=== PATIENT | male | born 1960 | race Caucasian/White ===

== ENCOUNTER → 2017-10-31 15:57 | Outpatient (CLI) | payer OTHER, SELFPAY ==
[2017-10-31 17:29] LABS: Absolute Lymphocyte Count 1.94 X10^3/ul (0.83-4.51); Absolute Neutrophil Count 5.7 X10^3/uL (2.0-7.7); Basophil# 0.02 X10^3/uL; Basophil% 0.2 % (0-1); Eosinophil# 0.18 X10^3/uL; Eosinophils% 2.1 % (0-5); Hematocrit 43.4 % (40-54); Lymphocyte # 1.94 X10^3/ul (4.0); Lymphocyte % 22.3 % (19-41); Mean Corp Hgb Conc 34.6 g/gl (32-36); Mean Corpuscular Hgb 29.5 pg (27.0-32.0); Mean Corpuscular Volume 85.4 fL (80-94); Mean Platelet Vol. 9.2 fl (6.2-12.0); Monocyte# 0.81 X10^3/uL; Monocyte% 9.3 % (0-10); Neutrophil # 5.73 X10^3/uL (2.7-7.7); Platelet Count 253 K/mm3 (150-450); RBC Distribution Width CV 13.7 % (11.6-14.6); RBC Distribution Width SD 42.1 fl (35.1-43.9); Red Blood Count 5.08 M/mm3 (4.6-6.2); White Blood Count 8.7 K/mm3 (4.4-11.0)
[2017-10-31 17:30] LABS: POSITIVE COUNT NO; POSITIVE DIFFERENTIAL NO; POSITIVE MORPHOLOGY NO
[2017-10-31 17:44] LABS: ALB/GLOB Ratio 1.1 RATIO (0.9-2.4); AST(SGOT) 29 U/L (15-37); Alanine Aminotransfer ALT/SGPT 43 U/L (16-61); Albumin, Serum 4.2 g/dL (3.2-5.0); Alkaline Phosphatase 67 U/L (45-117); Anion Gap 9 (5-15); BUN 16 mg/dL (7-18); BUN/Creat Ratio 13.3 RATIO (10-20); Calcium,Total 9.2 mg/dL (8.5-10.1); Chloride 103 mmol/L (98-107); EST Glomerular Filtration Rate 66 mL/min (>60); Est Glom Filt Rate - Afr Amer 80 mL/min (>60); Globulin 3.7 g/dL (2.2-4.2); Glucose 106 mg/dL (74-106); PSA,Total - Annual Screen 1.25 ng/mL (0.00-4.00); Protein, Total 7.9 g/dL (6.4-8.2); Sodium Level 141 mmol/L (136-145); Thyroid Stim Hormone (TSH) 2.33 uIU/mL (0.358-3.74)
[2017-11-04 12:25] LABS: Hep C Antibodies <0.1 s/co ratio (0.0-0.9)
== END ==
PROVIDERS: Family Provider Family Medicine Geriatric Medicine; PCP Family Medicine Geriatric Medicine; Visit Provider Family Medicine Geriatric Medicine
DX: F52.8 Other sexual dysfunction not due to a substance or known physiological condition (principal); I10 Essential (primary) hypertension; Z12.5 Encounter for screening for malignant neoplasm of prostate; Z13.89 Encounter for screening for other disorder
CPT/HCPCS: 80053; 84153; 84403; 84443; 85025; 86803; G0103

== ENCOUNTER → 2017-12-19 08:32 | Outpatient (CLI) | payer OTHER, SELFPAY | PROVIDERS: Family Provider Family Medicine Geriatric Medicine; PCP Family Medicine Geriatric Medicine; Visit Provider Family Medicine Geriatric Medicine | DX: R22.1 Localized swelling, mass and lump, neck (principal) | CPT/HCPCS: 76536 ==

== ENCOUNTER → 2017-12-27 14:49 | Outpatient (CLI) | payer SELFPAY, OTHER ==
--- NOTE | 2017-12-27 14:53 | CT_ITS ---
STUDY: CT SOFT TISSUE NECK WITH CONTRAST REASON FOR EXAM: Male, 57 years old. Neck mass RADIATION DOSAGE (If Supplied By Facility): CTDIvol = ( 24.30 ) mGy, DLP = ( 655.28 ) mGycm TECHNIQUE: The patient was scanned in a multi-detector CT scanner. High resolution transaxial imaging was performed following intravenous administration of 100 ml of Isovue 370 contrast material. Sagittal and coronal images were reconstructed. Individualized dose optimization techniques were used for this CT. COMPARISON: Ultrasound soft tissues of the neck 12/19/2017. FINDINGS: A BB marker has been placed left anterior submandibular neck soft tissues at the area of palpable lump. There is no visible lipoma. There is no other visible mass. Normal submandibular glands. Normal parotid glands. A few small submandibular lymph nodes are present, none pathologically enlarged. A few borderline enlarged lymph nodes are present bilateral jugulodigastric chains, symmetric in chronic appearance. Neck muscular soft tissues appear normal. Pharyngeal soft tissues appear normal. There are small mucous retention cysts of the maxillary sinuses, mild mucoperiosteal thickening of the ethmoid sinuses, clear mastoid sinuses and middle ear cavities. Craniofacial osseous structures unremarkable. No acute intracranial process is evident of the skull base. Cervical vasculature normal. Apical lungs clear. No supraclavicular lymphadenopathy. Normal thyroid. There is moderate to moderately severe disc narrowing of the cervical spine at all levels between C4 and T1, with uncovertebral joint hypertrophy contributing to mild multilevel foraminal narrowing. CT/Soft Tissue Neck WITH Contrast IMPRESSION: There is no evidence of left-sided neck mass. There is no lymphadenopathy. Electronically Signed: Luis Eckert, at 16:09 EDT Tel , Service support ,
== END ==
PROVIDERS: Family Provider Family Medicine Geriatric Medicine; PCP Family Medicine Geriatric Medicine; Visit Provider Family Medicine Geriatric Medicine
DX: R22.1 Localized swelling, mass and lump, neck (principal)
CPT/HCPCS: 70491; Q9967

== ENCOUNTER → 2018-04-14 11:23 | Outpatient (CLI) | payer OTHER, SELFPAY ==
[2018-04-14 11:43] LABS: Absolute Lymphocyte Count 1.81 X10^3/ul (0.83-4.51); Absolute Neutrophil Count 3.9 X10^3/uL (2.0-7.7); Basophil# 0.04 X10^3/uL; Basophil% 0.6 % (0-1); Eosinophils% 4.5 % (0-5); Hematocrit 43.3 % (40-54); Hemoglobin 14.7 g/dl (13.0-16.5); Lymphocyte # 1.81 X10^3/ul (4.0); Lymphocyte % 26.9 % (19-41); Mean Corp Hgb Conc 33.9 g/gl (32-36); Mean Corpuscular Hgb 28.9 pg (27.0-32.0); Mean Corpuscular Volume 85.2 fL (80-94); Mean Platelet Vol. 8.8 fl (6.2-12.0); Monocyte# 0.66 X10^3/uL; Monocyte% 9.8 % (0-10); Neutrophil % 57.9 % (47-70); Platelet Count 224 K/mm3 (150-450); RBC Distribution Width CV 14.1 % (11.6-14.6); RBC Distribution Width SD 43.3 fl (35.1-43.9); Red Blood Count 5.08 M/mm3 (4.6-6.2); White Blood Count 6.7 K/mm3 (4.4-11.0)
[2018-04-14 11:49] LABS: POSITIVE COUNT NO; POSITIVE DIFFERENTIAL NO; POSITIVE MORPHOLOGY NO
[2018-04-14 12:19] LABS: AST(SGOT) 22 U/L (15-37); Alanine Aminotransfer ALT/SGPT 33 U/L (16-61); Albumin, Serum 3.9 g/dL (3.2-5.0); Alkaline Phosphatase 62 U/L (45-117); Anion Gap 10 (5-15); BUN 11 mg/dL (7-18); BUN/Creat Ratio 11.9 RATIO (10-20); Calcium,Total 8.9 mg/dL (8.5-10.1); Chloride 102 mmol/L (98-107); Creatinine, Serum 0.92 mg/dL (0.70-1.30); EST Glomerular Filtration Rate 89 mL/min (>60); Est Glom Filt Rate - Afr Amer 108 mL/min (>60); Globulin 3.8 g/dL (2.2-4.2); Glucose 104 mg/dL (74-106); Potassium 4.2 mmol/L (3.5-5.1); Protein, Total 7.7 g/dL (6.4-8.2); Sodium Level 140 mmol/L (136-145)
== END ==
PROVIDERS: Family Provider Family Medicine Geriatric Medicine; PCP Family Medicine Geriatric Medicine; Referring Provider Family Medicine Geriatric Medicine; Visit Provider Family Medicine Geriatric Medicine
DX: R53.83 Other fatigue (principal); F52.8 Other sexual dysfunction not due to a substance or known physiological condition
CPT/HCPCS: 36415; 80053; 84403; 84443; 85025

== ENCOUNTER 2020-04-20 19:21 | Inpatient (IN) | payer OTHER, SELFPAY ==
[2020-04-20] VITALS (10 sets, daily range): BP systolic 109–119; BP diastolic 33–83; PULSE 69–178; RESP 16–18; TEMP 36.1–36.8; O2SAT 95–100; BMI 45.3; BMI 45.4
--- NOTE | 2020-04-20 19:55 | EKG12_ITS ---
Test Reason : DYSRHYTHMIA Blood Pressure : / mmHG Vent. Rate : 088 BPM Atrial Rate : 088 BPM P-R Int : 216 ms QRS Dur : 170 ms QT Int : 404 ms P-R-T Axes : 066 015 160 degrees QTc Int : 488 ms Sinus rhythm with 1st degree A-V block Left bundle branch block Abnormal ECG Confirmed by JUDITH STEWART, KEVEN ([id number]), soldering machine tender BRANDY MAGUIRE ([id number]) on 04/22/2020 8:26:07 AM Referred By: JOSELITO Confirmed By:KEVEN WONG MD
--- NOTE | 2020-04-20 19:56 | ED.VIS.CHEST ---
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 Negative for: Diaphoresis, Cough Narrative: 59-year-old male had acute onset of racing heartbeat shortness of breath and pressure in his lower chest upper abdomen. He felt a little lightheaded but did not become syncopal. This lasted 10 or 20 minutes, and then he felt better but the chest pressure lasted for about an hour before it resolved. During feeling poorly, he went inside and used a home blood pressure cuff to check his vital signs, his pressure was low and his heart rate was calculated as 180. He states now all of the symptoms are resolved. He states at the time he was working in a garage that was closed with a car running, but he was only in there for 5 minutes or less. He did smell fumes, and shortly thereafter left that room and turned the car off. He states he was working in his garage. 5 years ago he had an indeterminate stress test at [facility] in [place], this resulted in a heart cath that he was told was normal. He used to have hypertension and hyperlipidemia, but in changing his diet and losing some weight, he is now off of medications for both of those. He states he started a diet several days ago, where he is just drinking Slim fast shakes for meal replacement and that is it, and drinking fluids. This is not an Atkins/ketogenic shake. He denies any recent illness. Patient presents during the national coronavirus emergency declaration/pandemic. Denies any known contact with anyone infected with COVID-19, and denies having had the illness that he knows of this past year or so. Denies traveling out of the immediate area recently. Prior Similar Symptoms: No Recent Illness/Hospitalization: No Past Medical History - Allergies and Home Meds Allergies/Adverse Reactions: Allergies No Known Allergies Allergy (Verified 04/20/20 19:24) Primary Care Physician: Jasen Bhardwaj Chi, MD [Primary Care Provider] - Past Medical History: None - Except hypertension and hyperlipidemia that are resolved. See HPI. Lives: With Family Smoking Status: Never smoker Review of Systems General: Denies: Chills, Fever, Sweats Eyes: Denies: Visual changes - bilaterally, Diplopia ENT: Denies: Bilateral ear pain, Rhinorrhea, Sore throat Cardiovascular: Reports: Chest pain, Palpitations, Heart racing Respiratory: Reports: Dyspnea. Denies: Cough, Dyspnea on exertion Gastrointestinal: Reports: Nausea. Denies: Abdominal pain, Vomiting, Diarrhea, Melena, Hematochezia Genitourinary: Denies: Dysuria, Hematuria, Frequency Musculoskeletal: Denies: Back pain, Extremity Pain Skin: Denies: Rash, Wounds Neurological: Denies: Headache, Weakness, Numbness Psych: Denies: Depression, Suicidal thoughts Physical Exam Vital Signs/Narrative: Vital Signs Temp Pulse Resp BP Pulse Ox 04/20/20 19:38 88 04/20/20 19:22 96.9 F L 178 H 18 113/33 L 96 Inital Vital Signs reviewed: Yes General: Well nourished, Well developed, Obese, No Acute Distress Head: Normocephalic, Atraumatic Eyes: Perrl, EOMI ENT: Moist mucous membranes, No rhinorrhea Neck: Supple, Nontender, No lymphadenopathy, No JVD Cardiovascular: Regular rate, Regular rhythm, No murmurs, Normal S1, Normal S2. Negative for: Tachycardia Respiratory: No distress, CTA bilaterally, Chest nontender Abdomen: Soft, Nontender, Nondistended, Normal bowel sounds Back: Nontender, Normal Inspection Extremities: Nontender, No edema. Negative for: Calf Tenderness Skin: Normal color, No rash, No Trauma Neurological: Alert, Oriented x3, Cranial nerves II-XII grossly intact, Normal Strength, Normal Sensation Psychological: Normal affect, Normal Mood Diagnostic/Tx/Re-eval Impressions Chest X-Ray 04/20/20 20:15 IMPRESSION: No acute cardiopulmonary pathology Electronically Signed: Michael Blandon MD at 21:00 EST , Service support , 04/20/20 20:15 Chest 1 View (Portable) [RAD] Stat Laboratory Results 04/20/20 04/20/20 04/20/20 19:34 19:34 19:34 WBC 9.4 RBC 5.32 Hgb 15.2 Hct 45.1 MCV 84.8 MCH 28.6 MCHC 33.7 RDW Std Deviation 40.5 RDW Coeff of Perla 13.1 Plt Count 258 MPV 9.0 Immature Gran % (Auto) 0.300 Neut % (Auto) 63.7 Lymph % (Auto) 24.7 Coffey % (Auto) 8.8 Eos % (Auto) 2.1 Baso % (Auto) 0.4 Absolute Neuts (auto) 6.0 Absolute Lymphs (auto) 2.32 Nucleated RBC % 0 APTT 28.2 VBG Carboxyhemoglobin Sodium 136 Potassium 4.2 Chloride 102 Carbon Dioxide 29.0 Anion Gap 5 BUN 20 H Creatinine 1.14 Estim Creat Clear Calc 73.39 Est GFR (MDRD) Af Amer 84 Est GFR (MDRD) Non-Af 70 BUN/Creatinine Ratio 17.5 Glucose 117 H Calcium 9.4 Troponin I 0.051 H 04/20/20 20:05 WBC RBC Hgb Hct MCV MCH MCHC RDW Std Deviation RDW Coeff of Perla Plt Count MPV Immature Gran % (Auto) Neut % (Auto) Lymph % (Auto) Coffey % (Auto) Eos % (Auto) Baso % (Auto) Absolute Neuts (auto) Absolute Lymphs (auto) Nucleated RBC % APTT VBG Carboxyhemoglobin 5.0 H Sodium Potassium Chloride Carbon Dioxide Anion Gap BUN Creatinine Estim Creat Clear Calc Est GFR (MDRD) Af Amer Est GFR (MDRD) Non-Af BUN/Creatinine Ratio Glucose Calcium Troponin I - Rhythm Strip Rhythm Strip: Sinus Rhythm Rate: 92 Ectopy: None - EKG Initial EKG Interpretation: Sinus Rhythm, No Acute Injury Pattern, LBBB Prior: No Prior Treatment: Aspirin Repeat Eval: Pain Free YAZMIN Risk: Elevated Enzymes Score: 1 - Medical Decision Making Initially, the patient's monitor was alarming about tachycardia in the 170s. However at looking at his waveform, he has a left bundle branch block, wide complex QRS, with a pulse of around 90. I changed the lead that the monitor was showing, and his heart rate suddenly changed to 92, the tachycardia here in the ER was false due to the machine reading the QRS complex as well as the tall T waves and doubling his pulse. However since he measured his vital signs with a blood pressure cuff, he probably was that tachycardic at home. All of his symptoms are resolved on exam. However this is all very concerning for dysrhythmia such as ventricular tachycardia. Along with the chest pressure he was having, and his relative risk factors and age, with the concerning symptoms, as well as a nonspecifically slightly elevated troponin, admission for inpatient observation I believe is warranted and recommended. The patient is amenable to that. He had no recurrent symptoms or telemetry events while monitored in the emergency department. ED Disposition - Plan for ED Patient: Disposition: Acute Care Hospital [facility] Diagnosis: Chest pain, unspecified, Palpitations, Elevated troponin, Near syncope Referrals: Jasen Bhardwaj Chi, MD [Primary Care Provider] -
[2020-04-20 20:10] LABS: Absolute Lymphocyte Count 2.32 X10^3/uL (0.83-4.51); Basophil# 0.04 X10^3/uL; Basophil% 0.4 % (0-1); Eosinophils% 2.1 % (0-5); Hematocrit 45.1 % (40-54); Hemoglobin 15.2 g/dL (13.0-16.5); Lymphocyte # 2.32 X10^3/ul (4.0); Lymphocyte % 24.7 % (19-41); Mean Corp Hgb Conc 33.7 g/dL (32-36); Mean Corpuscular Hgb 28.6 pg (27.0-32.0); Mean Corpuscular Volume 84.8 fL (80-94); Monocyte# 0.83 X10^3/uL; Monocyte% 8.8 % (0-10); NRBC Flagged by Analyzer 0 % (0-5); Neutrophil # 5.98 X10^3/uL (2.7-7.7); Neutrophil % 63.7 % (47-70); Platelet Count 258 K/mm3 (150-450); RBC Distribution Width CV 13.1 % (11.6-14.6); RBC Distribution Width SD 40.5 fl (35.1-43.9); Red Blood Count 5.32 M/mm3 (4.6-6.2); White Blood Count 9.4 K/mm3 (4.4-11.0)
[2020-04-20] MEDS: Aspirin 81 MG TAB.CHEW 324 MG PO (20:10)
[2020-04-20] MEDS: 0.9% Normal Saline 1,000 ML 150 ML IV (20:10)
[2020-04-20 20:15] LABS: Partial Thromboplast Time 28.2 Seconds (24.1-36.2)
--- NOTE | 2020-04-20 20:15 | RAD_ITS ---
STUDY: X-RAY CHEST REASON FOR EXAM: Male, 59 years old. STARTED SLIM FAST DIET AND TODAY UPPER ABDOMINAL PAIN,LOW BP,HIGH HR TECHNIQUE: AP portable COMPARISON: None. FINDINGS: The lungs are clear and expanded. There is no demonstrated pleural abnormality. Normal size heart. Normal mediastinum and travis. Normal visualized pulmonary arteries. Normal visualized aortic arch and descending thoracic aorta. Dorsal spine demonstrates degenerative change. Normal visualized ribs, clavicles, and shoulders. There is no demonstrated abnormality of the visualized soft tissue structures of the upper abdomen. RAD/Chest 1 View (Portable) IMPRESSION: No acute cardiopulmonary pathology Electronically Signed: Michael Blandon MD at 21:00 EST , Service support ,
[2020-04-20 20:24] LABS: Anion Gap 5 (5-15); BUN 20 mg/dL (7-18); BUN/Creat Ratio 17.5 RATIO (10-20); Calcium,Total 9.4 mg/dL (8.5-10.1); Chloride 102 mmol/L (98-107); Creatinine, Serum 1.14 mg/dL (0.70-1.30); EST Glomerular Filtration Rate 70 mL/min (>60); Est Glom Filt Rate - Afr Amer 84 mL/min (>60); Estimated Creatinine Clearance 73.39 ml/min; Glucose 117 mg/dL (74-106); Potassium 4.2 mmol/L (3.5-5.1); Sodium Level 136 mmol/L (136-145)
--- NOTE | 2020-04-20 21:22 | PCM.HP.STD ---
Problem List (1) NSTEMI (non-ST elevated myocardial infarction) Status: Acute (2) Chest pain, unspecified Status: Acute Qualifiers: Chest pain type: unspecified Qualified Code(s): R07.9 - Chest pain, unspecified (3) Palpitations Status: Acute (4) Near syncope Status: Acute (5) Morbid obesity Status: Chronic History of Present Illness Date of Admission: 04/20/20 Chief Complaint: Chest pressure - 1 day. Palpitations The patient is a 59 year old M with no significant past medical history who comes in with complaints of shortness of breath and palpitations as well as chest pressure that started around 5:30 PM the day of admission. This happened when he was in his driveway. Patient felt very short of breath going from his car to his house. He checked his blood pressure on his machine and his blood pressure was low, heart rate was elevated at 185. He had associated dizziness but no diaphoresis. He denied any syncopal episode. He read up on the elevated heart rate on the Internet and was told to go to the hospital. When he got to the hospital, his heart rate and blood pressure improved soon after he got here. He denied having a previous episode like that. He has had previous cardiac work-up 5 years ago in [facility] by Dr. Newby in which his stress test was indeterminate and he subsequently had a cardiac cath that was unremarkable. His initial vitals in the ED showed temperature of 96.9F, heart rate 178, blood pressure 113/33, RR 18, Spo2 96%, on room air. Admitting labs showed unremarkable CBCD, APTT 28.2, VBG carboxyhemoglobin 5.0. Chest x-ray shows no acute cardiopulmonary abnormality. Past Medical History Past Medical History (Chronic Problems): Chronic Problems Morbid obesity (Chronic) Allergies No Known Allergies Allergy (Verified 04/20/20 19:24) Home Medications: Ambulatory Orders Medication Instructions Recorded Ergocalciferol [Vitamin D] 04/20/20 Zinc 50 mg PO DAILY 04/20/20 Surgical History: appendectomy, - - status post cardiac catheter 5 years ago, left surgery Lives: With Family Smoking Status: Never smoker Tobacco Use: Non-smoker Alcohol: None Drugs: None - *Family History Maternal History Items: Cancer Paternal History Items: Unknown Review of Systems Constitutional: Denies: Anorexia, Chills, Fever, Malaise, Weakness, Weight Change, Fatigue Eyes: Denies: Blurred vision, Cataracts, Conjunctivae Inflammation, Pain, Redness, Vision Change HEENT: Denies: Difficulty Hearing, Difficulty Swallowing, Head Aches, Hearing Changes, Sinus Congestion, Sinus Drainage Cardiovascular: Reports: Chest Pressure, Chest Tightness. Denies: Chest Pain, Claudication, Orthopnea, Palpitations, Paroxysmal Noc. Dyspnea Respiratory: Reports: Shortness of Breath, Shortness of breath at rest. Denies: Cough, Hemoptysis, Shortness of breath upon exertion, Sputum production Gastrointestinal: Denies: Abdominal Pain, Constipation, Hematochezia, Nausea, Vomiting Genitourinary: Denies: Dysuria Musculoskeletal: Denies: Joint Pain, Joint Tenderness Skin: Denies: Pruritis, Rash, Wounds Neurological: Denies: Difficulty swallowing, Focal weakness, Numbness, Tingling Psychiatric: Denies: Anxiety, Depression, Homicidal Ideations, Suicidal Ideations Hematologic/ Lymphatic: Denies: Easy Bruising, Easy Bleeding VTE Information - Inpt Only VTE Present on Admission: No VTE Pharm Prophylaxis ordered?: Yes Patient Problems: Active and Suspected Problems Chest pain, unspecified (Acute) Palpitations (Acute) Elevated troponin (Acute) Near syncope (Acute) NSTEMI (non-ST elevated myocardial infarction) (Acute) - Physical Exam Vitals/I&O's: Vital Signs Temp Pulse Resp BP Pulse Ox 96.9 F L 88 18 118/71 96 04/20/20 19:22 04/20/20 20:26 04/20/20 20:26 04/20/20 20:26 04/20/20 20:26 Oxygen Delivery Method Room Air Weight: 147.418 kg Body Mass Index (BMI) 45.3 General: Alert, Oriented x3, Cooperative, No apparent distress, - - morbidly obese HEENT: Atraumatic, PERRLA, EOMI, Normocephalic Oral: Moist Mucosa Neck: Supple Lungs: Clear to auscultation, Normal air movement Cardiovascular: Regular rate, Regular Rhythm, Normal S1, Normal S2, No murmurs Abdomen: Bowel Sounds Present, Soft, Non Tender, Non-Distended, No Hepato-splenomegaly Extremities: Edema - trace bilateral, in compression stocking Skin: No rashes, No breakdown Musculoskeletal: No Tenderness to Palpation of Joints or Extremities Lymphatic: No Cervical, Supraclavicular, or Inguinal Adenopathy Neurological: Cranial nerves II-XII grossly intact, Neuro grossly intact Psych/Mental Status: Normal Affect, Appropriate Laboratory Results 04/20/20 19:34: WBC 9.4, RBC 5.32, Hgb 15.2, Hct 45.1, MCV 84.8, MCH 28.6, MCHC 33.7, RDW Std Deviation 40.5, RDW Coeff of Perla 13.1, Plt Count 258, MPV 9.0, Immature Gran % (Auto) 0.300, Neut % (Auto) 63.7, Lymph % (Auto) 24.7, Centre % (Auto) 8.8, Eos % (Auto) 2.1, Baso % (Auto) 0.4, Absolute Neuts (auto) 6.0, Absolute Lymphs (auto) 2.32, Nucleated RBC % 0 04/20/20 19:34: APTT 28.2 04/20/20 19:34: Sodium 136, Potassium 4.2, Chloride 102, Carbon Dioxide 29.0, Anion Gap 5, BUN 20 H, Creatinine 1.14, Estim Creat Clear Calc 73.39, Est GFR (MDRD) Af Amer 84, Est GFR (MDRD) Non-Af 70, BUN/Creatinine Ratio 17.5, Glucose 117 H, Calcium 9.4, Troponin I 0.051 H 04/20/20 20:05: VBG Carboxyhemoglobin 5.0 H Current Medications Sodium Chloride () 1,000 mls @ 150 mls/hr IV .[id number] [facility] Last Admin: 04/20/20 20:10 Dose: 150 mls/hr Documented by: Assessment/Plan All Active Problems Chest pain, unspecified (Acute) Palpitations (Acute) Elevated troponin (Acute) Near syncope (Acute) NSTEMI (non-ST elevated myocardial infarction) (Acute) 1. Arrhythmia-suspected SVT, lasted for a while, not caught on EKG, resolved for now No history of arrhythmia, will continue to monitor 2. Acute NSTEMI with an episode of chest discomfort, EKG shows left bundle branch block, unclear if this is new No previous EKGs to compare Patient denies any chest pain at time of being admitted We will consult cardiology, Lovenox, hold off on beta-mouna for now on account of low blood pressure with controlled heart rate 2D echo, trend troponins, lipid profile, HbA1c 3. Morbid obesity, BMI 45.4, lifestyle modification recommended 4. DVT prophylaxis?on therapeutic Lovenox Inpatient E&M: [id number] Init Hosp L3
--- NOTE | 2020-04-20 22:10 | EKG12_ITS ---
Test Reason : ADMIT Blood Pressure : / mmHG Vent. Rate : 068 BPM Atrial Rate : 068 BPM P-R Int : 216 ms QRS Dur : 170 ms QT Int : 474 ms P-R-T Axes : 030 008 108 degrees QTc Int : 504 ms Sinus rhythm with 1st degree A-V block Left bundle branch block Abnormal ECG Confirmed by JUDITH STEWART, KEVEN ([id number]), associate entertainment editor BRANDY MAGUIRE ([id number]) on 04/25/2020 10:03:37 AM Referred By: MAGGIE Confirmed By:KEVEN WONG MD
--- NOTE | 2020-04-20 22:29 | ECHOCS_ITS ---
Version 2 Reason For Study: ARRHYTHMIA Procedure This was a 2D Doppler, Color Flow transthoracic echocardiogram. The study was technically difficult. Due to body habitus. Contrast injection was performed. Left Ventricle Moderately dilated left ventricle. Moderate concentric left ventricular hypertrophy. The estimated ejection fraction is 37 %. Stage 1 diastolic dysfunction. Septal motion consistent with IVCD. There is moderate global hypokinesis of the left ventricle. Right Ventricle Normal RV size. Normal systolic function. Atria Normal left atrium. Normal right atrium. Tricuspid Valve Normal tricuspid valve. Unable to estimate RV systolic pressure due to insufficient tricuspid regurgitant envelope. Aortic Valve The aortic valve is not well visualized. Pulmonic Valve The pulmonic valve is not well visualized. Great Vessels Mildly dilated aortic root. The pulmonary artery is normal size. Normal inferior vena cava. Pericardium/Pleural No pericardial effusion. Medication Diluted definity 3.0ml given slow IV push to enhance endocardial definition. MMode/2D Measurements & Calculations LVIDd: 6.9 cm IVSd: 1.4 cm Ao root diam: 3.9 cm LVIDs: 5.7 cm LVPWd: 1.5 cm RVDd: 3.6 cm FS: 17.8 % LAV(MOD-bp): 77.2 ml LA A4 area: 21.7 cm2 LA dimension(2D): 4.8 cm LAV(MOD-bp) Indexed: 29.8 ml/m2 LAV(MOD-sp2): 77.0 ml LAV(MOD-sp4): 68.9 ml RA A4 area: 21.5 cm2 Time Measurements MV dec time: 0.26 sec Doppler Measurements & Calculations MV E max jay: 60.0 cm/sec Lat Peak E' Jay: 10.7 cm/sec Med Peak E' Jay: 4.8 cm/sec MV A max jay: 65.8 cm/sec E/E' lat: 5.6 E/E' med: 12.4 MV E/A: 0.91 Ao V2 max: 163.7 cm/sec LV V1 max: 96.0 cm/sec PA V2 max: 120.6 cm/sec Ao max P.7 mmHg LV V1 max P.7 mmHg Interpretation Summary Moderately dilated left ventricle. Moderate concentric left ventricular hypertrophy. The estimated ejection fraction is 37 %. There is moderate global hypokinesis of the left ventricle. Stage 1 diastolic dysfunction. Septal motion consistent with IVCD. Contrast injection was performed. Ordering Physician: Megan West Referring Physician: Jasen Bhardwaj Chi Performed By: Ilda Oneal, CINDY, RVT
[2020-04-20] MEDS: Enoxaparin 150 MG/ML Syringe SC (23:25)
[2020-04-20] MEDS: 0.9% Normal Saline 1,000 ML 75 ML IV (23:25)
[2020-04-20 23:46] LABS: Hemoglobin A1c 5.8 % (3.8-5.6)
[2020-04-21] VITALS (16 sets, daily range): BP systolic 98–130; BP diastolic 54–70; PULSE 54–70; RESP 16–18; TEMP 36.1–36.8; O2SAT 92–99
[2020-04-21] LABS: Magnesium 2.4 mg/dL (1.6-2.6)
[2020-04-21 01:38] LABS: Absolute Lymphocyte Count 2.59 X10^3/uL (0.83-4.51); Absolute Neutrophil Count 4.5 X10^3/uL (2.0-7.7); Basophil# 0.04 X10^3/uL; Basophil% 0.5 % (0-1); Eosinophil# 0.25 X10^3/uL; Eosinophils% 3.1 % (0-5); Hematocrit 42.7 % (40-54); Hemoglobin 14.3 g/dL (13.0-16.5); Lymphocyte # 2.59 X10^3/ul (4.0); Lymphocyte % 31.6 % (19-41); Mean Corp Hgb Conc 33.5 g/dL (32-36); Mean Corpuscular Hgb 28.4 pg (27.0-32.0); Mean Corpuscular Volume 84.7 fL (80-94); Mean Platelet Vol. 8.4 fl (6.2-12.0); Monocyte% 9.8 % (0-10); NRBC Flagged by Analyzer 0 % (0-5); Neutrophil # 4.48 X10^3/uL (2.7-7.7); Neutrophil % 54.6 % (47-70); Platelet Count 222 K/mm3 (150-450); RBC Distribution Width CV 13.2 % (11.6-14.6); RBC Distribution Width SD 40.9 fl (35.1-43.9); Red Blood Count 5.04 M/mm3 (4.6-6.2); White Blood Count 8.2 K/mm3 (4.4-11.0)
[2020-04-21 01:57] LABS: AST(SGOT) 24 U/L (15-37); Alanine Aminotransfer ALT/SGPT 25 U/L (16-61); Albumin, Serum 3.6 g/dL (3.2-5.0); Alkaline Phosphatase 57 U/L (45-117); Bilirubin, Direct 0.11 mg/dL (0.00-0.30); Globulin 3.3 g/dL (2.2-4.2); Protein, Total 6.9 g/dL (6.4-8.2)
[2020-04-21 02:01] LABS: ALB/GLOB Ratio 1.1 RATIO (0.9-2.4); AST(SGOT) 23 U/L (15-37); Alanine Aminotransfer ALT/SGPT 26 U/L (16-61); Albumin, Serum 3.6 g/dL (3.2-5.0); Alkaline Phosphatase 55 U/L (45-117); Anion Gap 6 (5-15); BUN 18 mg/dL (7-18); BUN/Creat Ratio 19.2 RATIO (10-20); Calcium,Total 8.7 mg/dL (8.5-10.1); Chloride 106 mmol/L (98-107); Cholesterol 221 mg/dL (200); Creatinine, Serum 0.94 mg/dL (0.70-1.30); EST Glomerular Filtration Rate 87 mL/min (>60); Est Glom Filt Rate - Afr Amer 105 mL/min (>60); Estimated Creatinine Clearance 89.01 ml/min; Globulin 3.3 g/dL (2.2-4.2); Glucose 97 mg/dL (74-106); High Density Lipoprotein 43 mg/dL; Potassium 3.8 mmol/L (3.5-5.1); Protein, Total 6.9 g/dL (6.4-8.2); Sodium Level 139 mmol/L (136-145); Triglycerides 108 mg/dL; Very Low Density Lipoprotein 22 mg/dL (5-40)
[2020-04-21 02:26] LABS: BNP,B-Type NATRIURETIC PEPTIDE 101.2 pg/mL (0-100)
--- NOTE | 2020-04-21 06:51 | CON.PCM_ITS ---
Reason for Consult Date of Consultation: 04/21/20 Reason for Consultation: Palpitations and chest discomfort History of Present Illness: The patient is a 59 year old M with no significant past medical history who presented with shortness of breath and palpitations. He also described chest discomfort which started approximately 5:30 PM. He felt his heart rate going fast and he had a watch which took his heart rate at approximately 185 bpm. He had mild associated dizziness but no diaphoresis he denied any syncope. He presented to the emergency room but unfortunately his heart rate had returned to normal by the time he was seen in the ER. His vitals were noted to be fairly n ormal. He was admitted to the telemetry unit. An EKG done demonstrated a left bundle branch block abnormality. Cardiac troponins were subsequently obtained and were noted to be abnormal. She had had a previous cardiac work-up 5 years ago with a cardiac catheterization which demonstrated no obstructive coronary disease. He is currently pain-free. [] Past Medical History Allergies/Adverse Reactions: Allergies No Known Allergies Allergy (Verified 04/20/20 19:24) Home Medications: Ambulatory Orders Medication Instructions Recorded Ergocalciferol [Vitamin D] 04/20/20 Zinc 50 mg PO DAILY 04/20/20 Past Medical History (Chronic Problems): Chronic Problems Morbid obesity (Chronic) Surgical History: appendectomy, - - status post cardiac catheter 5 years ago, left surgery - *Family History Maternal History Items: Cancer Paternal History Items: Unknown Lives: With Family Smoking Status: Never smoker Tobacco Use: Non-smoker Alcohol: None Drugs: None Review of Systems - Review of Systems General: Denies: Fever, Night Sweats, Fatigue HEENT: Denies: Vision Change Cardiovascular: Denies: Chest Discomfort, Shortness of Breath, Orthopnea, PND, Peripheral Edema, Palpitations, Lightheadedness, Dizziness, Near Syncope, Syncope Respiratory: Denies: Cough, Sputum Production, Hemoptysis Gastrointestinal: Denies: Hematemesis, Hematochezia, Melena Genitourinary: Denies: Dysuria, Hematuria Muscoloskeletal: Denies: Myalgias Skin: Denies: Rash Neurological: Denies: Dizziness Psychiatric: Denies: Anxiety Subjectve: Patient seen and evaluated. Objective: Vital Signs Temp Pulse Resp BP Pulse Ox 97.0 F L 60 18 98/60 97 04/21/20 04:40 04/21/20 04:40 04/21/20 04:40 04/21/20 04:40 04/21/20 04:40 Oxygen Delivery Method Room Air Weight: 325 lb 2.909 oz Body Mass Index (BMI) 45.3 Intake and Output for Last 24 Hours 04/19/20 04/20/20 04/21/20 23:59 23:59 23:59 Intake Total 432.5 / 432.5 450 / 450 Balance 432.5 / 432.5 450 / 450 General: Awake, Alert, Oriented x 3 HEENT: PERRL, EOMI, Sclera Non Icteric Neck: Supple, Good ROM, No Lymph Node Enlargement Lungs: Clear to auscultation Cardiovascular: Regular Rhythm, Normal S1, Normal S2, No Murmurs, No Rubs, No Gallops 04/20/20 19:34: WBC 9.4, RBC 5.32, Hgb 15.2, Hct 45.1, MCV 84.8, MCH 28.6, MCHC 33.7, Plt Count 258, MPV 9.0, Immature Gran % (Auto) 0.300, Neut % (Auto) 63.7, Lymph % (Auto) 24.7, [place] % (Auto) 8.8, Eos % (Auto) 2.1, Baso % (Auto) 0.4, Absolute Neuts (auto) 6.0, Nucleated RBC % 0 04/20/20 19:34: APTT 28.2 04/20/20 19:34: Sodium 136, Potassium 4.2, Chloride 102, Carbon Dioxide 29.0, Anion Gap 5, BUN 20 H, Creatinine 1.14, Est GFR (MDRD) Af Amer 84, Est GFR (MDRD) Non-Af 70, BUN/Creatinine Ratio 17.5, Glucose 117 H, Calcium 9.4, Troponin I 0.051 H 04/20/20 19:34: Hemoglobin A1c 5.8 H 04/20/20 22:48: Troponin I 1.230 H* 04/20/20 22:48: Magnesium 2.4 04/21/20 01:30: WBC 8.2, RBC 5.04, Hgb 14.3, Hct 42.7, MCV 84.7, MCH 28.4, MCHC 33.5, Plt Count 222, MPV 8.4, Immature Gran % (Auto) 0.400, Neut % (Auto) 54.6, Lymph % (Auto) 31.6, [place] % (Auto) 9.8, Eos % (Auto) 3.1, Baso % (Auto) 0.5, Absolute Neuts (auto) 4.5, Nucleated RBC % 0 04/21/20 01:30: Sodium 139, Potassium 3.8, Chloride 106, Carbon Dioxide 27.0, Anion Gap 6, BUN 18, Creatinine 0.94, Est GFR (MDRD) Af Amer 105, Est GFR (MDRD) Non-Af 87, BUN/Creatinine Ratio 19.2, Glucose 97, Calcium 8.7, Total Bilirubin 0 .40, Triglycerides 108, Cholesterol 221 H, LDL Cholesterol 156 H, VLDL Cholesterol 22, HDL Cholesterol 43 04/21/20 01:30: Troponin I 3.010 H* 04/21/20 01:30: Total Bilirubin 0.40, Direct Bilirubin 0.11 04/21/20 01:30: B-Natriuretic Peptide 101.2 H Rhythm: EKG: Normal sinus rhythm with a left bundle branch block pattern ECHO: Stress Test: Cardiac Cath: PCI: CT Surgery: Holter monitor: EPS: PPM: CXR: Chest CT Scan: Assessment/Plan 1. Non-ST elevation myocardial infarction * Patient presents with a non-ST elevation myocardial infarction as well as a left bundle branch block pattern. She did present with chest discomfort. Based on the above angiographic findings I would recommend that the patient undergo a cardiac catheterization. The risk benefits alternatives of been explained to the patient he understands and agrees to proceed. Depending on the findings further recommendations will be made. * 2. Left bundle branch block * Patient noted to have a left bundle branch block. An echocardiogram should be performed to assess his ventricular function and exclude a cardiomyopathy. * Depending on those findings further recommendations will be made. * With regard to the tachycardia the etiology is not entirely clear at this time. After the cardiac catheterization and the echo further recommendations will be made but may include a Holter monitor or an event monitor. Thus far no rhythm abnormalities have been noted while on telemetry. * * Addendum: Cardiac catheterization performed demonstrated the following: Tortuous coronary arteries. Left main with no significant stenosis. Left anterior descending artery with no high-grade stenosis. Left anterior descending artery with no high-grade stenosis. Left circumflex artery with no high-grade stenosis. Right coronary artery dominant large with no high-grade stenosis. Reduced left ventricular systolic function. Estimated EF 35%. Based on the above angiographic findings I would recommend the patient be started on a beta-mouna with carvedilol 3.125 mg twice a day and titrated upwards. An echocardiogram should be repeated in 3 months and if the patient still has an EF less than or equal to 35% should be considered a candidate for an implantable defibrillator. An NICOLE inhibitor may also be added as an outpatient. * I would recommend when patient is ready for discharge later today for an event monitor to be placed to see whether they cardiac arrhythmia can be discerned. * Thank you for allowing me to participate in the care of your patient. Please don't hesitate to call if any issues arise.
[2020-04-21] MEDS: Aspirin 81 MG TAB.CHEW PO (06:58)
[2020-04-21] MEDS: 0.9% Normal Saline 1,000 ML 15 ML IV (07:47)
--- NOTE | 2020-04-21 07:51 | NURSING ---
Report called to oven laborerlalita Wei RN.
--- NOTE | 2020-04-21 08:05 | CASEMGMT ---
According to the [facility] website, the following are in-network tertiary facilities: [facility] and [facility]. Preston TIJERINA CM
--- NOTE | 2020-04-21 09:16 | CL.D_ITS ---
Patient Name: SHELLEY PAUL Study Date: 04/21/2020 Performing: Gerry Orosco MD Ht: 71 inches 180 cm : 1960 Wt: 326.7 lbs 148 kg Age: 59 Gender: male BSA: 2.59 PROCEDURE(S) PERFORMED LD02-ADX/COR/LV CLINICAL PROFILE AND INDICATIONS Indications: Suspected CAD Heart Failure: None Stress/Imaging Stress/Image Study Performed: No CONCLUSIONS Non obstructive coronary arteries Cardiomyopathy: Dilated RECOMMENDATIONS Medical therapy DESCRIPTION OF PROCEDURE The patient arrived to the procedure lab. The risks and benefits of the procedure as well as a full d escription of our services here and current unavailability of surgical backup were fully explained to the patient and/or their significant other prior to the catheterization. The Timeout was completed, verifying the correct patient and procedure. The patient's procedural site was prepped and draped in the usual fashion. Local anesthetic was given subcutaneously to right radial region with Lidocaine 2% . Using a modified Seldinger technique, arterial access was obtained via the right radial artery, a 6 Fr sheath was inserted. Right Coronary Artery selective angiography was then performed in multiple v iews using a 5 Fr. 4.0 Grafton catheter. Left Coronary Artery selective angiography was performed in mu ltiple views using a 5 Fr. 4.0 Grafton catheter. Left Ventriculography was performed in CORONEL projection using a 5 Fr. Pigtail catheter. LV to AO pullback pressures were then recorded.The arterial sheath was pulled and a TR Band was applied for hemostasis, with 14cc of air in the band. CORONARY ANGIOGRAPHY DOMINANCE: Right Dominant LEFT HEART ASSESSMENT Left Ventricular Ejection Fraction: by LV Gram 35 % Global Hypokinesis - Moderate Depressed Left Ventricular systolic function LEFT MAIN: Angiographically normal LEFT ANTERIOR DESCENDING ARTERY: No significant disease noted CIRCUMFLEX ARTERY: Mild luminal irregularities RIGHT CORONARY ARTERY: Mild luminal irregularities COMPLICATIONS No Complications PROCEDURE MEDICATIONS Versed 1 mg IV Fentanyl 50 mcg IV Versed 1 mg IV Oxygen: 2 L/min via nasal cannula SUMMARY OF HEMODYNAMIC DATA Time AIR REST ECG 08:10:10 AO 96/61 (75) SA 08:39:35 LV 99/0, 2 08:48:00 LV 106/2, 5 08:48:06 LV 102/2, 6 08:50:07 LVp 104/2, 8 08:50:13 [facility] 96/62 (77) 08:50:18 Signed By Gerry Orosco MD On 04/21/2020 09:15:11 Gerry Orosco MD
--- NOTE | 2020-04-21 10:48 | CASEMGMT ---
BREEZY CARROLL assessment: Face to Face with patient for initial transition planning/care coordination assessment. BREEZY CARROLL introduced self and role at [facility], pt voices understanding and consents to assessment at this time. Pt is sitting up in bed in no distress at this time. Pt is A/Ox4 at this time and answers all questions appropriately at this time. Pt's at bedside during assessment. Care providers, pharmacy, and demographics verified at this time. Presentation: started slim fast diet, then started with upper abd pain, low bp, high HR Admitting dx: Chest pain PCP: [place] Specialists: yg Kaur Preferred Pharmacy: [facility] Insurance: [employer] Prescription Benefit: [employer], [employer] Living Will/HPOA: Pt states does not have LW/HPOA and is interested in AD info at this time. Pt/ aware that SW is available to complete at this time, but pt just requests info at this time. LNOK: Mary Paige, Living Arrangements: Pt states lives with in 2 story home and states no concerns at home at this time. Pt states is independent with ADL's. Transportation: Pt states drives self and states no transportation concerns at this time. DME/HHC: Pt states has a cpap but is not sure which DME company he got it through originally. Pt states he just orders own supplies online. Pt states no need for any further DME at this time. Pt states no hx of HHC or SNF in the past. Pt states no concerns with going home at time of discharge. 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 Pt states does not smoke cigarettes or drink ETOH. Pt voices no further concerns/needs at this time. CM to follow for any further discharge planning/needs. Advised pt to ask for CM if any further questions/concerns/needs arise, voices understanding. Pt Goal: Home Plan: Home [place] BREEZY CARROLL
[2020-04-21] MEDS: Carvedilol 3.125 MG TABLET PO ×2 (10:53→21:49)
--- NOTE | 2020-04-21 12:55 | PN_ITS ---
Patient Problems: Active and Suspected Problems (Last Updated 04/21/20 @ 12:48 by Willow Fraire) Chest pain, unspecified (Acute) Palpitations (Acute) NSTEMI (non-ST elevated myocardial infarction) (Acute 04/20/20) Near syncope (Acute 04/20/20) Subjective: Patient seen and examined. He was admitted with a complaint of chest pain and palpitations of 1 day. He also had tachycardia at home and states his heart rate was elevated at around 185. He has not had such tachycardia before. He had a cardiac cath about 5 years ago after he had a 97 8 stress test and states it was negative. Initial troponin was 0.051 and trended up to 1.23 and then to 3.010. He was therefore managed for non-STEMI. He had cardiac cath today. Patient seen after cardiac cath. was by his bedside. He had no complaints and felt well. Chest pain had not recurred. He was about to have a 2D echo. Review of systems otherwise negative. He has remained hemodynamically stable. Vitals/I&O's: Vital Signs Temp Pulse Resp BP Pulse Ox 97.7 F L 70 18 104/58 L 95 04/21/20 12:00 04/21/20 12:00 04/21/20 12:00 04/21/20 12:00 04/21/20 12:00 Oxygen Delivery Method Room Air Weight: 325 lb 2.909 oz Body Mass Index (BMI) 45.3 Intake and Output for Last 24 Hours 04/19/20 04/20/20 04/21/20 23:59 23:59 23:59 Intake Total 432.5 / 432.5 1466.75 / 1466.75 Balance 432.5 / 432.5 1466.75 / 1466.75 General: Alert, Oriented x3, Cooperative, No apparent distress, - - obese HEENT: Atraumatic, PERRLA, EOMI, Normocephalic Oral: Dry Mucosa Neck: Supple, No JVD, Negative Carotid Bruits Lungs: Clear to auscultation, Normal air movement, No rhonchi, No wheeze, No rales Cardiovascular: Regular rate, Regular Rhythm, Normal S1, Normal S2, No murmurs Abdomen: Bowel Sounds Present, Soft, Non Tender, Non-Distended, No Hepato- splenomegaly Extremities: No clubbing, No cyanosis, No edema, Capillary Refill Less than 3 Seconds Skin: No rashes, No breakdown Musculoskeletal: No Tenderness to Palpation of Joints or Extremities Lymphatic: No Cervical, Supraclavicular, or Inguinal Adenopathy Neurological: Cranial nerves II-XII grossly intact, Neuro grossly intact, Motor Exam 5/5 strength throughout Psych/Mental Status: Normal Affect, Appropriate, Alert and oriented to time, place, person, mood and affect Laboratory Results 04/20/20 19:34: WBC 9.4, RBC 5.32, Hgb 15.2, Hct 45.1, MCV 84.8, MCH 28.6, MCHC 33.7, RDW Std Deviation 40.5, RDW Coeff of Perla 13.1, Plt Count 258, MPV 9.0, Immature Gran % (Auto) 0.300, Neut % (Auto) 63.7, Lymph % (Auto) 24.7, [place] % (Auto) 8.8, Eos % (Auto) 2.1, Baso % (Auto) 0.4, Absolute Neuts (auto) 6.0, Absolute Lymphs (auto) 2.32, Nucleated RBC % 0 04/20/20 19:34: APTT 28.2 04/20/20 19:34: Sodium 136, Potassium 4.2, Chloride 102, Carbon Dioxide 29.0, Anion Gap 5, BUN 20 H, Creatinine 1.14, Estim Creat Clear Calc 73.39, Est GFR (MDRD) Af Amer 84, Est GFR (MDRD) Non-Af 70, BUN/Creatinine Ratio 17.5, Glucose 117 H, Calcium 9.4, Troponin I 0.051 H 04/20/20 19:34: Hemoglobin A1c 5.8 H 04/20/20 20:05: VBG Carboxyhemoglobin 5.0 H 04/20/20 22:48: Troponin I 1.230 H* 04/20/20 22:48: Magnesium 2.4 04/21/20 01:30: WBC 8.2, RBC 5.04, Hgb 14.3, Hct 42.7, MCV 84.7, MCH 28.4, MCHC 33.5, RDW Std Deviation 40.9, RDW Coeff of Perla 13.2, Plt Count 222, MPV 8.4, Immature Gran % (Auto) 0.400, Neut % (Auto) 54.6, Lymph % (Auto) 31.6, [place] % (Auto) 9.8, Eos % (Auto) 3.1, Baso % (Auto) 0.5, Absolute Neuts (auto) 4.5, Absolute Lymphs (auto) 2.59, Nucleated RBC % 0 04/21/20 01:30: Sodium 139, Potassium 3.8, Chloride 106, Carbon Dioxide 27.0, Anion Gap 6, BUN 18, Creatinine 0.94, Estim Creat Clear Calc 89.01, Est GFR (MDRD) Af Amer 105, Est GFR (MDRD) Non-Af 87, BUN/Creatinine Ratio 19.2, Glucose 97, Calcium 8.7, Total Bilirubin 0.40, AST 23, ALT 26, Alkaline Phosphatase 55, Total Protein 6.9, Albumin 3.6, Globulin 3.3, Albumin/Globulin Ratio 1.1, Triglycerides 108, Cholesterol 221 H, LDL Cholesterol 156 H, VLDL Cholesterol 22, HDL Cholesterol 43 04/21/20 01:30: Troponin I 3.010 H* 04/21/20 01:30: Total Bilirubin 0.40, Direct Bilirubin 0.11, AST 24, ALT 25, Alkaline Phosphatase 57, Total Protein 6.9, Albumin 3.6, Globulin 3.3 04/21/20 01:30: B-Natriuretic Peptide 101.2 H Diagnostic Data Chest X-Ray 04/20/20 20:15 IMPRESSION: No acute cardiopulmonary pathology Electronically Signed: Michael Blandon MD at 21:00 EST , Service support , Current Medications Acetaminophen (Acetaminophen 325 Mg Tablet) 650 mg PO Q6H PRN PRN PRN Reason: Pain Score 1-10/Temp > 100.7 F Al Hydroxide/Mg Hydroxide (Mag Hydrox/Al Hydrox/Simeth 30 Ml Udc) 30 ml PO Q6H PRN PRN PRN Reason: Gastric Burning Atorvastatin Calcium (Atorvastatin Calcium 20 Mg Tablet) 20 mg PO QHS CHAD Carvedilol (Carvedilol 3.125 Mg Tablet) 3.125 mg PO BID CHAD Last Admin: 04/21/20 10:53 Dose: 3.125 mg Documented by: Sodium Chloride () 1,000 mls @ 75 mls/hr IV .[id number] [facility] Last Infusion: 04/21/20 09:30 Dose: 75 mls/hr Documented by: Sodium Chloride () 1,000 mls @ 0 mls/hr IV .Q0M [facility] Last Infusion: 04/21/20 09:44 Dose: Infused Documented by: Magnesium Hydroxide (Magnesium Hydroxide 30 Ml Udc) 30 ml PO DAILY PRN PRN PRN Reason: Constipation Nitroglycerin (Nitroglycerin (Inpatient Use) 0.4 Mg Tab.Subl) 0.4 mg SUBLINGUAL Q5M PRN PRN Reason: CARDIAC/CHEST PAIN Ondansetron HCl (Ondansetron 4 Mg/2 Ml Vial) 4 mg IV Q8H PRN PRN PRN Reason: NAUSEA/VOMITING Sodium Chloride (0.9% Saline Lock 10 Ml Syringe) 10 - 40 ml IV UD PRN PRN Reason: SALINE FLUSH STROKE Vital Signs/Narrative: Vital Signs Temp Pulse Resp BP Pulse Ox 04/21/20 12:00 97.7 F L 70 18 104/58 L 95 04/21/20 11:02 57 L 16 115/66 94 04/21/20 10:45 63 16 116/64 95 04/21/20 10:30 97.5 F L 56 L 16 111/61 94 04/21/20 10:29 56 L 16 111/61 94 04/21/20 10:05 54 L 16 102/56 L 96 04/21/20 09:50 57 L 16 106/54 L 92 04/21/20 09:35 59 L 16 121/61 H 93 04/21/20 09:20 98.2 F 54 L 16 110/63 93 Medical Necessity - Tobacco Use Smoking Status: Never smoker Tobacco Use: Non-smoker Assessment/Plan All Active Problems (Last Updated 04/21/20 @ 12:48 by Willow Fraire) Chest pain, unspecified (Acute) Palpitations (Acute) NSTEMI (non-ST elevated myocardial infarction) (Acute 04/20/20) Non-ischemic cardiomyopathy (Acute) Left bundle branch block (LBBB) (Acute) Near syncope (Acute 04/20/20) #nonstemi * Cardiac cath showed EF of 35% with moderate global hypokinesis and depressed left ventricular systolic function with no significant disease noted in the vasculature. * He was diagnosed with dilated cardiomyopathy per cardiac cath. He has been started on beta-mouna. * Cardiology on board. * Lipid panel showed elevated cholesterol with LDL of 156. Put on high intensity statin. # Tachycardia * States his heart rate was up at 185 prior to admission. Heart rate has been normal sinus rhythm since he has been here. * Cardiac cath findings as above. 2D echo pending. * Hyperlipidemia: Start statins. #Impaired glucose tolerance: A1c is 5.8. He does not meet the criteria for diagnosis of diabetes. Counseled on DASH diet and lifestyle changes. #Super morbid obesity: BMI is 45.4. Complicates acute care, prognosis and expected recovery. Prophylaxis: Lovenox Inpatient E&M: 63733 Subs Hosp L2
[2020-04-21] MEDS: 0.9% Normal Saline 1,000 ML 75 ML IV (14:11)
[2020-04-22 03:00] VITALS: PULSE 58
[2020-04-22 03:45] VITALS: BP 115/59; PULSE 55; RESP 16; TEMP 36.6; O2SAT 98
[2020-04-22 07:00] VITALS: PULSE 61
--- NOTE | 2020-04-22 07:39 | PN.CARD_ITS ---
Subjectve: Patient seen and evaluated. Appears to be doing well. Had uneventful night. Had short runs of nonsustained wide-complex tach. Objective: Vital Signs Temp Pulse Resp BP Pulse Ox 97.9 F 61 16 115/59 L 98 04/22/20 03:45 04/22/20 07:00 04/22/20 03:45 04/22/20 03:45 04/22/20 03:45 Oxygen Delivery Method CPAP Weight: 325 lb 6.436 oz Body Mass Index (BMI) 45.3 Intake and Output for Last 24 Hours 04/20/20 04/21/20 04/22/20 23:59 23:59 23:59 Intake Total 432.5 / 432.5 2714.25 / 2714.25 125 / 125 Balance 432.5 / 432.5 2714.25 / 2714.25 125 / 125 General: Awake, Alert, Oriented x 3 HEENT: PERRL, EOMI, Sclera Non Icteric Neck: Supple, Good ROM, No Lymph Node Enlargement Lungs: Clear to auscultation Cardiovascular: Regular Rhythm, Normal S1, Normal S2, No Murmurs, No Rubs, No Gallops Rhythm: EKG: ECHO: Stress Test: Cardiac Cath: PCI: CT Surgery: Holter monitor: EPS: PPM: CXR: Chest CT Scan: Medical Necessity - Tobacco Use Smoking Status: Never smoker Tobacco Use: Non-smoker Assessment/Plan 1. Non-ST elevation myocardial infarction * Patient presents with a non-ST elevation myocardial infarction as well as a left bundle branch block pattern. * 2. Left bundle branch block * Patient noted to have a left bundle branch block. An echocardiogram should be performed to assess his ventricular function and exclude a cardiomyopathy. * Depending on those findings further recommendations will be made. * With regard to the tachycardia the etiology is not entirely clear at this time. I suspect that the above is due to nonsustained ventricular tachycardia. * Addendum: Cardiac catheterization performed demonstrated the following: Tortuous coronary arteries. Left main with no significant stenosis. Left anterior descending artery with no high-grade stenosis. Left anterior descending artery with no high-grade stenosis. Left circumflex artery with no high-grade stenosis. Right coronary artery dominant large with no high-grade stenosis. Reduced left ventricular systolic function. Estimated EF 35%. Based on the above angiographic findings I would recommend the patient be started on a beta-mouna with carvedilol 3.125 mg twice a day and titrated upwards. He will also need to be on a statin. An echocardiogram should be repeated in 3 months and if the patient still has an EF less than or equal to 35% should be considered a candidate for an implantable defibrillator. An NICOLE inhibitor may also be added as an outpatient. * I would recommend when patient is ready for discharge later today. * Would recommend a 48-hour Holter monitor. * Thank you for allowing me to participate in the care of your patient. Please don't hesitate to call if any issues arise.
[2020-04-22 08:56] VITALS: BP 117/71; PULSE 55; RESP 18; TEMP 36.4; O2SAT 95
[2020-04-22] MEDS: Carvedilol 3.125 MG TABLET PO (08:58)
[2020-04-22] MEDS: Aspirin 81 MG TAB.CHEW PO (09:00)
--- NOTE | 2020-04-22 10:07 | NURSING ---
RN called to room. PT co being light headed. TRINIDAD marrufo MD notified. No orders at this time.
--- NOTE | 2020-04-22 11:57 | DCINST_ITS ---
- Discharge Diagnoses Current Active Problems: Current Active and Chronic Problems (Last Updated 04/21/20 @ 12:48 by Willow Fraire) Chest pain, unspecified (Acute) Palpitations (Acute) NSTEMI (non-ST elevated myocardial infarction) (Acute 04/20/20) Near syncope (Acute 04/20/20) Morbid obesity (Chronic) You will use the following diet at home:: Cardiac Your food should be the consistency of: Regular Your liquids should be the consistency of: Regular/Thin Discharge Activity: Return to Normal Activity Weight Bearing Status: Weight bearing as tolerated Call your doctor if you observe: Fever of 101 or Higher, Shortness of breath, Fainting spells, Swelling in the ankles, Chest pain, Increased palpitations (irregular heartbeat) Instructions: ED Pain, Acute, Uncertain Cause, ED Heart Disease Risk Factors Allergies/Adverse Reactions: Allergies No Known Allergies Allergy (Verified 04/20/20 19:24) Medications to take at Discharge Ergocalciferol [Vitamin D] 04/20/20 Zinc 50 mg PO DAILY 04/20/20 Aspirin [Aspirin, Baby] 81 mg PO DAILY@0800 #30 tab.chew 04/22/20 Atorvastatin Calcium [Lipitor] 20 mg PO QHS #30 tab 04/22/20 Carvedilol [Coreg (Beta Johny)] 3.125 mg PO BID #60 tab 04/22/20 The following prescriptions were given: Aspirin [Aspirin, Baby] 81 mg PO DAILY@0800 #30 tab.chew Transmission Status: Pending to [facility]/pharmacy #[id number] Carvedilol [Coreg (Beta Johny)] 3.125 mg PO BID #60 tab Transmission Status: Pending to [facility]/pharmacy #[id number] Atorvastatin Calcium [Lipitor] 20 mg PO QHS #30 tab Transmission Status: Pending to [facility]/pharmacy #[id number] Primary Care Physician: Jasen Bhardwaj Chi, MD [Primary Care Provider] - Please follow up with your Primary Care Physician in: 1-2 weeks Test Results: Test results from this visit will be discussed in further detail at your follow- up appointment, if applicable. Please Follow Up With: Gerry Orosco MD When: 2-4 weeks Proposed Discharge Date: 04/22/20
[2020-04-22 11:59] VITALS: BP 134/74; PULSE 54; RESP 18; TEMP 37.1; O2SAT 97
--- NOTE | 2020-04-22 14:27 | NURSING ---
Pt discharged home into the care of family. ROLANDON at this time. IV dc and pressure held. tele monitor dc as well. Pt verbalized understanding of dc instructions and all questions answered. Patient taken off unit in a wheelchair.
--- NOTE | 2020-04-22 15:00 | PCM.DC.SUM ---
Discharge Date and Diagnosis - Problem List Patient Problems: Active and Suspected Problems (Last Updated 04/21/20 @ 12:48 by Willow Fraire) Chest pain, unspecified (Acute) Palpitations (Acute) NSTEMI (non-ST elevated myocardial infarction) (Acute 04/20/20) Near syncope (Acute 04/20/20) Date of Admission: 04/20/20 Date of Discharge: 04/22/20 - Primary Discharge Diagnosis Acute Problems: Active Problems (Last Updated 04/21/20 @ 12:48 by Willow Fraire) Chest pain, unspecified (Acute) Palpitations (Acute) NSTEMI (non-ST elevated myocardial infarction) (Acute 04/20/20) Near syncope (Acute 04/20/20) Dilated cardiomyopathy - Secondary Discharge Diagnosis Chronic Problems: Chronic Problems (Last Updated 04/21/20 @ 12:48 by Willow Fraire) Morbid obesity (Chronic) Hospital Course and Treatment Imaging Results: Diagnostic Data Chest X-Ray 04/20/20 20:15 IMPRESSION: No acute cardiopulmonary pathology Electronically Signed: Michael Blandon MD at 21:00 EST , Service support , cardiology- Dr Orosco Operations: None Procedures: 2-D Echocardiogram, Cardiac catheterization Summary of Care Provided: Patient is a 59-year-old male with a past medical history as outlined was admitted through the ED on 04/20/2020 with a complaint of shortness of breath, palpitations and chest pressure was started around 5:30 PM the day of admission. Started while he was in his driveway he said he felt very short of breath going from his car to his house. He checked his blood pressure on his machine at home and his blood pressure was low but heart rate was elevated at 185. He went up on elevated heart rate on the Internet and decided to go to the hospital. Heart rate and blood pressure had improved by the time he goes to the hospital. He said he had had an indeterminate stress test 5 years ago and had a cardiac cath which was unremarkable. Troponin was initially 0.051 but trended up to a peak of 3. EKG showed no acute ST changes. He was admitted and managed for non-STEMI. He was started on heparin drip and cardiology was consulted. He had cardiac cath on 04/21/2019 which showed nonobstructive coronary arteries and dilated cardiomyopathy with a EF of 5%. 2D echocardiogram showed moderately dilated left ventricle with moderate concentric left ventricular hypertrophy and EF of 37% with stage I diastolic dysfunction and septal motion consistent with IVCD and moderate global hypokinesis of the left ventricle. Lipid panel showed LDL of 156. He was started on carvedilol 3.125 mg twice daily and high intensity statin. Patient remained stable and was discharged home on 04/22/2020. He was counseled that he will need a follow-up 2D echo in a few months time to assess his EF to determine if he needed an ICD or otherwise. Patient was also discharged with a 48-hour Holter monitor results of which are to be sent to his warehouse selector Dr. Orosco. Patient seen and examined prior to discharge. He complained of some mild dizziness which had resolved. Review of symptoms otherwise negative. Labs and vitals reviewed. Medication reviewed and reconciled. O/E: Vital Signs Temp Pulse Resp BP Pulse Ox 98.7 F 54 L 18 134/74 H 97 04/22/20 11:59 04/22/20 11:59 04/22/20 11:59 04/22/20 11:59 04/22/20 11:59 General: Alert, Oriented x3, Cooperative, No apparent distress, - - obese HEENT: Atraumatic, PERRLA, EOMI, Normocephalic Oral: Dry Mucosa Neck: Supple, No JVD, Negative Carotid Bruits Lungs: Clear to auscultation, Normal air movement, No rhonchi, No wheeze, No rales Cardiovascular: Regular rate, Regular Rhythm, Normal S1, Normal S2, No murmurs Abdomen: Bowel Sounds Present, Soft, Non Tender, Non-Distended, No Hepato-splenomegaly Extremities: No clubbing, No cyanosis, No edema, Capillary Refill Less than 3 Seconds Skin: No rashes, No breakdown Musculoskeletal: No Tenderness to Palpation of Joints or Extremities Lymphatic: No Cervical, Supraclavicular, or Inguinal Adenopathy Neurological: Cranial nerves II-XII grossly intact, Neuro grossly intact, Motor Exam 5/5 strength throughout Psych/Mental Status: Normal Affect, Appropriate, Alert and oriented to time, place, person, mood and affect Plan is for discharge home today. Patient Problems: Active and Suspected Problems (Last Updated 04/21/20 @ 12:48 by Willow Fraire) Chest pain, unspecified (Acute) Palpitations (Acute) NSTEMI (non-ST elevated myocardial infarction) (Acute 04/20/20) Near syncope (Acute 04/20/20) - Physical Exam Vitals/I&O's: Vital Signs Temp Pulse Resp BP Pulse Ox 98.7 F 54 L 18 134/74 H 97 04/22/20 11:59 04/22/20 11:59 04/22/20 11:59 04/22/20 11:59 04/22/20 11:59 Oxygen Delivery Method Room Air Weight: 325 lb 6.436 oz Body Mass Index (BMI) 45.3 Intake and Output for Last 24 Hours 04/20/20 04/21/20 04/22/20 23:59 23:59 23:59 Intake Total 432.5 / 432.5 2714.25 / 2714.25 250 / 250 Balance 432.5 / 432.5 2714.25 / 2714.25 250 / 250 Discharge Diet: Low fat/ Low Cholesterol Discharge Activity: Return to Normal Activity Weight Bearing Status: Weight bearing as tolerated Call your doctor if you observe: Fever of 101 or Higher, Shortness of breath, Fainting spells, Swelling in the ankles, Chest pain, Increased palpitations (irregular heartbeat) Home Medications: Medications to take at Discharge Ergocalciferol [Vitamin D] 04/20/20 Zinc 50 mg PO DAILY 04/20/20 Aspirin [Aspirin, Baby] 81 mg PO DAILY@0800 #30 tab.chew 04/22/20 Atorvastatin Calcium [Lipitor] 20 mg PO QHS #30 tab 04/22/20 Carvedilol [Coreg (Beta Johny)] 3.125 mg PO BID #60 tab 04/22/20 Following Prescriptions Were Given to Patient: Aspirin [Aspirin, Baby] 81 mg PO DAILY@0800 #30 tab.chew Transmission Status: Received by [facility][id number] Carvedilol [Coreg (Beta Johny)] 3.125 mg PO BID #60 tab Transmission Status: Received by [facility][id number] Atorvastatin Calcium [Lipitor] 20 mg PO QHS #30 tab Transmission Status: Received by [facility][id number] Primary Care Physician: Jasen Bhardwaj Chi, MD [Primary Care Provider] - Please follow up with your Primary Care Physician in: 1-2 weeks Please Follow Up With: Gerry Orosco MD When: 2-4 weeks Patient Instructions: ED Heart Disease Risk Factors, ED Pain, Acute, Uncertain Cause Disposition: Home Minutes spent on discharge:: 45 Patient Condition:: Stable Medical Necessity - Tobacco Use Smoking Status: Never smoker Tobacco Use: Non-smoker Meaningful Use Info Meaningful Use Diagnoses (Choose all that apply): None applicable Inpatient E&M: [id number] [facility]
== END 2020-04-22 14:33 | disposition home or self-care (01) | DRG 281 ==
LOC: ED 20:01 → PCU 21:32
PROVIDERS: Admitting Provider Internal Medicine; Emergency Provider Emergency Medicine; PCP Family Medicine Geriatric Medicine; Visit Provider Student in an Organized Health Care Education/Training Program
DX: I21.4 Non-ST elevation (NSTEMI) myocardial infarction (principal); I42.0 Dilated cardiomyopathy; Z68.42 Body mass index [BMI] 45.0-49.9, adult; I47.2 Ventricular tachycardia; E66.01 Morbid (severe) obesity due to excess calories; R73.02 Impaired glucose tolerance (oral); I44.7 Left bundle-branch block, unspecified; E78.5 Hyperlipidemia, unspecified; Z79.899 Other long term (current) drug therapy
CPT/HCPCS: 36415; 71045; 80048; 80053; 80061; 80076; 82375; 83036; 83735; 83880; 84484; 85025; 85730; 93005; 93306; 93458; 97802; 99152; 99153; 99284; J7030; Q9957; Q9967; A4216; C1769; C1894; C8929

== ENCOUNTER → 2020-05-02 11:59 | Outpatient (CLI) | payer OTHER, SELFPAY ==
[2020-04-20 22:35] VITALS: BMI 45.3
== END ==
PROVIDERS: PCP Family Medicine Geriatric Medicine; Referring Provider Internal Medicine Cardiovascular Disease; Visit Provider Internal Medicine Cardiovascular Disease
DX: I42.8 Other cardiomyopathies (principal); E66.01 Morbid (severe) obesity due to excess calories; I21.4 Non-ST elevation (NSTEMI) myocardial infarction; I44.7 Left bundle-branch block, unspecified; I47.2 Ventricular tachycardia; R00.2 Palpitations; R55 Syncope and collapse
CPT/HCPCS: 93225; 93226

== ENCOUNTER → 2020-08-09 12:42 | Outpatient (CLI) | payer OTHER, SELFPAY ==
[2020-05-13 10:19] VITALS: BMI 47.2
== END ==
PROVIDERS: PCP Family Medicine Geriatric Medicine; Referring Provider Internal Medicine Cardiovascular Disease; Visit Provider Internal Medicine Cardiovascular Disease
DX: R06.02 Shortness of breath (principal); R06.00 Dyspnea, unspecified
CPT/HCPCS: 93308; Q9957; A4216; C8924

== ENCOUNTER → 2020-11-17 09:22 | Outpatient (CLI) | payer OTHER, SELFPAY ==
[2020-08-26 13:40] VITALS: BMI 49.6
--- NOTE | 2020-11-17 10:45 | RAD_ITS ---
STUDY: X-RAY - RIGHT SHOULDER REASON FOR EXAM: Male, 60 years old. Shoulder pain. TECHNIQUE: 4 view(s) of the shoulder. COMPARISON: None. FINDINGS: Osteopenia. Moderate arthrosis of the glenohumeral joint with osteophyte formation. Mild arthrosis of the acromioclavicular joint. Normal acromion. Sclerosis and cystic change of the humeral head. The soft tissue structures are unremarkable. Normal visualized pulmonary apex. RAD/Shoulder min 2 Views IMPRESSION: Osteopenia with sclerosis and cystic change of the humeral head. Moderate arthrosis of the glenohumeral joint. Mild arthrosis of the AC joint. No acute abnormality, erosive changes or periostitis. Electronically Signed: Marino Bowie MD at 13:36 EDT , Service support ,
[2020-11-17 12:36] LABS: Absolute Lymphocyte Count 1.28 X10^3/uL (0.83-4.51); Absolute Neutrophil Count 2.9 X10^3/uL (2.0-7.7); Basophil# 0.05 X10^3/uL; Eosinophil# 0.24 X10^3/uL; Eosinophils% 4.8 % (0-5); Hematocrit 43.7 % (40-54); Hemoglobin 14.6 g/dL (13.0-16.5); Lymphocyte # 1.28 X10^3/ul (0.83-4.51); Lymphocyte % 25.5 % (19-41); Mean Corp Hgb Conc 33.4 g/dL (32-36); Mean Corpuscular Hgb 28.9 pg (27.0-32.0); Mean Corpuscular Volume 86.4 fL (80-94); Monocyte# 0.54 X10^3/uL; Monocyte% 10.8 % (0-10); NRBC Flagged by Analyzer 0 % (0-5); Neutrophil # 2.89 X10^3/uL (2.7-7.7); Neutrophil % 57.5 % (47-70); Platelet Count 222 K/mm3 (150-450); RBC Distribution Width CV 13.6 % (11.6-14.6); RBC Distribution Width SD 42.5 fl (35.1-43.9); Red Blood Count 5.06 M/mm3 (4.6-6.2)
[2020-11-17 13:01] LABS: ALB/GLOB Ratio 1.1 RATIO (0.9-2.4); AST(SGOT) 21 U/L (15-37); Alanine Aminotransfer ALT/SGPT 36 U/L (16-61); Albumin, Serum 3.8 g/dL (3.2-5.0); Alkaline Phosphatase 57 U/L (45-117); Anion Gap 8 (5-15); BUN 13 mg/dL (7-18); BUN/Creat Ratio 15.8 RATIO (10-20); Calcium,Total 8.9 mg/dL (8.5-10.1); Chloride 103 mmol/L (98-107); Creatinine, Serum 0.82 mg/dL (0.70-1.30); EST Glomerular Filtration Rate 101 mL/min (>60); Est Glom Filt Rate - Afr Amer 122 mL/min (>60); Globulin 3.6 g/dL (2.2-4.2); Glucose 107 mg/dL (74-106); PSA,Total - Annual Screen 1.07 ng/mL (0.00-4.00); Potassium 4.4 mmol/L (3.5-5.1); Protein, Total 7.4 g/dL (6.4-8.2); Sodium Level 137 mmol/L (136-145)
== END ==
PROVIDERS: PCP Family Medicine Geriatric Medicine; Visit Provider Family Medicine Geriatric Medicine
DX: M25.511 Pain in right shoulder (principal); F52.8 Other sexual dysfunction not due to a substance or known physiological condition; Z12.5 Encounter for screening for malignant neoplasm of prostate; R53.83 Other fatigue
CPT/HCPCS: 36415; 73030; 80053; 84153; 84403; 84443; 85025; G0103

== ENCOUNTER → 2020-12-23 08:08 | Outpatient (CLI) | payer OTHER, SELFPAY ==
--- NOTE | 2020-12-23 08:12 | RAD_ITS ---
STUDY: X-RAY - ESOPHAGUS (BARIUM SWALLOW) WITH FLUOROSCOPY REASON FOR EXAM: Male, 60 years old. DYSPHAGIA TECHNIQUE: 18 view(s) of the esophagus were obtained following swallowing of barium. FLUOROSCOPY TIME (if supplied): (38 seconds) minutes/seconds COMPARISON: None. FINDINGS: There is no demonstrated esophageal foreign body. There is no demonstrated stricture or mucosal abnormality. Normal gastroesophageal junction, without a demonstrated hiatal hernia. The patient ingested a 12 mm tablet of barium without any difficulty. There is atherosclerotic tortuosity of the aortic arch and descending thoracic aorta. Normal visualized pulmonary parenchyma. There are diffuse degenerative changes of the visualized thoracic spine. RAD/Esophagus Dual Contrast IMPRESSION: Normal plain film x-ray examination (barium swallow) of the esophagus. Electronically Signed: Jim Skinner MD at 10:28 EDT , Service support ,
== END ==
PROVIDERS: PCP Family Medicine Geriatric Medicine; Referring Provider Family Medicine Geriatric Medicine; Visit Provider Family Medicine Geriatric Medicine
DX: R13.10 Dysphagia, unspecified (principal)
CPT/HCPCS: 74221

== ENCOUNTER → 2021-02-02 13:25 | Outpatient (CLI) | payer OTHER, SELFPAY ==
--- NOTE | 2021-02-02 13:30 | SP.MBSS_ITS ---
Modified Barium Swallow - Patient Information Study Date: 02/02/21 Study Time: 13:30 Direct Billable Minutes: 120 Total Minutes procedure & reportin Diagnosis: dysphagia Referring Physician: Jasen Bhardwaj Chi Reason for Referral: Patient reports difficulty swallowing characterized by food getting stuck and won't go down, pointing to jugular notch to indicate location of bolus retention. Indicates more difficulty w/ clearance of bread and meat. This has been ongoing for the past 3-4 months. Able to clear retained bolus w/ liquid wash, although reports odynophagia w/ use of liquid wash. This can happen with every meal if he eats at his natural somewhat fast rate of intake. Symptoms are ameliorated when taking small bites, chewing thoroughly, and eating slowly w/ increased fluid intake. Medical History: HLD, dyspnea on exertion, non-ischemic cardiomyopathy, hx of NSTEMI (04/2020), non-sustained ventricular tachycardia, left bundle branch block, ADRIAN Dentition: Natural Teeth Mental Status: WNL Respiratory Status: Oxygenating on Room Air - Penetration-Aspiration Scale Penetration-Aspiration Scale: OBJECTIVE ASSESSMENT OF SWALLOW FUNCTION (QUANTITATIVE ? PER TRIAL): PENETRATION / ASPIRATION SCALE (CASANOVA): 1 = does not enter airway 2 = enters airway/above vocal folds/ejected 3 = enters airway/above vocal folds/not ejected 4 = enters airway/contacts vocal folds/ejected 5 = enters airway/contacts vocal folds/not ejected 6 = enters airway/below vocal folds/ejected 7 = enters airway/below vocal folds/not ejected despite effort 8 = enters airway/below vocal folds/no effort VIDEOFLOROSCOPIC SCALE SCORE (CASANOVA): Grade I = aspiration of material that has penetrated into the laryngeal vestibule, intact cough reflex Grade II = aspiration < 10 % of the bolus, intact cough reflex Grade III = aspiration of < 10 % of the bolus, reduced cough reflex or aspiration of > 10 % of the bolus, intact cough reflex Grade IV = aspiration of > 10 % of the bolus, reduced cough reflex - Penetration-Aspiration Scale Score Thin Liquid via teaspoon Result: 1= does not enter airway Thin Liquid via teaspoon Trial 2 Result: 2= enter airway/above vocal folds/ejected Thin Liquid via small single sip from cup Result: 1= does not enter airway Thin Liquid via sequential sips from cup Result: 2= enter airway/above vocal folds/ejected Thin Liquid via single sip from straw Result: 2= enter airway/above vocal folds/ejected Pudding Result: 1= does not enter airway 1/2 Erin Doone Shortbread Cookie Result: 1= does not enter airway 1 whole Erin Doone Shortbread Cookie Result: 1= does not enter airway Thin Liquid via small single sip from cup Trial 2 Result: 2= enter airway/above vocal folds/ejected - Oral Phase Labial Seal: No Labial Escape Tongue Control During Bolus Hold: Cohesive bolus between tongue to palatal seal Bolus Preparation/Mastication: Timely and efficient chewing and mashing Bolus Transport/Lingual Motion: Brisk tongue motion Oral Residue: Trace residue lining oral structures - Pharyngeal Phase Soft Palate Elevation: No bolus between soft palate and pharyngeal wall Laryngeal Elevation: Partial superior movement thyroid cart/partial apprx aryt- epig petiole Anterior Hyoid Excursion: Partial anterior movement Epiglottic Movement: Complete inversion Laryngeal Vestibule Closure at Height of Swallow: Complete; no air/contrast in laryngeal vestibule Pharyngeal Stripping Wave: Present - complete Pharyngoesophageal Segment Opening: Complete distension and complete duration; no obstruction of flow Tongue Base Retraction: Trace column of contrast between tongue base & post. pharyngeal wall Pharyngeal Residue: Complete pharyngeal clearance - Diagnosis/Impression Diagnosis: Oropharyngeal Swallow Function GROSSLY WNL Impression: Swallow function is characterized by: * trace-mild residue coating the posterior oral tongue/pharyngeal tongue base * reduced anterior hyoid excursion w/ incomplete laryngeal vestibule closure during deglutition resulting in prandial laryngeal vestibule penetration of thin liquids * intermittent suboptimal bolus location upon swallow onset and delayed/incomplete laryngeal vestibule closure resulted in contrast reaching the pyriforms w/ contrast from the pyriforms posteriorly penetrating into the laryngeal vestibule * all penetration was transient w/ complete ejection from the laryngeal vestibule w/ swallow completion * no post-prandial pharyngeal residue retention across all trials, complete clearance * complete PES distention/duration w/ complete clearance into the esophagus * no retrograde bolus flow from esophagus into pyriform sinuses evident * unable to screen for esophageal clearance d/t patient's body habitus and fluoroscopy suite limitations which obstructed view of the esophagus This patient demonstrates mastication and deglutition abilities grossly within n ormal limits. Suspect findings of penetration/reduced anterior hyoid excursion to be incidental and not related to current complaints or to be impacting swallow function Diet Recommended: * Regular Texture (IDDSI: 7) * Thin Liquid (IDDSI: 0) Compensatory Strategies Recommended: * Small bites * Chew thoroughly * Alternate bites/solids w/ sips/liquids * Slow rate of intake * Avoid large volume/sequential swallows * Sit upright at 90 degrees during PO intake Additional Speech Therapy Services Recommended: No * Patient able to comprehend and express understanding of recommended intake precautions detailed above with sufficient detail to suggest high likelihood of compliance. No further skilled speech-language services warranted at this time targeting dysphagia. Referrals Recommended: Yes * If concerns persist, consider additional assessment of the patients esophageal structure and function w/ further workup via gastroenterology, as the barium esophagram completed 12/23/20 indicated Normal plain film x-ray examination (barium swallow) of the esophagus. Education Provided: Yes * Images were reviewed w/ the patient following MBS conclusion. * Extended time spent providing education re: anatomy/physiology of swallow function and findings. * Results and recommendations were discussed. * Patient verbalized understanding and agreement with all recommendations provided. - Status Active ST Patient: Active - Contact Information [facility] Speech Therapy:: Lisa Salinas M.A., CCC-AGILE PROJECT MANAGER [address] [place] [address] [phone] [email or web address] 02/02/21 15:23
== END ==
PROVIDERS: PCP Family Medicine Geriatric Medicine; Referring Provider Family Medicine Geriatric Medicine; Visit Provider Family Medicine Geriatric Medicine
DX: R13.10 Dysphagia, unspecified (principal)
CPT/HCPCS: 74230; 92611

== ENCOUNTER → 2021-03-14 | Outpatient (CLI) | payer OTHER, SELFPAY ==
--- NOTE | 2021-03-14 | LIP_PTH ---
PATIENT: SHELLEY PAUL LOC: [facility] U#:[id number] AGE/SX: 60/M ROOM: RE03/14/[address]: Dr. Abdulkadir Mathew MD : 1960 BED: DIS: 03/14/2021 SPEC #: [id number] RECD: 03/14/21 12:35 STATUS: GREG MARIO #: [id number] APRIL: 03/14/21 00:[address]: Abdulkadir Mathew DEPT: SURGICAL PATHOLOGY RECD BY: Brian Key ENTERED: 03/14/21 12:35 SP TYPE: LIPOMA OTHR DR: Jasen Bhardwaj MD Tissues: Soft tissues, NOS Procedures: Surgery Specimen Level III HEADER OPERATION: Excision lipoma of neck PRE-OP DIAGNOSIS: Lipoma neck TISSUE SUBMITTED: Lipoma left neck MICROSCOPIC DIAGNOSIS Lipoma left neck, excision: Mature adipose tissue, consistent with lipoma. SJ:fanny 03/15/2021 MICROSCOPIC DESCRIPTION Slides are reviewed. GROSS DESCRIPTION Received in fixative is one container labeled with the patient's name and designated left neck lipoma. The specimen consists of a partly disrupted piece of adipose tissue measuring 3 x 1.5 x 1.5 cm. Sections reveal yellow adipose cut surface without area of hemorrhage necrosis or cystic degeneration. Wheel Installer sections are submitted in one cassette. / SJ:rg 03/14/2021 TC:1 CPT: 18285
== END | disposition home or self-care (01) ==
LOC: LABSPEC 10:15
PROVIDERS: PCP Family Medicine Geriatric Medicine; Visit Provider Otolaryngology
DX: D17.0 Benign lipomatous neoplasm of skin and subcutaneous tissue of head, face and neck (principal)
CPT/HCPCS: 88304

== ENCOUNTER 2021-04-11 05:24 | Day surgery (SDC) | payer OTHER, SELFPAY ==
[2021-04-11 05:56] VITALS: BP 125/81; PULSE 63; RESP 16; TEMP 36.5; O2SAT 95; BMI 48.2
[2021-04-11] MEDS: Lactated Ringers 1,000 ML 15 ML IV (05:58)
--- NOTE | 2021-04-11 06:26 | HP.PCM_ITS ---
History and Physical Date of Admission: 04/11/21 OFFICE VISITDate of Service: 04/04/21 MR#:[id number]: SHELLEY PAULRep #:[id number] Provider:Marlo Kline/Sex: 60/M [facility] Int[facility] Vital Signs 04/04/21 08:34 Height 5 ft 11 in Weight: 355 lb 8 oz BMI 49.6 BP 152/81 H Blood Pressure Location Rt brachial Position Sitting Respiration 17 Pulse 83 Pulse Source Monitor Temp 97.3 F L Temp Source Temporal Pulse Oximetry (%) 97 Oxygen Delivery Method room air Intake Visit Reasons: UPPER RIGHT QUAD PAIN/NO GB TESTING Chief Complaint: upper right quad pain/no gb testing Unit Technician Required: No Is patient in pain?: No Allergies No Known Allergies Allergy (Verified 04/04/21 08:35) Medications ergocalciferol (vitamin D2) 04/20/20 [History Confirmed 04/04/21] zinc 50 mg PO DAILY 04/20/20 [History Confirmed 04/04/21] ascorbate calcium (vitamin C) 500 mg tablet 500 mg PO DAILY 05/13/20 [History Confirmed 04/04/21] aspirin 81 mg chewable tablet 81 mg PO DAILY@0800 #30 tab 05/20/20 [Rx Confirmed 04/04/21] carvedilol 12.5 mg tablet 12.5 mg PO BID #180 tab 03/22/21 [Rx Confirmed 04/04/21] omeprazole 40 mg capsule,delayed release 40 mg PO DAILY 04/04/21 [History Confirmed 04/04/21] [facility] Medical History Left bundle branch block (LBBB) Morbid obesity Near syncope (04/20/20) Non-ischemic cardiomyopathy Non-sustained ventricular tachycardia NSTEMI (non-ST elevated myocardial infarction) (04/20/20) Obstructive sleep apnea Palpitations Surgical History History of appendectomy History of left heart catheterization (04/21/20) Family History (Updated 04/04/21 @ 08:34 by Iwona Saturday) Mother Colon cancer Breast cancer Hypertension CVA (cerebral vascular accident) High cholesterol Social History (Updated 04/04/21 @ 08:34 by Iwona Saturday) Smoking Status: Former smoker alcohol intake: former substance use type: does not use HPI HPI HPI: SHELLEY PAUL, is a 60 M who presents to the office today for complaints of dysphagia for the last 6 months and some recent right upper quadrant pain. They are referred for surgical consultation from Dr. Mathew. Mr. Paul states that his difficulty swallowing has progressed to some pain with swa llowing. This swallowing difficulty seems isolated to food?only. He states that he is now drinking up to 64 ounces of water with each meal simply to get food to move through his esophagus. He states that he underwent radiographic imaging of his swallow and was told this was normal. Unfortunately, he finds when he drinks too much liquid he will vomit the water that he takes down. He states he was started on a trial of omeprazole therapy approximately a month ago and is currently starting into his second 30?day prescription. Mr. Paul specifically denies any experience of heartburn. He denies any nighttime awakenings gasping for air (but he does have a history of sleep apnea and consistently wears a CPAP mask). However, he does note some recent nighttime awakenings for right upper quadrant pain. He states this is occurred approximately 3-4 times in the last couple weeks following initiation of omeprazole. He finds that burping and sitting up will cause resolution of this pain. This pain is not associated with nausea. Mr. Paul has not been able to link any particular foods to his symptoms. He specifically denies any increase of symptoms following fatty or greasy meals. Therefore, he has also not made any dietary changes. He states that his weight has been stable through this experience. Today he weighs 355 pounds by our scale, and states that he began this year at 360 pounds. He does state that his appetite is somewhat decreased and occasionally he is fearful to eat given his discomfort swallowing. He states that his mother had difficulties with reflux, but is unaware of any other family GI diagnoses. Personally, his surgical history he has had only an appendectomy (performed in 1977 for an open incision). Mr. Paul has never had an upper endoscopy. He states he did have a colonoscopy remotely in [place]. He estimates this was approximately 9 years ago. He states that the results of the scope were normal and was given 10-year follow-up. Previous work-up for the patient's presenting concern has included a modified barium swallow and a esophagram. The swallow study did not identify any alarming aspiration events in the esophagram did not show any hold-up of the contrast. ROS General General: No weight change, appetite, fatigue, colon cancer, breast cancer or weakness HEENT HEENT: Yes difficulty swallowing; No eye injury, eye surgery, swollen glands or hoarseness Endo Endocrine: No thyroid disease, diabetes mellitus, thyroid cancer, Hair loss, heat intolerance or cold intolerance Skin Skin: No rash or changing moles Musc Musculoskeletal: Yes arthritis; No back problems, rheumatoid arthritis, gout or joint pain Cardio Cardiovascular: Yes heart attack; No murmur, pacemaker, heart disease, atrial fibrillation, high blood pressure, heart stent, palpitations, shortness of breat with exertion or chest pain Psych Psychiatric: No depression, anxiety or hearing voices Resp Respiratory: Yes shortness of breath, Yes sleep apnea, No cough, No COPD, No asthma, No emphysema and No wheezing Gastro Gastrointestinal: Yes abdominal pain, No nausea or vomiting, No diarrhea, No constipation, No blood in stool, No acid reflux, No hemorrhoids, No ulcers, No gallbladder problem and No black,tarry stools [place] Hematologic: No blood thinners, No blood disorders, No bleeding, No anemia and No blood clots Neuro Neurologic: No system reviewed and no additional complaints, except as documented, No as per HPI, No abnormal gait, No abnormal hearing, No abnormal movements, No abnormal speech, No behavioral changes, No burning sensations, No confusion, No convulsions, No disequilibrium, No dizziness, No localized weakness, No frequent falls, No headache(s), No lack of coordination, No loss of vision, No memory loss, No numbness, No other visual disturbances, No radicular pain, No restless legs, No sensory deficit, No syncope, No tingling, No tremor(s), No weakness and No other Exam Const General: cooperative, comfortable and no acute distress Nutritional Appearance: obese Orientation: alert, awake and oriented x3 Resp Auscultation: clear to auscultation bilaterally, no rales, no rhonchi and no wheezes Cardio Rate: regular rate Rhythm: regular rhythm Heart Sounds: S1 normal and S2 normal GI Inspection: obesity and scar (Far right lower quadrant now well-healed) Palpation: soft, no hernias, no masses, no splenomegaly and tender in the RUQ (Mild with deep palpation); Santos's sign negative Assessment and Plan Assessment and Plan (1) Dysphagia: Status: Acute Comment: This is a 60-year-old male with a 6-month history of dysphagia that has become somewhat progressive in its course. He now experiences occasional dyne aphasia. He is requiring increasing amounts of liquids to ingest his food. He denies any symptoms of reflux. Prior swallow and esophagram studies were largely normal. Patient has not undergone EGD previously. Plan - Dr. Melo Singh MD: I recommend we proceed for EGD with random biopsies for H. pylori and as indicated. Patient wishes for this exam to be completed prior to the new year. (2) Right upper quadrant pain: Status: Acute Comment: Patient with recent?onset right upper quadrant pain. This seems to have a nocturnal presentation. While it is localized to the right upper quadrant, patient describes remission of pain after burping or sitting upright. This is suggestive more of atypical reflux than gallbladder etiology. Furthermore, patient's right upper quadrant abdominal exam is rather benign. Still, is reasonable to assess the gallbladder for any evidence of inflammation or gallstones while work-up is underway for his dysphagia. Therefore will order right upper quadrant ultrasound. Plan - Dr. Melo Singh MD: ?EGD under local MAC ?Right upper quadrant ultrasound (3) Screening for colon cancer: Status: Acute Comment: Patient is due for screening colonoscopy. This can be readily accomplished at the same anesthetic as will be used for his EGD. Patient provided bowel prep instructions. Informed that he will require a refrigerated company driver the day of the procedure given this anesthetic. Plan - Dr. Melo Singh MD: Colonoscopy along with EGD under local MAC. Bowel prep instructions provided. Again, patient looking to have these procedures complete before the new year. I have re-examined the patient. There are no clinical changes since date of exam. Patient states that his swallowing difficulties have persisted but not progressed. He confirms that he completed his prep for his colonoscopy. He states that it was uncomfortable but he is now passing clear yellow liquid without any solids. Plan to proceed for EGD and colonoscopy under local MAC as described above.
--- NOTE | 2021-04-11 06:30 | COLBX_PTH ---
PATIENT: SHELLEY PAUL LOC: EN U#:[id number] AGE/SX: 60/M ROOM: RE04/11/[address]: Dr. Melo Singh MD : 1960 BED: DIS: 04/11/2021 SPEC #: [id number] RECD: 04/11/21 10:34 STATUS: GREG MARIO #: [id number] APRIL: 04/11/21 06:[address]: Melo Singh DEPT: SURGICAL PATHOLOGY RECD BY: Lisa Mcdaniels ENTERED: 04/11/21 11:11 SP TYPE: COLON BX OTHR DR: Jasen Bhardwaj MD Tissues: A - Gastric mucous membrane B - Esophagus, NOS C - Rectum, NOS Procedures: Special Stain Group II Surgery Specimen Level III Surgery Specimen Level IV Alcian Blue/PAS (control) HEADER OPERATION: [place] [place] DIAGNOSIS: Dysphagia, right upper quadrant pain, screening for colon cancer TISSUE SUBMITTED: A ? Antrum biopsy for histo and H. pylori, B ? Distal esophagus biopsy, C ? Rectal polyp MICROSCOPIC DIAGNOSIS A. Antrum, biopsy: Mild gastritis. See microscopic description and comment. B. Distal esophagus, biopsy: Moderately differentiated adenocarcinoma. See comment. C. Rectal polyp, biopsy: Consistent with fibroepithelial polyp (skin tag) with hyperkeratosis and reactive changes. SJ:rg 04/12/2021 COMMENT A. The results of immunohistochemistry for Helicobacter pylori will be reported separately ([id number]). B. Alcian blue/PAS stain with matched control is used in the evaluation of the specimen. 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 Immunohistochemistry ([id number]) for microsatellite instability (mismatch repair of protein) will be performed and the results will be reported separately. MICROSCOPIC DESCRIPTION Slides are reviewed. A. The specimen shows fragments of gastric mucosa with chronic inflammatory cell infiltrates in the lamina propria consisting of lymphocytes and plasma cells, consistent with mild chronic gastritis. GROSS DESCRIPTION A - Received in fixative is one container labeled with the patient's name and designated antrum biopsy. The specimen consists of multiple irregular fragments of light moura soft tissue that in aggregate measure 0.5 x 0.5 x 0.1 cm. The specimen is totally submitted in one cassette. B - Received in fixative is one container labeled with the patient's name and designated distal esophagus biopsy. The specimen consists of multiple irregular fragments of light moura soft tissue that in aggregate measure 1.5 x 0.4 x 0.1 cm. The specimen is totally submitted in one cassette. C - Received in fixative is one container labeled with the patient's name and designated rectal polyp. The specimen consists of a moura-pink polyp measuring 0.8 x 0.6 x 0.5 cm. The specimen is bisected and submitted entirely in one cassette. / SJ:rg 04/11/21 TC:0 CPT: 92067 x2, 38348, 30074 ADDENDUM ADDENDUM ADDENDUM ADDENDUM ADDENDUM ADDENDUM ADDENDUM ADDENDUM ADDENDUM ADDENDUM ADDENDUM ADDENDUM ADDENDUM ADDENDUM ADDENDUM ADDENDUM ADDENDUM ADDENDUM ADDENDUM ADDENDUM ADDENDUM ADDENDUM ADDENDUM ADDENDUM ADDENDUM 05/23/2021 08:32 ADDENDUM 05/23/2021 08:32 ADDENDUM 05/23/2021 08:32 ADDENDUM 05/23/2021 08:32 ADDENDUM 05/23/2021 08:[facility]PORT FROM [facility] RESULT SUMMARY: Abnormal Immunotherapy Biomarkers: Tumor Mutation [place]: Low (6.3 Mutations / MB) microsatellite instability: MSI Negative PERTINENT NEGATIVE RESULTS: The following genes are NEGATIVE for clinically relevant mutations. Mutational hotspots and surrounding exonic regions were interrogated for DNA level point mutations and indels (fusions not assayed). AKT1, APC, ARID1A, WADE, BRAF, BRCA1, BRCA2, CDH1, CDKN2A, CTNNB1, EGFR, EPCAM, ERBB2, FBXW7, FGFR1, FGFR2, FGFR3, GNA11, GNAQ, GNAS, HRAS, IDH1, IDH2, KDR, KIT, KRAS, MEN1, MET, MLH1, MSH2, MSH6, NOTCH1, NRAS, PDGFRA, PIK3CA, PMS2, POLE, PTPN11, RB1, RET, SMAD4, STK11, TERT, TSC1, TSC2, VHL PD-L1 (KEYTRUDA) IMMUNOHISTOCHEMICAL ANALYSIS FOR GASTRIC OR GASTROESOPHAGEAL JUNCTION ADENOCARCINOMA FROM [facility] RESULTS: PD-L1 IHC Analysis for Gastric/GEJ adenocarcinoma: Combined Positive score: 5-10 (CPS>=1 / PD-L1 Expressed) Please see complete report in e-chart or EMR
--- NOTE | 2021-04-11 06:30 | IMM_PTH ---
PATIENT: SHELLEY PAUL LOC: EN U#:[id number] AGE/SX: 60/M ROOM: RE04/11/[address]: Dr. Melo Singh MD : 1960 BED: DIS: 04/11/2021 SPEC #: [id number] RECD: 04/11/21 13:52 STATUS: GREG REQ #: [id number] APRIL: 04/11/21 06:[address]: Melo Singh DEPT: IMMUNOHISTOCHEMISTRY RECD BY: Ana Coates ENTERED: 04/11/21 13:53 SP TYPE: IMMUNO OTHR DR: Jasen Bhardwaj MD Tissues: A - Stomach, NOS B - Esophagus, NOS Procedures: H Pylori (initial) MSH2 (add) MLH-1 (add) MSH6 (add) Anti-PMS2 (add) ODOM-2 (add) KI-67 (add) P53 (add) HER-2-MALA (initial) PHYSICIAN & INSTITUTION [facility] [phone] SPECIMEN INFORMATION: Tissue Source: A ? Antrum biopsy, B ? Distal esophagus biopsy Clinical Info: Dysphagia, right upper quadrant pain, screening for colon cancer Specimen Number: [id number] A & B CPT code: 31999 x2, 83209 x7 METHODOLOGY: Deparaffinized sections of prefer/formalin-fixed tissue or PAP/DQ stained slides are incubated with monoclonal/polyclonal antibodies/oligonucleotide probes. Localization is made via biotin free immunoperoxidase method. Appropriate controls are performed and reacted as expected. Results on target cell population are indicated in the following table: RESULTS: ANTIBODY / CLONE RESULT Block A H Pylori (polyclonal) negative Block B Ki-67 (30-9) positive, high P53 (DO-7) negative ODOM-2 (SP21) positive MLH-1 (M1) positive MSH2 (25D12) positive MSH6 (44) positive PMS2 (RDN1061) positive Her-2neu (CB11) negative These tests were developed and their performance characteristics determined by [facility]. They may not have been cleared or approved by the U.S. Food and Drug Administration. The FDA has determined that such clearance or approval is not necessary. The above immunohistochemical/dualISH markers are ordered and reviewed by the pathologist. INTERPRETATION: A. Antrum biopsy: Negative for Helicobacter pylori organisms. B. Distal esophagus, biopsy: Invasive adenocarcinoma. Result of Microsatellite Instability Study: Negative (no loss of mismatch protein; no microsatellite instability detected). SJ:fanny 04/13/2021
[2021-04-11 08:10] VITALS: BP 117/75; BP 125/81; PULSE 62; RESP 18; TEMP 36.3; O2SAT 100
[2021-04-11 08:15] VITALS: BP 116/79; BP 125/81; PULSE 52; RESP 18; O2SAT 93
[2021-04-11 08:20] VITALS: BP 123/72; BP 125/81; PULSE 60; RESP 16; O2SAT 94
--- NOTE | 2021-04-11 08:20 | OP.CCLET_ITS ---
04/11/2021 Jasen Bhardwaj Md Re : Upper GI endoscopy procedure for Marino Paige [place] This procedure was performed on Sunday, April 11, 2021. My impressions and recommendations are as follows: Impressions : - No gross lesions in the first portion of the duodenum and in the second portion of the duodenum. No specimens collected. - Gastritis. Biopsied. - Z-line irregular, 39 cm from the incisors. Biopsied. - LA Grade D esophagitis. Biopsied. - Small hiatal hernia. No specimens collected. Recommendations : - Discharge patient to home (via wheelchair). - Mechanical soft diet today. - Use Protonix (pantoprazole) 40 mg PO BID for 4 weeks. - Use sucralfate tablets 1 gram PO BID for 4 weeks. - Await pathology results. - Telephone my office for pathology results in 1 week. - Continue present medications. My findings are described in the full procedure note, which is enclosed. If I can be of further assistance, please feel free to contact me at Doctor phone number(s): , Work: . Sincerely, Melo Singh MD 04/11/2021 8:19:39 AM This report has been signed electronically.
--- NOTE | 2021-04-11 08:20 | OP.EGD_ITS ---
Patient Name: Marino Paige Procedure Date: 04/11/2021 6:39 AM Date of : 1960 Age: 60 Procedure: Upper GI endoscopy Indications: Dysphagia, Odynophagia Providers: Melo Singh MD Medicines: See the Anesthesia note for documentation of the administered medications Patient Profile: Refer to note in patient chart for documentation of history and physical. Complications: No immediate complications. Estimated blood loss: Minimal. Procedure: Pre-Anesthesia Assessment: - The heart rate, respiratory rate, oxygen saturations, blood pressure, adequacy of pulmonary ventilation, and response to care were monitored throughout the procedure. After obtaining informed consent, the endoscope was passed under direct vision. Throughout the procedure, the patient's blood pressure, pulse, and oxygen saturations were monitored continuously. The gastroscope was introduced through the mouth, and advanced to the second part of duodenum. The upper GI endoscopy was somewhat difficult due to excessive bleeding. Successful completion of the procedure was aided by controlling the bleeding. The patient tolerated the procedure fairly well. Scope In: 6:45:59 AM Scope Out: 7:16:11 AM Total Procedure Duration Time 0 hours 30 minutes 12 seconds Findings: No gross lesions were noted in the first portion of the duodenum and in the second portion of the duodenum. No biopsies or other specimens were collected for this exam. Localized mild inflammation characterized by erythema was found in the gastric antrum. Biopsies were taken with a cold forceps for histology. Biopsies were taken with a cold forceps for Helicobacter pylori cultures. Estimated blood loss was minimal. The Z-line was irregular and was found 39 cm from the incisors. Biopsies were taken with a cold forceps for histology. Estimated blood loss was minimal. LA Grade D (one or more mucosal breaks involving at least 75% of esophageal circumference) esophagitis with bleeding was found 38 to 40 cm from the incisors. Biopsies were taken with a cold forceps for histology. Estimated blood loss was minimal. bleeding controlled with careful application of bipolar probe A small hiatal hernia was present. No biopsies or other specimens were collected for this exam. Impression: - No gross lesions in the first portion of the duodenum and in the second portion of the duodenum. No specimens collected. - Gastritis. Biopsied. - Z-line irregular, 39 cm from the incisors. Biopsied. - LA Grade D esophagitis. Biopsied. - Small hiatal hernia. No specimens collected. Recommendation: - Discharge patient to home (via wheelchair). - Mechanical soft diet today. - Use Protonix (pantoprazole) 40 mg PO BID for 4 weeks. - Use sucralfate tablets 1 gram PO BID for 4 weeks. - Await pathology results. - Telephone my office for pathology results in 1 week. - Continue present medications. Procedure Code(s): --- Professional --- 02881, Esophagogastroduodenoscopy, flexible, transoral; with biopsy, single or multiple Diagnosis Code(s): --- Professional --- K29.70, Gastritis, unspecified, without bleeding K22.8, Other specified diseases of esophagus K20.9, Esophagitis, unspecified K44.9, Diaphragmatic hernia without obstruction or gangrene R13.10, Dysphagia, unspecified CPT copyright 2017 [employer]. All rights reserved. The codes documented in this report are preliminary and upon manufacturing applications engineer review may be revised to meet current compliance requirements. Melo Singh MD 04/11/2021 8:19:39 AM This report has been signed electronically. Number of Addenda: 0 Note Initiated On: 04/11/2021 6:39 AM
--- NOTE | 2021-04-11 08:25 | OP.COLON_ITS ---
Patient Name: Marino Paige Procedure Date: 04/11/2021 7:17 AM Date of : 1960 Age: 60 Procedure: Colonoscopy Indications: Surveillance: Personal history of colonic polyps (unknown histology) on last colonoscopy more than 5 years ago Providers: Melo Singh MD Medicines: See the Anesthesia note for documentation of the administered medications Patient Profile: Refer to note in patient chart for documentation of history and physical. Last Colonoscopy: 9 years ago. Complications: No immediate complications. Estimated blood loss: Minimal. Procedure: Pre-Anesthesia Assessment: - The heart rate, respiratory rate, oxygen saturations, blood pressure, adequacy of pulmonary ventilation, and response to care were monitored throughout the procedure. - The heart rate, respiratory rate, oxygen saturations, blood pressure, adequacy of pulmonary ventilation, and response to care were monitored throughout the procedure. After I obtained informed consent, the scope was passed under direct vision. Throughout the procedure, the patient's blood pressure, pulse, and oxygen saturations were monitored continuously. The colonoscope was introduced through the anus and advanced to the cecum, identified by the ileocecal valve. The colonoscopy was technically difficult and complex due to a redundant colon. Successful completion of the procedure was aided by applying abdominal pressure. The patient tolerated the procedure well. Scope In: 7:19:01 AM Scope Withdrawal Time 0 hours 22 minutes 13 seconds Scope Out: 8:05:25 AM Total Procedure Duration Time 0 hours 46 minutes 24 seconds Findings: Many large-mouthed diverticula were found in the sigmoid colon. No biopsies or other specimens were collected for this exam. A 5 mm polyp was found in the rectum (benign-appearing lesion). The polyp was pedunculated. The polyp was removed with a hot snare. Resection and retrieval were complete. No additional abnormalities were found on retroflexion. Impression: - Diverticulosis in the sigmoid colon. No specimens collected. - One benign appearing 5 mm polyp in the rectum, removed with a hot snare. Resected and retrieved. Recommendation: - Discharge patient to home (via wheelchair). - Mechanical soft diet today. - Continue present medications. - Await pathology results. - Repeat colonoscopy in 5 years for surveillance. - Telephone my office for pathology results in 1 week. Procedure Code(s): --- Professional --- 92081, Colonoscopy, flexible; with removal of tumor(s), polyp(s), or other lesion(s) by snare technique Diagnosis Code(s): --- Professional --- Z86.010, Personal history of colonic polyps K62.1, Rectal polyp K57.30, Diverticulosis of large intestine without perforation or abscess without bleeding CPT copyright 2017 [employer]. All rights reserved. The codes documented in this report are preliminary and upon salt maker review may be revised to meet current compliance requirements. Melo Singh MD 04/11/2021 8:25:35 AM This report has been signed electronically. Number of Addenda: 0 Note Initiated On: 04/11/2021 7:17 AM
[2021-04-11 08:26] VITALS: BP 109/58; BP 125/81; PULSE 52; RESP 18; TEMP 36.1; O2SAT 99
--- NOTE | 2021-04-11 08:26 | OP.CCLET_ITS ---
04/11/2021 Jasen Bhardwaj Md Re : Colonoscopy procedure for Marino Mckeon B[place] This procedure was performed on Sunday, April 11, 2021. My impressions and recommendations are as follows: Impressions : - Diverticulosis in the sigmoid colon. No specimens collected. - One benign appearing 5 mm polyp in the rectum, removed with a hot snare. Resected and retrieved. Recommendations : - Discharge patient to home (via wheelchair). - Mechanical soft diet today. - Continue present medications. - Await pathology results. - Repeat colonoscopy in 5 years for surveillance. - Telephone my office for pathology results in 1 week. My findings are described in the full procedure note, which is enclosed. If I can be of further assistance, please feel free to contact me at Doctor phone number(s): , Work: . Sincerely, Melo Singh MD 04/11/2021 8:25:35 AM This report has been signed electronically.
[2021-04-11 08:46] VITALS: BP 125/81
== END 2021-04-11 08:58 ==
LOC: EN 05:24 → AC 05:25
PROVIDERS: PCP Family Medicine Geriatric Medicine; Referring Provider Family Medicine Geriatric Medicine; Visit Provider Surgery
PROC: 0DJD8ZZ Inspection of Lower Intestinal Tract, Via Natural or Artificial Opening Endoscopic (ICD-10-PCS; CPT 45378; principal; 2021-04-11 06:25)
DX: C15.5 Malignant neoplasm of lower third of esophagus (principal); K29.70 Gastritis, unspecified, without bleeding; K20.90 Esophagitis, unspecified without bleeding; K44.9 Diaphragmatic hernia without obstruction or gangrene; K62.1 Rectal polyp; K57.30 Diverticulosis of large intestine without perforation or abscess without bleeding; Z12.11 Encounter for screening for malignant neoplasm of colon; E66.01 Morbid (severe) obesity due to excess calories; Z68.42 Body mass index [BMI] 45.0-49.9, adult; I42.8 Other cardiomyopathies; I25.2 Old myocardial infarction; G47.33 Obstructive sleep apnea (adult) (pediatric); M19.90 Unspecified osteoarthritis, unspecified site; Z86.010 Personal history of colon polyps; Z79.82 Long term (current) use of aspirin; Z79.899 Other long term (current) drug therapy; Z87.891 Personal history of nicotine dependence
CPT/HCPCS: 43239; 45385; 88304; 88305; 88313; 88341; 88342; J7120; J2405

== ENCOUNTER 2021-04-28 14:53 | Outpatient (CLI) | payer OTHER, SELFPAY ==
--- NOTE | 2021-04-28 14:58 | CT_ITS ---
STUDY: CT CHEST T ABDOMEN WITH CONTRAST REASON FOR EXAM: Male, 60 years old. Esophageal cancer RADIATION DOSAGE (If Supplied By Facility): CTDIvol = ( 25.89 ) mGy, DLP = ( 1936.26 ) mGycm TECHNIQUE: Transaxial imaging was performed following intravenous administration of Oral and amp; IV Readi-CAT and amp; 100mL Isovue-370. Individualized dose optimization techniques were used for this CT. COMPARISON: No relevant priors. FINDINGS: CHEST Minimal increased markings at the lung bases suggestive of mild scarring. There is no demonstrated pleural abnormality. There are calcifications of the coronary arteries. Normal mediastinum. Normal hilar regions. Normal unenhanced pulmonary arteries. Normal aorta arch and descending thoracic aorta. Normal osseous structures. There is diffuse circumferential thickening at the gastroesophageal junction. This most likely represents the area of esophageal carcinoma. ABDOMEN There is decreased attenuation of the liver consistent with steatosis. Normal gallbladder and extrahepatic biliary system. Normal spleen. Normal pancreas. Normal bilateral adrenal glands. There is a 1.8 semi the cyst in the anterior midportion of the right kidney. There is also evidence of a 2 cm cyst in the anterior midportion of the left kidney as well as a 5.5 cm x 4.9 similar cyst in the medial inferior pole of the left kidney. Diffuse circumferential narrowing with thickening at the level of the gastroesophageal junction. Normal small intestine. Normal colon. The appendix is visualized and appears normal. Normal abdominal aorta. Normal inferior vena cava. Normal retroperitoneum. Normal abdominal wall. There are diffuse degenerative changes of the visualized lumbar spine. CT/CT Chest AND Abd W/ Contrast IMPRESSION: Diffuse circumferential thickening at the level of the gastroesophageal junction with luminal narrowing. Diffuse fatty infiltration of the liver. Electronically Signed: Jim Skinner MD at 15:39 EST , Service support ,
[2021-04-28 15:10] LABS: CREATININE FINGERSTICK 0.9 mg/dL (0.70-1.30); EGFR FINGERSTICK > 60.0000 mL/min (>60)
== END 2021-04-28 23:59 | disposition short-term general hospital (02) ==
PROVIDERS: PCP Family Medicine Geriatric Medicine; Referring Provider Surgery; Visit Provider Surgery
DX: C15.9 Malignant neoplasm of esophagus, unspecified (principal)
CPT/HCPCS: 71260; 74160; Q9967

== ENCOUNTER 2021-05-05 08:46 | Outpatient (CLI) | payer OTHER, SELFPAY ==
--- NOTE | 2021-05-05 08:51 | ECHOCSONC_ITS ---
Reason For Study: Pre Chemo Procedure This was a 2D Doppler, Color Flow transthoracic echocardiogram. Myocardial strain analysis was performed in this exam to aid in the assessment of cardiac function. The study was technically difficult. Contrast injection was performed. Exam performed in department. Left Ventricle Normal LV size. The estimated ejection fraction is 45 %. Stage 1 diastolic dysfunction. No regional wall motion abnormalities noted. Right Ventricle Normal RV size. Normal systolic function. Atria Normal left atrium. Normal right atrium. Mitral Valve Normal mitral valve. Tricuspid Valve Normal tricuspid valve. Mild (1+) tricuspid valve insufficiency. Pulmonary artery systolic pressure is 40 mmHg. Aortic Valve Normal aortic valve. Pulmonic Valve Normal pulmonic valve. Great Vessels Normal aortic root. The pulmonary artery is normal size. Pericardium/Pleural No pericardial effusion. Medication Diluted definity 4.5ml given slow IV push to enhance endocardial definition. MMode/2D Measurements & Calculations LVIDd: 6.1 cm IVSd: 1.6 cm Ao root diam: 3.7 cm LVIDs: 4.5 cm LVPWd: 1.6 cm RVDd: 4.4 cm FS: 26.6 % LAV(MOD-bp): 71.5 ml LVAd ap4: 58.9 cm2 SV(MOD-sp4): 124.1 ml LAV(MOD-bp) Indexed: 26.7 ml/m2 LVLd ap4: 9.9 cm LAV(MOD-sp2): 72.7 ml EDV(MOD-sp4): 274.3 ml LAV(MOD-sp4): 67.7 ml EDV(sp4-el): 297.1 ml LVAs ap4: 40.3 cm2 LVLs ap4: 9.1 cm ESV(MOD-sp4): 150.2 ml ESV(sp4-el): 151.6 ml EF(MOD-sp4): 45.2 % EF(sp4-el): 49.0 % SV(sp4-el): 145.4 ml LA A4 area: 21.3 cm2 LA dimension(2D): 4.2 cm RA A4 area: 18.0 cm2 Doppler Measurements & Calculations MV E max jay: 65.0 cm/sec Lat Peak E' Jay: 7.6 cm/sec Med Peak E' Jay: 4.7 cm/sec MV A max jay: 74.6 cm/sec E/E' lat: 8.5 E/E' med: 13.8 MV E/A: 0.87 Ao V2 max: 177.4 cm/sec LV V1 max: 120.7 cm/sec PA V2 max: 124.6 cm/sec Ao max P.6 mmHg LV V1 max P.8 mmHg Ao V2 mean: 122.2 cm/sec Ao mean P.6 mmHg Ao V2 VTI: 40.3 cm TR max jay: 302.3 cm/sec TR max P.5 mmHg ECHO/ONC Echo Complete W/ Contrast Interpretation Summary Normal LV size. The estimated ejection fraction is 45 %. Stage 1 diastolic dysfunction. Pulmonary artery systolic pressure is 40 mmHg. Contrast injection was performed. The global longitudinal strain is moderately abnormal. The global longitudinal strain = -13.6% (abnormal). Ordering Physician: Deep Tang Referring Physician: Jasen Bhardwaj Chi Performed By: Zuri Blankenship, CINDY, RVT
--- NOTE | 2021-05-05 13:53 | PFTCOMP ---
COMPLETE PULMONARY FUNCTION TEST INTERPRETATION Brief HPI: Patient is a 60 year old male, currently under the care of Dr. Tang, who presents to [facility] for complete pulmonary function tests secondary to diagnosis of dyspnea. Respiratory therapist reports good effort and reproducible results. Interpretation: Forced expiration spirometry shows no large airways obstructive ventilatory defect with an FEV1 of 76% predicted. There is no significant bronchodilator response by strict ATS criteria. Spirograms are of good quality and plateau normally. The respiratory flow volume loop shows a normal pattern. Lung volumes by body plethysmography show a normal total lung capacity at 6.01 L, 87% predicted. All other lung volumes are within normal limits. Diffusion capacity by carbon monoxide is normal at 93% predicted. The airway resistance is normal. No previous pulmonary function tests were available for review. Impression: These pulmonary function tests are within normal limits.
== END 2021-05-05 23:59 | disposition short-term general hospital (02) ==
PROVIDERS: PCP Family Medicine Geriatric Medicine; Referring Provider Internal Medicine Medical Oncology; Visit Provider Internal Medicine Medical Oncology
DX: Z01.818 Encounter for other preprocedural examination (principal); C15.5 Malignant neoplasm of lower third of esophagus
CPT/HCPCS: 93306; 93356; 94060; 94726; 94729; Q9957; A4216; C8929

== ENCOUNTER 2021-05-18 09:11 | Outpatient (CLI) | payer OTHER, SELFPAY ==
[2021-05-18 10:48] LABS: Absolute Lymphocyte Count 0.96 X10^3/uL (0.83-4.51); Absolute Neutrophil Count 4.1 X10^3/uL (2.0-7.7); Basophil# 0.03 X10^3/uL; Basophil% 0.5 % (0-1); Eosinophil# 0.24 X10^3/uL; Eosinophils% 4.1 % (0-5); Hematocrit 42.4 % (40-54); Hemoglobin 14.4 g/dL (13.0-16.5); Lymphocyte # 0.96 X10^3/ul (0.83-4.51); Lymphocyte % 16.4 % (19-41); Mean Corpuscular Hgb 28.7 pg (27.0-32.0); Mean Corpuscular Volume 84.5 fL (80-94); Mean Platelet Vol. 8.9 fl (6.2-12.0); Monocyte# 0.56 X10^3/uL; Monocyte% 9.6 % (0-10); NRBC Flagged by Analyzer 0 % (0-5); Neutrophil # 4.05 X10^3/uL (2.7-7.7); Neutrophil % 69.1 % (47-70); Platelet Count 238 K/mm3 (150-450); RBC Distribution Width CV 13.3 % (11.6-14.6); RBC Distribution Width SD 41.1 fl (35.1-43.9); Red Blood Count 5.02 M/mm3 (4.6-6.2); White Blood Count 5.9 K/mm3 (4.4-11.0)
[2021-05-18 11:15] LABS: AST(SGOT) 14 U/L (15-37); Alanine Aminotransfer ALT/SGPT 26 U/L (16-61); Albumin, Serum 3.7 g/dL (3.2-5.0); Alkaline Phosphatase 68 U/L (45-117); Anion Gap 3 (5-15); BUN 13 mg/dL (7-18); Chloride 104 mmol/L (98-107); Creatinine, Serum 0.87 mg/dL (0.70-1.30); EST Glomerular Filtration Rate 95 mL/min (>60); Est Glom Filt Rate - Afr Amer 115 mL/min (>60); Globulin 3.7 g/dL (2.2-4.2); Glucose 106 mg/dL (74-106); Protein, Total 7.4 g/dL (6.4-8.2); Sodium Level 137 mmol/L (136-145); Thyroid Stim Hormone (TSH) 1.77 uIU/mL (0.358-3.74)
== END 2021-05-18 23:59 | disposition short-term general hospital (02) ==
LOC: LAB 09:13
PROVIDERS: PCP Family Medicine Geriatric Medicine; Referring Provider Family Medicine Geriatric Medicine; Visit Provider Family Medicine Geriatric Medicine
DX: F52.8 Other sexual dysfunction not due to a substance or known physiological condition (principal); R53.83 Other fatigue
CPT/HCPCS: 36415; 80053; 84403; 84443; 85025

== ENCOUNTER 2021-06-01 05:50 | Day surgery (SDC) | payer OTHER, SELFPAY ==
[2021-06-01] VITALS (7 sets, daily range): BP systolic 86–128; BP diastolic 46–75; PULSE 45–60; RESP 16–17; TEMP 36.4–36.7; O2SAT 91–97; BMI 47.0
[2021-06-01] MEDS: Lactated Ringers 1,000 ML 15 ML IV (06:44)
--- NOTE | 2021-06-01 06:46 | PCM.HP.BLA ---
History and Physical Date of Admission: 06/01/21 Date of Service: 05/26/21 MR#:[id number]: SHELLEY PAIGERep #:[id number]:[id number] Provider:Marlo Kline/Sex: 60/M [facility] Int[facility] Vital Signs 05/26/21 08:33 Height 5 ft 11 in Weight: 342 lb BMI 47.7 BP 120/70 Blood Pressure Location Lt brachial Position Sitting Respiration 18 Pulse 69 Pulse Source Monitor Temp 97.4 F L Temp Source Temporal Pulse Oximetry (%) 96 Oxygen Delivery Method room air Intake Visit Reasons: PORT PLACEMENT Chief Complaint: Port Placement Donor Services Manager Required: No Is patient in pain?: No Allergies No Known Allergies Allergy (Verified 05/26/21 08:34) Medications zinc 50 mg PO DAILY 04/20/20 [History Confirmed 05/26/21] ascorbate calcium (vitamin C) 500 mg tablet 500 mg PO DAILY 05/13/20 [History Confirmed 05/26/21] carvedilol 12.5 mg tablet 12.5 mg PO BID #180 tab 03/22/21 [Rx Confirmed 05/26/21] cholecalciferol (vitamin D3) [Vitamin D3] 25 mcg PO DAILY 04/06/21 [History Confirmed 05/26/21] aspirin 81 mg tablet,delayed release 81 mg PO DAILY #90 tab 04/24/21 [Rx Confirmed 05/26/21] omeprazole 40 mg capsule,delayed release 40 mg PO BID #60 cap 05/10/21 [Rx Confirmed 05/26/21] sucralfate 1 gram tablet 1 g PO BID 30 Days #60 tab 05/10/21 [Rx Confirmed 05/26/21] lidocaine-prilocaine 2.5 %-2.5 % topical cream 1 applic TOPICAL ONCE PRN 30 Days #30 g 05/23/21 [Rx Confirmed 05/26/21] ondansetron 8 mg disintegrating tablet 8 mg PO Q8H PRN #30 tab 05/23/21 [Rx Confirmed 05/26/21] prochlorperazine maleate 10 mg tablet 10 mg PO Q6H PRN #30 tab 05/23/21 [Rx Confirmed 05/26/21] PFSH Medical History Arthritis Braces as ambulation aid Cardiology follow-up encounter CINV (chemotherapy-induced nausea and vomiting) CPAP (continuous positive airway pressure) dependence Difficulty swallowing Encounter for education Former smoker Gastric reflux History of echocardiogram History of edema History of heart attack Left bundle branch block (LBBB) Morbid obesity Near syncope (04/20/20) Non-ischemic cardiomyopathy Non-sustained ventricular tachycardia NSTEMI (non-ST elevated myocardial infarction) (04/20/20) Obstructive sleep apnea Palpitations Shortness of breath on exertion Sleep apnea Wears glasses Surgical History History of appendectomy History of left heart catheterization (04/21/20) Hx of surgical procedure Family History Mother Breast cancer Hypertension CVA (cerebral vascular accident) High cholesterol Brother Cancer prostate Social History Smoking Status: Former smoker alcohol intake: former substance use type: does not use HPI HPI HPI: SHELLEY PAIGE, is a 60 M who presents to the office today for consideration of port placement. Patient was diagnosed with esophageal adenocarcinoma on on 04/11/2021 after EGD for complaints of dysphagia with me. Subsequent imaging indicates this is likely stage IV disease, but the intent is to proceed with palliative radiation, chemotherapy, and immunotherapy. They have met with oncology and plans are to begin chemotherapy on 06/07/2021. Patient notes that he is currently receiving radiation therapy and due to complete shortly before starting chemo. He states that his swallowing is about the same as before his treatment. He is really able to tolerate most foods aside from white meat chicken. He confirms that he has been careful to use lots of water when attempting to swallow. Patient has no prior history of central line placement. Patient has no pacemaker or intracardiac defibrillator. Patient has no renal dysfunction and are not on hemodialysis. He denies any prior history of staph or cutaneous infections as well. Mr. Paige is not currently prescribed blood thinners. ROS General General: No weight change, appetite, fatigue, colon cancer, breast cancer or weakness HEENT HEENT: Yes difficulty swallowing; No eye injury, eye surgery, swollen glands or hoarseness Endo Endocrine: No thyroid disease, diabetes mellitus, thyroid cancer, Hair loss, heat intolerance or cold intolerance Skin Skin: No rash or changing moles Musc Musculoskeletal: Yes arthritis; No back problems, rheumatoid arthritis, gout or joint pain Cardio Cardiovascular: Yes heart disease, high blood pressure and heart attack; No murmur, pacemaker, atrial fibrillation, heart stent, palpitations, shortness of breat with exertion or chest pain Psych Psychiatric: No depression, anxiety or hearing voices Resp Respiratory: Yes shortness of breath, Yes sleep apnea, No cough, No COPD, No asthma, No emphysema and No wheezing Gastro Gastrointestinal: Yes abdominal pain, No nausea or vomiting, No diarrhea, No constipation, Yes blood in stool, Yes acid reflux, Yes hemorrhoids, No ulcers, No gallbladder problem and No black,tarry stools [place] Hematologic: No blood thinners, No blood disorders, No bleeding, No anemia and No blood clots Additional Details: Daily ASA Neuro Neurologic: No system reviewed and no additional complaints, except as documented, No as per HPI, No abnormal gait, No abnormal hearing, No abnormal movements, No abnormal speech, No behavioral changes, No burning sensations, No confusion, No convulsions, No disequilibrium, No dizziness, No localized weakness, No frequent falls, No headache(s), No lack of coordination, No loss of vision, No memory loss, No numbness, No other visual disturbances, No radicular pain, No restless legs, No sensory deficit, No syncope, No tingling, No tremor(s), No weakness and No other Exam Const General: cooperative, comfortable and no acute distress Orientation: alert and awake Chest Other: Patient is somewhat hirsute, but there are no scars in the upper chest or bilateral neck. There are no areas of current infection or rash. Assessment and Plan Assessment and Plan (1) Cancer of lower third of esophagus: Status: Acute Comment: Patient with probable stage IV esophageal adenocarcinoma who has been prescribed palliative course of FOLFOX chemotherapy. Plan is to begin this regimen on 06/07/2021. Patient presents for consideration of port placement. He has no prior history of central lines, or renal dysfunction. Therefore we should be able to plan for placement of a right versus left?sided internal jugular Mediport under ultrasound guidance. I have discussed with patient the risk for infection with these catheters and need to insist upon sterile technique during access attempts. We also discussed immediate postoperative wound care. Patient expressed understanding of this information and wishes to proceed sometime next week. Plan - Dr. Melo Singh MD: Plan for ultrasound-guided right versus left Mediport placement next week at first mutual availability. This is to be done under local MAC. Patient will require a local intermodal truck driver the day of the procedure and should be n.p.o. after midnight the day prior. I have re-examined the patient. There are no clinical changes since date of exam. Proceed for placement of right versus left internal jugular port in preparation of initiation of chemotherapy on 06/07/2021 for palliative management of stage IV esophageal adenocarcinoma.
[2021-06-01] MEDS: Bupivacaine Mpf 0.5% 30 ML VIAL (07:57)
--- NOTE | 2021-06-01 08:54 | RAD_ITS ---
STUDY: X-RAY CHEST REASON FOR EXAM: Male, 60 years old. Follow-up port placement TECHNIQUE: Single AP portable view of the chest. COMPARISON: Comparison is made with prior study dated 04/20/2020. FINDINGS: A right-sided portacatheter has been placed. The tip is in the midportion of the superior vena cava. The lungs are clear and expanded. There is no demonstrated pleural abnormality. There is borderline cardiomegaly. Normal mediastinum and travis. Normal visualized pulmonary arteries. Normal visualized aortic arch and descending thoracic aorta. There are diffuse degenerative changes of the visualized thoracic spine. Normal visualized ribs, clavicles, and shoulders. There is no demonstrated abnormality of the visualized soft tissue structures of the upper abdomen. RAD/Chest 1 View (Portable) IMPRESSION: The tip of the right-sided portacatheter is in the midportion of the superior vena cava. Electronically Signed: Jim Skinner MD at 9:25 EST ,
--- NOTE | 2021-06-01 08:55 | EX.PCM.DISCH ---
Discharge Instructions Diet Discharge Diet: No restrictions Activity Discharge Activity: May Drive and May Shower Dressing / Incision Call your doctor if your incision/area has: Sudden Increased Bleeding, Increased Pain/ Swelling, Increased Redness, Foul Smelling Discharge and Swelling at the incision site Call your doctor if you observe: Fever of 101 or Higher Cleanse incision/area with: Soap & Water Additional Dressing/Incision Instructions:: Dermabond surgical glue should resolve within 7 to 10 days postop. No dressing required at that point Follow Up Care Test Results: Test results from this visit will be discussed in further detail at your follow-up appointment, if applicable. Discharge Plan Admission Primary Reason for Your Visit: Placement of vascular port for chemotherapy Attending Provider: Melo Singh Primary Care Provider: Jasen Bhardwaj Chi Instructions Patient Instructions: Caring for Your Central Vein Access Discharge Orders/Prescriptions Prescriptions: Continued ascorbate calcium (vitamin C) 500 mg tablet 500 mg PO DAILY RF: 0 omeprazole 40 mg capsule,delayed release(DR/EC) 40 mg PO DAILY RF: 0 sucralfate [Carafate] 1 gram tablet 1 g PO BID 30 Days Qty: 60 RF: 2 citalopram [Celexa] 20 mg tablet 10 mg PO DAILY RF: 0 lorazepam 1 mg tablet 1 mg PO BID PRN (Reason: Anxiety) RF: 0 prochlorperazine maleate 10 mg tablet 10 mg PO Q6H PRN (Reason: nausea and vomiting) Qty: 30 RF: 2 ondansetron 8 mg tablet,disintegrating 8 mg PO Q8H PRN (Reason: nausea and vomiting) Qty: 30 RF: 2 lidocaine-prilocaine 2.5-2.5 % cream 1 applic topical ONCE PRN (Reason: port access) 30 Days Qty: 30 RF: 2 zinc 50 MG tablet 50 mg PO DAILY RF: 0 cholecalciferol (vitamin D3) [Vitamin D3] 25 mcg (1,000 unit) Tablet 25 mcg PO DAILY RF: 0 carvedilol 12.5 mg tablet 12.5 mg PO BID Qty: 180 RF: 3 aspirin [Adult Aspirin Regimen] 81 mg tablet,delayed release (DR/EC) 81 mg PO DAILY Qty: 90 RF: 3 Referrals / Follow Up: Jasen Bhardwaj Chi, MD [Primary Care Provider] - Disposition Disposition (needs filled in before D/C Order can be placed): Home, Self Care
--- NOTE | 2021-06-01 08:57 | PCM.OPRPT ---
Report of Operation Date of Procedure: 06/01/21 Pre-Operative Diagnosis: Stage IV esophageal adenocarcinoma Post-Operative Diagnosis: Same Surgery/Procedure Performed:: Ultrasound?guided placement of right internal jugular vein PowerPort Description of Surgical Findings:: ?Placement of 8 [place] PowerPort ISP MRI implantable port reference #[id number],LOT [id number] Surgeon: Melo Singh Type of Anesthesia: MAC/Supplemental/Local Anesthesiologist: Donato Haque Special Medications: 25 units of heparin concentration 10 units/mL Description of Procedure: After appropriate identification in the preoperative holding area the patient was brought to the operating room. There he was administered preoperative antibiotics and positioned supine on the operating room table. Once sedation was begun, the upper chest and lower cervical region were prepped and draped in usual sterile fashion. A formal timeout was then conducted to confirm both the patient and procedure. Ultrasound was used to localize the right internal jugular vein. Then a wheal of half percent bupivacaine was raised superficially in this location and the vein was accessed under direct ultrasound guidance using a Seldinger technique to place a guidewire. The position of the guidewire was confirmed with fluoroscopy. Next the position of the port pocket was determined and again local anesthetic was used to anesthetize the area of both the pocket and the tunneling cephalad. A transverse incision approximately 3 cm in width was made down through the subcutaneous tissue. Selective electrocautery was used to obtain hemostasis. Then with blunt dissection the port pocket was developed. The catheter was connected to the tunneler and was tunneled up to the position of the guidewire. Here the dilator and peel-away sheath were placed over the guidewire and the guidewire was removed. Position was again confirmed with fluoroscopy. The catheter length was estimated based on the external placement of a hemostat to approximate the level of the юлия and the cavoatrial junction. The catheter was then fed into the sheath and slowly in the sheath was peeled away as the catheter was inserted fully into the neck. Back in the chest the excess catheter was trimmed and the port was connected to the catheter. The port was tied into the pocket using 2-0 Prolene. Function was then tested using sterile saline on a Zavaleta needle. It was locked with 2.5 mL of heparinized saline (total of 25 units heparin). The port pocket was closed with a deep dermal stitch using a running 3-0 Vicryl followed by 4-0 Monocryl subcuticular stitch. The 1 cm incision in the neck was closed with a single interrupted subcuticular stitch using 4-0 Monocryl. Dermabond was applied as a dressing. Patient was then aroused from the sedation and taken to PACU for ongoing recovery were a portable chest x-ray was obtained to confirm port positioning and exclude any pneumothorax. Procedures Cardiovascular CF Procedures [id number]: [id number] Insert tunneled cv cath
== END 2021-06-01 23:59 | disposition home or self-care (01) ==
LOC: SDC 05:53 → AC 05:53
PROVIDERS: PCP Family Medicine Geriatric Medicine; Referring Provider Surgery; Visit Provider Surgery
PROC: (CPT 36561; principal; 2021-06-01 07:15)
DX: Z45.2 Encounter for adjustment and management of vascular access device (principal); C15.5 Malignant neoplasm of lower third of esophagus; I42.8 Other cardiomyopathies; E66.01 Morbid (severe) obesity due to excess calories; Z68.42 Body mass index [BMI] 45.0-49.9, adult; Z87.891 Personal history of nicotine dependence; E78.5 Hyperlipidemia, unspecified; M19.90 Unspecified osteoarthritis, unspecified site; K21.9 Gastro-esophageal reflux disease without esophagitis; I25.2 Old myocardial infarction; G47.33 Obstructive sleep apnea (adult) (pediatric); Z79.899 Other long term (current) drug therapy
CPT/HCPCS: 36561; 00532; 71045; 77001; J7120; C1788; J2405

== ENCOUNTER 2021-07-28 08:31 | Outpatient (CLI) | payer OTHER, SELFPAY ==
--- NOTE | 2021-07-28 08:33 | CT_ITS ---
STUDY: CT CHEST, ABDOMEN T PELVIS WITH CONTRAST REASON FOR EXAM: Male, 60 years old. ASSESS TREATMENT RESPONSE. Patient has a history of esophageal carcinoma with liver metastasis. RADIATION DOSAGE (If Supplied By Facility): CTDIvol = ( 21.97 ) mGy, DLP = ( 2600.39 ) mGycm TECHNIQUE: Transaxial imaging was performed following intravenous administration of Oral and amp; IV Readi-CAT and amp; 100mL Isovue-300. Individualized dose optimization techniques were used for this CT. COMPARISON: Comparison is made with prior study dated 10/26/2021. FINDINGS: CHEST A right-sided portacatheter is seen with the tip in the midportion of the superior vena cava. Small benign appearing bilateral axillary lymph nodes. The lungs are normal. There is no demonstrated pleural abnormality. There are calcifications of the coronary arteries. Calcified precarinal lymph nodes. Normal hilar regions. Normal unenhanced pulmonary arteries. Normal aorta arch and descending thoracic aorta. Normal osseous structures. Diffuse circumferential wall thickening of the distal esophagus extending into the gastroesophageal junction ABDOMEN There is decreased attenuation of the liver consistent with steatosis. There is a 1.1 cm x 1.1 cm hypodensity in the upper midportion of the right lobe of the liver. A similar appearing hypodensity is seen posterior to this nodule measuring 9 mm. Normal gallbladder and extrahepatic biliary system. Normal spleen. Normal pancreas. Normal bilateral adrenal glands. Stable bilateral renal cysts. Once again, there is diffuse circumferential wall thickening of the distal esophagus extending into the gastroesophageal region. Normal small intestine. Normal colon. The appendix is visualized and appears normal. Normal abdominal aorta. Normal inferior vena cava. Normal retroperitoneum. Normal abdominal wall. There are diffuse degenerative changes of the visualized lumbar spine. PELVIS Normal urinary bladder. Normal visualized small intestine. Normal visualized colon. There is no pelvic fluid. There is no pelvic lymphadenopathy or mass lesion. Normal visualized pelvic arteries. CT/CT Chest, Abd, Pel w/Contrast IMPRESSION: Essentially stable examination except for 2 adjacent 1.1 cm x 1.1 cm hypodensities in the upper central portion of the right lobe of the liver. Electronically Signed: Jim Skinner MD at 11:13 EDT ,
[2021-07-28] MEDS: 0.9% Saline Lock 10 ML Syringe IV (08:48)
== END 2021-07-28 23:59 | disposition home or self-care (01) ==
LOC: CT 08:31
PROVIDERS: PCP Family Medicine Geriatric Medicine; Referring Provider Internal Medicine Medical Oncology; Visit Provider Internal Medicine Medical Oncology
DX: C15.5 Malignant neoplasm of lower third of esophagus (principal)
CPT/HCPCS: 71260; 74177; A4216

== ENCOUNTER → 2021-10-06 | Outpatient (CLI) | payer OTHER, SELFPAY ==
--- NOTE | 2021-10-06 13:21 | CT_ITS ---
INDICATION: RESTAGING, ON TX FOR ESOPHAGEAL CA; IV ONLY EXAMINATION: CT Chest Abdomen And Pelvis W/ Contrast Injection TECHNIQUE: Images were obtained of the chest, abdomen and pelvis following IV contrast. A radiation dose optimization technique was used for this scan. IV Contrast dosage and agent: IV 100mL Isovue-370 COMPARISON: 07/28/2021. FINDINGS: Lungs: Unremarkable Mediastinum: The heart is mildly enlarged. No mediastinal, hilar or axillary adenopathy. Calcified mediastinal lymph nodes. Mild aortic arch and coronary artery calcifications. No obvious filling defect seen within the visualized pulmonary arteries. Pleura: Unremarkable Liver: Stable appearance of few small scattered subcentimeter hypodensities. No new lesions. Gallbladder: Contracted. Spleen: Unremarkable Pancreas: Unremarkable Adrenal Glands: Unremarkable Kidneys: Stable simple 5 cm cyst in the left lower renal pole as well as other smaller cysts seen bilaterally.. Vasculature: Unremarkable GI Tract: Scattered diverticula throughout the colon without evidence of inflammation. Diffuse circumferential wall thickening of the distal esophagus extending into the gastroesophageal junction. Lymphadenopathy: None Peritoneum: No ascites. Bladder: Unremarkable Reproductive organs: Unremarkable Bones/Soft tissues: There are diffuse degenerative changes of the spine. CT/CT Chest, Abd, Pel w/Contrast IMPRESSION: Stable appearance of diffuse circumferential wall thickening of the distal esophagus. Stable appearance of few small scattered subcentimeter hypodensities in the liver. Recommend close attention on follow-up. Otherwise, no evidence of metastatic disease in the chest, abdomen or pelvis. Electronically Signed: Bola Cleveland MD at 22:51 EDT ,
[2021-10-06] MEDS: 0.9% Saline Lock 10 ML Syringe IV (14:05)
== END | disposition home or self-care (01) ==
LOC: CT 13:20
PROVIDERS: PCP Family Medicine Geriatric Medicine; Referring Provider Internal Medicine Medical Oncology; Visit Provider Internal Medicine Medical Oncology
DX: C15.5 Malignant neoplasm of lower third of esophagus (principal)
CPT/HCPCS: 71260; 74177; Q9967; A4216

== ENCOUNTER 2022-02-28 12:38 | Outpatient (CLI) | payer OTHER, SELFPAY ==
--- NOTE | 2022-02-28 12:39 | ECHOD_ITS ---
Reason For Study: CARDIOMYOPATHY Procedure This was a 2D Doppler, Color Flow transthoracic echocardiogram. Myocardial strain analysis was performed in this exam to aid in the assessment of cardiac function. The study was technically difficult. Exam performed in department. Left Ventricle Normal left ventricle. The estimated ejection fraction is 45 %. There is mild global hypokinesis of the left ventricle. Right Ventricle Normal RV size. Atria Normal left atrium. Normal right atrium. Mitral Valve Normal mitral valve. Tricuspid Valve Normal tricuspid valve. Aortic Valve Trisinus/trileaflet aortic valve. Great Vessels Normal aortic root. Pericardium/Pleural No pericardial effusion. MMode/2D Measurements & Calculations LVIDd: 6.6 cm IVSd: 1.1 cm Ao root diam: 3.5 cm LVIDs: 4.7 cm LVPWd: 1.2 cm RVDd: 4.0 cm FS: 28.9 % LAV(MOD-bp): 65.4 ml LVAd ap4: 58.6 cm2 SV(MOD-sp4): 130.5 ml LAV(MOD-bp) Indexed: 25.1 ml/m2 LVLd ap4: 10.8 cm LAV(MOD-sp2): 59.2 ml EDV(MOD-sp4): 252.0 ml LAV(MOD-sp4): 62.5 ml EDV(sp4-el): 269.9 ml LVAs ap4: 36.9 cm2 LVLs ap4: 9.3 cm ESV(MOD-sp4): 121.5 ml ESV(sp4-el): 124.8 ml EF(MOD-sp4): 51.8 % EF(sp4-el): 53.7 % SV(sp4-el): 145.0 ml LA dimension(2D): 4.2 cm LA A4 area: 20.5 cm2 RA A4 area: 18.9 cm2 Time Measurements MV dec time: 0.30 sec Doppler Measurements & Calculations MV E max jay: 55.6 cm/sec Lat Peak E' Jay: 8.5 cm/sec Med Peak E' Jay: 7.7 cm/sec MV A max jay: 78.8 cm/sec E/E' lat: 6.6 E/E' med: 7.2 MV E/A: 0.71 Ao V2 max: 180.6 cm/sec LV V1 max: 95.0 cm/sec PA V2 max: 147.9 cm/sec Ao max P.0 mmHg LV V1 max P.6 mmHg TR max jay: 298.4 cm/sec TR max P.6 mmHg ECHO/Echo Complete Interpretation Summary The estimated ejection fraction is 45 %. There is mild global hypokinesis of the left ventricle. The global longitudinal strain = -15.3% (abnormal). The global longitudinal strain is mildly abnormal. The global longitudinal stra in = -15.3% (abnormal). Compared to previous study, the left ventricular systolic function is the same.. Ordering Physician: Mayra Joseph Referring Physician: SHAYNA WRIGHT Performed By: Idania Gudino RDCS
== END 2022-02-28 23:59 | disposition home or self-care (01) ==
LOC: CVS 12:39
PROVIDERS: PCP Family Medicine Geriatric Medicine; Visit Provider Nurse Practitioner Gerontology
DX: I42.8 Other cardiomyopathies (principal)
CPT/HCPCS: 93306

== ENCOUNTER 2022-03-01 08:04 | Outpatient (CLI) | payer OTHER, SELFPAY ==
--- NOTE | 2022-03-01 08:05 | CT_ITS ---
STUDY: CT CHEST T ABDOMEN WITH CONTRAST REASON FOR EXAM: Male, 61 years old. ASSESS TREATMENT RESPONSE-ESOPHAGEAL CA-IV ORAL RADIATION DOSAGE (If Supplied By Facility): CTDIvol = ( 24.55 ) mGy, DLP = ( 1869.15 ) mGycm TECHNIQUE: Transaxial imaging was performed following intravenous administration of IV 100mL Isovue-300. Multiplanar coronal and sagittal images were reformatted. Individualized dose optimization techniques were used for this CT. COMPARISON: Comparison is made with prior examination dated 10/06/2021. FINDINGS: CHEST A right-sided portacatheter is seen with the tip in the superior vena cava. The lungs are normal. There is no demonstrated pleural abnormality. There are calcifications of the coronary arteries. Stable calcified precarinal lymph nodes on the left side. Normal hilar regions. Normal unenhanced pulmonary arteries. Normal aorta arch and descending thoracic aorta. There are multi-level degenerative changes of the thoracic spine. Persistent diffuse circumferential wall thickening of the distal esophagus at the level of the gastroesophageal junction. The thickening as improved as compared to prior study. ABDOMEN Normal liver. Normal gallbladder and extrahepatic biliary system. Normal spleen. Normal pancreas. Normal bilateral adrenal glands. There is a 2 cm cyst in the lateral anterior aspect of the right kidney. Stable 6.5 cm x 5.5 cm cyst in the lower midportion of the left kidney. Persistent circumferential wall thickening of the distal esophagus at the level of the gastroesophageal junction although the thickness as decreased as compared to prior study. Normal small intestine. Normal colon. The appendix is visualized and appears normal. Normal abdominal aorta. Normal inferior vena cava. Normal retroperitoneum. Normal abdominal wall. There are diffuse degenerative changes of the visualized lumbar spine. CT/CT Chest AND Abd W/ Contrast IMPRESSION: Essentially stable examination except for slight improvement in the distal esophageal wall thickening. Electronically Signed: Jim Skinner MD at 11:10 [facility] ,
[2022-03-01] MEDS: 0.9% Saline Lock 10 ML Syringe IV (08:10)
== END 2022-03-01 23:59 | disposition home or self-care (01) ==
LOC: CT 08:05
PROVIDERS: PCP Family Medicine Geriatric Medicine; Referring Provider Internal Medicine Medical Oncology; Visit Provider Internal Medicine Medical Oncology
DX: C15.5 Malignant neoplasm of lower third of esophagus (principal)
CPT/HCPCS: 71260; 74160; Q9967; A4216

== ENCOUNTER → 2022-04-02 | Outpatient (CLI) | payer OTHER, SELFPAY ==
[2022-04-02 16:52] LABS: Hepatitis B Surface Antibody Non-Reactive; Hepatitis B Surface Antigen Non-Reactive (Nonreactive); Hepatitis C Antibody Non-Reactive (Nonreactive)
[2022-04-04 14:08] LABS: Hepatitis B Core Ab Total Negative (Negative)
== END | disposition home or self-care (01) ==
LOC: MTLAB 11:49
PROVIDERS: PCP Family Medicine Geriatric Medicine; Referring Provider Physician Assistant; Visit Provider Physician Assistant
DX: L43.0 Hypertrophic lichen planus (principal)
CPT/HCPCS: 36415; 86704; 86706; 86803; 87340

== ENCOUNTER 2022-05-16 12:14 | Day surgery (SDC) | payer OTHER, SELFPAY ==
[2022-05-16] VITALS (8 sets, daily range): BP systolic 96–108; BP diastolic 57–66; PULSE 50–61; RESP 16–18; TEMP 36.2–36.6; O2SAT 92–96; BMI 47.1
--- NOTE | 2022-05-16 | GASB_PTH ---
PATIENT: SHELLEY PAUL LOC: EN U#:[id number] AGE/SX: 61/M ROOM: RE05/16/[address]: Dr. Melo Singh MD : 1960 BED: DIS: 05/16/2022 SPEC #: [id number] RECD: 05/16/22 15:03 STATUS: GREG MARIO #: [id number] APRIL: 05/16/22 00:[address]: Melo Singh DEPT: SURGICAL PATHOLOGY RECD BY: Brian Key ENTERED: 05/17/22 11:00 SP TYPE: Gastric Bx OTHR DR: Jasen Bhardwaj MD Tissues: Gastric mucous membrane Procedures: Special Stain Group II Surgery Specimen Level IV Alcian Blue/PAS (control) HEADER OPERATION: Flexible sigmoidoscopy[place] [place] with biopsy PRE-OP DIAGNOSIS: Cancer of lower third of esophagus, acute hemorrhoid TISSUE SUBMITTED: Gastroesophageal junction biopsy MICROSCOPIC DIAGNOSIS Gastroesophageal junction, biopsy: Fragments of gastric mucosa with extensive ulceration, acute and chronic inflammation. Intestinal metaplasia (goblet cell metaplasia) not identified. Negative for malignancy. See comment. VONNIE:fanny 05/18/2022 COMMENT Alcian blue/PAS stain with matched control is used in the evaluation of the specimen. MICROSCOPIC DESCRIPTION Slides are reviewed. GROSS DESCRIPTION Received in fixative is one container labeled with the patient's name and designated GE junction biopsy. The specimen consists of multiple irregular fragments of light moura soft tissue that in aggregate measure 0.6 x 0.2 x 0.1 cm. The specimen is totally submitted in one cassette. / VONNIE:fanny 05/17/2022 TC:2 CPT: 44660, 19199
[2022-05-16] MEDS: Lactated Ringers 1,000 ML 15 ML IV (12:52)
--- NOTE | 2022-05-16 13:33 | PCM.HP.BLA ---
History and Physical Date of Admission: 05/16/22 Date of Service:? 03/12/22 MR#: [id number] Acct: [id number] Name:SHELLEY TIJERINA Rep #: [id number] : 1960 ? ? Provider: Dr. Melo Singh MD Age/Sex:? 61/M ? ? Location: [facility] Status: Signed Intake Vital Signs ? 03/12/2209:46 Weight: 342 lb 4 oz BP 117/70 Blood Pressure Location Rt brachial Position Sitting Respiration 17 Pulse 52 L Pulse Source Monitor Temp 97.4 F L Temp Source Temporal Pulse Oximetry (%) 93 Oxygen Delivery Method room air Intake Visit Reasons:?LESION IN LOWER ESOPHAGUS Chief Complaint: lesion in lower esophagus Is patient in pain?: No Allergies No Known Allergies Allergy (Verified 03/12/22 09:48) Medications lidocaine-prilocaine 2.5 %-2.5 % topical cream 1 applic topical ONCE PRN port access 30 days #30 grams 05/23/21 [Rx Confirmed 03/12/22] ondansetron 8 mg disintegrating tablet 8 mg PO Q8H PRN nausea and vomiting #30 tabs 05/23/21 [Rx Confirmed 03/12/22] prochlorperazine maleate 10 mg tablet 10 mg PO Q6H PRN nausea and vomiting #30 tabs 05/23/21 [Rx Confirmed 03/12/22] citalopram 20 mg tablet (Celexa) 10 mg PO DAILY 05/31/21 [History Confirmed 03/12/22] lorazepam 1 mg tablet 1 mg PO BID PRN Anxiety 05/31/21 [History Confirmed 03/12/22] aspirin 81 mg tablet,delayed release (Adult Aspirin Regimen) 81 mg PO DAILY #90 tabs 06/07/21 [Rx Confirmed 03/12/22] sacubitril 49 mg-valsartan 51 mg tablet (Entresto) 1 tab PO BID #60 tabs 11/27/21 [Rx Confirmed 03/12/22] carvedilol 25 mg tablet 25 mg PO BID 03/12/22 [History Confirmed 03/12/22] hydrocortisone acetate 25 mg rectal suppository (Anusol-HC) 25 mg HI BID 1 week #14 supp 03/12/22 [Rx Confirmed 03/12/22] PFSH Medical History? Alcohol use Arthritis Back pain Braces as ambulation aid Cancer Cardiology follow-up encounter CINV (chemotherapy-induced nausea and vomiting) CPAP (continuous positive airway pressure) dependence Difficulty swallowing Encounter for education Former smoker Gastric reflux History of echocardiogram History of edema History of heart attack Left bundle branch block (LBBB) Leg cramps Marijuana use Morbid obesity Near syncope (04/20/20) Non-ischemic cardiomyopathy Non-sustained ventricular tachycardia NSTEMI (non-ST elevated myocardial infarction) (04/20/20) Obstructive sleep apnea Oral candidiasis Palpitations Shortness of breath on exertion Wears glasses Surgical History? History of appendectomy History of esophagogastroduodenoscopy (EGD) History of left heart catheterization (04/21/20) Hx of surgical procedure Family History? Mother Breast cancer Hypertension CVA (cerebral vascular accident) High cholesterolBrother Cancer ?? ? prostate ?? ? Social History? Smoking Status:? Former smoker alcohol intake:? former substance use type:? does not use HPI HPI HPI: SHELLEY PAUL, is a 60 M who presents to the office today for consideration of repeat EGD to assess status of esophageal adenocarcinoma first diagnosed on EGD 04/11/2021.? This diagnosis was shortly thereafter accompanied by a observation of liver mets on staging CT imaging of the abdomen.? Patient began palliative radiation and chemotherapy in May 2021 and finish cycle 12 of his chemotherapy on 12/06/2021.? Subsequent PET imaging in October [address] imaging earlier this month suggest regression of his primary disease and resolution of the metastatic foci in the liver.? Mr. Paul reports that he has had no trouble swallowing since completing his radiation therapy.? He states overall has treatments went well and his only side effects from chemotherapy were a rash (he notes having a dermatology appointment later today) and some peripheral neuropathy.? He does admit to some anorexia while undergoing chemotherapy and reports that he had to force myself to eat.? He states he was told to prioritize protein in his diet and so he took to eating steak very routinely.? With this routine he has been able to maintain his weight between 330 and 340 pounds.? He denies any experience of GERD or heartburn.? He denies any interval health issues aside from a hemorrhoid problem for the last 3 to 4 months.? He states that he has experienced bleeding, itching, and pain with this issue.? He notes that the pain is the most distressing symptom.? He reports using Preparation H and sitz bath's, but admits to spending a lot of time on the toilet to have very small stools.? He notes that they are very hard immediately after his colonoscopy, but now they have become softer and sometimes appear as diarrhea. Below is recapitulated from patient's initial surgical consultation in March 2021 for ease of review: Patient presents with complaints of dysphagia for the last 6 months and some recent right upper quadrant pain.? They are referred for surgical consultation from Dr. Mathew.? Mr. Paul states that his difficulty swallowing has progressed to some pain with swallowing.? This swallowing difficulty seems isolated to food?only.? He states that he is now drinking up to 64 ounces of water with each meal simply to get food to move through his esophagus.? He states that he underwent radiographic imaging of his swallow and was told this was normal.? Unfortunately, he finds when he drinks too much liquid he will vomit the water that he takes down.? He states he was started on a trial of omeprazole therapy approximately a month ago and is currently starting into his second 30?day prescription. Mr. Paul specifically denies any experience of heartburn.? He denies any nighttime awakenings gasping for air (but he does have a history of sleep apnea and consistently wears a CPAP mask).? However, he does note some recent nighttime awakenings for right upper quadrant pain.? He states this is occurred approximately 3-4 times in the last couple weeks following initiation of omeprazole.? He finds that burping and sitting up will cause resolution of this pain.? This pain is not associated with nausea. Mr. Paul has not been able to link any particular foods to his symptoms.? He specifically denies any increase of symptoms following fatty or greasy meals.? Therefore, he has also not made any dietary changes.? He states that his weight has been stable through this experience.? Today he weighs 355 pounds by our scale, and states that he began this year at 360 pounds.? He does state that his appetite is somewhat decreased and occasionally he is fearful to eat given his discomfort swallowing. He states that his mother had difficulties with reflux, but is unaware of any other family GI diagnoses.? Personally, his surgical history he has had only an appendectomy (performed in 1977 for an open incision). Mr. Paul has never had an upper endoscopy.? He states he did have a colonoscopy remotely in [place].? He estimates this was approximately 9 years ago.? He states that the results of the scope were normal and was given 10-year follow-up. Previous work-up for the patient's presenting concern has included a modified barium swallow and a esophagram.? The swallow study did not identify any alarming aspiration events in the esophagram did not show any hold-up of the contrast. ROS General General: Yes fatigue; No weight change, appetite, colon cancer, breast cancer or weakness HEENT HEENT: No difficulty swallowing, eye injury, eye surgery, swollen glands or hoarseness Endo Endocrine: No thyroid disease, diabetes mellitus, thyroid cancer, Hair loss, heat intolerance or cold intolerance Skin Skin: Yes rash and changing moles Musc Musculoskeletal: Yes arthritis; No back problems, rheumatoid arthritis, gout or joint pain Cardio Cardiovascular: Yes heart disease, high blood pressure and heart attack; No murmur, pacemaker, atrial fibrillation, heart stent, palpitations, shortness of breat with exertion or chest pain Psych Psychiatric: No depression, anxiety or hearing voices Resp Respiratory: Yes shortness of breath, Yes sleep apnea, No cough, No COPD, No asthma, No emphysema and No wheezing Gastro Gastrointestinal: No abdominal pain, No nausea or vomiting, No diarrhea, No constipation, No blood in stool, No acid reflux, Yes hemorrhoids, No ulcers, No gallbladder problem and No black,tarry stools [place] Hematologic: No blood thinners, No blood disorders, No bleeding, No anemia and No blood clots Neuro Neurologic: No system reviewed and no additional complaints, except as documented, No as per HPI, No abnormal gait, No abnormal hearing, No abnormal movements, No abnormal speech, No behavioral changes, No burning sensations, No confusion, No convulsions, No disequilibrium, No dizziness, No localized weakness, No frequent falls, No headache(s), No lack of coordination, No loss of vision, No memory loss, Yes numbness, No other visual disturbances, No radicular pain, No restless legs, No sensory deficit, No syncope, Yes tingling, No tremor(s), No weakness and No other Exam Const General: cooperative, healthy appearing, comfortable and no acute distress Nutritional Appearance: obese Orientation: alert, awake and oriented x3 Chest Other: Right chest wall port with some thinning of the overlying skin and prominence of port contours, but no wounds or imminent erosion Resp Effort & Inspection: normal respiratory effort Auscultation: no rales, no rhonchi and no wheezes Cardio Rate: regular rate Rhythm: regular rhythm GI Inspection: non-distended and obesity (Central obesity present) Palpation: soft and nontender Other: Patient defers anorectal exam although offered Assessment and Plan Assessment and Plan (1) Cancer of lower third of esophagus: ?Status:?Chronic ?Comment: Stage IV(cTx cNx? 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 S/P palliative Radiation therapy to lower esophagus 05/17/2021 to 06/06/2021. Started therapy with FOLFOX and Nivolumab q 2 weeks on 06/07/2021. CT c/a/p on 07/28/[address] c/a/p shows thickening of Lower esophagus, small sub-centimeter nodules in liver. PET/CT on 10/18/2021 shows Complete resolution. Because of Thrombocytopenia and Neutropenia, got C11 without 5FU Bolus and Leucovorin. Finished C12 on 12/06/2021. On observation. CT on 03/01/2022 showed no evidence of progressive disease, decreased thickening of lower esophagus.. Patient with stage IV esophageal adenocarcinoma now status post palliative chemoradiation with favorable response.? Post therapy PET and CT imaging both show regression of disease at primary location and seemingly complete regression of hepatic metastases.? Along with this patient reports resolution of prior dysphagia symptoms.? He has experienced some cutaneous manifestations and neuropathy following his chemotherapy, but otherwise is in a good state of health.? It is therefore reasonable to plan for a surveillance EGD with biopsy to assess his distal esophagus more directly.? We will plan for this at first mutually agreeable date. ?Plan: Surveillance EGD to be scheduled at first mutually agreeable date?likely late April/early May.? Procedure expectations were discussed in detail. (2) Acute hemorrhoid: ?Status:?Acute ?Comment: Patient describes intermittent bleeding, itching, and pain with hemorrhoids.? He states that the symptoms seem to be wearing on despite him treating the area with Preparation H.? He does acknowledge a history of hemorrhoids and admits to recent prolonged toilet time.? Additionally, he remarks that he transitioned his diet to a heavily protein?based diet.? He expressed concern that his hemorrhoids may be related to his chemo treatments, but I have pointed out these above factors that are likely causative/propagating his issue.? I have encouraged him to begin immediate use of supplemental fiber and focus on increasing his dietary fiber as well.? He will plan to continue sitz bath's and may add Epson salts to try to work as an astringent.? Lastly, I have ordered him Anusol suppositories to his pharmacy to try to improve this issue from a conservative standpoint.? In the event that the above is not effective or incompletely effective, patient is advised to notify us of this several weeks in advance of his scheduled EGD as we may then consider a diagnostic sigmoidoscopy versus anoscopy and banding at the same time of his EGD.? It should be noted that patient did undergo a screening colonoscopy in March 2021 along with his EGD and was found to have diverticulosis and a rectal polyp of fibroepithelial tissue representing a skin tag. ?Plan: ? Anusol suppositories and conservative management as discussed above ? Patient to notify us of any persistent issues so that we may then amend his consents and planned procedure to include diagnostic sigmoidoscopy versus simple anoscopy and hemorrhoid banding ? ? ? Medications: New hydrocortisone acetate (Anusol-HC) 25 mg? HI BID 1 week 14 supp 0RF ? ? Interval: Patient denies any significant change to the above. Still experiencing some pain with hemorrhoids but minimal bleeding. Denies any swallowing difficulty. Confirms prep completion and that output is now clear.
--- NOTE | 2022-05-16 14:54 | OP.CCLET_ITS ---
05/16/2022 Jasen Bhardwaj Md Re : Upper GI endoscopy procedure for Marino Mckeon Benton This procedure was performed on Monday, May 16, 2022. My impressions and recommendations are as follows: Impressions : - Normal first portion of the duodenum and second portion of the duodenum. No specimens collected. - No gross lesions in the stomach. - Z-line regular, 40 cm from the incisors. Biopsied. - The examination was otherwise normal. Recommendations : - Discharge patient to home (via wheelchair). - Resume previous diet today. - Continue present medications. - Await pathology results. - Telephone my office for pathology results in 1 week. My findings are described in the full procedure note, which is enclosed. If I can be of further assistance, please feel free to contact me at Doctor phone number(s): , Work: . Sincerely, Melo Singh MD 05/16/2022 2:53:26 PM This report has been signed electronically.
--- NOTE | 2022-05-16 14:54 | OP.EGD_ITS ---
Patient Name: Marino Paige Procedure Date: 05/16/2022 1:32 PM Date of : 1960 Age: 61 Procedure: Upper GI endoscopy Indications: Surveillance for malignancy due to personal history of esophageal cancer Providers: Melo Singh MD Medicines: See the Anesthesia note for documentation of the administered medications Patient Profile: Refer to note in patient chart for documentation of history and physical. Complications: No immediate complications. Estimated blood loss: Minimal. Procedure: Pre-Anesthesia Assessment: - The heart rate, respiratory rate, oxygen saturations, blood pressure, adequacy of pulmonary ventilation, and response to care were monitored throughout the procedure. After obtaining informed consent, the endoscope was passed under direct vision. Throughout the procedure, the patient's blood pressure, pulse, and oxygen saturations were monitored continuously. The Endoscope was introduced through the mouth, and advanced to the second part of duodenum. The upper GI endoscopy was accomplished without difficulty. The patient tolerated the procedure well. Scope In: 1:49:30 PM Scope Out: 2:04:55 PM Total Procedure Duration Time 0 hours 15 minutes 25 seconds Findings: The first portion of the duodenum and second portion of the duodenum were normal. No biopsies or other specimens were collected for this exam. No gross lesions were noted in the entire examined stomach. The Z-line was regular and was found 40 cm from the incisors. Biopsies were taken with a cold forceps for histology. Estimated blood loss: 3 mL requiring treatment with coagulation. The exam was otherwise without abnormality. Impression: - Normal first portion of the duodenum and second portion of the duodenum. No specimens collected. - No gross lesions in the stomach. - Z-line regular, 40 cm from the incisors. Biopsied. - The examination was otherwise normal. Recommendation: - Discharge patient to home (via wheelchair). - Resume previous diet today. - Continue present medications. - Await pathology results. - Telephone my office for pathology results in 1 week. Procedure Code(s): --- Professional --- 46224, Esophagogastroduodenoscopy, flexible, transoral; with biopsy, single or multiple Diagnosis Code(s): --- Professional --- Z85.01, Personal history of malignant neoplasm of esophagus CPT copyright 2017 [employer]. All rights reserved. The codes documented in this report are preliminary and upon cobol programmer review may be revised to meet current compliance requirements. Melo Singh MD 05/16/2022 2:53:26 PM This report has been signed electronically. Number of Addenda: 0 Note Initiated On: 05/16/2022 1:32 PM
--- NOTE | 2022-05-16 14:59 | OP.CCLET_ITS ---
05/16/2022 Jasen Bhardwaj Md Re : Colonoscopy procedure for Marino Paige Dear [place] This procedure was performed on Monday, May 16, 2022. My impressions and recommendations are as follows: Impressions : - Diverticulosis in the sigmoid colon. No specimens collected. - Internal hemorrhoids. Banded. - Perianal skin tags found on perianal exam. Recommendations : - Discharge patient to home (via wheelchair). - Resume previous diet today. - Continue present medications. - No recommendation at this time regarding repeat colonoscopy. My findings are described in the full procedure note, which is enclosed. If I can be of further assistance, please feel free to contact me at Doctor phone number(s): , Work: . Sincerely, Melo Singh MD 05/16/2022 2:59:23 PM This report has been signed electronically.
--- NOTE | 2022-05-16 14:59 | OP.COLON_ITS ---
Patient Name: Mraino Paige Procedure Date: 05/16/2022 2:07 PM Date of : 1960 Age: 61 Procedure: Colonoscopy Indications: Suspected hemorrhoids Providers: Melo Singh MD Medicines: See the Anesthesia note for documentation of the administered medications Patient Profile: Refer to note in patient chart for documentation of history and physical. Last Colonoscopy: 1 year ago. Complications: No immediate complications. Estimated blood loss: Minimal. Procedure: Pre-Anesthesia Assessment: - The heart rate, respiratory rate, oxygen saturations, blood pressure, adequacy of pulmonary ventilation, and response to care were monitored throughout the procedure. After I obtained informed consent, the scope was passed under direct vision. Throughout the procedure, the patient's blood pressure, pulse, and oxygen saturations were monitored continuously. The Endoscope was introduced through the anus and advanced to the sigmoid colon for evaluation. This was the intended extent. The colonoscopy was performed without difficulty. The patient tolerated the procedure well. The quality of the bowel preparation was adequate to identify polyps 6 mm and larger in size. Scope In: 2:09:28 PM Scope Out: 2:44:22 PM Total Procedure Duration Time 0 hours 34 minutes 54 seconds Findings: Multiple medium-mouthed diverticula were found in the sigmoid colon. No biopsies or other specimens were collected for this exam. Internal hemorrhoids were found during retroflexion. The hemorrhoids were Grade II (internal hemorrhoids that prolapse but reduce spontaneously). One band was successfully placed. There was no bleeding at the end of the procedure. Skin tags were found on perianal exam. Impression: - Diverticulosis in the sigmoid colon. No specimens collected. - Internal hemorrhoids. Banded. - Perianal skin tags found on perianal exam. Recommendation: - Discharge patient to home (via wheelchair). - Resume previous diet today. - Continue present medications. - No recommendation at this time regarding repeat colonoscopy. Procedure Code(s): --- Professional --- 65114, 52, Colonoscopy, flexible; with band ligation(s) (eg, hemorrhoids) Diagnosis Code(s): --- Professional --- K64.4, Residual hemorrhoidal skin tags K64.1, Second degree hemorrhoids K57.30, Diverticulosis of large intestine without perforation or abscess without bleeding CPT copyright 2017 [employer]. All rights reserved. The codes documented in this report are preliminary and upon regulatory compliance engineer review may be revised to meet current compliance requirements. Melo Singh MD 05/16/2022 2:59:23 PM This report has been signed electronically. Number of Addenda: 0 Note Initiated On: 05/16/2022 2:07 PM
[2022-05-16] MEDS: 0.9% Saline Lock 10 ML Syringe IV (15:41)
--- NOTE | 2022-05-16 15:42 | SUR.PREOP ---
PATIENT'S RIGHT CHEST PORT FLUSHED WITH 10ML NS AND LOCKED WITH HEPARIN, SEE MAR, UPON DISCHARGE FROM ENDO PROCEDURE. PATIENT TOLERATED WELL.
== END 2022-05-16 15:51 | disposition home or self-care (01) ==
LOC: EN 12:17 → AC 12:18
PROVIDERS: PCP Family Medicine Geriatric Medicine; Referring Provider Family Medicine Geriatric Medicine; Visit Provider Surgery
PROC: 0DJ08ZZ Inspection of Upper Intestinal Tract, Via Natural or Artificial Opening Endoscopic (ICD-10-PCS; CPT 43235; principal; 2022-05-16 13:25)
DX: C15.5 Malignant neoplasm of lower third of esophagus (principal); C78.7 Secondary malignant neoplasm of liver and intrahepatic bile duct; D70.9 Neutropenia, unspecified; D69.6 Thrombocytopenia, unspecified; Z80.3 Family history of malignant neoplasm of breast; R19.7 Diarrhea, unspecified; Z87.891 Personal history of nicotine dependence; K64.1 Second degree hemorrhoids; R13.10 Dysphagia, unspecified; K57.30 Diverticulosis of large intestine without perforation or abscess without bleeding; G62.9 Polyneuropathy, unspecified; Z92.3 Personal history of irradiation; K64.4 Residual hemorrhoidal skin tags
CPT/HCPCS: 45398; 43239; 88305; 88313; J7120; A4216; J2405

== ENCOUNTER → 2022-05-31 | Outpatient (CLI) | payer OTHER, SELFPAY ==
--- NOTE | 2022-05-31 08:10 | CT_ITS ---
STUDY: CT CHEST T ABDOMEN WITH CONTRAST REASON FOR EXAM: Male, 61 years old. ASSESS TREATMENT RESPONSE-ESOPHAGEAL CA RADIATION DOSAGE (If Supplied By Facility): CTDIvol = ( 26.25 ) mGy, DLP = ( 4201.51 ) mGycm TECHNIQUE: Transaxial imaging was performed following intravenous administration of IV 100mL Isovue-300. Multiplanar coronal and sagittal images were reformatted. Individualized dose optimization techniques were used for this CT. COMPARISON: Comparison is made with prior study dated 10/06/2021 and 03/01/2022.. FINDINGS: CHEST A right-sided edith catheter seen with the tip in the superior vena cava. Mild degree of increased markings at the lung bases suggestive of a mild basilar scarring. There is no demonstrated pleural abnormality. There are calcifications of the coronary arteries. Calcified mediastinal lymphadenopathy. Normal hilar regions. Normal unenhanced pulmonary arteries. Normal aorta arch and descending thoracic aorta. There are multi-level degenerative changes of the thoracic spine. Mild residual wall thickening of the distal esophagus. This is unchanged. ABDOMEN There is a new 2.2 cm x 2.3 cm slightly ill-defined hypodensity in the peripheral lateral aspect of the right lobe of the liver in its midportion. A metastatic deposit should be ruled out. There is evidence of a a 1.8 cm rounded nodule in the region of the celiac axis suggests a possible small lymph node. Normal gallbladder and extrahepatic biliary system. Normal spleen. Normal pancreas. Normal bilateral adrenal glands. Stable bilateral renal cysts more prominent on the left side. Normal visualized stomach. Normal small intestine. Normal colon. The appendix is visualized and appears normal. Normal abdominal aorta. Normal inferior vena cava. Normal retroperitoneum. Normal abdominal wall. There are diffuse degenerative changes of the visualized lumbar spine. CT/CT Chest AND Abd W/ Contrast IMPRESSION: New 2.2 sided by 2.3 cm slightly irregular hypodense nodule in the peripheral lateral midportion of the right lobe of the liver. A metastatic deposit should be ruled out. Findings suggestive of a small lymph node in region of the celiac axis. Bilateral renal cysts. Electronically Signed: Jim Skinner MD at 9:19 EST ,
[2022-05-31 08:40] LABS: CREATININE FINGERSTICK < 0.9 mg/dL (0.70-1.30); EGFR FINGERSTICK > 60.0000 mL/min (>60)
[2022-05-31] MEDS: 0.9% Saline Lock 10 ML Syringe IV (08:40)
== END | disposition home or self-care (01) ==
PROVIDERS: PCP Family Medicine Geriatric Medicine; Visit Provider Internal Medicine Medical Oncology
DX: C15.5 Malignant neoplasm of lower third of esophagus (principal)
CPT/HCPCS: 96372; 71260; 74160; Q9967; A4216

== ENCOUNTER → 2022-06-18 | Outpatient (CLI) | payer OTHER, SELFPAY ==
[2022-06-18] VITALS (9 sets, daily range): BP systolic 101–126; BP diastolic 51–83; PULSE 44–53; RESP 12–23; TEMP 36.4; O2SAT 92–96; BMI 47.4
--- NOTE | 2022-06-18 | IMM_PTH ---
PATIENT: SHELLEY PAUL LOC: CT U#:[id number] AGE/SX: 61/M ROOM: RE06/18/[address]: Dr. Deep Tang MD : 1960 BED: DIS: 06/18/2022 SPEC #: [id number] RECD: 06/18/22 10:27 STATUS: GREG REQ #: [id number] APRIL: 06/18/22 00:[address]: Deep Tang DEPT: IMMUNOHISTOCHEMISTRY RECD BY: Ana Coates ENTERED: 06/18/22 10:27 SP TYPE: IMMUNO OTHR DR: Jasen Bhardwaj MD Tissues: Liver, NOS Procedures: RCC (add) NAPSIN A (add) CK20 (add) CK5-6 (add) CK7 (add) CK8 (add) HEP PAR (add) HER2 MALA (add) TTF1 (add) Pankeratin (initial) P40 (add) PSAP (add) PHYSICIAN & INSTITUTION [facility] [id number] SPECIMEN INFORMATION: Tissue Source: Liver Clinical Info: Liver lesion Specimen Number: [id number] CPT code: 38377, 98329 x11 METHODOLOGY: Deparaffinized sections of prefer/formalin-fixed tissue or PAP/DQ stained slides are incubated with monoclonal/polyclonal antibodies/oligonucleotide probes. Localization is made via biotin free immunoperoxidase method. Appropriate controls are performed and reacted as expected. Results on target cell population are indicated in the following table: RESULTS: ANTIBODY / CLONE RESULT Her-2neu (CB11) negative (0) AE1-3 (AE1/AE3/PCK26) positive CK7 (OV-TL12/30) positive CK8 (01isekS41) positive CK20 (KS20.8) positive, focal TTF-1 (8G7G3/1) negative Napsin A (Rabbit Polyclonal) positive, focal HepPar (OCh1E5) negative RCC (PN-15) negative PSAP (PASE/4LJ) negative CK5-6 (D5 & 1684) negative P40 (BC28) negative These tests were developed and their performance characteristics determined by [facility]. They may not have been cleared or approved by the U.S. Food and Drug Administration. The FDA has determined that such clearance or approval is not necessary. The above immunohistochemical/dualISH markers are ordered and reviewed by the Pathologist. INTERPRETATION: Liver, CT-guided core biopsy: Metastatic adenocarcinoma. See comment. VONNIE:fanny 06/19/2022 Comment; IHC profile is compatible with clinical impression of esophageal primary. Case has been reviewed in consultation with Dr. Sharp who concurs with the above diagnosis. IDC:[email or web address]
--- NOTE | 2022-06-18 07:58 | CT_ITS ---
PROCEDURE: CT DIRECTED CORE LIVER BIOPSY INDICATION: Male, 61 years old. LIVER LESION PHYSICIAN: Dr. Susanne Reed CONSENT: Written informed consent was obtained having explained the risks, benefits and alternatives in detail with the patient who accepted the risks and agreed to proceed. Laboratory review and clinical assessment was performed. CONSCIOUS SEDATION PROTOCOL: The Drugs used were: 2 mg Versed, IV., and 75 mcg Fentanyl, IV. The sedation time was: 26 minutes. Conscious sedation was started at 9:02 AM and terminated at 9:28 AM. The conscious sedation protocol was independently monitored. RADIATION DOSAGE (If Supplied By Facility): CTDIvol = ( 34 ) mGy, DLP = ( 1882.58 ) mGycm Individualized dose optimization techniques were used for this CT. TECHNIQUE: Using CT image guidance with image documentation, the hypodense lesion in the in the right lobe of the liver was identified. Using a right lateral approach, puncture of the liver was uneventful with an 18-gauge core needle system. 4, 18-gauge core samples were obtained, and submitted in formalin to the pathologist for further assessment. Followup CT scan revealed no distinct sequelae. CT/Biopsy/Inj or Needle Placement IMPRESSION: 1. CT directed core needle biopsy of the liver, using CT image guidance with image documentation as described. 2. Conscious Sedation protocol utilized with independent monitoring. Electronically Signed: Jim Skinner MD at 10:07 RUST ,
[2022-06-18 08:03] LABS: Absolute Lymphocyte Count 0.69 X10^3/uL (0.83-4.51); Absolute Neutrophil Count 3.9 X10^3/uL (2.0-7.7); Basophil# 0.04 X10^3/uL; Basophil% 0.7 % (0-1); Eosinophil# 0.26 X10^3/uL; Eosinophils% 4.7 % (0-5); Hematocrit 39.5 % (40-54); Hemoglobin 13.6 g/dL (13.0-16.5); Lymphocyte # 0.69 X10^3/ul (0.83-4.51); Lymphocyte % 12.4 % (19-41); Mean Corp Hgb Conc 34.4 g/dL (32-36); Mean Corpuscular Hgb 29.8 pg (27.0-32.0); Mean Corpuscular Volume 86.4 fL (80-94); Mean Platelet Vol. 8.3 fl (6.2-12.0); Monocyte# 0.65 X10^3/uL; Monocyte% 11.7 % (0-10); NRBC Flagged by Analyzer 0 % (0-5); Neutrophil # 3.89 X10^3/uL (2.7-7.7); Platelet Count 171 K/mm3 (150-450); RBC Distribution Width CV 13.9 % (11.6-14.6); Red Blood Count 4.57 M/mm3 (4.6-6.2); White Blood Count 5.6 K/mm3 (4.4-11.0)
[2022-06-18 08:24] LABS: International Normalized Ratio 1.1; Prothrombin Time (Protime)PT. 14.4 SECONDS (11.7-14.9)
[2022-06-18] MEDS: fentaNYL 100 MCG/2 ML Ampul IV ×2 (09:02→09:27)
[2022-06-18] MEDS: Midazolam 2 MG/2 ML Syringe IV (09:02)
--- NOTE | 2022-06-18 09:15 | ASPIGT_PTH ---
PATIENT: SHELLEY PAUL LOC: CT U#:[id number] AGE/SX: 61/M ROOM: RE06/18/[address]: Dr. Deep Tang MD : 1960 BED: DIS: 06/18/2022 SPEC #: [id number] RECD: 06/18/22 09:41 STATUS: GREG REMary #: [id number] APRIL: 06/18/22 09:[address]: Deep Tang DEPT: SURGICAL PATHOLOGY RECD BY: Katy Villa ENTERED: 06/18/22 09:41 SP TYPE: ASP RAD OTHR DR: Jasen Bhardwaj MD Tissues: Liver, NOS Procedures: FNA Specimen Adequacy Special Stain Group II Surgery Specimen Level V Imprint (control) HEADER OPERATION: CT-guided liver lesion biopsy PRE-OP DIAGNOSIS: Liver lesion TISSUE SUBMITTED: Liver 18-gauge x4 MICROSCOPIC DIAGNOSIS Liver, CT-guided core biopsy: Metastatic adenocarcinoma. See comment. VONNIE:fanny 06/19/2022 COMMENT The specimen is evaluated at the time of biopsy by Dr. Shoemaker. Immediate Evaluation = Malignant cells present derived from non-small cell carcinoma. Immunohistochemistry ([id number]) supports the above diagnosis and compatible with clinical impression of esophageal primary. Immunohistochemistry for microsatellite instability (mismatched repair proteins) and molecular studies on the tumor can be performed, please notify the laboratory if they are needed. Please make reference to previous specimen ([id number]) distal esophagus, biopsy with diagnosis of ?moderately differentiated adenocarcinoma.? Case has been reviewed in consultation with Dr. Sharp who concurs with the above diagnosis. IDC:AM MICROSCOPIC DESCRIPTION Slides are reviewed. GROSS DESCRIPTION Received in fixative is one container labeled with the patient's name and designated liver, CT-guided core biopsy. The specimen consists of multiple elongated fragments of moura soft tissue that in aggregate measure 2.0 x 0.3 x 0.1 cm. The specimen is totally submitted in one cassette. Two touch imprints are prepared at the time of core biopsy. / SJ:fanny 06/18/2022 TC:0 CPT: 10906, 92518 ADDENDUM ADDENDUM ADDENDUM ADDENDUM ADDENDUM ADDENDUM ADDENDUM ADDENDUM ADDENDUM ADDENDUM ADDENDUM ADDENDUM ADDENDUM ADDENDUM ADDENDUM ADDENDUM ADDENDUM ADDENDUM ADDENDUM ADDENDUM ADDENDUM ADDENDUM 07/09/2022 09:25 ADDENDUM 07/09/2022 09:25 ADDENDUM 07/09/2022 09:25 ADDENDUM 07/09/2022 09:25 ADDENDUM 07/09/2022 09:25 PD-L1 (KEYTRUDA) IMMUNOHISTOCHEMICAL ANALYSIS FROM [facility] RESULTS: Tumor proportion score: <1% / Negative ONKOSIT ADVANCED SOLID TUMOR NGS REPORT FROM [facility] RESULT SUMMARY: Abnormal IMMUNOTHERAPY BIOMARKERS: Tumor Mutation [place]: Low (9.4 Mutations / MB) Microsatellite Instability: MSI Negative (1.61%) PERTINENT NEGATIVE RESULTS: The following genes are NEGATIVE for clinically relevant mutations. Mutational hotspots and surrounding exonic regions were interrogated for DNA level point mutations and indels (fusions not assayed). AKT1, APC, ARID1A, WADE, BRAF, BRCA1, BRCA2, CDH1, CDKN2A, CTNNB1, EGFR, EPCAM, ERBB2, FBXW7, FGFR1, FGFR2, FGFR3, GNA11, GNAQ, GNAS, HRAS, IDH1, IDH2, KDR, KIT, KRAS, MEN1, MET, MLH1, MSH2, MSH6, NOTCH1, NRAS, PDGFRA, PIK3CA, PMS2, POLE, PTEN, PTPN11, RB1, RET, SMAD4, STK11, TERT, TSC1, TSC2, VHL Please see complete report in e-chart or EMR
[2022-06-18] MEDS: Lidocaine 2% (20 ml mdv) 20 ML Vial INFILT (09:22)
== END | disposition home or self-care (01) ==
PROVIDERS: PCP Family Medicine Geriatric Medicine; Referring Provider Internal Medicine Medical Oncology; Visit Provider Internal Medicine Medical Oncology
DX: Z01.818 Encounter for other preprocedural examination (principal); C15.5 Malignant neoplasm of lower third of esophagus; K76.9 Liver disease, unspecified
CPT/HCPCS: 47000; 36415; 77012; 85025; 85610; 85730; 88172; 88305; 88307; 88313; 88341; 88342; 99156; J7050; A4216

== ENCOUNTER → 2022-06-21 | Outpatient (CLI) | payer OTHER, SELFPAY ==
--- NOTE | 2022-06-21 07:30 | RAD_ITS ---
STUDY: X-RAY - ORBITS REASON FOR EXAM: Male, 61 years old. PRE-MRI Clearance; history OF METAL IN EYE TECHNIQUE: 2 view(s) of the orbits were obtained. COMPARISON: None. FINDINGS: Normal bilateral orbits without a metallic orbital foreign body. Normal visualized facial bones. Normal paranasal sinuses. The soft tissue structures are unremarkable. RAD/Orbits for Foreign Body IMPRESSION: No demonstrated metallic orbital foreign body. The patient is cleared for an MRI examination. Electronically Signed: Jim Skinner MD at 8:04 EST ,
--- NOTE | 2022-06-21 07:37 | MRI_ITS ---
STUDY: MRI ABDOMEN WITH AND WITHOUT CONTRAST REASON FOR EXAM: Male, 61 years old. Liver lesion in patient with history of esophageal cancer. TECHNIQUE: Standardized fat and water weighted pulse sequences were obtained in all 3 orthogonal planes post contrast administration. 30ML IV CLARISCAN was administered for the contrast portion of the examination. COMPARISON: Pet/CT scan, June 19, 2022. The chest, May 31, 2022. CT of the chest and pelvis, March 01, 2022 FINDINGS: The visualized lung bases are unremarkable. The visualized portions of the heart are within normal limits. Liver is normal in size and contour. There are low-attenuation nodules in segment 8 of the liver with larger low-attenuation mass extending into segment 5. This measures roughly 5 x 3.9 x 7.7 cm. This is low in signal on T1 weighted images. This appears isointense on T2 fat-saturated images. The nodules appear high intensity on diffusion-weighted imaging and demonstrates peripheral to central contrast enhancement. Irregular area of nonenhancement remains on the 6 minute delays. Normal gallbladder and extrahepatic biliary system. Normal spleen. Normal pancreas. Normal bilateral adrenal glands. There is a cyst in the upper pole of the right normal left kidney. Exophytic 5.3 cm cyst is seen off the lower pole left kidney. Normal left kidney. Normal visualized stomach. Normal visualized small intestine. Normal visual colon. Normal abdominal aorta. Normal inferior vena cava. Normal retroperitoneum. Normal abdominal wall. Normal osseous structures. MRI/MRI Abd WITH and W/O Contrast IMPRESSION: 1. Hepatic mass with multiple satellite nodules. These were not previously noted suspicious for metastatic disease. This area was biopsied on CT 2 days ago. 2. Stable hepatic cysts. Electronically Signed: Robbie Fenton DO at 22:03 EST ,
== END | disposition home or self-care (01) ==
LOC: MRI 07:36
PROVIDERS: PCP Family Medicine Geriatric Medicine; Visit Provider Internal Medicine Medical Oncology
DX: C15.5 Malignant neoplasm of lower third of esophagus (principal); K76.9 Liver disease, unspecified
CPT/HCPCS: 70030; 74183; A9575; A4216

== ENCOUNTER → 2022-09-17 | Outpatient (CLI) | payer OTHER, SELFPAY ==
--- NOTE | 2022-09-17 07:45 | CT_ITS ---
STUDY: CT CHEST T ABDOMEN WITH CONTRAST REASON FOR EXAM: Male, 62 years old. ASSESS TREATMENT RESPONSE-ESOPHAGEAL CA RADIATION DOSAGE (If Supplied By Facility): CTDIvol = ( 23.26 ) mGy, DLP = ( 1899.45 ) mGycm TECHNIQUE: Transaxial imaging was performed following intravenous administration of IV 100mL Isovue-370. Multiplanar coronal and sagittal images were reformatted. Individualized dose optimization techniques were used for this CT. COMPARISON: Comparison is made with prior study dated May 31, 2022. FINDINGS: CHEST A right-sided portacatheter is seen with the tip in the superior vena cava. Stable mild linear scarring at the lung bases. There is no demonstrated pleural abnormality. There are calcifications of the coronary arteries. Stable calcified precarinal mediastinal lymph nodes. Normal hilar regions. Normal unenhanced pulmonary arteries. Normal aorta arch and descending thoracic aorta. There are multi-level degenerative changes of the thoracic spine. Stable mild residual thickening of the distal portion of the esophagus. ABDOMEN Heterogeneous enhancement seen on the arterial phase in the right lobe of the liver inferiorly. On the delayed images, there is evidence of a 4.6 cm x 4.2 cm A metastatic deposit should be ruled out. This has progressed as compared to prior study. Normal gallbladder and extrahepatic biliary system. Normal spleen. Normal pancreas. Normal bilateral adrenal glands. Stable bilateral renal cysts more prominent on the left side. Normal visualized stomach. Normal small intestine. Normal colon. The appendix is visualized and appears normal. Normal abdominal aorta. Normal inferior vena cava. Normal retroperitoneum. Normal abdominal wall. There are diffuse degenerative changes of the visualized lumbar spine. CT/CT Chest AND Abd W/ Contrast IMPRESSION: Focal area of heterogeneous enhancement with hypodensity in the mid lateral aspect of the right lobe of the liver. A metastatic deposit should be ruled out. There has been a progression as compared to prior study. Bilateral renal cysts more prominent on the left side. Electronically Signed: Jim Skinner MD at 13:25 EDT ,
[2022-09-17] MEDS: 0.9% Saline Lock 10 ML Syringe IV (08:14)
== END | disposition home or self-care (01) ==
LOC: CT 07:44
PROVIDERS: PCP Family Medicine Geriatric Medicine; Referring Provider Internal Medicine Medical Oncology; Visit Provider Internal Medicine Medical Oncology
DX: C15.5 Malignant neoplasm of lower third of esophagus (principal); C78.7 Secondary malignant neoplasm of liver and intrahepatic bile duct
CPT/HCPCS: 71260; 74160; Q9967; A4216

== ENCOUNTER 2022-10-07 12:11 | Emergency (ER) | payer OTHER, SELFPAY ==
[2022-10-07 12:13] VITALS: BP 131/88; PULSE 62; RESP 15; TEMP 36.2; O2SAT 98; BMI 46.6
--- NOTE | 2022-10-07 12:34 | EDS_ITS ---
HPI <ANIVAL Leos - Last Filed: 10/07/22 13:34> History of Present Illness Chief Complaint: Lower Extremity Injury Narrative Narrative: 62-year-old male with PMH of esophageal cancer with liver metastasis on chemotherapy presents with a new rash on his right leg. He is on chemotherapy every 2 weeks and developed radiation dermatitis patches and uses topical steroid cream. He has been on oral dexamethasone for this over the last 10 days. However over the last couple days he developed a new different red rash on his right calf that is painful and seems to be spreading. There is no fluid drainage. No fever or chills. Today the leg started throbbing while he was sitting and he decided to get evaluated. PFSH <ANIVAL Leos - Last Filed: 10/07/22 13:34> [facility] Medical History Alcohol use Arthritis Back pain Braces as ambulation aid Cancer Cardiology follow-up encounter CINV (chemotherapy-induced nausea and vomiting) CPAP (continuous positive airway pressure) dependence Difficulty swallowing Encounter for education Former smoker Gastric reflux History of echocardiogram History of edema History of heart attack Left bundle branch block (LBBB) Leg cramps Marijuana use Morbid obesity Mucositis (ulcerative) due to antineoplastic therapy Near syncope (04/20/20) Non-ischemic cardiomyopathy Non-sustained ventricular tachycardia NSTEMI (non-ST elevated myocardial infarction) (04/20/20) Obstructive sleep apnea Oral candidiasis Palpitations Shortness of breath on exertion Wears glasses Home Medications lidocaine-prilocaine 2.5 %-2.5 % topical cream 1 applic topical ONCE PRN port access 30 days #30 grams 05/23/21 [Rx Last Taken Unknown] citalopram 20 mg tablet (Celexa) 20 mg PO DAILY 05/31/21 [History Last Taken Unknown] lorazepam 1 mg tablet 1 mg PO BID PRN Anxiety 05/31/21 [History Last Taken Unknown] Hydrocortisone 2.5%/lidocaine 5% suppository (cmpd) (hydrocortisone 2.5%/lidocaine 5% suppository (compound)) #14 ea 03/14/22 [Rx Last Taken Unknown] carvedilol 25 mg tablet 25 mg PO BID #180 tabs 03/16/22 [Rx Last Taken 05/16/22 08:00] aspirin 81 mg tablet,delayed release (Adult Aspirin Regimen) 81 mg PO DAILY #90 tabs 06/11/22 [Rx Last Taken Unknown] pantoprazole 40 mg tablet,delayed release 40 mg PO DAILY 06/14/22 [History Last Taken Unknown] lisinopril 10 mg tablet 10 mg PO DAILY #90 tabs 06/27/22 [Rx Last Taken Unknown] ondansetron 8 mg disintegrating tablet 8 mg PO Q8H PRN nausea and vomiting #30 tabs 08/07/22 [Rx Last Taken Unknown] prochlorperazine maleate 10 mg tablet 10 mg PO Q6H PRN nausea and vomiting #30 tabs 08/07/22 [Rx Last Taken Unknown] MAGIC MOUTH WASH (BMX) 180 mL suspension 5 ml buccal .QID 4 weeks #180 mL 08/27/22 [Rx Last Taken Unknown] dexamethasone 4 mg tablet 4 mg PO DAILY #10 tabs 09/26/22 [Rx Last Taken Unknown] cephalexin 500 mg capsule 500 mg PO Q6 #40 CAPSULES 10/07/22 [Rx Last Taken U nknown] Allergy/AdvReac Type Severity Reaction Status Date / Time No Known Allergies Allergy Verified 10/07/22 12:15 Family History Mother Breast cancer Hypertension CVA (cerebral vascular accident) High cholesterol Brother Cancer prostate Surgical History History of appendectomy History of esophagogastroduodenoscopy (EGD) History of left heart catheterization (04/21/20) Hx of surgical procedure Hx of surgical procedure Social History Smoking Status: Former smoker alcohol intake: former substance use type: does not use ROS <ANIVAL Leos - Last Filed: 10/07/22 13:34> ROS ED ROS Narrative Constitutional: Negative for fever, chills, malaise. CVS: Negative for chest pain. Respiratory: Negative for shortness of breath. Neuro: Negative for motor/sensory dysfunction. Skin: Positive for rash. EXAM <ANIVAL Leos - Last Filed: 10/07/22 13:34> Physical Exam Narrative Exam Narrative: CONST: Patient sitting in no acute distress. EYES: Normal inspection. ENT: Normal inspection, moist mucous membranes. NECK: Normal inspection. RESP: No respiratory distress, CTAB. CVS: Regular rate and rhythm, no murmur, no gallop. SKIN: Patient has scattered red macular dermatitis lesions on all extremities. On the right lower calf is a larger area of diffuse erythema with smaller dark red macular circular lesions and some of them have pustules. No crepitus or fluctuance, compartments are soft. 2+ DP pulses. NEURO: Oriented x4. PSYCH: Normal affect. Const Vital Signs: 10/07/22 12:13 Temperature 97.2 F L Temperature Source Temporal Pulse Rate 62 Respiratory Rate 15 Blood Pressure 131/88 H Blood Pressure Mean 102 Pulse Ox 98 Oxygen Delivery Method Room Air <Dr. Geo Hamlin MD - Last Filed: 10/07/22 14:23> Physical Exam Const Vital Signs: 10/07/22 12:13 Temperature 97.2 F L Temperature Source Temporal Pulse Rate 62 Respiratory Rate 15 Blood Pressure 131/88 H Blood Pressure Mean 102 Pulse Ox 98 Oxygen Delivery Method Room Air MDM <ANIVAL Leos - Last Filed: 10/07/22 13:34> [facility] Narrative Medical decision making narrative: Patient has an acute rash on his right leg. He is on chemotherapy for history of esophageal cancer with liver metastasis. He appears well and nontoxic. Afebrile with normal vital signs. Right leg has diffuse erythema and some pustules concerning for an infectious rash. 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 Lower extremities are neurovascularly intact. White count is normal at 10.8, hemoglobin stable at 12.4, platelets within normal limits. BMP unremarkable. His rash looks most concerning for infectious process/cellulitis so he was given IV vancomycin and prescribed Keflex. He was advised to return for any worsening symptoms including fever or progressing rash and was discharged in stable condition. Differential: Cellulitis, abscess, DVT Tests considered: I considered a venous duplex ultrasound but his rash looks more infectious in nature and ultrasound is unavailable at this time and I have low clinical suspicion its DVT. Lab Data Attestation: I reviewed the patient's lab results. Labs: Laboratory Results - last 24 hr 10/07/22 10/07/22 12:33 12:33 WBC 10.8 RBC 4.20 L Hgb 12.4 L Hct 37.7 L MCV 89.8 MCH 29.5 MCHC 32.9 RDW Std Deviation 53.2 H RDW Coeff of Perla 16.5 H Plt Count 166 MPV 8.0 Immature Gran % (Auto) 0.800 Neut % (Auto) 74.8 H Lymph % (Auto) 9.9 L Whitfield % (Auto) 13.6 H Eos % (Auto) 0.6 Baso % (Auto) 0.3 Absolute Neuts (auto) 8.1 H Absolute Lymphs (auto) 1.07 Nucleated RBC % 0 Sodium 136 Potassium 4.0 Chloride 103 Carbon Dioxide 25.0 Anion Gap 8 BUN 20 H Creatinine 0.74 Estim Creat Clear Calc 108.82 Est GFR (MDRD) Af Amer 137 Est GFR (MDRD) Non-Af 114 BUN/Creatinine Ratio 27.0 H Glucose 98 Calcium 8.3 L <Dr. Geo Hamlin MD - Last Filed: 10/07/22 14:23> [facility] Lab Data Labs: Laboratory Results - last 24 hr 10/07/22 10/07/22 12:33 12:33 WBC 10.8 RBC 4.20 L Hgb 12.4 L Hct 37.7 L MCV 89.8 MCH 29.5 MCHC 32.9 RDW Std Deviation 53.2 H RDW Coeff of Perla 16.5 H Plt Count 166 MPV 8.0 Immature Gran % (Auto) 0.800 Neut % (Auto) 74.8 H Lymph % (Auto) 9.9 L Whitfield % (Auto) 13.6 H Eos % (Auto) 0.6 Baso % (Auto) 0.3 Absolute Neuts (auto) 8.1 H Absolute Lymphs (auto) 1.07 Nucleated RBC % 0 Sodium 136 Potassium 4.0 Chloride 103 Carbon Dioxide 25.0 Anion Gap 8 BUN 20 H Creatinine 0.74 Estim Creat Clear Calc 108.82 Est GFR (MDRD) Af Amer 137 Est GFR (MDRD) Non-Af 114 BUN/Creatinine Ratio 27.0 H Glucose 98 Calcium 8.3 L Treatment and Re-Evaluation Comments:: Seen and evaluated independently and in conjunction with physician clinical medical assistant. Agree with notes above unless documented otherwise. Pain and rash developing right lower leg last few days, to started becoming swollen today. No fevers, chills, systemic symptoms. On chemotherapy for liver mets, the esophageal primary he states is already been dealt with. He gets chemotherapy every other week, he is due this coming Saturday today is Saturday. Exam: Normal vital signs well-appearing in no distress. Scattered very tender erythematous rash, the borders not well-circumscribed, it is in the lower leg, from about the middle of it down toward the ankle but not involving the ankle or the foot or the thigh/knee. There are couple pustules on some of the lesions. All of that is very tender. There is no calf tenderness away from the erythema or palpable cords. Plan: Basic labs, antibiotics for what appears to likely be infection. Initially we attempted to obtain DVT ultrasound, but they are not available at the time given that it is Saturday, and I do not think we have to do this as an outpatient if he responds well to antibiotics. We discussed inpatient versus outpatient, he is okay going home and trying oral therapy, we charlette a line around the area given appropriate reasons to return. Discharge Plan Triage Chief Complaint: Lower Extremity Injury ED Midlevel Provider: Yudi Hinojosa ED Provider: Geo Hamlin Dx/Rx/DC Orders Clinical Impression: Cellulitis of leg, right Instructions: Cellulitis Dc Prescriptions: New cephalexin 500 mg capsule 500 mg PO Q6 Qty: 40 0RF No Action citalopram [Celexa] 20 mg tablet 20 mg PO DAILY lorazepam 1 mg tablet 1 mg PO BID PRN (Reason: Anxiety) lidocaine-prilocaine 2.5-2.5 % cream 1 applic topical ONCE PRN (Reason: port access) 30 Days Qty: 30 2RF pantoprazole 40 mg tablet,delayed release (DR/EC) 40 mg PO DAILY dexamethasone 4 mg tablet 4 mg PO DAILY Qty: 10 1RF (DME) hydrocortisone 2.5%/lidocaine 5% suppository (compound) Suppository See Rx Instructions .Route Qty: 14 0RF Rx Instructions: Use BID for 1 week carvedilol 25 mg tablet 25 mg PO BID Qty: 180 3RF Rx Instructions: must administer with a meal/food aspirin [Adult Aspirin Regimen] 81 mg tablet,delayed release (DR/EC) 81 mg PO DAILY Qty: 90 3RF lisinopril 10 mg tablet 10 mg PO DAILY Qty: 90 3RF ondansetron 8 mg tablet,disintegrating 8 mg PO Q8H PRN (Reason: nausea and vomiting) Qty: 30 2RF prochlorperazine maleate 10 mg tablet 10 mg PO Q6H PRN (Reason: nausea and vomiting) Qty: 30 2RF MAGIC MOUTH WASH (BMX) 180 mL suspension 5 ml buccal .QID 28 Days Qty: 180 3RF Rx Instructions: diphenhydramine 12.5 mg/5 mL oral liquid 60 mL; aluminum-mag hydroxide- simethicone 400 mg-400 mg-40 mg/5 mL oral susp 60 mL; Lidocaine Viscous 2 % mucosal solution 60 mL; Per 180 mL Primary Care Provider: Jasen Bhardwaj Chi Referrals: Jasen Bhardwaj Chi, MD [Primary Care Provider] - Activity Restrictions/Additional Instructions: If you develop a fever over the rash continues to spread after 20 to 48 hours on antibiotics return to the ER. Disposition Disposition: Home, Self Care
[2022-10-07] MEDS: Ondansetron 4 MG/2 ML Vial IV (12:38)
[2022-10-07] MEDS: oxyCODONE 5 MG Tablet PO (12:38)
[2022-10-07 12:40] LABS: Absolute Lymphocyte Count 1.07 X10^3/uL (0.83-4.51); Absolute Neutrophil Count 8.1 X10^3/uL (2.0-7.7); Basophil# 0.03 X10^3/uL; Basophil% 0.3 % (0-1); Eosinophil# 0.07 X10^3/uL; Eosinophils% 0.6 % (0-5); Hematocrit 37.7 % (40-54); Hemoglobin 12.4 g/dL (13.0-16.5); Lymphocyte # 1.07 X10^3/ul (0.83-4.51); Lymphocyte % 9.9 % (19-41); Mean Corp Hgb Conc 32.9 g/dL (32-36); Mean Corpuscular Hgb 29.5 pg (27.0-32.0); Mean Corpuscular Volume 89.8 fL (80-94); Monocyte# 1.47 X10^3/uL; Monocyte% 13.6 % (0-10); NRBC Flagged by Analyzer 0 % (0-5); Neutrophil # 8.09 X10^3/uL (2.7-7.7); Neutrophil % 74.8 % (47-70); Platelet Count 166 K/mm3 (150-450); RBC Distribution Width CV 16.5 % (11.6-14.6); RBC Distribution Width SD 53.2 fl (35.1-43.9); White Blood Count 10.8 K/mm3 (4.4-11.0)
[2022-10-07 12:52] LABS: Anion Gap 8 (5-15); BUN 20 mg/dL (7-18); Calcium,Total 8.3 mg/dL (8.5-10.1); Chloride 103 mmol/L (98-107); Creatinine, Serum 0.74 mg/dL (0.70-1.30); EST Glomerular Filtration Rate 114 mL/min (>60); Est Glom Filt Rate - Afr Amer 137 mL/min (>60); Estimated Creatinine Clearance 108.82 ml/min; Glucose 98 mg/dL (74-106); Sodium Level 136 mmol/L (136-145)
[2022-10-07] MEDS: Cephalexin 250 MG Capsule 500 MG PO (13:27)
[2022-10-07] MEDS: Ketorolac 30 MG/ML Syringe IV (13:48)
[2022-10-07 14:12] VITALS: BP 99/55; PULSE 51; RESP 18; O2SAT 99
[2022-10-07 16:00] VITALS: PULSE 57; RESP 18; O2SAT 95
[2022-10-07 16:04] VITALS: PULSE 57; RESP 18; O2SAT 95
[2022-10-07] MEDS: Ketorolac 15 MG/ML Vial IV (16:05)
== END 2022-10-07 16:09 | disposition home or self-care (01) ==
PROVIDERS: Physician Assistant; Emergency Provider Emergency Medicine; PCP Family Medicine Geriatric Medicine; Visit Provider Emergency Medicine
DX: L03.115 Cellulitis of right lower limb (principal); Z87.891 Personal history of nicotine dependence; Z92.21 Personal history of antineoplastic chemotherapy; Z85.01 Personal history of malignant neoplasm of esophagus; Z85.05 Personal history of malignant neoplasm of liver; Z99.89 Dependence on other enabling machines and devices; Z79.82 Long term (current) use of aspirin; Z90.49 Acquired absence of other specified parts of digestive tract
CPT/HCPCS: 80048; 85025; 96365; 96366; 96375; 96376; 99283; J7040; A4216; J2405

== ENCOUNTER → 2022-10-08 | Outpatient (CLI) | payer OTHER, SELFPAY ==
--- NOTE | 2022-10-08 14:53 | VDLE_ITS ---
Reason For Study: Swelling RLE RIGHT LEFT GSV is normal. CFV is compressible, spontaneous, phasic, CFV is compressible, spontaneous, phasic, competent, and demonstrates normal competent and demonstrates normal augmentation. augmentation. FV is compressible, spontaneous, phasic, competent and demonstrates normal augmentation. POP V is compressible, spontaneous, phasic, competent and demonstrates normal augmentation. T/P Trunk is compressible. PTV is compressible. RT PerV is compressible. Procedure This is a venous duplex using B-mode, color flow and spectral Doppler. Exam performed in department. A preliminary report was called and/or faxed to Dr. Bhardwaj. VL/Venous Duplex US, Unilateral Interpretation Summary Deep veins of the right lower extremity are patent and compressible segmentally . There is no evidence of right lower extremity deep vein thrombosis. Valvular competence smith ears intact within the proximal deep venous system on the right . The right great saphenous vein a ppears patent and compressible segmentally. The left common femoral vein is patent and compressib le . Ordering Physician: Jasen Bhardwaj Chi Referring Physician: Jasen Bhardwaj Chi Performed By: Zuri Blankenship, CINDY, RVT
[2022-10-08 19:30] LABS: M R Staph aureus DNA By PCR Negative (Negative); Probe Check PASS; Specimen Processing Control PASS; Staph aureus DNA By PCR POSITIVE (Negative)
== END | disposition home or self-care (01) ==
LOC: CVS 14:48
PROVIDERS: PCP Family Medicine Geriatric Medicine; Referring Provider Family Medicine Geriatric Medicine; Visit Provider Family Medicine Geriatric Medicine
DX: M79.89 Other specified soft tissue disorders (principal)
CPT/HCPCS: 87070; 87077; 87186; 87205; 87640; 93971

== ENCOUNTER → 2022-11-15 | Outpatient (CLI) | payer OTHER, SELFPAY ==
--- NOTE | 2022-11-15 10:57 | RAD_ITS ---
STUDY: X-RAY - RIGHT KNEE REASON FOR EXAM: Male, 62 years old. Right knee pain just below patella. TECHNIQUE: 3 view(s) of the knee. COMPARISON: None. FINDINGS: Osteopenia. Moderate arthrosis of the medial compartment with osteophytes. Mild arthrosis of the lateral compartment. Lateral tilt and subluxation of the patella with moderate arthrosis of the patellofemoral compartment with osteophytes. Small joint effusion. Soft tissue ossification adjacent to the proximal fibula, likely secondary to remote trauma. RAD/Knee 3 Views IMPRESSION: Osteopenia with tricompartmental arthrosis as described. Small joint effusion. No acute abnormality or erosive changes. Electronically Signed: Marino Bowie MD at 12:53 EDT ,
[2022-11-15 13:16] LABS: Absolute Lymphocyte Count 0.52 X10^3/uL (0.83-4.51); Absolute Neutrophil Count 5.9 X10^3/uL (2.0-7.7); Basophil# 0.02 X10^3/uL; Basophil% 0.3 % (0-1); Eosinophil# 0.01 X10^3/uL; Eosinophils% 0.1 % (0-5); Hematocrit 36.1 % (40-54); Hemoglobin 12.1 g/dL (13.0-16.5); Lymphocyte # 0.52 X10^3/ul (0.83-4.51); Lymphocyte % 7.1 % (19-41); Mean Corp Hgb Conc 33.5 g/dL (32-36); Mean Corpuscular Hgb 30.3 pg (27.0-32.0); Mean Corpuscular Volume 90.5 fL (80-94); Mean Platelet Vol. 8.6 fl (6.2-12.0); Monocyte# 0.47 X10^3/uL; Monocyte% 6.4 % (0-10); NRBC Flagged by Analyzer 0 % (0-5); Neutrophil # 5.94 X10^3/uL (2.7-7.7); Neutrophil % 81.4 % (47-70); POSITIVE DIFFERENTIAL YES; Platelet Count 167 K/mm3 (150-450); RBC Distribution Width CV 16.8 % (11.6-14.6); RBC Distribution Width SD 54.7 fl (35.1-43.9); Red Blood Count 3.99 M/mm3 (4.6-6.2); White Blood Count 7.3 K/mm3 (4.4-11.0)
[2022-11-15 13:18] LABS: Differential Indicated SCAN CRITERIA MET
[2022-11-15 13:40] LABS: ALB/GLOB Ratio 0.8 RATIO (0.9-2.4); AST(SGOT) 33 U/L (15-37); Alanine Aminotransfer ALT/SGPT 43 U/L (16-61); Albumin, Serum 3.1 g/dL (3.2-5.0); Alkaline Phosphatase 192 U/L (45-117); Anion Gap 6 (5-15); BUN 15 mg/dL (7-18); BUN/Creat Ratio 17.5 RATIO (10-20); Calcium,Total 8.7 mg/dL (8.5-10.1); Chloride 105 mmol/L (98-107); Creatinine, Serum 0.86 mg/dL (0.70-1.30); EST Glomerular Filtration Rate 96 mL/min (>60); Est Glom Filt Rate - Afr Amer 116 mL/min (>60); Globulin 3.8 g/dL (2.2-4.2); Glucose 141 mg/dL (74-106); Potassium 4.2 mmol/L (3.5-5.1); Protein, Total 6.9 g/dL (6.4-8.2); Sodium Level 138 mmol/L (136-145); Thyroid Stim Hormone (TSH) 0.85 uIU/mL (0.358-3.74)
== END | disposition home or self-care (01) ==
PROVIDERS: PCP Family Medicine Geriatric Medicine; Referring Provider Family Medicine Geriatric Medicine; Visit Provider Family Medicine Geriatric Medicine
DX: R53.83 Other fatigue (principal); M25.561 Pain in right knee
CPT/HCPCS: 36415; 73562; 80053; 84443; 85025

== ENCOUNTER → 2022-12-14 | Outpatient (CLI) | payer OTHER, SELFPAY ==
--- NOTE | 2022-12-14 07:37 | CT_ITS ---
STUDY: CT CHEST T ABDOMEN WITH CONTRAST REASON FOR EXAM: Male, 62 years old. ASSESS TREATMENT RESPONSE-ESOPHAGEAL CA RADIATION DOSAGE (If Supplied By Facility): CTDIvol = ( 21.9 ) mGy, DLP = ( 2010.38 ) mGycm TECHNIQUE: Transaxial imaging was performed following intravenous administration of IV 100mL Isovue-300. Multiplanar coronal and sagittal images were reformatted. Individualized dose optimization techniques were used for this CT. COMPARISON: Comparison is made with prior study dated September 17, 2022. FINDINGS: CHEST A right-sided edith catheter seen with the tip in the superior vena cava. The lungs are normal. Mild degree of coronary artery calcification. Normal heart and pericardium. Calcified precarinal lymph nodes. This is unchanged. Normal hilar regions. Normal unenhanced pulmonary arteries. Normal aorta arch and descending thoracic aorta. There are multi-level degenerative changes of the thoracic spine. Stable mild degree of circumferential wall thickening of the distal portion of the esophagus. ABDOMEN Once again, there is heterogeneous enhancement during the arterial phase in the peripheral lateral aspect of the right lobe of the liver midportion and inferior portion. The focal area of decreased attenuation has progressed as compared to prior study and presently measures 5.7 sinus by 5.8 cm. This may represent a focal area of necrosis. Normal gallbladder and extrahepatic biliary system. Normal spleen. Normal pancreas. Normal bilateral adrenal glands. Normal right kidney. Stable left renal cyst. Stable small right renal cyst. Normal visualized stomach. Normal small intestine. Normal colon. The appendix is visualized and appears normal. Normal abdominal aorta. Normal inferior vena cava. Normal retroperitoneum. Normal abdominal wall. There are diffuse degenerative changes of the visualized lumbar spine. CT/CT Chest AND Abd W/ Contrast IMPRESSION: Progressive decreased attenuation in the abnormal enhancement of the right lobe of the liver as described suggestive of possible progressive necrosis of the metastatic deposit. Electronically Signed: Jim Skinner MD at 13:00 EDT ,
[2022-12-14] MEDS: 0.9% Saline Lock 10 ML Syringe IV (07:52)
== END | disposition home or self-care (01) ==
PROVIDERS: PCP Family Medicine Geriatric Medicine; Referring Provider Internal Medicine Medical Oncology; Visit Provider Internal Medicine Medical Oncology
DX: C15.5 Malignant neoplasm of lower third of esophagus (principal)
CPT/HCPCS: 71260; 74160; Q9967; A4216

== ENCOUNTER 2023-01-22 15:39 | Inpatient (IN) | payer OTHER, SELFPAY ==
[2023-01-22] VITALS (11 sets, daily range): BP systolic 113–155; BP diastolic 62–83; PULSE 61–113; RESP 14–22; TEMP 36.6–37.7; O2SAT 93–98; BMI 45.0
[2023-01-22 17:01] LABS: Bacteria 0 SEEN /hpf (None Seen); Mucous, Urine 0 SEEN /hpf (<or=2+); Red Blood Cells-Urine 0 SEEN /hpf (0-5); Squamous Epithelial Cells - UA 0 SEEN /hpf (0-5); White Blood Cells 0 SEEN /hpf (0-5)
[2023-01-22 17:03] LABS: Absolute Lymphocyte Count 0.27 X10^3/uL (0.83-4.51); Absolute Neutrophil Count 0.8 X10^3/uL (2.0-7.7); Basophil# 0.01 X10^3/uL; Basophil% 0.8 % (0-1); Eosinophil# 0.02 X10^3/uL; Eosinophils% 1.7 % (0-5); Hematocrit 35.3 % (40-54); Hemoglobin 11.7 g/dL (13.0-16.5); Lymphocyte # 0.27 X10^3/ul (0.83-4.51); Lymphocyte % 22.3 % (19-41); Mean Corp Hgb Conc 33.1 g/dL (32-36); Mean Corpuscular Hgb 30.6 pg (27.0-32.0); Mean Corpuscular Volume 92.4 fL (80-94); Mean Platelet Vol. 9.3 fl (6.2-12.0); Monocyte# 0.08 X10^3/uL; Monocyte% 6.6 % (0-10); NRBC Flagged by Analyzer 0 % (0-5); Neutrophil % 66.1 % (47-70); POSITIVE COUNT YES; POSITIVE DIFFERENTIAL YES; Platelet Count 111 K/mm3 (150-450); RBC Distribution Width CV 14.8 % (11.6-14.6); RBC Distribution Width SD 50.3 fl (35.1-43.9); Red Blood Count 3.82 M/mm3 (4.6-6.2)
[2023-01-22 17:06] LABS: Color, Urine Yellow (Yellow); Glucose, Dipstick Normal (Normal); Ketone-Dipstick 15 mg/dl (Negative); Leukocyte Esterase-Dipstick Negative /ul (Negative); Nitrite-Dipstick Negative (Negative); Occult Blood-Urine Negative /ul (Negative); Protein-Dipstick Negative (Negative); Urine Bilirubin Dipstick Negative (Negative); Urine Clarity Clear (Clear); Urine Urobilinogen Normal (Normal)
[2023-01-22 17:07] LABS: International Normalized Ratio 1.2; Prothrombin Time (Protime)PT. 14.9 SECONDS (11.7-14.9)
[2023-01-22 17:08] LABS: Partial Thromboplast Time 32.1 Seconds (24.1-36.2)
[2023-01-22 17:10] LABS: Differential Indicated SCAN CRITERIA MET; White Blood Count 1.2 K/mm3 (4.4-11.0)
[2023-01-22 17:18] LABS: ALB/GLOB Ratio 0.9 RATIO (0.9-2.4); AST(SGOT) 33 U/L (15-37); Alanine Aminotransfer ALT/SGPT 21 U/L (16-61); Albumin, Serum 2.9 g/dL (3.2-5.0); Alkaline Phosphatase 137 U/L (45-117); Anion Gap 4 (5-15); BUN 7 mg/dL (7-18); BUN/Creat Ratio 12.7 RATIO (10-20); Calcium,Total 8.6 mg/dL (8.5-10.1); Chloride 104 mmol/L (98-107); Creatinine, Serum 0.55 mg/dL (0.70-1.30); EST Glomerular Filtration Rate 159 mL/min (>60); Est Glom Filt Rate - Afr Amer 192 mL/min (>60); Estimated Creatinine Clearance 146.42 ml/min; Globulin 3.2 g/dL (2.2-4.2); Glucose 97 mg/dL (74-106); Potassium 4.2 mmol/L (3.5-5.1); Protein, Total 6.1 g/dL (6.4-8.2); Sodium Level 133 mmol/L (136-145)
[2023-01-22 17:19] LABS: Lactic Acid 1.1 mmol/L (0.4-1.9)
--- NOTE | 2023-01-22 17:33 | RAD_ITS ---
STUDY: X-RAY CHEST REASON FOR EXAM: Male, 62 years old. Neutropenic Fever TECHNIQUE: Frontal and lateral views of the chest. COMPARISON: None. FINDINGS: Indwelling right subclavian line terminates at the level of the right hilum. There is hyperinflation of the lungs consistent with chronic obstructive lung disease (COPD). No infiltrates or effusions. There is no demonstrated pleural abnormality. Normal size heart. Normal mediastinum and travis. Normal visualized pulmonary arteries. There is atherosclerotic tortuosity of the aortic arch and descending thoracic aorta. There are diffuse degenerative changes of the visualized thoracic spine. Normal visualized ribs, clavicles, and shoulders. There is no demonstrated abnormality of the visualized soft tissue structures of the upper abdomen. RAD/Chest PA and Lateral IMPRESSION: There are findings consistent with COPD. There is no evidence of acute chest disease. Electronically Signed: Nemesio Fry MD at 17:52 EDT ,
--- NOTE | 2023-01-22 17:35 | CT_ITS ---
EXAM: CT ABDOMEN AND PELVIS WITH INTRAVENOUS CONTRAST CLINICAL INDICATION: PAIN AND FEVER . History of esophageal cancer. TECHNIQUE: Helically acquired images were obtained of the abdomen and pelvis with intravenous contrast. This CT exam was performed using one or more of the following dose reduction techniques: automated exposure control, adjustment of the mA and/or kV according to patient size, and/or use of iterative reconstruction technique. CONTRAST: IV 100mL Isovue-300 RADIATION DOSE: CTDIvol = 40.71 mGy, DLP = 1946.08 mGy-cm COMPARISON: 12/14/2022, 09/17/2022. Also compared to PET scan 01/01/2023 FINDINGS: LOWER THORAX: Irregular pleural thickening in both posterior lung bases. Findings consistent with scarring. No cardiomegaly. No significant pericardial effusion. ABDOMEN: LIVER: Diffusely abnormal liver consistent with infiltrating metastatic disease throughout the liver and especially in the right lobe as seen on previous PET scan. Findings are more prominent than on the previous CT. GALLBLADDER AND BILE DUCTS: Unremarkable. No calcified gallstones. No gallbladder distention or wall edema. No intra- or extrahepatic biliary ductal dilation. PANCREAS: Unremarkable. No focal cystic or solid mass. SPLEEN: Small amount of fluid surrounds the spleen. ADRENALS: Unremarkable. No nodules. KIDNEYS AND URETERS: No acute abnormality or change. Stable bilateral renal cysts. Normal renal size and position. No hydronephrosis. STOMACH AND BOWEL: Evaluation of the GI tract is limited by absence of oral contrast. Cannot exclude stomach wall thickening. No dilated loops of bowel or evidence for obstruction. Cannot exclude segmental thickening of the olive[place] of the small or large bowel. Cannot exclude enteritis or colitis. Probable small segment of acute diverticulitis involving in the mid sigmoid colon without perforation or abscess. Appendix within normal limits. PELVIS: APPENDIX: No evidence of acute appendicitis. BLADDER: Unremarkable. REPRODUCTIVE: Unremarkable as visualized. No mass. ABDOMEN and PELVIS: INTRAPERITONEAL SPACE: Small amount of overlying free fluid around the liver and spleen. Fluid is seen down both paracolic gutters and extending into small pools of the pelvis. No free air. BONES/JOINTS: Degenerative changes throughout the spine. No suspicious lytic or blastic abnormality. SOFT TISSUES: Bilateral small fat-containing inguinal hernias. VASCULATURE: Unremarkable. Abdominal aorta is non-dilated. LYMPH NODES: Unremarkable. No enlarged lymph nodes. CT/Abdomen/Pelvis W IV Cont ONLY IMPRESSION: 1. Limited as above. 2. Probable worsening of ill-defined infiltrating neoplasm throughout the liver especially the right lobe. 3. Development of small amounts of free fluid in all quadrants since previous exam. 4. Question a small segment of acute diverticulitis involving in the mid sigmoid colon without perforation or abscess. Electronically Signed: Nemesio Fry MD at 18:13 EDT ,
[2023-01-22 17:49] LABS: Differential Comment SCANNED
--- NOTE | 2023-01-22 17:56 | EX.ED.DYSGE1 ---
HPI History of Present Illness Chief Complaint: General Illness Informant: patient Narrative Narrative: 62-year-old male presenting to the emergency department with a chief complaint of fever vomiting and diarrhea. Patient has a history of metastatic esophageal cancer. He is currently undergoing his second round of chemotherapy. Last treatment was last . He follows locally with [facility]. Patient states that on Saturday he had vomiting and diarrhea. He notes an upper abdominal pain which he likens to more of a cramp-like sensation particularly before he has a bowel movement. Noted to have temperature of 99.9 at oncology today that was after ibuprofen. He was sent to the emergency department for neutropenic fever evaluation. Patient notes that on Saturday the sores in his mouth became acutely worse and its been hard for him to eat or drink much. He denies any blood in the stool or personal history of colitis. He notes minimal cough. [facility] Medical History Alcohol use Arthritis Back pain Braces as ambulation aid Cancer Cardiology follow-up encounter Chills CINV (chemotherapy-induced nausea and vomiting) CPAP (continuous positive airway pressure) dependence Difficulty swallowing Encounter for education Former smoker Gastric reflux History of echocardiogram History of edema History of heart attack Left bundle branch block (LBBB) Leg cramps Marijuana use Morbid obesity Mucositis (ulcerative) due to antineoplastic therapy Near syncope (04/20/20) Neutropenia Non-ischemic cardiomyopathy Non-sustained ventricular tachycardia NSTEMI (non-ST elevated myocardial infarction) (04/20/20) Obstructive sleep apnea Oral candidiasis Palpitations Shortness of breath on exertion Wears glasses Home Medications lidocaine-prilocaine 2.5 %-2.5 % topical cream 1 applic topical ONCE PRN port access 30 days #30 grams 05/23/21 [Rx Last Taken Unknown] citalopram 20 mg tablet (Celexa) 20 mg PO DAILY 05/31/21 [History Last Taken Unknown] lorazepam 1 mg tablet 1 mg PO BID PRN Anxiety 05/31/21 [History Last Taken Unknown] aspirin 81 mg tablet,delayed release (Adult Aspirin Regimen) 81 mg PO DAILY #90 tabs 06/11/22 [Rx Last Taken Unknown] pantoprazole 40 mg tablet,delayed release 40 mg PO DAILY 06/14/22 [History Last Taken Unknown] lisinopril 10 mg tablet 10 mg PO DAILY #90 tabs 06/27/22 [Rx Last Taken Unknown] ondansetron 8 mg disintegrating tablet 8 mg PO Q8H PRN nausea and vomiting #30 tabs 08/07/22 [Rx Last Taken Unknown] prochlorperazine maleate 10 mg tablet 10 mg PO Q6H PRN nausea and vomiting #30 tabs 08/07/22 [Rx Last Taken Unknown] carvedilol 12.5 mg tablet 12.5 mg PO BID #1 TAB 10/11/22 [Rx Last Taken Unknown] MAGIC MOUTH WASH (BMX) 180 mL suspension 5 ml buccal .QID 4 weeks #180 mL 01/17/23 [Rx Last Taken Unknown] Allergy/AdvReac Type Severity Reaction Status Date / Time No Known Allergies Allergy Verified 01/22/23 15:40 Family History Mother Breast cancer Hypertension CVA (cerebral vascular accident) High cholesterol Brother Cancer prostate Surgical History History of appendectomy History of esophagogastroduodenoscopy (EGD) History of left heart catheterization (04/21/20) Hx of surgical procedure Hx of surgical procedure Social History Smoking Status: Former smoker alcohol intake: former substance use type: does not use ROS ROS ED Constitutional Constitutional ED: Denies chills, fever(s) or weight loss Eyes Eyes: Denies change in vision or diplopia ENT ENT ED: Reports sore throat and other Details: Mucositis ; Denies ear pain or rhinorrhea Cardiovascular Cardiovascular: Denies chest pain, orthopnea, palpitations or racing heartbeat Respiratory/Chest Respiratory/Chest: Denies cough, dyspnea or orthopnea Gastrointestinal Gastrointestinal: Reports abdominal pain, diarrhea, nausea and vomiting Genitourinary Genitourinary ED: Denies dysuria, hematuria or urinary frequency Musculoskeletal Musculoskeletal: Denies arthralgias or myalgias Integumentary Denies abscess or rash Neurologic Neurologic: Denies headache(s) or weakness Psychiatric Psychiatric: Denies anxiety, depression, suicidal ideation or suicidal thoughts Endocrine Endocrinology: Denies polydipsia, polyphagia or polyuria Allergic/Immunologic Allergic/Immunologic ED: Denies mouth swelling, tongue swelling or urticaria EXAM Physical Exam Const Vital Signs: 01/22/23 15:41 01/22/23 16:43 01/22/23 16:43 Temperature 98 F 99.9 F H Temperature Source Temporal Oral Pulse Rate 67 113 H Respiratory Rate 18 19 H Respiratory Effort Blood Pressure 125/69 H 118/65 Blood Pressure Mean 87 82 Pulse Ox 96 93 Oxygen Delivery Method Room Air Room Air 01/22/23 16:43 01/22/23 17:00 01/22/23 18:17 Temperature 99.9 F H 99 F Temperature Source Oral Oral Pulse Rate 105 H 65 Respiratory Rate 22 H 19 H Respiratory Effort Normal Non-Labored Blood Pressure 118/65 129/72 H Blood Pressure Mean 82 91 Pulse Ox 95 94 Oxygen Delivery Method Nasal Cannula Room Air 01/22/23 18:50 01/22/23 19:00 01/22/23 20:00 Temperature 99.2 F H 99.3 F H Temperature Source Oral Oral Pulse Rate 67 64 64 Respiratory Rate 21 H 14 18 Respiratory Effort Blood Pressure 129/72 H 113/65 129/72 H Blood Pressure Mean 91 81 91 Pulse Ox 93 94 93 Oxygen Delivery Method Room Air Room Air Room Air Positive well nourished and well developed General Appearance ED: well developed HEENT Reports normocephalic, head/scalp atraumatic and moist mucous membranes HEENT Narrative: Patient has evidence of mucositis on oropharyngeal examination. Eyes PERRL and EOMs intact bilaterally Neck no lymphadenopathy, supple and no JVD Resp normal respiratory effort and clear to auscultation bilaterally Cardio regular rate, regular rhythm and no murmurs GI Inspection: Negative for abdominal distention Auscultation: normoactive bowel sounds Palpation: soft and tender epigastric, RLQ and LUQ; Negative for guarding or rebound tenderness present Back/Spine no CVA tenderness and normal ROM Extremity normal to inspection General Extremety ED: Negative for edema General Extremity: Negative for edema Neuro oriented x3 and CN's II-XII intact bilaterally Sensorium / Orientation: alert Motor Exam: strength 5/5 throughout Psych mental status grossly normal Mood & Affect: Negative for depressed or tearful Skin no rashes or lesions noted and no wounds MDM MDM MDM Narrative Medical decision making narrative: White count is 1.2. Lactic acid is normal 1.1. Urinalysis is negative for overt infection. My interpretation of the chest x-ray is chronic changes no acute process. Due to the abdominal pain fever neutropenia and abdominal symptoms CT of the abdomen pelvis was obtained. This demonstrated metastatic disease and a small amount of ascites. There is also some questionable sigmoid diverticulitis. Patient received 2 L of IV fluids. Patient also received viscous lidocaine as a swish and swallow. The patient also received a dose of Zosyn. Clinically diverticulitis does not fit the picture as he is not tender in the lower abdomen in his upper abdomen and described as crampy and intermittent. However he is neutropenic with suppressed immune system. I spoke with Dr. Sandoval who recommends admission and following his white count. I will speak with the hospitalist regarding admission. Lab Data Attestation: I reviewed the patient's lab results. Labs: Laboratory Results - last 24 hr 01/22/23 01/22/23 16:41 16:55 WBC 1.2 L* RBC 3.82 L Hgb 11.7 L Hct 35.3 L MCV 92.4 MCH 30.6 MCHC 33.1 RDW Std Deviation 50.3 H RDW Coeff of Perla 14.8 H Plt Count 111 L MPV 9.3 Immature Gran % (Auto) 2.500 H Neut % (Auto) 66.1 Lymph % (Auto) 22.3 [place] % (Auto) 6.6 Eos % (Auto) 1.7 Baso % (Auto) 0.8 Absolute Neuts (auto) 0.8 L Absolute Lymphs (auto) 0.27 L Nucleated RBC % 0 Differential Comment SCANNED Diff Path Review August foll PT 14.9 INR 1.2 APTT 32.1 Sodium 133 L Potassium 4.2 Chloride 104 Carbon Dioxide 25.0 Anion Gap 4 L BUN 7 Creatinine 0.55 L Estim Creat Clear Calc 146.42 Est GFR (MDRD) Af Amer 192 Est GFR (MDRD) Non-Af 159 BUN/Creatinine Ratio 12.7 Glucose 97 Lactic Acid 1.1 Calcium 8.6 Total Bilirubin 0.80 AST 33 ALT 21 Alkaline Phosphatase 137 H Total Protein 6.1 L Albumin 2.9 L Globulin 3.2 Albumin/Globulin Ratio 0.9 Urine Color Yellow Urine Clarity Clear Urine pH 7.0 Ur Specific [place] 1.010 Urine Protein Negative Urine Glucose (UA) Normal Urine Ketones 15 H Urine Occult Blood Negative Urine Nitrite Negative Urine Bilirubin Negative Urine Urobilinogen Normal Ur Leukocyte Esterase Negative Urine RBC 0 SEEN Urine WBC 0 SEEN Ur Squamous Epith Cells 0 SEEN Urine Bacteria 0 SEEN Urine Mucus 0 SEEN Radiography Diagnostic Testing: Clinical Impression(s) from Imaging Studies Chest X-Ray 01/22/23 17:33 IMPRESSION: There are findings consistent with COPD. There is no evidence of acute chest disease. Electronically Signed: Nemesio Fry MD at 17:52 EDT , Abdomen/Pelvis CT 01/22/23 17:35 IMPRESSION: 1. Limited as above. 2. Probable worsening of ill-defined infiltrating neoplasm throughout the liver especially the right lobe. 3. Development of small amounts of free fluid in all quadrants since previous exam. 4. Question a small segment of acute diverticulitis involving in the mid sigmoid colon without perforation or abscess. Electronically Signed: Nemesio Fry MD at 18:13 EDT , Differential Diagnosis Abdominal Pain: Appendicitis, Cholecystitis, Pancreatitis, Bowel obstruction and UTI Management Discussion w/another healthcare provider: Hospitalist and [employer] Orchestr[employer] (Dr. Enriquez - oncology) Discharge Plan Dx/Rx/DC Orders Clinical Impression: Neutropenia, Esophageal cancer, stage IV, Vomiting and diarrhea Disposition Disposition: Acute Care Hospital [facility]
[2023-01-22] MEDS: 0.9% Normal Saline (1000mL) 1,000 ML 999 ML IV ×2 (18:05→19:48)
[2023-01-22] MEDS: Piperacil/Tazobactam 3.375 GM in 0.9% Normal Saline (50mL MB+) 50 ML IV (18:34)
--- NOTE | 2023-01-22 20:40 | HP.PCM.HOS_ITS ---
HPI - General General Date of Admission: 01/22/23 Date of Service: 01/22/23 Chief Complaint: Low white count HPI Narrative SHELLEY PAUL, is a 62 M significant history of tobacco abuse; former alcoholic; and metastatic esophageal cancer to liver, lungs and mediastinum who sees [facility] oncology [employer] was sent from oncology office to the ED because of neutropenia. Reportedly patient had a temperature of 99.9 Fahrenheit at the oncologist office after he had taken ibuprofen. Patient had chemotherapy with last chemotherapy on 01/17/2023. Two days afterwards he developed nausea ;vomiting and diarrhea. However his most concerning symptom was a painful mouth sores that actually made him to go to the oncology office on the same day of presentation. He thinks that Magic mouthwash actually is making his symptoms worse. Patient reports upper abdominal pain. He reported his pain to be cramping. However his pain disappeared while at the ED. Patient took Zofran before hospitalization. Patient was given antibiotics at the hospital and he feels already better. Emergency department discussed the case with Dr. Miller who wanted patient admitted for his white count to be monitored. [facility], [facility] Medical History Alcohol use Arthritis Back pain Braces as ambulation aid Cancer Cardiology follow-up encounter Chills CINV (chemotherapy-induced nausea and vomiting) CPAP (continuous positive airway pressure) dependence Difficulty swallowing Encounter for education Former smoker Gastric reflux History of echocardiogram History of edema History of heart attack Left bundle branch block (LBBB) Leg cramps Marijuana use Morbid obesity Mucositis (ulcerative) due to antineoplastic therapy Near syncope (04/20/20) Neutropenia Non-ischemic cardiomyopathy Non-sustained ventricular tachycardia NSTEMI (non-ST elevated myocardial infarction) (04/20/20) Obstructive sleep apnea Oral candidiasis Palpitations Shortness of breath on exertion Wears glasses Home Medications lidocaine-prilocaine 2.5 %-2.5 % topical cream 1 applic topical ONCE PRN port access 30 days #30 grams 05/23/21 [Rx Last Taken Unknown] citalopram 20 mg tablet (Celexa) 20 mg PO DAILY 05/31/21 [History Last Taken 01/21/23] lorazepam 1 mg tablet 1 mg PO BID PRN Anxiety 05/31/21 [History Last Taken 01/21/23] aspirin 81 mg tablet,delayed release (Adult Aspirin Regimen) 81 mg PO DAILY #90 tabs 06/11/22 [Rx Last Taken 01/21/23] pantoprazole 40 mg tablet,delayed release 40 mg PO DAILY 06/14/22 [History Last Taken 01/21/23] lisinopril 10 mg tablet 10 mg PO DAILY #90 tabs 06/27/22 [Rx Last Taken 01/21/23] ondansetron 8 mg disintegrating tablet 8 mg PO Q8H PRN nausea and vomiting #30 tabs 08/07/22 [Rx Last Taken 01/22/23] prochlorperazine maleate 10 mg tablet 10 mg PO Q6H PRN nausea and vomiting #30 tabs 08/07/22 [Rx Last Taken Unknown] carvedilol 12.5 mg tablet 12.5 mg PO BID #1 TAB 10/11/22 [Rx Last Taken 01/22/23] MAGIC MOUTH WASH (BMX) 180 mL suspension 5 ml buccal .QID 4 weeks #180 mL 01/17/23 [Rx Last Taken 01/21/23] Allergy/AdvReac Type Severity Reaction Status Date / Time No Known Allergies Allergy Verified 01/22/23 15:40 Family History Mother Breast cancer Hypertension CVA (cerebral vascular accident) High cholesterol Brother Cancer prostate Surgical History History of appendectomy History of esophagogastroduodenoscopy (EGD) History of left heart catheterization (04/21/20) Hx of surgical procedure Hx of surgical procedure Social History Smoking Status: Former smoker alcohol intake: former substance use type: does not use ROS ROS Narrative Pertinent positives and pertinent negatives as noted in HPI. All other systems were reviewed and are negative Vital Signs Vital Signs Vital Signs: 01/22/23 15:41 01/22/23 16:43 01/22/23 16:43 Temperature 98 F 99.9 F H Temperature Source Temporal Oral Pulse Rate 67 113 H Respiratory Rate 18 19 H Respiratory Effort Blood Pressure 125/69 H 118/65 Blood Pressure Mean 87 82 Pulse Ox 96 93 Oxygen Delivery Method Room Air Room Air 01/22/23 16:43 01/22/23 17:00 01/22/23 18:17 Temperature 99.9 F H 99 F Temperature Source Oral Oral Pulse Rate 105 H 65 Respiratory Rate 22 H 19 H Respiratory Effort Normal Non-Labored Blood Pressure 118/65 129/72 H Blood Pressure Mean 82 91 Pulse Ox 95 94 Oxygen Delivery Method Nasal Cannula Room Air 01/22/23 18:50 01/22/23 19:00 01/22/23 20:00 Temperature 99.2 F H 99.3 F H Temperature Source Oral Oral Pulse Rate 67 64 64 Respiratory Rate 21 H 14 18 Respiratory Effort Blood Pressure 129/72 H 113/65 129/72 H Blood Pressure Mean 91 81 91 Pulse Ox 93 94 93 Oxygen Delivery Method Room Air Room Air Room Air Weight Weight: 146.51 kg Body Mass Index (BMI) 45.0 Physical Exam Narrative Physical exam: General: Well-nourished, well-developed. Head: Normocephalic, atraumatic, no tenderness Eyes: Vision is grossly intact. EOMI ENT, no trauma, ulcers of mucous membranes, no rhinorrhea Neck: Nontender, No thyromegaly. CVS: Regular rate and rhythm. S1-S2 present. No murmur, gallop or rub. Respiratory : clear to auscultation bilaterally, chest wall nontender Abdomen: Soft, nontender, nondistended, normal bowel sounds, no masses : Deferred Back: Nontender, no CVA tenderness, no midline spinal tenderness, deformities, step-offs Extremities: Nontender full range of motion, no trauma Skin: Normal color, no trauma, abrasions Neuro: Alert, oriented, cranial nerves II through XII grossly intact. Psychiatry: Normal mood. Normal affect. Not depressed. Not anxious. Results Lab / Micro Data 01/22/23 16:41 01/22/23 16:41 Labs: Laboratory Results - last 24 hr 01/22/23 16:41: WBC 1.2 L*, RBC 3.82 L, Hgb 11.7 L, Hct 35.3 L, MCV 92.4, MCH 30.6, MCHC 33.1, RDW Std Deviation 50.3 H, RDW Coeff of Perla 14.8 H, Plt Count 111 L, MPV 9.3, Immature Gran % (Auto) 2.500 H, Neut % (Auto) 66.1, Lymph % (Auto) 22.3, [place] % (Auto) 6.6, Eos % (Auto) 1.7, Baso % (Auto) 0.8, Absolute Neuts (auto) 0.8 L, Absolute Lymphs (auto) 0.27 L, Nucleated RBC % 0, Differential Comment SCANNED, Diff Path Review August foll, PT 14.9, INR 1.2, APTT 32.1, Sodium 133 L, Potassium 4.2, Chloride 104, Carbon Dioxide 25.0, Anion Gap 4 L, BUN 7, Creatinine 0.55 L, Estim Creat Clear Calc 146.42, Est GFR (MDRD) Af Amer 192, Est GFR (MDRD) Non-Af 159, BUN/Creatinine Ratio 12.7, Glucose 97, Lactic Acid 1.1, Calcium 8.6, Total Bilirubin 0.80, AST 33, ALT 21, Alkaline Phosphatase 137 H, Total Protein 6.1 L, Albumin 2.9 L, Globulin 3.2, Albumin/Globulin Ratio 0.9 01/22/23 16:55: Urine Color Yellow, Urine Clarity Clear, Urine pH 7.0, Ur Specific [place] 1.010, Urine Protein Negative, Urine Glucose (UA) Normal, Urine Ketones 15 H, Urine Occult Blood Negative, Urine Nitrite Negative, Urine Bilirubin Negative, Urine Urobilinogen Normal, Ur Leukocyte Esterase Negative, Urine RBC 0 SEEN, Urine WBC 0 SEEN, Ur Squamous Epith Cells 0 SEEN, Urine Bacteria 0 SEEN, Urine Mucus 0 SEEN Radiology Impression Chest X-Ray 01/22/23 17:33 IMPRESSION: There are findings consistent with COPD. There is no evidence of acute chest disease. Electronically Signed: Nemesio Fry MD at 17:52 EDT , Abdomen/Pelvis CT 01/22/23 17:35 IMPRESSION: 1. Limited as above. 2. Probable worsening of ill-defined infiltrating neoplasm throughout the liver especially the right lobe. 3. Development of small amounts of free fluid in all quadrants since previous exam. 4. Question a small segment of acute diverticulitis involving in the mid sigmoid colon without perforation or abscess. Electronically Signed: Nemesio Fry MD at 18:13 EDT , Assessment & Plan Assessment/Plan (1) Neutropenia: QUALIFIERS: Neutropenia type: secondary to cancer chemotherapy Qualified Code(s): D70.1 - Agranulocytosis secondary to cancer chemotherapy; T45.1X5A - Adverse effect of antineoplastic and immunosuppressive drugs, initial encounter (2) Vomiting and diarrhea: (3) Esophageal cancer, stage IV: PLAN: Plan Low-grade fever with neutropenia Review of labs showed white count of 1.2; 2 hours apart. Reticulocyte of 0.9% and then 2.5%.Absolute neutrophil count 0.[address] abdomen pelvis showed probable worsening of ill-defined infiltrating neoplasm to the liver especially right lobe. Development of a small amount of free fluid in all quadrants since previous exams question small segment of acute diverticulitis involving mid sigmoid colon without perforation or abscess. Trend CBC. Zosyn ordered at the emergency department and continued. Of note patient cathartics and location of pain does not match diverticulitis. Oncology consult. Trend vitals. Nausea vomiting and diarrhea Infectious colitis, versus acute diverticulitis versus chemotherapy effect As needed Zofran and Compazine ordered. IV hydration. Chronic heart failure with improved ejection fraction Review of records show that with echocardiogram on 02/28/2022: Patient's ejection fraction was 45%. Echocardiogram on 05/05/2021 EF was 45%; and patient had Stage 1 diastolic dysfunction. With Echocardiogram on 08/15/2020 diastolic function was lower limits of normal. Septal motion consistent with IVCD. Stage I diastolic function. Recommend 04/21/2020 showed ejection fraction of 37% to stage I diastolic dysfunction. Further cardiomyopathy was secondary to viral infection. And that have Was unremarkable. Mucositis BMX ordered. DVT prophylaxis Subcutaneous Lovenox ordered. Lovenox ordered. Time spent in the patient's overall evaluation,decision-making process, review of diagnostic data, adjustment of management, discussion with other providers, nursing nursing and ancillary staff involved in patient's care documentation, 700 minutes. Charges/Coding Visit Charges Inpatient E&M: 82668 Init Hosp L3
[2023-01-22] MEDS: Ondansetron 4 MG/2 ML Vial IV (22:20)
[2023-01-22] MEDS: Lactated Ringers 1,000 ML 50 ML IV (22:20)
[2023-01-23] MEDS: proCHLORPERazine 10 MG/2 ML Vial 5 MG IV ×2 (03:35→08:41)
[2023-01-23 04:00] VITALS: BP 148/81; PULSE 74; RESP 16; TEMP 36.8; O2SAT 97
[2023-01-23] MEDS: Piperacil/Tazobactam 3.375 GM in 0.9% Normal Saline (50mL MB+) 50 ML IV ×3 (04:52→21:44)
[2023-01-23 06:49] LABS: Absolute Lymphocyte Count 0.34 X10^3/uL (0.83-4.51); Absolute Neutrophil Count 0.9 X10^3/uL (2.0-7.7); Basophil# 0.01 X10^3/uL; Basophil% 0.7 % (0-1); Eosinophil# 0.01 X10^3/uL; Eosinophils% 0.7 % (0-5); Hematocrit 33.3 % (40-54); Hemoglobin 10.9 g/dL (13.0-16.5); Lymphocyte # 0.34 X10^3/ul (0.83-4.51); Lymphocyte % 23.9 % (19-41); Mean Corp Hgb Conc 32.7 g/dL (32-36); Mean Corpuscular Hgb 30.5 pg (27.0-32.0); Mean Corpuscular Volume 93.3 fL (80-94); Mean Platelet Vol. 9.4 fl (6.2-12.0); Monocyte# 0.13 X10^3/uL; Monocyte% 9.2 % (0-10); NRBC Flagged by Analyzer 0 % (0-5); Neutrophil # 0.92 X10^3/uL (2.7-7.7); Neutrophil % 64.8 % (47-70); POSITIVE COUNT YES; POSITIVE DIFFERENTIAL YES; Platelet Count 105 K/mm3 (150-450); RBC Distribution Width CV 14.9 % (11.6-14.6); RBC Distribution Width SD 50.7 fl (35.1-43.9); Red Blood Count 3.57 M/mm3 (4.6-6.2)
[2023-01-23 06:55] LABS: Differential Indicated SCAN CRITERIA MET; White Blood Count 1.4 K/mm3 (4.4-11.0)
[2023-01-23 07:13] LABS: Differential Comment SCANNED
[2023-01-23 07:22] LABS: ALB/GLOB Ratio 0.8 RATIO (0.9-2.4); AST(SGOT) 33 U/L (15-37); Alanine Aminotransfer ALT/SGPT 19 U/L (16-61); Albumin, Serum 2.6 g/dL (3.2-5.0); Alkaline Phosphatase 126 U/L (45-117); Anion Gap 5 (5-15); BUN 7 mg/dL (7-18); BUN/Creat Ratio 11.7 RATIO (10-20); Calcium,Total 8.2 mg/dL (8.5-10.1); Chloride 104 mmol/L (98-107); EST Glomerular Filtration Rate 145 mL/min (>60); Est Glom Filt Rate - Afr Amer 176 mL/min (>60); Estimated Creatinine Clearance 134.22 ml/min; Globulin 3.3 g/dL (2.2-4.2); Glucose 95 mg/dL (74-106); Magnesium 2.1 mg/dL (1.6-2.6); Protein, Total 5.9 g/dL (6.4-8.2); Sodium Level 135 mmol/L (136-145)
--- NOTE | 2023-01-23 07:39 | PN.HOSP_ITS ---
Reason for Visit Reason for Visit: Nausea/vomiting/diarrhea/fever Subjective Subjective Mr. Paige is a 62-year-old white male with a history of metastatic esophageal cancer. He is currently undergoing his second round of chemotherapy and was last treated on . He follows locally with [facility] oncology. Patient reported that on Saturday he started having vomiting and diarrhea and does note some upper abdominal pain that is cramping in nature and more severe particularly before he has a bowel movement. He was noted to have a temperature of 99.9 at the oncology office today and that was after he had taken ibuprofen. He was sent to the emergency department by his oncology office for evaluation of neutropenic fever. The patient also noted that on Saturday he had sores in his mouth that have become acutely worse and its been hard for him to eat or drink much as well. He thought that Magic mouthwash might actually been making his symptoms worse. Vital signs on presentation demonstrated temperature of 99.9, heart rate 113, blood pressure 118/65, respiratory rate 19 and oxygen saturations were 93% on room air. His white count was 1.2, hemoglobin 11.7 and platelet count was 111,000. All of this is fairly stable other than his white count. Absolute neutrophil count is 0.8. Coags are unremarkable. His BMP showed a sodium of 133 but other electrolytes were normal. His serum creatinine was normal at 0.55 with a BUN of 7. LFTs were unremarkable. Blood and urine cultures were obtained and sent and he was started on antibiotics with Zosyn. Patient stated he probably would not of come the emergency department if it had not been requested by the oncologist. He indicates his biggest concern is his oral lesions. I discussed further with him today about the BMX versus the viscous lidocaine and he stated he preferred to continue with the BMX at this time as the viscous lidocaine made him gag due to its thickness. I discussed with him the ability to try clear liquid diet and that we would continue broad- spectrum antibiotics and await culture results given his neutropenia and low- grade fevers. He denies any issues with his port and states has been functioning well and having no tenderness or drainage. Objective Data Objective Data Vital Signs: Vital Signs Temp Pulse Resp BP Pulse Ox O2 Del Method 98.3 F 74 16 148/81 H 97 Room Air 01/23/23 04:00 01/23/23 04:00 01/23/23 04:00 01/23/23 04:00 01/23/23 04:00 01/23/23 04:00 Oxygen Delivery Method Room Air Weight: 146.51 kg Body Mass Index (BMI) 45.0 Intake & Output: Intake and Output for Last 24 Hours 01/21/23 01/22/23 01/23/23 23:59 23:59 23:59 Intake Total 2049 Balance 2049 Lab / Micro Data 01/23/23 06:10 01/23/23 06:10 Labs: Laboratory Results - last 24 hr 01/22/23 16:41: WBC 1.2 L*, RBC 3.82 L, Hgb 11.7 L, Hct 35.3 L, MCV 92.4, MCH 30.6, MCHC 33.1, RDW Std Deviation 50.3 H, RDW Coeff of Perla 14.8 H, Plt Count 111 L, MPV 9.3, Immature Gran % (Auto) 2.500 H, Neut % (Auto) 66.1, Lymph % (Auto) 22.3, Avery % (Auto) 6.6, Eos % (Auto) 1.7, Baso % (Auto) 0.8, Absolute Neuts (auto) 0.8 L, Absolute Lymphs (auto) 0.27 L, Nucleated RBC % 0, D ifferential Comment SCANNED, Diff Path Review August, PT 14.9, INR 1.2, APTT 32.1, Sodium 133 L, Potassium 4.2, Chloride 104, Carbon Dioxide 25.0, Anion Gap 4 L, BUN 7, Creatinine 0.55 L, Estim Creat Clear Calc 146.42, Est GFR (MDRD) Af Amer 192, Est GFR (MDRD) Non-Af 159, BUN/Creatinine Ratio 12.7, Glucose 97, Lactic Acid 1.1, Calcium 8.6, Total Bilirubin 0.80, AST 33, ALT 21, Alkaline Phosphatase 137 H, Total Protein 6.1 L, Albumin 2.9 L, Globulin 3.2, A lbumin/Globulin Ratio 0.9 01/22/23 16:55: Urine Color Yellow, Urine Clarity Clear, Urine pH 7.0, Ur Specific [place] 1.010, Urine Protein Negative, Urine Glucose (UA) Normal, Urine Ketones 15 H, Urine Occult Blood Negative, Urine Nitrite Negative, Urine Bilirubin Negative, Urine Urobilinogen Normal, Ur Leukocyte Esterase Negative, Urine RBC 0 SEEN, Urine WBC 0 SEEN, Ur Squamous Epith Cells 0 SEEN, Urine Bacteria 0 SEEN, Urine Mucus 0 SEEN 01/23/23 06:10: WBC 1.4 L*, RBC 3.57 L, Hgb 10.9 L, Hct 33.3 L, MCV 93.3, MCH 30.5, MCHC 32.7, RDW Std Deviation 50.7 H, RDW Coeff of Perla 14.9 H, Plt Count 105 L, MPV 9.4, Immature Gran % (Auto) 0.700, Neut % (Auto) 64.8, Lymph % (Auto) 23.9, Avery % (Auto) 9.2, Eos % (Auto) 0.7, Baso % (Auto) 0.7, Absolute Neuts ( auto) 0.9 L, Absolute Lymphs (auto) 0.34 L, Nucleated RBC % 0, Differential Comment SCANNED, Diff Path Review August, Sodium 135 L, Potassium 4.0, Chloride 104, Carbon Dioxide 26.0, Anion Gap 5, BUN 7, Creatinine 0.60 L, Estim Creat Clear Calc 134.22, Est GFR (MDRD) Af Amer 176, Est GFR (MDRD) Non-Af 145, BUN/Creatinine Ratio 11.7, Glucose 95, Calcium 8.2 L, Magnesium 2.1, Total Bilirubin 0.90, AST 33, ALT 19, Alkaline Phosphatase 126 H, Total Protein 5.9 L, Albumin 2.6 L, Globulin 3.3, Albumin/Globulin Ratio 0.8 L Radiography Diagnostic Testing: Radiology Impression Chest X-Ray 01/22/23 17:33 IMPRESSION: There are findings consistent with COPD. There is no evidence of acute chest disease. Electronically Signed: Nemesio Fry MD at 17:52 EDT , Abdomen/Pelvis CT 01/22/23 17:35 IMPRESSION: 1. Limited as above. 2. Probable worsening of ill-defined infiltrating neoplasm throughout the liver especially the right lobe. 3. Development of small amounts of free fluid in all quadrants since previous exam. 4. Question a small segment of acute diverticulitis involving in the mid sigmoid colon without perforation or abscess. Electronically Signed: Nemesio Fry MD at 18:13 EDT , Physical Exam Const alert, oriented x3, no apparent distress and well nourished; Negative for average body habitus Constitutional Narrative: Morbidly obese, white male, ambulating independently around the room, family at bedside, patient appears comfortable currently and nontoxic at this time HEENT head/scalp atraumatic and moist oral mucous membranes; Negative for oropharynx normal HEENT Narrative: Oral lesions noted, Mallampati is 3-4, no thrush Head and Scalp: normocephalic Resp normal respiratory effort, no retractions, no use of accessory muscles and clear to auscultation bilaterally Auscultation: Negative for rales, rhonchi or wheezes Cardio regular rate, regular rhythm, S1 normal heart sound, S2 normal heart sound, no murmurs, no rub, no gallops and no clicks GI normal to inspection, nondistended, normoactive bowel sounds, soft to palpation and non-tender Extremity Extremity Narrative: Pedal pulses are 2+, trace pitting edema, no cyanosis or clubbing Skin Skin Narrative: [facility] [place] right upper chest is clean dry without any drainage or erythema, currently accessed Neuro oriented x3, CN's II-XII intact bilaterally, moves all extremities and no focal motor deficits Speech: speech normal Psych Psych Narrative: Affect is mildly flat however eye contact is good and mood seems stable Assessment & Plan Assessment/Plan (1) Neutropenia: (2) Neutropenic fever: (3) Vomiting and diarrhea: (4) Chills: (5) Esophageal cancer, stage IV: PLAN: Plan Neutropenic fever -Absolute neutrophil count is 0.7-0.8 -Total white count is 1.2 -Cultures are pending -Check COVID-19 -Continue Zosyn -Add vancomycin--> patient has had previous MRSA and a Gram stain of the wound from September 2022 -Check MRSA PCR -Consult infectious disease Nausea/vomiting/diarrhea -CT of the abdomen pelvis shows probable worsening of ill-defined infiltrating neoplasm throughout the liver especially the right lobe, development on the small amount of free fluid in all quadrants and questionable small segment of acute diverticulitis involving the mid sigmoid colon without perforation or abscess -Continue Zosyn -Also could be related to colitis from chemotherapy Mucositis -Patient states that he would prefer utilizing the BMX solution at this time versus viscous lidocaine so we will continue this -Clear liquid diet and advance as tolerated Metastatic esophageal cancer -EGD performed on 04/11/2021 and patient was found to have esophageal mass this was done due to abdominal pain and painful/difficulty swallowing -Biopsy showed moderately differentiated adenocarcinoma -CT of the chest abdomen and pelvis showed a diffuse circumferential thickening at the GE junction with luminal narrowing and PET scan on 05/03/2021 demonstrated uptake in the distal esophagus at the GE junction as well as activity throughout the liver consistent with metastatic disease -Received palliative radiation to the lower esophagus starting on 05/17/[address] Houser -Port placed on 06/01/2021 -Started palliative chemotherapy with FOLFOX and immunotherapy (nivolumab) on 06/07/2021 -CT on 07/28/2021 showed stable thickening of the lower esophagus as well as stable liver nodules -PET scan on 10/18/2021 showed complete response and patient finished cycle 12 on 12/06/2021 -EGD on 05/16/2022 showed ulceration but biopsy showed no malignancy at that time -CT scan on 06/01/2022 showed right liver mass and CT-guided liver biopsy as well as MRI of the abdomen and PET scan showed evidence of liver metastasis with perigastric nodes -Patient saw surgical oncology and radioembolization of the liver lesions was suggested in addition to systemic therapy -Patient was restarted on FOLFOX and nivolumab on 07/25/2022 -Developed mucositis and skin rashes that resolved with medical therapy -Received [address] on 12/14/2022 showed progressive disease so FOLFOX and nivolumab were discontinued -PET scan on 01/01/2023 showed hypermetabolic activity in the right and left lobes of the liver, mediastinum, right hilum and patient was started on Taxo l/Cyramza on 01/10/2023 and has completed 2 cycles at this time -Palliative care has been consulted to aid with side effects of chemotherapy but he has yet to see them Anemia -Appears to be chronic and stable overall -Continue to monitor Thrombocytopenia -Likely related to chemotherapy -Stable since the beginning of November -Continue to monitor Nonischemic cardiomyopathy -Most recent echo from 02/28/2022 demonstrated an ejection fraction of 45% and stage I diastolic dysfunction -Had been on Entresto and Jardiance but both were discontinued due to cost -We will continue lisinopril 10 mg daily and carvedilol 12.5 mg twice daily -Had negative catheterization -Cardiology follow-up as an outpatient -Continue home baby aspirin History of nonsustained VT -Continue beta-blockade -Has not had any recent events Chronic left bundle branch block -Continue medical therapy -Patient had catheterization with nonobstructive disease Hyperlipidemia -Patient is intolerant of statins -Continue lifestyle modifications as able GERD -Continue PPI Depression/anxiety -Continue home citalopram -Continue home [facility] Morbid obesity -BMI 45.0 -Complicates treatment, prognosis, outcomes DVT prophylaxis -Start subcu enoxaparin 40 twice daily CODE STATUS -Full code verified today Charges/Coding Visit Charges Inpatient E&M: 40372 Subs Hosp L2
[2023-01-23] MEDS: 0.9% Saline Lock 10 ML Syringe IV ×2 (08:41→12:36)
[2023-01-23 09:00] VITALS: BP 128/76; PULSE 74; RESP 18; TEMP 37.4; O2SAT 95
[2023-01-23] MEDS: BMX LIQUID 180 ML 10 ML PO (09:10)
--- NOTE | 2023-01-23 09:26 | PCM.RX.CS ---
Consult Antibiotic Management Pharmacy has been consulted to manage selected antiobiotic: Vancomycin Type of Intervention Type of Consult: New start Suspected Infection Suspected Infection: Other (Neutropenic fever) Labs Labs: Sodium 135 mmol/L (136-145) L 01/23/23 06:10 Potassium 4.0 mmol/L (3.5-5.1) 01/23/23 06:10 Chloride 104 mmol/L (98-107) 01/23/23 06:10 Carbon Dioxide 26.0 mmol/L (21.0-32.0) 01/23/23 06:10 Anion Gap 5 (5-15) 01/23/23 06:10 BUN 7 mg/dL (7-18) 01/23/23 06:10 Creatinine 0.60 mg/dL (0.70-1.30) L 01/23/23 06:10 Est GFR (MDRD) Af Amer 176 mL/min (>60) 01/23/23 06:10 Est GFR (MDRD) Non-Af 145 mL/min (>60) 01/23/23 06:10 BUN/Creatinine Ratio 11.7 RATIO (10-20) 01/23/23 06:10 Glucose 95 mg/dL (74-106) 01/23/23 06:10 Dosing Weight Weight used for dosin.8 kg Estimated Creatinine Clearance Estimated Creatinine Clearance: >100ml/min Pharmacy Plan for Drug Dosing Pharmacy Plan for Drug Dosing: NEW START IV VANCOMYCIN Consulting Physician: Dr. Jaspreet Andrade Indication: Neutropenic Fever Goal Trough: 15-20 SrCr: 0.60 mg/dL (01/23/23) CrCl: > 100 mL/min (AdjBW 103.8 kg) Comments: Loading dose Vancomycin 2000mg x1 Vancomycin Dose: Vancomycin 1250mg Q8H Pending Level: Vancomycin trough @ 0930 01/24/23 Pharmacy Service will continue to monitor and adjust dosing as required. Follow-Up Labs Follow-Up Labs: Trough: Vancomycin Date/Time Labs Ordered Labs to be done on [date and time ordered]: 09:30 01/24/23
[2023-01-23] MEDS: Vancomycin HCl 2,000 MG in 0.9% Normal Saline (500mL Bag) 500 ML 250 MG IV (09:39)
[2023-01-23] MEDS: Pantoprazole Sodium 40 MG Tablet PO (09:40)
[2023-01-23] MEDS: Citalopram 20 MG Tablet PO (09:40)
[2023-01-23] MEDS: Aspirin E.C. 81 MG Tablet PO (09:40)
[2023-01-23] MEDS: Lisinopril 10 MG Tablet PO (09:40)
[2023-01-23] MEDS: Enoxaparin 40 MG/0.4 ML Syringe SC (09:45)
[2023-01-23] MEDS: Carvedilol 12.5 MG Tablet PO ×2 (09:45→16:59)
[2023-01-23 09:51] VITALS: O2SAT 94
[2023-01-23] MEDS: Acetaminophen 500 MG Tablet 1000 MG PO (10:29)
[2023-01-23 10:51] LABS: M R Staph aureus DNA By PCR Negative (Negative); Probe Check PASS; Specimen Processing Control PASS
[2023-01-23] MEDS: Haloperidol Lactate 5 MG/ML Vial 1 MG IV (12:36)
[2023-01-23] MEDS: Ibuprofen 400 MG Tablet 800 MG PO (12:36)
--- NOTE | 2023-01-23 12:42 | PCM.CONS.GEN ---
Assessment & Plan Assessment/Plan (1) Esophageal cancer, stage IV: (2) Neutropenia: PLAN: Technically, no documented fever. ANC remains under 1000. CT with ? diverticulitis. Will order bcx x2, resp pcr panel, sputum cx, urine Ags, stool pcr panel. Oncology following. Cont vanc/zosyn empirically. Will follow, thank you HPI Consult Data Date of Consult: 01/23/23 HPI Narrative Reason for Consultation: neutropenia HPI Narrative: SHELLEY PAUL, is a 62 M with metastatic esophageal cancer, last chemo via port given 01/17/23. Presented 01/22 to ED with n/v/d, mouth sores, low grade temps, not feeling well, congestion, poor appetite. No issues with port site. Some cramping upper abd pain, improved. Labs showed neutropenia, admitted on vanc/zosyn. Feeling a little better today. with recent URI. No change in sense of taste or smell. No BM for a few days now. Full ROS performed and neg except as noted above. [facility] Medical History Alcohol use Anemia Arthritis Back pain Braces as ambulation aid Cancer Cardiology follow-up encounter Chills CINV (chemotherapy-induced nausea and vomiting) CPAP (continuous positive airway pressure) dependence Difficulty swallowing Encounter for education Former smoker Gastric reflux History of echocardiogram History of edema History of heart attack Left bundle branch block (LBBB) Leg cramps Marijuana use Morbid obesity Mucositis (ulcerative) due to antineoplastic therapy Near syncope (04/20/20) Neutropenia Non-ischemic cardiomyopathy Non-sustained ventricular tachycardia NSTEMI (non-ST elevated myocardial infarction) (04/20/20) Obstructive sleep apnea Oral candidiasis Palpitations Shortness of breath on exertion Thrombocytopenia Wears glasses Home Medications lidocaine-prilocaine 2.5 %-2.5 % topical cream 1 applic topical ONCE PRN port access 30 days #30 grams 05/23/21 [Rx Last Taken Unknown] citalopram 20 mg tablet (Celexa) 20 mg PO DAILY 05/31/21 [History Last Taken 01/21/23] lorazepam 1 mg tablet 1 mg PO BID PRN Anxiety 05/31/21 [History Last Taken 01/21/23] aspirin 81 mg tablet,delayed release (Adult Aspirin Regimen) 81 mg PO DAILY #90 tabs 06/11/22 [Rx Last Taken 01/21/23] pantoprazole 40 mg tablet,delayed release 40 mg PO DAILY 06/14/22 [History Last Taken 01/21/23] lisinopril 10 mg tablet 10 mg PO DAILY #90 tabs 06/27/22 [Rx Last Taken 01/21/23] ondansetron 8 mg disintegrating tablet 8 mg PO Q8H PRN nausea and vomiting #30 tabs 08/07/22 [Rx Last Taken 01/22/23] prochlorperazine maleate 10 mg tablet 10 mg PO Q6H PRN nausea and vomiting #30 tabs 08/07/22 [Rx Last Taken Unknown] carvedilol 12.5 mg tablet 12.5 mg PO BID #1 TAB 10/11/22 [Rx Last Taken 01/22/23] MAGIC MOUTH WASH (BMX) 180 mL suspension 5 ml buccal .QID 4 weeks #180 mL 01/17/23 [Rx Last Taken 01/21/23] Allergy/AdvReac Type Severity Reaction Status Date / Time No Known Allergies Allergy Verified 01/22/23 15:40 Family History Mother Breast cancer Hypertension CVA (cerebral vascular accident) High cholesterol Brother Cancer prostate Surgical History History of appendectomy History of esophagogastroduodenoscopy (EGD) History of left heart catheterization (04/21/20) Hx of surgical procedure Hx of surgical procedure Social History Smoking Status: Former smoker alcohol intake: former substance use type: does not use Physical Exam Const alert, oriented x3 and no apparent distress General Appearance: cooperative HEENT normocephalic and head/scalp atraumatic HEENT Narrative: some mucositis Eyes PERRL and EOMs intact bilaterally Neck supple and No nodes Resp Auscultation: diminished lung sounds Cardio regular rate and regular rhythm GI soft to palpation, non-tender and non-distended Extremity General Extremity: Negative for edema Skin no rashes or lesions noted Neuro CN's II-XII intact bilaterally Lab / Micro Data Attestation: I reviewed the patient's lab results. 01/23/23 06:10 01/23/23 06:10 Labs: Laboratory Results - last 24 hr 01/22/23 16:41: WBC 1.2 L*, RBC 3.82 L, Hgb 11.7 L, Hct 35.3 L, MCV 92.4, MCH 30.6, MCHC 33.1, RDW Std Deviation 50.3 H, RDW Coeff of Perla 14.8 H, Plt Count 111 L, MPV 9.3, Immature Gran % (Auto) 2.500 H, Neut % (Auto) 66.1, Lymph % (Auto) 22.3, Wallace % (Auto) 6.6, Eos % (Auto) 1.7, Baso % (Auto) 0.8, Absolute Neuts (auto) 0.8 L, Absolute Lymphs (auto) 0.27 L, Nucleated RBC % 0, Differential Comment SCANNED, Diff Path Review August, PT 14.9, INR 1.2, APTT 32.1, Sodium 133 L, Potassium 4.2, Chloride 104, Carbon Dioxide 25.0, Anion Gap 4 L, BUN 7, Creatinine 0.55 L, Estim Creat Clear Calc 146.42, Est GFR (MDRD) Af Amer 192, Est GFR (MDRD) Non-Af 159, BUN/Creatinine Ratio 12.7, Glucose 97, Lactic Acid 1.1, Calcium 8.6, Total Bilirubin 0.80, AST 33, ALT 21, Alkaline Phosphatase 137 H, Total Protein 6.1 L, Albumin 2.9 L, Globulin 3.2, Albumin/Globulin Ratio 0.9 01/22/23 16:55: Urine Color Yellow, Urine Clarity Clear, Urine pH 7.0, Ur Specific [place] 1.010, Urine Protein Negative, Urine Glucose (UA) Normal, Urine Ketones 15 H, Urine Occult Blood Negative, Urine Nitrite Negative, Urine Bilirubin Negative, Urine Urobilinogen Normal, Ur Leukocyte Esterase Negative, Urine RBC 0 SEEN, Urine WBC 0 SEEN, Ur Squamous Epith Cells 0 SEEN, Urine Bacteria 0 SEEN, Urine Mucus 0 SEEN 01/23/23 06:10: WBC 1.4 L*, RBC 3.57 L, Hgb 10.9 L, Hct 33.3 L, MCV 93.3, MCH 30.5, MCHC 32.7, RDW Std Deviation 50.7 H, RDW Coeff of Perla 14.9 H, Plt Count 105 L, MPV 9.4, Immature Gran % (Auto) 0.700, Neut % (Auto) 64.8, Lymph % (Auto) 23.9, Wallace % (Auto) 9.2, Eos % (Auto) 0.7, Baso % (Auto) 0.7, Absolute Neuts (auto) 0.9 L, Absolute Lymphs (auto) 0.34 L, Nucleated RBC % 0, Differential Comment SCANNED, Diff Path Review August foll, Sodium 135 L, Potassium 4.0, Chloride 104, Carbon Dioxide 26.0, Anion Gap 5, BUN 7, Creatinine 0.60 L, Estim Creat Clear Calc 134.22, Est GFR (MDRD) Af Amer 176, Est GFR (MDRD) Non-Af 145, BUN/Creatinine Ratio 11.7, Glucose 95, Calcium 8.2 L, Magnesium 2.1, Total Bilirubin 0.90, AST 33, ALT 19, Alkaline Phosphatase 126 H, Total Protein 5.9 L, Albumin 2.6 L, Globulin 3.3, Albumin/Globulin Ratio 0.8 L 01/23/23 09:00: MRSA (PCR) Negative Micro: Microbiology 01/23/23 08:45 Nasal Secretion SARS-CoV-2 Antigen (Rapid) - Final Radiology Impression Chest X-Ray 01/22/23 17:33 IMPRESSION: There are findings consistent with COPD. There is no evidence of acute chest disease. Electronically Signed: Nemesio Fry MD at 17:52 EDT , Abdomen/Pelvis CT 01/22/23 17:35 IMPRESSION: 1. Limited as above. 2. Probable worsening of ill-defined infiltrating neoplasm throughout the liver especially the right lobe. 3. Development of small amounts of free fluid in all quadrants since previous exam. 4. Question a small segment of acute diverticulitis involving in the mid sigmoid colon without perforation or abscess. Electronically Signed: Nemesio Fry MD at 18:13 EDT ,
[2023-01-23 13:09] LABS: Pathologist Review Reviewed
[2023-01-23 13:41] LABS: Pathologist Review Reviewed
--- NOTE | 2023-01-23 13:46 | CASEMGMT ---
BETTY met with patient. Introduced self and role at [facility]. SW let patient know that [facility] does not have a copy of his Healthcare Power of Global Account Director or Healthcare Living Will. SW asked patient to have a copy brought in for [facility]. Ayla DERAS
[2023-01-23 14:35] VITALS: BP 116/68; PULSE 59; RESP 18; TEMP 37.3; O2SAT 94
[2023-01-23] MEDS: 0.9% Normal Saline (1000mL) 1,000 ML 50 ML IV (14:48)
[2023-01-23] MEDS: Vancomycin HCl 1,250 MG in 0.9% Normal Saline (250mL Bag) 250 ML 167 MG IV (18:34)
[2023-01-23 20:10] VITALS: BP 120/65; PULSE 63; RESP 16; TEMP 36.9; O2SAT 94
[2023-01-23] MEDS: Ensure Clear 120 ML Liquid PO (21:44)
[2023-01-24] MEDS: Vancomycin HCl 1,250 MG in 0.9% Normal Saline (250mL Bag) 250 ML 167 MG IV (01:56)
[2023-01-24] MEDS: Ibuprofen 400 MG Tablet 800 MG PO (01:58)
[2023-01-24 02:01] VITALS: BP 136/70; PULSE 73; RESP 16; TEMP 37.3; O2SAT 93
[2023-01-24] MEDS: Piperacil/Tazobactam 3.375 GM in 0.9% Normal Saline (50mL MB+) 50 ML IV ×2 (05:28→17:38)
[2023-01-24 06:52] LABS: Absolute Lymphocyte Count 0.34 X10^3/uL (0.83-4.51); Absolute Neutrophil Count 1.3 X10^3/uL (2.0-7.7); Basophil# 0.01 X10^3/uL; Basophil% 0.5 % (0-1); Eosinophil# 0.02 X10^3/uL; Hematocrit 31.9 % (40-54); Hemoglobin 10.6 g/dL (13.0-16.5); Lymphocyte # 0.34 X10^3/ul (0.83-4.51); Lymphocyte % 17.1 % (19-41); Mean Corp Hgb Conc 33.2 g/dL (32-36); Mean Corpuscular Hgb 30.7 pg (27.0-32.0); Mean Corpuscular Volume 92.5 fL (80-94); Mean Platelet Vol. 9.6 fl (6.2-12.0); Monocyte# 0.32 X10^3/uL; Monocyte% 16.1 % (0-10); NRBC Flagged by Analyzer 0 % (0-5); Neutrophil # 1.29 X10^3/uL (2.7-7.7); Neutrophil % 64.8 % (47-70); POSITIVE DIFFERENTIAL YES; Platelet Count 117 K/mm3 (150-450); RBC Distribution Width CV 14.9 % (11.6-14.6); RBC Distribution Width SD 50.3 fl (35.1-43.9); Red Blood Count 3.45 M/mm3 (4.6-6.2)
[2023-01-24 06:58] LABS: Differential Indicated SCAN CRITERIA MET
[2023-01-24 07:17] LABS: Differential Comment SCANNED
[2023-01-24 07:22] LABS: Anion Gap 5 (5-15); BUN 14 mg/dL (7-18); BUN/Creat Ratio 6.2 RATIO (10-20); Calcium,Total 8.2 mg/dL (8.5-10.1); Chloride 106 mmol/L (98-107); Creatinine, Serum 2.25 mg/dL (0.70-1.30); EST Glomerular Filtration Rate 31 mL/min (>60); Est Glom Filt Rate - Afr Amer 38 mL/min (>60); Estimated Creatinine Clearance 35.79 ml/min; Glucose 102 mg/dL (74-106); Potassium 3.8 mmol/L (3.5-5.1); Sodium Level 135 mmol/L (136-145)
--- NOTE | 2023-01-24 08:08 | NURSING ---
lab called and informed tech Dr. Andrade called and does want labs redrawn as ordered. requesting they come draw them
[2023-01-24 08:30] VITALS: BP 131/76; PULSE 61; RESP 18; TEMP 36.8; O2SAT 95
[2023-01-24 09:00] LABS: Anion Gap 6 (5-15); BUN 15 mg/dL (7-18); BUN/Creat Ratio 6.2 RATIO (10-20); Calcium,Total 8.3 mg/dL (8.5-10.1); Chloride 106 mmol/L (98-107); Creatinine, Serum 2.41 mg/dL (0.70-1.30); EST Glomerular Filtration Rate 29 mL/min (>60); Est Glom Filt Rate - Afr Amer 35 mL/min (>60); Estimated Creatinine Clearance 33.41 ml/min; Glucose 107 mg/dL (74-106); Potassium 4.1 mmol/L (3.5-5.1); Sodium Level 136 mmol/L (136-145)
--- NOTE | 2023-01-24 09:50 | US_ITS ---
HISTORY: KHURRAM. TECHNIQUE: Sampson scale and color doppler images were obtained of the kidneys. 73 images. COMPARISON: CT 01/22/2023. FINDINGS: RIGHT KIDNEY: 13.1 cm in length with a cortical thickness of 1.9 cm. Contour and echogenicity unremarkable. No hydronephrosis. 2.5 cm interpolar cyst.. LEFT KIDNEY: 13.4 cm in length with a cortical thickness of 1.8 cm. Contour and echogenicity unremarkable. No hydronephrosis. 3.3 cm and 7.1 cm lower pole cysts. URINARY BLADDER: Unremarkable at 241 cc with a wall thickness of 3 mm. US/Kidney and Bladder IMPRESSION: Bilateral renal cysts. No hydronephrosis. Electronically Signed: Lana Sanchez MD at 12:06 EDT ,
[2023-01-24] MEDS: Ensure Clear 120 ML Liquid PO ×2 (09:58→15:15)
[2023-01-24] MEDS: Pantoprazole Sodium 40 MG Tablet PO (09:59)
[2023-01-24] MEDS: Carvedilol 12.5 MG Tablet PO ×2 (09:59→17:38)
[2023-01-24] MEDS: Enoxaparin 40 MG/0.4 ML Syringe SC (10:00)
[2023-01-24] MEDS: Aspirin E.C. 81 MG Tablet PO (10:00)
[2023-01-24] MEDS: Citalopram 20 MG Tablet PO (10:00)
[2023-01-24 10:05] LABS: Vancomycin, Trough Level 23.7 ug/mL (5.0-15.0)
[2023-01-24] MEDS: 0.9% Normal Saline (1000mL) 1,000 ML 150 ML IV ×3 (10:19→19:24)
[2023-01-24 10:50] LABS: Bacteria 0 SEEN /hpf (None Seen); Mucous, Urine 0 SEEN /hpf (<or=2+); Red Blood Cells-Urine 0 SEEN /hpf (0-5); Squamous Epithelial Cells - UA 0 SEEN /hpf (0-5); White Blood Cells 0 SEEN /hpf (0-5)
[2023-01-24 10:53] LABS: Color, Urine Yellow (Yellow); Glucose, Dipstick Normal (Normal); Ketone-Dipstick Negative (Negative); Leukocyte Esterase-Dipstick Negative /ul (Negative); Nitrite-Dipstick Negative (Negative); Occult Blood-Urine Negative /ul (Negative); Protein-Dipstick 30 mg/dl (Negative); Urine Bilirubin Dipstick Negative (Negative); Urine Clarity Clear (Clear); Urine Urobilinogen Normal (Normal)
[2023-01-24 11:06] LABS: Urine Sodium 19 mmol/L (Not Establ.)
[2023-01-24] MEDS: Dicyclomine 10 MG Capsule PO ×2 (11:37→16:18)
--- NOTE | 2023-01-24 11:38 | CON.PCM.RE_ITS ---
Documented by User: MARKIE Willis 01/24/23 12:08 Assessment & Plan Assessment/Plan (1) KHURRAM (acute kidney injury): (2) Vomiting and diarrhea: (3) Esophageal cancer, stage IV: (4) Neutropenia: PLAN: Plan This is a pleasant 62-year-old male with metastatic esophageal cancer (last chemo via Port-A-Cath 01/17/2023 admitted to the hospital with concerns for neutropenic fever. Nephrology consulted as serum creatinine up to 2.4 mg/dL today. Patient has normal baseline serum creatinine. Serum creatinine was normal on admission. Nonoliguric KHURRAM likely multifactorial from significant volume depletion (very poor oral intake with diarrhea and nausea), with concurrent exposure to NICOLE inhibitor, possible contrast-induced nephropathy as well as possible component from vancomycin and NSAID. At this time there is no acute indication for G[employer]ER. Potassium and acid-base acceptable. Patient is not hypervolemic, is on IV fluids and recommend continue with IV fluids as ordered. We will check a urine protein creatinine ratio. Renal ultrasound ordered and pending, CT of abdomen and pelvis did not show any hydronephrosis, normal renal size and position. Urine analysis on admission negative for protein or blood. Repeat UA 30 protein, negative for blood. Urine sodium 19. Blood pressures acceptable on carvedilol. Lisinopril stopped. Vancomycin stopped and patient i s receiving linezolid and Zosyn. ID consulted. -Metastatic esophageal cancer; EGD in March 2021 found esophageal mass, biopsy showed moderately differentiated adenocarcinoma. Patient received p alliative radiation in May 2021. Started palliative chemotherapy with FOLFOX and immunotherapy (nivolumab) on 06/07/2021, PET scan in October 2021 showed complete response and patient finished cycle 12 in November 2021. Patient then had CT scan in May 2022 which showed right liver mass, CT-guided liver biopsy showed evidence of liver metastasis. Patient restarted FOLFOX and nivolumab on 07/25/2022 and received [address] on 12/14/2022 showed progressive disease so FOLFOX and nivolumab were discontinued. PET scan on 01/01/2023 showed hypermetabolic activity in the right and left lobes of the liver, mediastinum, right hilum and patient was started on Taxol/Cyramza on 01/10/2023 and has completed 2 cycles; last received 01/17/2023. Thank you for allowing us to participate in the care of Mr. Paul, further orders forthcoming as hospitalization evolves. HPI Consult Data Date of Consult: 01/24/23 HPI Narrative HPI Narrative: SHELLEY PAUL, is a 62 M with past medical history significant for metastatic esophageal cancer currently undergoing second round of chemotherapy (last chemo 01/17) followed by [facility] oncology who presented to the emergency room after he was evaluated in oncology office and noted to have temperature of 99.9 with complaints of nausea, vomiting, diarrhea and fever. Patient was admitted for concern for neutropenic fever along with nausea vomiting and diarrhea. Also tested positive for RSV. Nephrology consulted as patient noted to have elevated serum creatinine today. Patient has normal baseline serum creatinine. Today patient reports appetite has been very poor even before coming to the hospital. He reports he has been having diarrhea. Patient has been having diarrhea in hospital as well. States only ate soup and protein drink yesterday. States he has been nauseated. Denies issues with urination including dysuria or hematuria. [facility] Medical History Alcohol use Anemia Arthritis Back pain Braces as ambulation aid Cancer Cardiology follow-up encounter Chills CINV (chemotherapy-induced nausea and vomiting) CPAP (continuous positive airway pressure) dependence Difficulty swallowing Encounter for education Former smoker Gastric reflux History of echocardiogram History of edema History of heart attack Left bundle branch block (LBBB) Leg cramps Marijuana use Morbid obesity Mucositis (ulcerative) due to antineoplastic therapy Near syncope (04/20/20) Neutropenia Non-ischemic cardiomyopathy Non-sustained ventricular tachycardia NSTEMI (non-ST elevated myocardial infarction) (04/20/20) Obstructive sleep apnea Oral candidiasis Palpitations Shortness of breath on exertion Thrombocytopenia Wears glasses Home Medications lidocaine-prilocaine 2.5 %-2.5 % topical cream 1 applic topical ONCE PRN port access 30 days #30 grams 05/23/21 [Rx Last Taken Unknown] citalopram 20 mg tablet (Celexa) 20 mg PO DAILY 05/31/21 [History Last Taken 01/21/23] lorazepam 1 mg tablet 1 mg PO BID PRN Anxiety 05/31/21 [History Last Taken 01/21/23] aspirin 81 mg tablet,delayed release (Adult Aspirin Regimen) 81 mg PO DAILY #90 tabs 06/11/22 [Rx Last Taken 01/21/23] pantoprazole 40 mg tablet,delayed release 40 mg PO DAILY 06/14/22 [History Last Taken 01/21/23] lisinopril 10 mg tablet 10 mg PO DAILY #90 tabs 06/27/22 [Rx Last Taken 01/21/23] ondansetron 8 mg disintegrating tablet 8 mg PO Q8H PRN nausea and vomiting #30 tabs 08/07/22 [Rx Last Taken 01/22/23] prochlorperazine maleate 10 mg tablet 10 mg PO Q6H PRN nausea and vomiting #30 tabs 08/07/22 [Rx Last Taken Unknown] carvedilol 12.5 mg tablet 12.5 mg PO BID #1 TAB 10/11/22 [Rx Last Taken 01/22/23] MAGIC MOUTH WASH (BMX) 180 mL suspension 5 ml buccal .QID 4 weeks #180 mL 01/17/23 [Rx Last Taken 01/21/23] Allergy/AdvReac Type Severity Reaction Status Date / Time No Known Allergies Allergy Verified 01/22/23 15:40 Family History Mother Breast cancer Hypertension CVA (cerebral vascular accident) High cholesterol Brother Cancer prostate Surgical History History of appendectomy History of esophagogastroduodenoscopy (EGD) History of left heart catheterization (04/21/20) Hx of surgical procedure Hx of surgical procedure Social History Smoking Status: Former smoker alcohol intake: former substance use type: does not use ROS ROS Narrative As in HPI and past medical history Physical Exam Narrative Alert and oriented x3, no apparent distress S1, S2, RRR Lung sounds clear anteriorly and posteriorly. No wheezes, rhonchi or rales noted Abdomen soft, nontender No edema Lab / Micro Data 01/24/23 06:15 01/24/23 14:08 Labs: Laboratory Results - last 24 hr 01/22/23 16:41: Diff Path Review Reviewed 01/23/23 06:10: Diff Path Review Reviewed 01/24/23 06:15: WBC 2.0 L, RBC 3.45 L, Hgb 10.6 L, Hct 31.9 L, MCV 92.5, MCH 30.7, MCHC 33.2, RDW Std Deviation 50.3 H, RDW Coeff of Perla 14.9 H, Plt Count 117 L, MPV 9.6, Immature Gran % (Auto) 0.500, Neut % (Auto) 64.8, Lymph % (Auto) 17.1 L, [place] % (Auto) 16.1 H, Eos % (Auto) 1.0, Baso % (Auto) 0.5, Absolute Neuts (auto) 1.3 L, Absolute Lymphs (auto) 0.34 L, Nucleated RBC % 0, Differential Comment SCANNED, Diff Path Review August, Sodium 135 L, Potassium 3.8, Chloride 106, Carbon Dioxide 24.0, Anion Gap 5, BUN 14, Creatinine 2.25 H, Estim Creat Clear Calc 35.79, Est GFR (MDRD) Af Amer 38 L, Est GFR (MDRD) Non-Af 31 L, BUN/Creatinine Ratio 6.2 L, Glucose 102, Calcium 8.2 L 01/24/23 08:25: Sodium 136, Potassium 4.1, Chloride 106, Carbon Dioxide 24.0, Anion Gap 6, BUN 15, Creatinine 2.41 H, Estim Creat Clear Calc 33.41, Est GFR (MDRD) Af Amer 35 L, Est GFR (MDRD) Non-Af 29 L, BUN/Creatinine Ratio 6.2 L, Glucose 107 H, Calcium 8.3 L 01/24/23 09:30: Vancomycin Trough 23.7 H 01/24/23 10:30: Urine Color Yellow, Urine Clarity Clear, Urine pH 6.0, Ur Specific [place] 1.010, Urine Protein 30 H, Urine Glucose (UA) Normal, Urine Ketones Negative, Urine Occult Blood Negative, Urine Nitrite Negative, Urine Bilirubin Negative, Urine Urobilinogen Normal, Ur Leukocyte Esterase Negative, Urine RBC 0 SEEN, Urine WBC 0 SEEN, Ur Squamous Epith Cells 0 SEEN, Urine Bacteria 0 SEEN, Urine Mucus 0 SEEN, Ur Random Sodium 19, Urine Creatinine 58.40 Micro: Microbiology 01/22/23 16:55 Urine, Clean Catch Urine Culture - Preliminary Culture exhibits no growth. 01/23/23 13:46 Mucosa - Nose Respiratory Panel (PCR) - Final RSV B 01/23/23 13:17 Urine, Random Streptococcus pneumoniae Antigen (M - Final 01/23/23 13:17 Urine, Clean Catch Legionella Antigen - Final 01/23/23 08:45 Nasal Secretion SARS-CoV-2 Antigen (Rapid) - Final Documented by User: Dr. Ajith Rouse MD 01/24/23 17:04 Assessment & Plan Assessment/Plan (1) KHURRAM (acute kidney injury): (2) Vomiting and diarrhea: (3) Esophageal cancer, stage IV: (4) Neutropenia: PLAN: Plan This is a pleasant 62-year-old male with metastatic esophageal cancer (last chemo via Port-A-Cath 01/17/2023 admitted to the hospital with concerns for neutropenic fever. Nephrology consulted as serum creatinine up to 2.4 mg/dL today. Patient has normal baseline serum creatinine. Serum creatinine was normal on admission. Nonoliguric KHURRAM likely multifactorial from significant volume depletion (very poor oral intake with diarrhea and nausea), with concurrent exposure to NICOLE inhibitor, possible contrast-induced nephropathy as well as possible component from vancomycin and NSAID. At this time there is no acute indication for GOLD FRAME [employer]ER. Potassium and acid-base acceptable. Patient is not hypervolemic, is on IV fluids and recommend continue with IV fluids as ordered. We will check a urine protein creatinine ratio. Renal ultrasound ordered and pending, CT of abdomen and pelvis did not show any hydronephrosis, normal renal size and position. Urine analysis on admission negative for protein or blood. Repeat UA 30 protein, negative for blood. Urine sodium 19. Blood pressures acceptable on carvedilol. Lisinopril stopped. Vancomycin stopped and patient is receiving linezolid and Zosyn. ID consulted. -Metastatic esophageal cancer; EGD in March 2021 found esophageal mass, biopsy showed moderately differentiated adenocarcinoma. Patient received palliative radiation in May 2021. Started palliative chemotherapy with FOLFOX and immunotherapy (nivolumab) on 06/07/2021, PET scan in October 2021 showed complete response and patient finished cycle 12 in November 2021. Patient then had CT scan in May 2022 which showed right liver mass, CT-guided liver biopsy showed evidence of liver metastasis. Patient restarted FOLFOX and nivolumab on 07/25/2022 and received [address] on 12/14/2022 showed progressive disease so FOLFOX and nivolumab were discontinued. PET scan on 01/01/2023 showed hypermetabolic activity in the right and left lobes of the liver, mediastinum, right hilum and patient was started on Taxol/Cyramza on 01/10/2023 and has completed 2 cycles; last received 01/17/2023. Thank you for allowing us to participate in the care of Mr. Paul, further orders forthcoming as hospitalization evolves. dw [employer] agree with above KHURRAM pancytopenia recently started taxol and cyramza (VEGF2 inhibitors) fluids for now HPI Consult Data Date of Consult: 01/24/23 [facility] Medical History Alcohol use Anemia Arthritis Back pain Braces as ambulation aid Cancer Cardiology follow-up encounter Chills CINV (chemotherapy-induced nausea and vomiting) CPAP (continuous positive airway pressure) dependence Difficulty swallowing Encounter for education Former smoker Gastric reflux History of echocardiogram History of edema History of heart attack Left bundle branch block (LBBB) Leg cramps Marijuana use Morbid obesity Mucositis (ulcerative) due to antineoplastic therapy Near syncope (04/20/20) Neutropenia Non-ischemic cardiomyopathy Non-sustained ventricular tachycardia NSTEMI (non-ST elevated myocardial infarction) (04/20/20) Obstructive sleep apnea Oral candidiasis Palpitations Shortness of breath on exertion Thrombocytopenia Wears glasses Home Medications lidocaine-prilocaine 2.5 %-2.5 % topical cream 1 applic topical ONCE PRN port access 30 days #30 grams 05/23/21 [Rx Last Taken Unknown] citalopram 20 mg tablet (Celexa) 20 mg PO DAILY 05/31/21 [History Last Taken 01/21/23] lorazepam 1 mg tablet 1 mg PO BID PRN Anxiety 05/31/21 [History Last Taken 01/21/23] aspirin 81 mg tablet,delayed release (Adult Aspirin Regimen) 81 mg PO DAILY #90 tabs 06/11/22 [Rx Last Taken 01/21/23] pantoprazole 40 mg tablet,delayed release 40 mg PO DAILY 06/14/22 [History Last Taken 01/21/23] lisinopril 10 mg tablet 10 mg PO DAILY #90 tabs 06/27/22 [Rx Last Taken 01/21/23] ondansetron 8 mg disintegrating tablet 8 mg PO Q8H PRN nausea and vomiting #30 tabs 08/07/22 [Rx Last Taken 01/22/23] prochlorperazine maleate 10 mg tablet 10 mg PO Q6H PRN nausea and vomiting #30 tabs 08/07/22 [Rx Last Taken Unknown] carvedilol 12.5 mg tablet 12.5 mg PO BID #1 TAB 10/11/22 [Rx Last Taken 01/22/23] MAGIC MOUTH WASH (BMX) 180 mL suspension 5 ml buccal .QID 4 weeks #180 mL 01/17/23 [Rx Last Taken 01/21/23] Allergy/AdvReac Type Severity Reaction Status Date / Time No Known Allergies Allergy Verified 01/22/23 15:40 Family History Mother Breast cancer Hypertension CVA (cerebral vascular accident) High cholesterol Brother Cancer prostate Surgical History History of appendectomy History of esophagogastroduodenoscopy (EGD) History of left heart catheterization (04/21/20) Hx of surgical procedure Hx of surgical procedure Social History Smoking Status: Former smoker alcohol intake: former substance use type: does not use Lab / Micro Data 01/24/23 06:15 01/24/23 14:08
--- NOTE | 2023-01-24 11:41 | PN.HOSP_ITS ---
Reason for Visit Reason for Visit: Nausea/vomiting/diarrhea/fever Subjective Subjective Patient states he has had multiple very small bowel movements because he has abdominal cramping and it feels better when he tries to have a bowel movement. I did discuss with him that we will start some scheduled Bentyl to see if it helps with the cramping. This also may be related to the colitis that was noted on the CT at presentation. Overnight his renal function increased dramatically. Patient states his urine output has been fine and he has been drinking without any problems. I do suspect this is probably multifactorial as noted later in my note. Patient continues to feel poorly overall. Evidently his was having some bronchitis type symptoms at home and infectious disease obtained a respiratory viral panel based on that information and he is positive for RSV B. This may be part of the etiology for his low-grade temperatures however the CT of the abdomen also shows colitis so we are unable to rule out infectious colitis. Stool studies are pending. Objective Data Objective Data Vital Signs: Vital Signs Temp Pulse Resp BP Pulse Ox O2 Del Method 98.3 F 61 18 131/76 H 95 Room Air 01/24/23 08:30 01/24/23 08:30 01/24/23 08:30 01/24/23 08:30 01/24/23 08:30 01/24/23 08:30 Oxygen Delivery Method Room Air Weight: 146.51 kg Body Mass Index (BMI) 45.0 Intake & Output: Intake and Output for Last 24 Hours 01/22/23 01/23/23 01/24/23 23:59 23:59 23:59 Intake Total 2049 1735.00 / 1735.00 1350.83 / 1350.83 Output Total 400 / 400 280 / 280 Balance 2049 1335.00 / 1335.00 1070.83 / 1070.83 Lab / Micro Data 01/24/23 06:15 01/24/23 08:25 Labs: Laboratory Results - last 24 hr 01/22/23 16:41: Diff Path Review Reviewed 01/23/23 06:10: Diff Path Review Reviewed 01/24/23 06:15: WBC 2.0 L, RBC 3.45 L, Hgb 10.6 L, Hct 31.9 L, MCV 92.5, MCH 30.7, MCHC 33.2, RDW Std Deviation 50.3 H, RDW Coeff of Perla 14.9 H, Plt Count 117 L, MPV 9.6, Immature Gran % (Auto) 0.500, Neut % (Auto) 64.8, Lymph % (Auto) 17.1 L, [place] % (Auto) 16.1 H, Eos % (Auto) 1.0, Baso % (Auto) 0.5, Absolute Neuts (auto) 1.3 L, Absolute Lymphs (auto) 0.34 L, Nucleated RBC % 0, Differential Comment SCANNED, Diff Path Review August, Sodium 135 L, Potassium 3.8, Chloride 106, Carbon Dioxide 24.0, Anion Gap 5, BUN 14, Creatinine 2.25 H, Estim Creat Clear Calc 35.79, Est GFR (MDRD) Af Amer 38 L, Est GFR (MDRD) Non-Af 31 L, BUN/Creatinine Ratio 6.2 L, Glucose 102, Calcium 8.2 L 01/24/23 08:25: Sodium 136, Potassium 4.1, Chloride 106, Carbon Dioxide 24.0, Anion Gap 6, BUN 15, Creatinine 2.41 H, Estim Creat Clear Calc 33.41, Est GFR (MDRD) Af Amer 35 L, Est GFR (MDRD) Non-Af 29 L, BUN/Creatinine Ratio 6.2 L, Glucose 107 H, Calcium 8.3 L 01/24/23 09:30: Vancomycin Trough 23.7 H 01/24/23 10:30: Urine Color Yellow, Urine Clarity Clear, Urine pH 6.0, Ur Specific [place] 1.010, Urine Protein 30 H, Urine Glucose (UA) Normal, Urine Ketones Negative, Urine Occult Blood Negative, Urine Nitrite Negative, Urine Bilirubin Negative, Urine Urobilinogen Normal, Ur Leukocyte Esterase Negative, Urine RBC 0 SEEN, Urine WBC 0 SEEN, Ur Squamous Epith Cells 0 SEEN, Urine Bacteria 0 SEEN, Urine Mucus 0 SEEN, Ur Random Sodium 19, Urine Creatinine 58.40 Micro: Microbiology 01/22/23 16:55 Urine, Clean Catch Urine Culture - Preliminary Culture exhibits no growth. 01/23/23 13:46 Mucosa - Nose Respiratory Panel (PCR) - Final RSV B 01/23/23 13:17 Urine, Random Streptococcus pneumoniae Antigen (M - Final 01/23/23 13:17 Urine, Clean Catch Legionella Antigen - Final 01/23/23 08:45 Nasal Secretion SARS-CoV-2 Antigen (Rapid) - Final Physical Exam Const alert, oriented x3, no apparent distress and well nourished; Negative for average body habitus Constitutional Narrative: Morbidly obese, white male, lying in bed in his right side, patient appears miserable but nontoxic, no distress HEENT head/scalp atraumatic and moist oral mucous membranes; Negative for oropharynx normal HEENT Narrative: Mallampati 3-4, no thrush, still with small sores however this seems to be somewhat improved Head and Scalp: normocephalic Eyes PERRL, EOMs intact bilaterally and conjunctivae normal Eyes Narrative: No scleral icterus Neck no lymphadenopathy and supple Neck Narrative: Trachea midline, no thyroid enlargement Resp normal respiratory effort, no retractions, no use of accessory muscles and clear to auscultation bilaterally Auscultation: Negative for rales, rhonchi or wheezes Cardio regular rate, regular rhythm, S1 normal heart sound, S2 normal heart sound, no murmurs, no rub, no gallops and no clicks GI normal to inspection, nondistended, normoactive bowel sounds and soft to palpation GI Narrative: Mild diffuse tenderness today Extremity Extremity Narrative: Pedal pulses are 2+, trace pitting edema, no cyanosis or clubbing Skin Skin Narrative: Mediport right upper chest is clean dry without any drainage or erythema, currently accessed, no new lesions today Neuro oriented x3, CN's II-XII intact bilaterally, moves all extremities and no focal motor deficits Speech: speech normal Psych Psych Narrative: Affect is mildly flat however eye contact is good and mood seems stable Assessment & Plan Assessment/Plan (1) Neutropenia: (2) Neutropenic fever: (3) Vomiting and diarrhea: (4) Chills: (5) Esophageal cancer, stage IV: (6) KHURRAM (acute kidney injury): PLAN: Plan Neutropenic fever -Absolute neutrophil count is now up to 1.3 -Total white count is up to 2.0 today -Cultures are pending -COVID-19 is unremarkable -RSV is positive/CT scan does show colitis -Continue Zosyn and vancomycin was transitioned to linezolid with renal dysfunction -MRSA PCR is negative -Pneumo and Legionella antigens are negative -Urine culture is unremarkable -Infectious diseases following-appreciate input Nausea/vomiting/diarrhea -CT of the abdomen pelvis shows probable worsening of ill-defined infiltrating neoplasm throughout the liver especially the right lobe, development on the small amount of free fluid in all quadrants and questionable small segment of acute diverticulitis involving the mid sigmoid colon without perforation or abscess -Continue Zosyn KHURRAM -This is new in the last 24 hours -Serum creatinine has risen from 0.6 yesterday which is his baseline to 2.25 today -Suspect multifactorial as the patient has received IV contrast with his CAT scan on admission, was on vancomycin, lisinopril, and did receive ibuprofen yesterday for his myalgias as Tylenol was not effective... Could also be related to his new chemotherapy -Also could be related to colitis from chemotherapy -Check a UA -Check urine sodium and creatinine -Check retroperitoneal ultrasound -Bladder scan postvoid to ensure emptying -Consult nephrology -No current need for renal replacement therapy -Vancomycin has been discontinued by ID and transition to linezolid and Zosyn has been redosed for renal disease -We will increase IV fluid rate to 150 cc/h and recheck BMP this afternoon Mucositis -Continue BMX solution -We will advance to full liquid diet and see if patient tolerates Metastatic esophageal cancer -EGD performed on 04/11/2021 and patient was found to have esophageal mass this was done due to abdominal pain and painful/difficulty swallowing -Biopsy showed moderately differentiated adenocarcinoma -CT of the chest abdomen and pelvis showed a diffuse circumferential thickening at the GE junction with luminal narrowing and PET scan on 05/03/2021 demonstrated uptake in the distal esophagus at the GE junction as well as activity throughout the liver consistent with metastatic disease -Received palliative radiation to the lower esophagus starting on 05/17/[address] Houser -Port placed on 06/01/2021 -Started palliative chemotherapy with FOLFOX and immunotherapy (nivolumab) on 06/07/2021 -CT on 07/28/2021 showed stable thickening of the lower esophagus as well as stable liver nodules -PET scan on 10/18/2021 showed complete response and patient finished cycle 12 on 12/06/2021 -EGD on 05/16/2022 showed ulceration but biopsy showed no malignancy at that time -CT scan on 06/01/2022 showed right liver mass and CT-guided liver biopsy as well as MRI of the abdomen and PET scan showed evidence of liver metastasis with perigastric nodes -Patient saw surgical oncology and radioembolization of the liver lesions was suggested in addition to systemic therapy -Patient was restarted on FOLFOX and nivolumab on 07/25/2022 -Developed mucositis and skin rashes that resolved with medical therapy -Received [address] on 12/14/2022 showed progressive disease so FOLFOX and nivolumab were discontinued -PET scan on 01/01/2023 showed hypermetabolic activity in the right and left lobes of the liver, mediastinum, right hilum and patient was started on Taxol/Cyramza on 01/10/2023 and has completed 2 cycles at this time -Palliative care has been consulted to aid with side effects of chemotherapy but he has yet to see them -Oncology consult pending Anemia -Appears to be chronic and stable overall -Continue to monitor Thrombocytopenia -Likely related to chemotherapy -Stable since the beginning of November -Continue to monitor Nonischemic cardiomyopathy -Most recent echo from 02/28/2022 demonstrated an ejection fraction of 45% and stage I diastolic dysfunction -Had been on Entresto and Jardiance but both were discontinued due to cost -Lisinopril discontinued due to renal function elevation -We will continue carvedilol 12.5 -Add as needed hydralazine for systolic blood pressure greater than 160 with holding lisinopril -Had negative catheterization -Cardiology follow-up as an outpatient -Continue home baby aspirin History of nonsustained VT -Continue beta-blockade -Has not had any recent events Chronic left bundle branch block -Continue medical therapy -Patient had catheterization with nonobstructive disease Hyperlipidemia -Patient is intolerant of statins -Continue lifestyle modifications as able GERD -Continue PPI Depression/anxiety -Continue home citalopram -Continue home Ativan Morbid obesity -BMI 45.0 -Complicates treatment, prognosis, outcomes DVT prophylaxis -With renal function elevation we will discontinue enoxaparin and transition to heparin CODE STATUS -Full code Charges/Coding Visit Charges Inpatient E&M: 76004 Subs Hosp L3
--- NOTE | 2023-01-24 12:00 | CASEMGMT ---
RN?CM?BLENDER LABORER?CM?to room to meet with patient for initial transition planning/care coordination?assessment.?RN?CM?introduced self and role at [facility].? Pt voices understanding and consents to?assessment?at this time.? Pt resting in bed in no distress at this time.?Dtr, Rach, @ bedside and pt agreeable to her being present during assessment. Pt is A/O at this time and answers all questions appropriately.?? Care providers, pharmacy, and demographics verified/updated at this time. PCP: Dr Bhardwaj Specialists:Dr Tang--oncologist, Dr Miller-rental counter clerk Preferred Pharmacy: [facility] Insurance: [employer] Prescription Benefit:?Yes Living Will/HPOA:?Pt has both LW and HCPOA, who is his , Mary. LNOK: , Mary. Pt has 3 children. 2 daughters are Iwona Dominguez Living Arrangements: Lives w/his in 2-story home w/3 steps to enter. Bedroom upstairs and no bathroom upstairs. Has bathroom on main floor. Independent. Pt states he was still working up last week. does most home mgnt tasks and can assist pt, as needed. Transportation:?Pt states drives self and states no transportation concerns at this time.? also drives. DME: ?States has the following DME:?CPAP, knee braces ?Pt states no need for further DME at this time.? HHC/SNF: No hx of either. Denies needs @ discharge. Pt wishes to return home and states has no concerns with going home at time of discharge.? ?CM?to follow for any discharge planning/needs.? Pt voices no concerns/needs at this time.? Advised pt to ask for?CM?if any questions/concerns/needs arise.? Voices understanding. PLAN:??Home Francine BSN?RN?CM
[2023-01-24 14:30] VITALS: BP 106/49; PULSE 62; RESP 18; TEMP 37.4; O2SAT 99
[2023-01-24 14:30] LABS: Anion Gap 5 (5-15); BUN 17 mg/dL (7-18); Calcium,Total 8.3 mg/dL (8.5-10.1); Chloride 107 mmol/L (98-107); Creatinine, Serum 2.85 mg/dL (0.70-1.30); EST Glomerular Filtration Rate 24 mL/min (>60); Est Glom Filt Rate - Afr Amer 29 mL/min (>60); Estimated Creatinine Clearance 28.26 ml/min; Glucose 116 mg/dL (74-106); Potassium 4.2 mmol/L (3.5-5.1); Sodium Level 137 mmol/L (136-145)
[2023-01-24] MEDS: Heparin Injection (Vial) 5,000 UNIT/ML VIAL 5000 UNIT SC ×2 (14:34→21:53)
[2023-01-24] MEDS: proCHLORPERazine 10 MG/2 ML Vial 5 MG IV (14:34)
--- NOTE | 2023-01-24 16:35 | CON.PCM_ITS ---
Assessment & Plan Assessment/Plan (1) Neutropenic fever: PLAN: Plan mild leukpenia without clinically significant neutropenia, likely relates to chemo effect, acute illness. observation recommended. HPI Consult Data Date of Consult: 01/24/23 HPI Narrative Reason for Consultation: leukopenia HPI Narrative: SHELLEY PAUL, is a 62 M who presents with mucositis, low grade fever. history of esophageal cancer with metastases, now on second line taxol cyramza started Jan 10. patient states he is now dx with RSV. [facility] Medical History Alcohol use Anemia Arthritis Back pain Braces as ambulation aid Cancer Cardiology follow-up encounter Chills CINV (chemotherapy-induced nausea and vomiting) CPAP (continuous positive airway pressure) dependence Difficulty swallowing Encounter for education Former smoker Gastric reflux History of echocardiogram History of edema History of heart attack Left bundle branch block (LBBB) Leg cramps Marijuana use Morbid obesity Mucositis (ulcerative) due to antineoplastic therapy Near syncope (04/20/20) Neutropenia Non-ischemic cardiomyopathy Non-sustained ventricular tachycardia NSTEMI (non-ST elevated myocardial infarction) (04/20/20) Obstructive sleep apnea Oral candidiasis Palpitations Shortness of breath on exertion Thrombocytopenia Wears glasses Home Medications lidocaine-prilocaine 2.5 %-2.5 % topical cream 1 applic topical ONCE PRN port access 30 days #30 grams 05/23/21 [Rx Last Taken Unknown] citalopram 20 mg tablet (Celexa) 20 mg PO DAILY 05/31/21 [History Last Taken 01/21/23] lorazepam 1 mg tablet 1 mg PO BID PRN Anxiety 05/31/21 [History Last Taken 01/21/23] aspirin 81 mg tablet,delayed release (Adult Aspirin Regimen) 81 mg PO DAILY #90 tabs 06/11/22 [Rx Last Taken 01/21/23] pantoprazole 40 mg tablet,delayed release 40 mg PO DAILY 06/14/22 [History Last Taken 01/21/23] lisinopril 10 mg tablet 10 mg PO DAILY #90 tabs 06/27/22 [Rx Last Taken 01/21/23] ondansetron 8 mg disintegrating tablet 8 mg PO Q8H PRN nausea and vomiting #30 tabs 08/07/22 [Rx Last Taken 01/22/23] prochlorperazine maleate 10 mg tablet 10 mg PO Q6H PRN nausea and vomiting #30 tabs 08/07/22 [Rx Last Taken Unknown] carvedilol 12.5 mg tablet 12.5 mg PO BID #1 TAB 10/11/22 [Rx Last Taken 01/22/23] MAGIC MOUTH WASH (BMX) 180 mL suspension 5 ml buccal .QID 4 weeks #180 mL 01/17/23 [Rx Last Taken 01/21/23] Allergy/AdvReac Type Severity Reaction Status Date / Time No Known Allergies Allergy Verified 01/22/23 15:40 Family History Mother Breast cancer Hypertension CVA (cerebral vascular accident) High cholesterol Brother Cancer prostate Surgical History History of appendectomy History of esophagogastroduodenoscopy (EGD) History of left heart catheterization (04/21/20) Hx of surgical procedure Hx of surgical procedure Social History Smoking Status: Former smoker alcohol intake: former substance use type: does not use Physical Exam Const alert and oriented x3 General Appearance: cooperative and comfortable Orientation / Consciousness: awake HEENT HEENT Narrative: oral sores noted Lab / Micro Data 01/24/23 06:15 01/24/23 14:08 Labs: Laboratory Results - last 24 hr 01/24/23 06:15: WBC 2.0 L, RBC 3.45 L, Hgb 10.6 L, Hct 31.9 L, MCV 92.5, MCH 30.7, MCHC 33.2, RDW Std Deviation 50.3 H, RDW Coeff of Perla 14.9 H, Plt Count 117 L, MPV 9.6, Immature Gran % (Auto) 0.500, Neut % (Auto) 64.8, Lymph % (Auto) 17.1 L, [place] % (Auto) 16.1 H, Eos % (Auto) 1.0, Baso % (Auto) 0.5, Absolute Neuts (auto) 1.3 L, Absolute Lymphs (auto) 0.34 L, Nucleated RBC % 0, Differential Comment SCANNED, Diff Path Review May foll, Sodium 135 L, Potassium 3.8, Chloride 106, Carbon Dioxide 24.0, Anion Gap 5, BUN 14, Creatinine 2.25 H, Estim Creat Clear Calc 35.79, Est GFR (MDRD) Af Amer 38 L, Est GFR (MDRD) Non-Af 31 L, BUN/Creatinine Ratio 6.2 L, Glucose 102, Calcium 8.2 L 01/24/23 08:25: Sodium 136, Potassium 4.1, Chloride 106, Carbon Dioxide 24.0, Anion Gap 6, BUN 15, Creatinine 2.41 H, Estim Creat Clear Calc 33.41, Est GFR (MDRD) Af Amer 35 L, Est GFR (MDRD) Non-Af 29 L, BUN/Creatinine Ratio 6.2 L, Glucose 107 H, Calcium 8.3 L 01/24/23 09:30: Vancomycin Trough 23.7 H 01/24/23 10:30: Urine Color Yellow, Urine Clarity Clear, Urine pH 6.0, Ur Specific [place] 1.010, Urine Protein 30 H, Urine Glucose (UA) Normal, Urine Ketones Negative, Urine Occult Blood Negative, Urine Nitrite Negative, Urine Bilirubin Negative, Urine Urobilinogen Normal, Ur Leukocyte Esterase Negative, Urine RBC 0 SEEN, Urine WBC 0 SEEN, Ur Squamous Epith Cells 0 SEEN, Urine Bacteria 0 SEEN, Urine Mucus 0 SEEN, Ur Random Sodium 19, Urine Creatinine 58.40 01/24/23 14:08: Sodium 137, Potassium 4.2, Chloride 107, Carbon Dioxide 25.0, Anion Gap 5, BUN 17, Creatinine 2.85 H, Estim Creat Clear Calc 28.26, Est GFR (MDRD) Af Amer 29 L, Est GFR (MDRD) Non-Af 24 L, BUN/Creatinine Ratio 6.0 L, Glucose 116 H, Calcium 8.3 L Micro: Microbiology 01/22/23 16:55 Urine, Clean Catch Urine Culture - Preliminary Culture exhibits no growth. 01/23/23 13:46 Mucosa - Nose Respiratory Panel (PCR) - Final RSV B 01/23/23 13:17 Urine, Random Streptococcus pneumoniae Antigen (M - Final 01/23/23 13:17 Urine, Clean Catch Legionella Antigen - Final Radiology Impression Renal Ultrasound 01/24/23 09:50 IMPRESSION: Bilateral renal cysts. No hydronephrosis. Electronically Signed: Lana Sanchez MD at 12:06 EDT ,
[2023-01-24 21:20] LABS: Protein:Creat Ratio 751 mg/g CRE (0-200)
[2023-01-24] MEDS: Linezolid 600 MG Tablet PO (21:53)
[2023-01-24 22:04] VITALS: BP 95/83; PULSE 67; RESP 16; TEMP 36.8; O2SAT 93
[2023-01-25] MEDS: 0.9% Normal Saline (1000mL) 1,000 ML 150 ML IV ×4 (01:10→21:24)
[2023-01-25] MEDS: Heparin Injection (Vial) 5,000 UNIT/ML VIAL 5000 UNIT SC ×3 (05:01→21:30)
[2023-01-25] MEDS: Piperacil/Tazobactam 3.375 GM in 0.9% Normal Saline (50mL MB+) 50 ML IV ×2 (05:02→18:13)
[2023-01-25 05:07] VITALS: BP 139/77; PULSE 66; RESP 16; TEMP 36.2; O2SAT 95
[2023-01-25] MEDS: Dicyclomine 10 MG Capsule PO ×3 (06:55→16:44)
[2023-01-25 07:43] LABS: Absolute Lymphocyte Count 0.29 X10^3/uL (0.83-4.51); Absolute Neutrophil Count 1.4 X10^3/uL (2.0-7.7); Basophil# 0.02 X10^3/uL; Basophil% 0.9 % (0-1); Eosinophil# 0.03 X10^3/uL; Eosinophils% 1.3 % (0-5); Hematocrit 31.8 % (40-54); Hemoglobin 10.3 g/dL (13.0-16.5); Lymphocyte # 0.29 X10^3/ul (0.83-4.51); Lymphocyte % 12.8 % (19-41); Mean Corp Hgb Conc 32.4 g/dL (32-36); Mean Corpuscular Hgb 29.9 pg (27.0-32.0); Mean Corpuscular Volume 92.4 fL (80-94); Mean Platelet Vol. 9.1 fl (6.2-12.0); Monocyte# 0.51 X10^3/uL; Monocyte% 22.6 % (0-10); NRBC Flagged by Analyzer 0 % (0-5); POSITIVE DIFFERENTIAL YES; Platelet Count 137 K/mm3 (150-450); RBC Distribution Width CV 15.3 % (11.6-14.6); RBC Distribution Width SD 51.1 fl (35.1-43.9); Red Blood Count 3.44 M/mm3 (4.6-6.2); White Blood Count 2.3 K/mm3 (4.4-11.0)
[2023-01-25 07:48] LABS: Differential Indicated SCAN CRITERIA MET
[2023-01-25 08:02] LABS: Albumin, Serum 2.4 g/dL (3.2-5.0); Anion Gap 9 (5-15); BUN 20 mg/dL (7-18); BUN/Creat Ratio 5.6 RATIO (10-20); Calcium,Total 7.9 mg/dL (8.5-10.1); Chloride 107 mmol/L (98-107); Creatinine, Serum 3.55 mg/dL (0.70-1.30); EST Glomerular Filtration Rate 19 mL/min (>60); Est Glom Filt Rate - Afr Amer 23 mL/min (>60); Estimated Creatinine Clearance 22.68 ml/min; Glucose 105 mg/dL (74-106); Phosphorus 3.6 mg/dL (2.5-4.9); Potassium 3.8 mmol/L (3.5-5.1); Sodium Level 139 mmol/L (136-145)
[2023-01-25 08:33] VITALS: O2SAT 95
[2023-01-25 09:19] LABS: Pathologist Review Reviewed
--- NOTE | 2023-01-25 09:58 | PCM.PN.REN ---
Subjective Subjective Patient sitting up in bed, daughter at bedside. Clinically looks better today. States still not eating but is taking in fluids without any nausea. Denies any shortness of breath. Objective Data Objective Data Vital Signs: Vital Signs Temp Pulse Resp BP Pulse Ox O2 Del Method 97.1 F L 66 16 139/77 H 95 Room Air 01/25/23 05:07 01/25/23 05:07 01/25/23 05:07 01/25/23 05:07 01/25/23 08:33 01/25/23 08:33 Oxygen Delivery Method Room Air Weight: 146.51 kg Body Mass Index (BMI) 45.0 Intake & Output: Intake and Output for Last 24 Hours 01/23/23 01/24/23 01/25/23 23:59 23:59 23:59 Intake Total 1735.00 / 1735.00 3003.33 / 3003.33 1727.5 / 1727.5 Output Total 400 / 400 280 / 280 Balance 1335.00 / 1335.00 2723.33 / 2723.33 1727.5 / 1727.5 Lab / Micro Data 01/25/23 07:05 01/25/23 07:05 Labs: Laboratory Results - last 24 hr 01/24/23 06:15: Diff Path Review Reviewed 01/24/23 09:30: Vancomycin Trough 23.7 H 01/24/23 10:30: Urine Color Yellow, Urine Clarity Clear, Urine pH 6.0, Ur Specific [place] 1.010, Urine Protein 30 H, Urine Glucose (UA) Normal, Urine Ketones Negative, Urine Occult Blood Negative, Urine Nitrite Negative, Urine Bilirubin Negative, Urine Urobilinogen Normal, Ur Leukocyte Esterase Negative, Urine RBC 0 SEEN, Urine WBC 0 SEEN, Ur Squamous Epith Cells 0 SEEN, Urine Bacteria 0 SEEN, Urine Mucus 0 SEEN, U Random Total Protein 42.0 H, Ur Random Sodium 19, Urine Creatinine 58.40 01/24/23 10:30: Urine Creatinine 55.90, Protein/Creatinin Ratio 751 H 01/24/23 14:08: Sodium 137, Potassium 4.2, Chloride 107, Carbon Dioxide 25.0, Anion Gap 5, BUN 17, Creatinine 2.85 H, Estim Creat Clear Calc 28.26, Est GFR (MDRD) Af Amer 29 L, Est GFR (MDRD) Non-Af 24 L, BUN/Creatinine Ratio 6.0 L, Glucose 116 H, Calcium 8.3 L 01/25/23 07:05: WBC 2.3 L, RBC 3.44 L, Hgb 10.3 L, Hct 31.8 L, MCV 92.4, MCH 29.9, MCHC 32.4, RDW Std Deviation 51.1 H, RDW Coeff of Perla 15.3 H, Plt Count 137 L, MPV 9.1, Immature Gran % (Auto) 0.400, Neut % (Auto) 62.0, Lymph % (Auto) 12.8 L, [place] % (Auto) 22.6 H, Eos % (Auto) 1.3, Baso % (Auto) 0.9, Absolute Neuts (auto) 1.4 L, Absolute Lymphs (auto) 0.29 L, Nucleated RBC % 0, Sodium 139, Potassium 3.8, Chloride 107, Carbon Dioxide 23.0, Anion Gap 9, BUN 20 H, Creatinine 3.55 H, Estim Creat Clear Calc 22.68, Est GFR (MDRD) Af Amer 23 L, Est GFR (MDRD) Non-Af 19 L, BUN/Creatinine Ratio 5.6 L, Glucose 105, Calcium 7.9 L, Phosphorus 3.6, Albumin 2.4 L Micro: Microbiology 01/24/23 00:25 Stool Enteric Bacteriology - Final 01/22/23 16:55 Urine, Clean Catch Urine Culture - Preliminary Culture exhibits no growth. 01/23/23 13:46 Mucosa - Nose Respiratory Panel (PCR) - Final RSV B 01/23/23 13:17 Urine, Random Streptococcus pneumoniae Antigen (M - Final 01/23/23 13:17 Urine, Clean Catch Legionella Antigen - Final 01/23/23 08:45 Nasal Secretion SARS-CoV-2 Antigen (Rapid) - Final Radiography Diagnostic Testing: Radiology Impression Renal Ultrasound 01/24/23 09:50 IMPRESSION: Bilateral renal cysts. No hydronephrosis. Electronically Signed: Lana Sanchez MD at 12:06 EDT , Physical Exam Narrative Alert and oriented x3, no apparent distress S1, S2, RRR Lung sounds clear anteriorly and posteriorly. No wheezes, rhonchi or rales noted. On room air Abdomen soft, nontender No edema Assessment & Plan Assessment/Plan (1) KHURRAM (acute kidney injury): (2) Vomiting and diarrhea: (3) Esophageal cancer, stage IV: (4) Neutropenia: PLAN: Plan This is a pleasant 62-year-old male with metastatic esophageal cancer (last chemo via Port-A-Cath 01/17/2023 admitted to the hospital with concerns for neutropenic fever. Nephrology consulted as serum creatinine up to 2.4 mg/dL today. Patient has normal baseline serum creatinine. Serum creatinine was normal on admission. Serum creatinine 0.56 mg/dL (01/22)--> increased 2.25 mg/dL 01/24 --> today creatinine 3.55 mg/dL. Nonoliguric KHURRAM likely multifactorial from significant volume depletion (very poor oral intake with diarrhea and nausea), with concurrent exposure to NICOLE inhibitor, possible contrast-induced nephropathy as well as possible component from vancomycin, NSAID, hypotension. 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 Potassium and acid-base acceptable. Can continue IV fluids. Patient reports voiding multiple times yesterday but output documented as 280ml. He is going to void in urinal and keep strict UOP measurement. Urine protein creatinine ratio 750 mg/g. We will check LDH and haptoglobin. Renal ultrasound no hydronephrosis, CT of abdomen and pelvis did not show any hydronephrosis, normal renal size and position. Urine analysis on admission negative for protein or blood. Repeat UA 30 protein, negative for blood. Urine sodium 19. Discussed nephrology plan with patient and his daughter. Questions answered. - Blood pressures have been acceptable on carvedilol only however few episodes of hypotension overnight therefore carvedilol stopped altogether. Lisinopril stopped. - Vancomycin stopped and patient is receiving linezolid and Zosyn. ID consulted. -Metastatic esophageal cancer; EGD in March 2021 found esophageal mass, biopsy showed moderately differentiated adenocarcinoma. Patient received palliative radiation in May 2021. Started palliative chemotherapy with FOLFOX and immunotherapy (nivolumab) on 06/07/2021, PET scan in October 2021 showed complete response and patient finished cycle 12 in November 2021. Patient then had CT scan in May 2022 which showed right liver mass, CT-guided liver biopsy showed evidence of liver metastasis. Patient restarted FOLFOX and nivolumab on 07/25/2022 and received [address] on 12/14/2022 showed progressive disease so FOLFOX and nivolumab were discontinued. PET scan on 01/01/2023 showed hypermetabolic activity in the right and left lobes of the liver, mediastinum, right hilum and patient was started on Taxol/Cyramza (VEGF2 inhibitors) on 01/10/2023 and has completed 2 cycles; last received 01/17/2023. - discussed nephrology plan with Dr. Andrade
[2023-01-25 10:12] VITALS: BP 149/85; PULSE 81; RESP 16; TEMP 36.7; O2SAT 96
[2023-01-25] MEDS: Citalopram 20 MG Tablet PO (10:16)
[2023-01-25] MEDS: Aspirin E.C. 81 MG Tablet PO (10:16)
[2023-01-25] MEDS: Pantoprazole Sodium 40 MG Tablet PO (10:16)
[2023-01-25] MEDS: Linezolid 600 MG Tablet PO ×2 (10:20→21:30)
[2023-01-25] MEDS: Ensure Clear 120 ML Liquid PO ×2 (10:30→21:22)
[2023-01-25] MEDS: Haloperidol Lactate 5 MG/ML Vial 1 MG IV ×2 (11:54→16:46)
--- NOTE | 2023-01-25 11:58 | PCM.PN.ID ---
Physical Exam Narrative Feeling ok, no fever, no abd pain, making urine Const alert and no apparent distress General Appearance: cooperative Resp normal air movement and clear to auscultation bilaterally Cardio regular rate and regular rhythm GI soft to palpation, non-tender and non-distended Skin no rashes or lesions noted ID ID: Route of nutrition/ use of supplements: [] Nutritional Intake: [] IV Site: [] [place] Catheter: [] Assessment & Plan Assessment/Plan (1) Esophageal cancer, stage IV: (2) Neutropenia: PLAN: Technically, no documented fever. ANC has recovered. CT with ? diverticulitis. RSV (+). New KHURRAM, stopped vanc, adjusted zosyn. Will follow
--- NOTE | 2023-01-25 11:59 | PCM.PN.HOSP ---
Reason for Visit Reason for Visit: Fever Subjective Subjective Mucositis is getting better. Abdominal cramping is improved as well. Clinically patient appears like he is feeling better overall. Renal function is worse but patient states he is urinating without difficulty. Patient states he is drinking well but appetite is still poor. Objective Data Objective Data Vital Signs: Vital Signs Temp Pulse Resp BP Pulse Ox O2 Del Method 98.1 F 81 16 149/85 H 96 Room Air 01/25/23 10:12 01/25/23 10:12 01/25/23 10:12 01/25/23 10:12 01/25/23 10:12 01/25/23 11:00 Oxygen Delivery Method Room Air Weight: 146.51 kg Body Mass Index (BMI) 45.0 Intake & Output: Intake and Output for Last 24 Hours 01/23/23 01/24/23 01/25/23 23:59 23:59 23:59 Intake Total 1735.00 / 1735.00 3003.33 / 3003.33 1777.5 / 1777.5 Output Total 400 / 400 280 / 280 Balance 1335.00 / 1335.00 2723.33 / 2723.33 1777.5 / 1777.5 Lab / Micro Data 01/25/23 07:05 01/25/23 07:05 Labs: Laboratory Results - last 24 hr 01/24/23 06:15: Diff Path Review Reviewed 01/24/23 10:30: U Random Total Protein 42.0 H, Urine Creatinine 55.90, Protein/Creatinin Ratio 751 H 01/24/23 14:08: Sodium 137, Potassium 4.2, Chloride 107, Carbon Dioxide 25.0, Anion Gap 5, BUN 17, Creatinine 2.85 H, Estim Creat Clear Calc 28.26, Est GFR (MDRD) Af Amer 29 L, Est GFR (MDRD) Non-Af 24 L, BUN/Creatinine Ratio 6.0 L, Glucose 116 H, Calcium 8.3 L 01/25/23 07:05: WBC 2.3 L, RBC 3.44 L, Hgb 10.3 L, Hct 31.8 L, MCV 92.4, MCH 29.9, MCHC 32.4, RDW Std Deviation 51.1 H, RDW Coeff of Perla 15.3 H, Plt Count 137 L, MPV 9.1, Immature Gran % (Auto) 0.400, Neut % (Auto) 62.0, Lymph % (Auto) 12.8 L, [place] % (Auto) 22.6 H, Eos % (Auto) 1.3, Baso % (Auto) 0.9, Absolute Neuts (auto) 1.4 L, Absolute Lymphs (auto) 0.29 L, Nucleated RBC % 0, Sodium 139, Potassium 3.8, Chloride 107, Carbon Dioxide 23.0, Anion Gap 9, BUN 20 H, Creatinine 3.55 H, Estim Creat Clear Calc 22.68, Est GFR (MDRD) Af Amer 23 L, Est GFR (MDRD) Non-Af 19 L, BUN/Creatinine Ratio 5.6 L, Glucose 105, Calcium 7.9 L, Phosphorus 3.6, Albumin 2.4 L Micro: Microbiology 01/22/23 16:55 Urine, Clean Catch Urine Culture - Final Culture exhibits no growth. 01/24/23 00:25 Stool Enteric Bacteriology - Final 01/23/23 13:46 Mucosa - Nose Respiratory Panel (PCR) - Final RSV B 01/23/23 13:17 Urine, Random Streptococcus pneumoniae Antigen (M - Final 01/23/23 13:17 Urine, Clean Catch Legionella Antigen - Final 01/23/23 08:45 Nasal Secretion SARS-CoV-2 Antigen (Rapid) - Final Radiography Diagnostic Testing: Radiology Impression Renal Ultrasound 01/24/23 09:50 IMPRESSION: Bilateral renal cysts. No hydronephrosis. Electronically Signed: Lana Sanchez MD at 12:06 EDT , Physical Exam Const alert, oriented x3, no apparent distress and well nourished; Negative for average body habitus Constitutional Narrative: Morbidly obese, white male, sitting up in bed, visiting with his daughter, appears much more comfortable today, nontoxic HEENT head/scalp atraumatic and moist oral mucous membranes; Negative for oropharynx normal HEENT Narrative: Patient still with oral lesions however they seem to be improving Resp normal respiratory effort, no retractions, no use of accessory muscles and clear to auscultation bilaterally Auscultation: Negative for rales, rhonchi or wheezes Cardio regular rate, regular rhythm, S1 normal heart sound, S2 normal heart sound, no murmurs, no rub, no gallops and no clicks GI normal to inspection, nondistended, normoactive bowel sounds, soft to palpation and non-tender GI Narrative: No tenderness with exam today Extremity no clubbing, cyanosis or edema Neuro oriented x3, moves all extremities and no focal motor deficits Speech: speech normal Psych affect normal Psych Narrative: Affect is more normal today, eye contact is good, patient interacts more and seems like he is feeling better Assessment & Plan Assessment/Plan (1) Neutropenia: (2) Neutropenic fever: (3) Vomiting and diarrhea: (4) Chills: (5) Esophageal cancer, stage IV: (6) KHURRAM (acute kidney injury): PLAN: Plan Neutropenic fever -Absolute neutrophil count is now up to 1.4 -Total white count is up to 2.3 today -Blood cultures remain pending -COVID-19 is unremarkable -RSV is positive/CT scan does show colitis -Continue Zosyn and linezolid per ID -MRSA PCR is negative -Pneumo and Legionella antigens are negative -Urine culture is unremarkable -Infectious diseases following-appreciate input Nausea/vomiting/diarrhea -CT of the abdomen pelvis shows probable worsening of ill-defined infiltrating neoplasm throughout the liver especially the right lobe, development on the small amount of free fluid in all quadrants and questionable small segment of acute diverticulitis involving the mid sigmoid colon without perforation or abscess -Continue Zosyn -Abdominal pain is improved but patient is still having some diarrhea, nausea and vomiting seems to be better but not resolved -Continue Bentyl and will write a prescription for home Bentyl -Also will continue Haldol IV and transition to oral at discharge if this is beneficial KHURRAM -This is new in the last 24 hours -Serum creatinine has risen from 0.6 on admission which is his baseline continues to trend up with serum creatinine today being 3.55 -Suspect multifactorial as the patient has received IV contrast with his CAT scan on admission, was on vancomycin, lisinopril, and did receive ibuprofen yesterday for his myalgias as Tylenol was not effective... Could also be related to his new chemotherapy -Also could be related to colitis from chemotherapy -UA was unremarkable -FeNa was consistent with prerenal so we will continue IV fluids -Patient reports urine output has been fine -Retroperitoneal ultrasound was unimpressive -Postvoid residual showed less than 200 -We will continue IV fluids at current rate -No current need for renal replacement therapy -Nephrology is following and I discussed with the nurse practitioner-appreciate input Mucositis -Continue BMX solution -Advance to regular diet but instructed bland diet to start Metastatic esophageal cancer -EGD performed on 04/11/2021 and patient was found to have esophageal mass this was done due to abdominal pain and painful/difficulty swallowing -Biopsy showed moderately differentiated adenocarcinoma -CT of the chest abdomen and pelvis showed a diffuse circumferential thickening at the GE junction with luminal narrowing and PET scan on 05/03/2021 demonstrated uptake in the distal esophagus at the GE junction as well as activity throughout the liver consistent with metastatic disease -Received palliative radiation to the lower esophagus starting on 05/17/[address] Houser -Port placed on 06/01/2021 -Started palliative chemotherapy with FOLFOX and immunotherapy (nivolumab) on 06/07/2021 -CT on 07/28/2021 showed stable thickening of the lower esophagus as well as stable liver nodules -PET scan on 10/18/2021 showed complete response and patient finished cycle 12 on 12/06/2021 -EGD on 05/16/2022 showed ulceration but biopsy showed no malignancy at that time -CT scan on 06/01/2022 showed right liver mass and CT-guided liver biopsy as well as MRI of the abdomen and PET scan showed evidence of liver metastasis with perigastric nodes -Patient saw surgical oncology and radioembolization of the liver lesions was suggested in addition to systemic therapy -Patient was restarted on FOLFOX and nivolumab on 07/25/2022 -Developed mucositis and skin rashes that resolved with medical therapy -Received [address] on 12/14/2022 showed progressive disease so FOLFOX and nivolumab were discontinued -PET scan on 01/01/2023 showed hypermetabolic activity in the right and left lobes of the liver, mediastinum, right hilum and patient was started on Taxol/Cyramza on 01/10/2023 and has completed 2 cycles at this time -Palliative care has been consulted to aid with side effects of chemotherapy but he has yet to see them -No further need for any oncological intervention at this time-we will ensure close outpatient follow-up Anemia -Appears to be chronic and stable overall -Continue to monitor Thrombocytopenia -Likely related to chemotherapy -Stable since the beginning of November -Continue to monitor-has been stable Nonischemic cardiomyopathy -Most recent echo from 02/28/2022 demonstrated an ejection fraction of 45% and stage I diastolic dysfunction -Had been on Entresto and Jardiance but both were discontinued due to cost -Continue to hold lisinopril -We will hold carvedilol with borderline blood pressures intermittently -continue as needed hydralazine -Had negative catheterization -Cardiology follow-up as an outpatient -Continue home baby aspirin History of nonsustained VT -We will hold beta-mouna for now but restart as soon as able -Has not had any recent events Chronic left bundle branch block -Patient had catheterization with nonobstructive disease Hyperlipidemia -Patient is intolerant of statins -Continue lifestyle modifications as able GERD -Continue PPI Depression/anxiety -Continue home citalopram -[facility] Morbid obesity -BMI 45.0 -Complicates treatment, prognosis, outcomes DVT prophylaxis -Continue subcu heparin CODE STATUS -Full code Charges/Coding Visit Charges Inpatient E&M: 33532 Subs Hosp L2
[2023-01-25 14:06] VITALS: BP 127/76; PULSE 65; RESP 18; TEMP 37.4; O2SAT 95
[2023-01-25 17:10] VITALS: PULSE 66
[2023-01-25 20:27] VITALS: BP 112/62; PULSE 65; RESP 18; TEMP 37.2; O2SAT 95
[2023-01-26 03:17] VITALS: BP 129/81; PULSE 66; RESP 18; TEMP 37.2; O2SAT 94
[2023-01-26] MEDS: 0.9% Normal Saline (1000mL) 1,000 ML 150 ML IV ×2 (03:23→10:02)
[2023-01-26] MEDS: Heparin Injection (Vial) 5,000 UNIT/ML VIAL 5000 UNIT SC ×3 (06:25→20:42)
[2023-01-26] MEDS: Piperacil/Tazobactam 3.375 GM in 0.9% Normal Saline (50mL MB+) 50 ML IV ×2 (06:25→17:54)
[2023-01-26] MEDS: Dicyclomine 10 MG Capsule PO ×3 (06:26→16:05)
[2023-01-26 07:03] LABS: Absolute Lymphocyte Count 0.37 X10^3/uL (0.83-4.51); Absolute Neutrophil Count 1.3 X10^3/uL (2.0-7.7); Basophil# 0.03 X10^3/uL; Basophil% 1.3 % (0-1); Eosinophil# 0.05 X10^3/uL; Eosinophils% 2.1 % (0-5); Hematocrit 31.2 % (40-54); Lymphocyte # 0.37 X10^3/ul (0.83-4.51); Lymphocyte % 15.8 % (19-41); Mean Corp Hgb Conc 32.1 g/dL (32-36); Mean Corpuscular Hgb 30.3 pg (27.0-32.0); Mean Corpuscular Volume 94.5 fL (80-94); Mean Platelet Vol. 9.3 fl (6.2-12.0); Monocyte# 0.59 X10^3/uL; Monocyte% 25.2 % (0-10); NRBC Flagged by Analyzer 0 % (0-5); Neutrophil # 1.29 X10^3/uL (2.7-7.7); Neutrophil % 55.2 % (47-70); POSITIVE DIFFERENTIAL YES; Platelet Count 151 K/mm3 (150-450); RBC Distribution Width CV 15.2 % (11.6-14.6); RBC Distribution Width SD 52.1 fl (35.1-43.9); White Blood Count 2.3 K/mm3 (4.4-11.0)
[2023-01-26 07:08] LABS: Differential Indicated SCAN CRITERIA MET
[2023-01-26 07:42] LABS: ALB/GLOB Ratio 0.7 RATIO (0.9-2.4); AST(SGOT) 27 U/L (15-37); Alanine Aminotransfer ALT/SGPT 16 U/L (16-61); Albumin, Serum 2.2 g/dL (3.2-5.0); Alkaline Phosphatase 116 U/L (45-117); Anion Gap 8 (5-15); BUN 20 mg/dL (7-18); BUN/Creat Ratio 5.2 RATIO (10-20); Chloride 112 mmol/L (98-107); Creatinine, Serum 3.87 mg/dL (0.70-1.30); EST Glomerular Filtration Rate 17 mL/min (>60); Est Glom Filt Rate - Afr Amer 20 mL/min (>60); Estimated Creatinine Clearance 20.81 ml/min; Globulin 3.2 g/dL (2.2-4.2); Glucose 98 mg/dL (74-106); LDH 267 U/L (87-241); Magnesium 2.3 mg/dL (1.6-2.6); Potassium 3.6 mmol/L (3.5-5.1); Protein, Total 5.4 g/dL (6.4-8.2); Sodium Level 140 mmol/L (136-145)
[2023-01-26 08:36] LABS: Differential Comment SCANNED
[2023-01-26 08:49] LABS: Phosphorus 3.6 mg/dL (2.5-4.9)
[2023-01-26 09:59] VITALS: BP 132/83; PULSE 69; RESP 18; TEMP 36.6; O2SAT 96
[2023-01-26] MEDS: Citalopram 20 MG Tablet PO (10:02)
[2023-01-26] MEDS: Pantoprazole Sodium 40 MG Tablet PO (10:02)
[2023-01-26] MEDS: Linezolid 600 MG Tablet PO (10:02)
[2023-01-26] MEDS: Ensure Clear 120 ML Liquid PO ×2 (10:02→17:59)
[2023-01-26] MEDS: Aspirin E.C. 81 MG Tablet PO (10:02)
--- NOTE | 2023-01-26 11:48 | PN.HOSP_ITS ---
Reason for Visit Reason for Visit: Diagnoses Malignant neoplasm of esophagus, unspecified (01/23/23) Agranulocytosis secondary to cancer chemotherapy (01/23/23) Neutropenia, unspecified (01/23/23) Acute kidney failure, unspecified (01/23/23) Vomiting, unspecified (01/23/23) Diarrhea, unspecified (01/23/23) Fever presenting with conditions classified elsewhere (01/23/23) Chills (without fever) (01/23/23) Adverse effect of antineoplastic and immunosuppressive drugs, initial encounter (01/23/23) Objective Data Objective Data Vital Signs: Vital Signs Temp Pulse Resp BP Pulse Ox O2 Del Method 97.8 F 69 18 132/83 H 96 Room Air 01/26/23 09:59 01/26/23 09:59 01/26/23 09:59 01/26/23 09:59 01/26/23 09:59 01/26/23 09:59 Oxygen Delivery Method Room Air Weight: 146.51 kg Body Mass Index (BMI) 45.0 Intake & Output: Intake and Output for Last 24 Hours 01/24/23 01/25/23 01/26/23 23:59 23:59 23:59 Intake Total 3003.33 / 3003.33 4077.5 / 4077.5 2745.0 / 2745.0 Output Total 280 / 280 995 / 995 950 / 950 Balance 2723.33 / 2723.33 3082.5 / 3082.5 1795.0 / 1795.0 Lab / Micro Data 01/26/23 06:13 01/26/23 06:13 Labs: Laboratory Results - last 24 hr 01/25/23 07:05: Diff Path Review August01/26/23 06:13: WBC 2.3 L, RBC 3.30 L, Hgb 10.0 L, Hct 31.2 L, MCV 94.5 H, MCH 30.3, MCHC 32.1, RDW Std Deviation 52.1 H, RDW Coeff of Perla 15.2 H, Plt Count 151, MPV 9.3, Immature Gran % (Auto) 0.400, Neut % (Auto) 55.2, Lymph % (Auto) 15.8 L, [place] % (Auto) 25.2 H, Eos % (Auto) 2.1, Baso % (Auto) 1.3 H, Absolute Neuts (auto) 1.3 L, Absolute Lymphs (auto) 0.37 L, Nucleated RBC % 0, Differential Comment SCANNED, Diff Path Review August foll, Sodium 140, Potassium 3.6, Chloride 112 H, Carbon Dioxide 20.0 L, Anion Gap 8, BUN 20 H, Creatinine 3.87 H, Estim Creat Clear Calc 20.81, Est GFR (MDRD) Af Amer 20 L, Est GFR (MDRD) Non-Af 17 L, BUN/Creatinine Ratio 5.2 L, Glucose 98, Calcium 8.0 L, Phosphorus 3.6, Magnesium 2.3, Total Bilirubin 0.40, AST 27, ALT 16, Alkaline Phosphatase 116, Lactate Dehydrogenase 267 H, Total Protein 5.4 L, Albumin 2.2 L , Globulin 3.2, Albumin/Globulin Ratio 0.7 L Micro: Microbiology 01/23/23 12:45 Blood Culture (Wb) - Left Forearm Blood Culture - Preliminary No growth in 48 hours. 01/23/23 12:40 Blood Culture (Wb) - Anticubital Right Blood Culture - Preliminary No growth in 48 hours. 01/22/23 16:41 Blood Culture (Wb) - Port Blood Culture - Preliminary No growth in 48 hours. 01/22/23 16:55 Urine, Clean Catch Urine Culture - Final Culture exhibits no growth. 01/24/23 00:25 Stool Enteric Bacteriology - Final 01/23/23 13:46 Mucosa - Nose Respiratory Panel (PCR) - Final RSV B 01/23/23 13:17 Urine, Random Streptococcus pneumoniae Antigen (M - Final 01/23/23 13:17 Urine, Clean Catch Legionella Antigen - Final 01/23/23 08:45 Nasal Secretion SARS-CoV-2 Antigen (Rapid) - Final Physical Exam Const alert, oriented x3, no apparent distress and well nourished; Negative for average body habitus Constitutional Narrative: Morbidly obese, white male, patient is up in street close and in the bathroom, continues to appear is feeling better each day, nontoxic HEENT head/scalp atraumatic and moist oral mucous membranes; Negative for oropharynx normal HEENT Narrative: Oral lesions continue to improve Head and Scalp: normocephalic Eyes Eyes Narrative: No scleral icterus Resp normal respiratory effort, no retractions, no use of accessory muscles and clear to auscultation bilaterally Auscultation: Negative for rales, rhonchi or wheezes Cardio regular rate, regular rhythm, S1 normal heart sound, S2 normal heart sound, no murmurs, no rub, no gallops and no clicks GI normal to inspection, nondistended, normoactive bowel sounds, soft to palpation and non-tender Extremity no clubbing, cyanosis or edema Neuro oriented x3, moves all extremities and no focal motor deficits Speech: speech normal Psych affect normal Psych Narrative: Patient very pleasant and interacts appropriately Assessment & Plan Assessment/Plan (1) Neutropenia: (2) Neutropenic fever: (3) Vomiting and diarrhea: (4) Chills: (5) Esophageal cancer, stage IV: (6) KHURRAM (acute kidney injury): PLAN: Plan Neutropenic fever -Absolute neutrophil count is now up to 1.4 -Total white count is stable at 2.3 today -Blood culturesnegative -COVID-19 is unremarkable -RSV is positive/CT scan does show colitis -Continue Zosyn with negative blood cultures we will discontinue linezolid -MRSA PCR is negative -Pneumo and Legionella antigens are negative -Urine culture is unremarkable -Infectious diseases following-appreciate input Nausea/vomiting/diarrhea -CT of the abdomen pelvis shows probable worsening of ill-defined infiltrating neoplasm throughout the liver especially the right lobe, development on the small amount of free fluid in all quadrants and questionable small segment of acute diverticulitis involving the mid sigmoid colon without perforation or abscess -Continue Zosyn -Abdominal pain is improved but patient is still having some diarrhea, nausea and vomiting seems to be better but not resolved -Continue Bentyl and will write a prescription for home Bentyl -Also will continue Haldol IV and transition to oral at discharge if this is beneficial KHURRAM -This is new in the last 24 hours -Serum creatinine has risen from 0.6 on admission which is his baseline continues to trend up with serum creatinine today being 3.87 -Rate of rise seems to be improving so I do suspect we may see improvement in the next 24 to 48 hours -Still no need for renal replacement therapy -Suspect multifactorial as the patient has received IV contrast with his CAT scan on admission, was on vancomycin, lisinopril, and did receive ibuprofen yesterday for his myalgias as Tylenol was not effective... Could also be related to his new chemotherapy -continue IV fluids but will decrease rate to 100 cc/h -No current need for renal replacement therapy -Nephrology is following-appreciate input Mucositis -Continue BMX solution -Advance to regular diet but instructed bland diet to start Metastatic esophageal cancer -EGD performed on 04/11/2021 and patient was found to have esophageal mass this was done due to abdominal pain and painful/difficulty swallowing -Biopsy showed moderately differentiated adenocarcinoma -CT of the chest abdomen and pelvis showed a diffuse circumferential thickening at the GE junction with luminal narrowing and PET scan on 05/03/2021 demonstrated uptake in the distal esophagus at the GE junction as well as activity throughout the liver consistent with metastatic disease -Received palliative radiation to the lower esophagus starting on 05/17/[address] Houser -Port placed on 06/01/2021 -Started palliative chemotherapy with FOLFOX and immunotherapy (nivolumab) on 06/07/2021 -CT on 07/28/2021 showed stable thickening of the lower esophagus as well as stable liver nodules -PET scan on 10/18/2021 showed complete response and patient finished cycle 12 on 12/06/2021 -EGD on 05/16/2022 showed ulceration but biopsy showed no malignancy at that time -CT scan on 06/01/2022 showed right liver mass and CT-guided liver biopsy as well as MRI of the abdomen and PET scan showed evidence of liver metastasis with perigastric nodes -Patient saw surgical oncology and radioembolization of the liver lesions was suggested in addition to systemic therapy -Patient was restarted on FOLFOX and nivolumab on 07/25/2022 -Developed mucositis and skin rashes that resolved with medical therapy -Received [address] on 12/14/2022 showed progressive disease so FOLFOX and nivolumab were discontinued -PET scan on 01/01/2023 showed hypermetabolic activity in the right and left lobes of the liver, mediastinum, right hilum and patient was started on Taxol/Cyramza on 01/10/2023 and has completed 2 cycles at this time -Palliative care has been consulted to aid with side effects of chemotherapy but he has yet to see them -No further need for any oncological intervention at this time-we will ensure c lose outpatient follow-up Anemia -Appears to be chronic and stable overall -Continue to monitor Thrombocytopenia -Likely related to chemotherapy -Stable since the beginning of November -Continue to monitor-has been stable Nonischemic cardiomyopathy -Most recent echo from 02/28/2022 demonstrated an ejection fraction of 45% and stage I diastolic dysfunction -Had been on Entresto and Jardiance but both were discontinued due to cost -Continue to hold lisinopril -We will hold carvedilol with borderline blood pressures intermittently -continue as needed hydralazine -Had negative catheterization -Cardiology follow-up as an outpatient -Continue home baby aspirin History of nonsustained VT -We will hold beta-mouna for now but restart as soon as able -Has not had any recent events Chronic left bundle branch block -Patient had catheterization with nonobstructive disease Hyperlipidemia -Patient is intolerant of statins -Continue lifestyle modifications as able GERD -Continue PPI Depression/anxiety -Continue home citalopram -Continue home Ativan Morbid obesity -BMI 45.0 -Complicates treatment, prognosis, outcomes DVT prophylaxis -Continue subcu heparin CODE STATUS -Full code Charges/Coding Visit Charges Inpatient E&M: 31045 Subs Hosp L2
[2023-01-26 15:05] VITALS: BP 136/81; PULSE 64; RESP 18; TEMP 37.2; O2SAT 95
--- NOTE | 2023-01-26 17:02 | PCM.PN.REN ---
Subjective Subjective Follow-up on acute kidney injury secondary to contrast-induced nephropathy. He is feeling better, denies shortness of breath, PND, orthopnea. Has been producing good amount of urine Objective Data Objective Data Vital Signs: Vital Signs Temp Pulse Resp BP Pulse Ox O2 Del Method 98.9 F 64 18 136/81 H 95 Room Air 01/26/23 15:05 01/26/23 15:05 01/26/23 15:05 01/26/23 15:05 01/26/23 15:05 01/26/23 15:05 Oxygen Delivery Method Room Air Weight: 146.51 kg Body Mass Index (BMI) 45.0 Intake & Output: Intake and Output for Last 24 Hours 01/24/23 01/25/23 01/26/23 23:59 23:59 23:59 Intake Total 3003.33 / 3003.33 4077.5 / 4077.5 3627.5 / 3627.5 Output Total 280 / 280 995 / 995 1650 / 1650 Balance 2723.33 / 2723.33 3082.5 / 3082.5 1977.5 / 1977.5 Lab / Micro Data Attestation: I reviewed the patient's lab results. 01/26/23 06:13 01/26/23 06:13 Labs: Laboratory Results - last 24 hr 01/25/23 07:05: Diff Path Review August01/26/23 06:13: WBC 2.3 L, RBC 3.30 L, Hgb 10.0 L, Hct 31.2 L, MCV 94.5 H, MCH 30.3, MCHC 32.1, RDW Std Deviation 52.1 H, RDW Coeff of Perla 15.2 H, Plt Count 151, MPV 9.3, Immature Gran % (Auto) 0.400, Neut % (Auto) 55.2, Lymph % (Auto) 15.8 L, [place] % (Auto) 25.2 H, Eos % (Auto) 2.1, Baso % (Auto) 1.3 H, Absolute Neuts (auto) 1.3 L, Absolute Lymphs (auto) 0.37 L, Nucleated RBC % 0, Differential Comment SCANNED, Diff Path Review August, Sodium 140, Potassium 3.6, Chloride 112 H, Carbon Dioxide 20.0 L, Anion Gap 8, BUN 20 H, Creatinine 3.87 H, Estim Creat Clear Calc 20.81, Est GFR (MDRD) Af Amer 20 L, Est GFR (MDRD) Non-Af 17 L, BUN/Creatinine Ratio 5.2 L, Glucose 98, Calcium 8.0 L, Phosphorus 3.6, Magnesium 2.3, Total Bilirubin 0.40, AST 27, ALT 16, Alkaline Phosphatase 116, Lactate Dehydrogenase 267 H, Total Protein 5.4 L, Albumin 2.2 L, Globulin 3.2, Albumin/Globulin Ratio 0.7 L Micro: Microbiology 01/23/23 12:45 Blood Culture (Wb) - Left Forearm Blood Culture - Preliminary No growth in 48 hours. 01/23/23 12:40 Blood Culture (Wb) - Anticubital Right Blood Culture - Preliminary No growth in 48 hours. 01/22/23 16:41 Blood Culture (Wb) - Port Blood Culture - Preliminary No growth in 48 hours. 01/22/23 16:55 Urine, Clean Catch Urine Culture - Final Culture exhibits no growth. 01/24/23 00:25 Stool Enteric Bacteriology - Final 01/23/23 13:46 Mucosa - Nose Respiratory Panel (PCR) - Final RSV B 01/23/23 13:17 Urine, Random Streptococcus pneumoniae Antigen (M - Final 01/23/23 13:17 Urine, Clean Catch Legionella Antigen - Final 01/23/23 08:45 Nasal Secretion SARS-CoV-2 Antigen (Rapid) - Final Physical Exam Const alert, oriented x3, no apparent distress and average body habitus General Appearance: well developed Orientation / Consciousness: oriented to person, oriented to place and oriented to time HEENT normocephalic Head and Scalp: atraumatic External Ear: external ears normal Eyes PERRL Neck no lymphadenopathy Resp no use of accessory muscles and clear to auscultation bilaterally Cardio regular rate GI non-tender and non-distended Auscultation: normoactive bowel sounds Palpation: soft Neuro CN's II-XII intact bilaterally Psych cooperative Assessment & Plan Assessment/Plan (1) KHURRAM (acute kidney injury): PLAN: Contrast-induced nephropathy suspected. Patient started to make more urine, creatinine is reaching plateau. I think he should start improving within the next 24 to 36 hours, avoid nephrotoxins, IV dye
[2023-01-26] MEDS: 0.9% Normal Saline (1000mL) 1,000 ML 100 ML IV (17:54)
[2023-01-26 20:37] VITALS: BP 145/87; PULSE 70; RESP 18; TEMP 36.6; O2SAT 96
[2023-01-27 02:10] VITALS: BP 127/68; PULSE 65; RESP 18; TEMP 37.1; O2SAT 98
[2023-01-27] MEDS: 0.9% Normal Saline (1000mL) 1,000 ML 100 ML IV ×3 (03:57→23:36)
[2023-01-27] MEDS: Heparin Injection (Vial) 5,000 UNIT/ML VIAL 5000 UNIT SC ×2 (05:40→14:33)
[2023-01-27] MEDS: Dicyclomine 10 MG Capsule PO ×2 (05:40→17:24)
[2023-01-27] MEDS: Piperacil/Tazobactam 3.375 GM in 0.9% Normal Saline (50mL MB+) 50 ML IV ×2 (05:40→17:22)
[2023-01-27 07:18] LABS: Absolute Lymphocyte Count 0.42 X10^3/uL (0.83-4.51); Absolute Neutrophil Count 1.3 X10^3/uL (2.0-7.7); Basophil# 0.02 X10^3/uL; Basophil% 0.8 % (0-1); Eosinophil# 0.08 X10^3/uL; Eosinophils% 3.1 % (0-5); Hematocrit 32.8 % (40-54); Hemoglobin 10.6 g/dL (13.0-16.5); Lymphocyte # 0.42 X10^3/ul (0.83-4.51); Lymphocyte % 16.1 % (19-41); Mean Corp Hgb Conc 32.3 g/dL (32-36); Mean Corpuscular Hgb 30.2 pg (27.0-32.0); Mean Corpuscular Volume 93.4 fL (80-94); Mean Platelet Vol. 9.1 fl (6.2-12.0); Monocyte# 0.79 X10^3/uL; Monocyte% 30.3 % (0-10); NRBC Flagged by Analyzer 0 % (0-5); Neutrophil # 1.29 X10^3/uL (2.7-7.7); Neutrophil % 49.3 % (47-70); POSITIVE DIFFERENTIAL YES; Platelet Count 174 K/mm3 (150-450); RBC Distribution Width CV 15.5 % (11.6-14.6); RBC Distribution Width SD 52.8 fl (35.1-43.9); Red Blood Count 3.51 M/mm3 (4.6-6.2); White Blood Count 2.6 K/mm3 (4.4-11.0)
[2023-01-27 07:36] LABS: Anion Gap 7 (5-15); BUN 18 mg/dL (7-18); BUN/Creat Ratio 4.6 RATIO (10-20); Calcium,Total 8.2 mg/dL (8.5-10.1); Chloride 114 mmol/L (98-107); Creatinine, Serum 3.92 mg/dL (0.70-1.30); EST Glomerular Filtration Rate 17 mL/min (>60); Est Glom Filt Rate - Afr Amer 20 mL/min (>60); Estimated Creatinine Clearance 20.54 ml/min; Glucose 94 mg/dL (74-106); Potassium 3.7 mmol/L (3.5-5.1); Sodium Level 141 mmol/L (136-145)
[2023-01-27 07:44] LABS: Differential Indicated SCAN CRITERIA MET
[2023-01-27 09:35] VITALS: BP 124/75; PULSE 61; RESP 16; TEMP 36.9; O2SAT 96
[2023-01-27 09:46] LABS: Differential Comment SCANNED
[2023-01-27] MEDS: Ensure Clear 120 ML Liquid PO ×4 (09:47→20:58)
[2023-01-27] MEDS: Citalopram 20 MG Tablet PO (09:48)
[2023-01-27] MEDS: Aspirin E.C. 81 MG Tablet PO (09:48)
[2023-01-27] MEDS: Pantoprazole Sodium 40 MG Tablet PO (09:48)
--- NOTE | 2023-01-27 11:57 | PCM.PN.HOSP ---
Reason for Visit Reason for Visit: Fever Subjective Subjective No significant issues overnight. Patient seems to be eating some more. He states his appetite is not significantly improved but he is able to eat with less nausea. Mouth still has sores from his chemo and he still utilizing BMX. Bowels are much better. No further abdominal cramping. Urine output remains stable. Objective Data Objective Data Vital Signs: Vital Signs Temp Pulse Resp BP Pulse Ox O2 Del Method 98.4 F 61 16 124/75 H 96 CPAP 01/27/23 09:35 01/27/23 09:35 01/27/23 09:35 01/27/23 09:35 01/27/23 09:35 01/27/23 09:35 Oxygen Delivery Method CPAP Weight: 146.51 kg Body Mass Index (BMI) 45.0 Intake & Output: Intake and Output for Last 24 Hours 01/25/23 01/26/23 01/27/23 23:59 23:59 23:59 Intake Total 4077.5 / 4077.5 5325.83 / 5325.83 1350 / 1350 Output Total 995 / 995 2600 / 2600 1425 / 1425 Balance 3082.5 / 3082.5 2725.83 / 2725.83 -75 / -75 Lab / Micro Data 01/27/23 06:08 01/27/23 06:08 Labs: Laboratory Results - last 24 hr 01/27/23 06:08: WBC 2.6 L, RBC 3.51 L, Hgb 10.6 L, Hct 32.8 L, MCV 93.4, MCH 30.2, MCHC 32.3, RDW Std Deviation 52.8 H, RDW Coeff of Perla 15.5 H, Plt Count 174, MPV 9.1, Immature Gran % (Auto) 0.400, Neut % (Auto) 49.3, Lymph % (Auto) 16.1 L, [place] % (Auto) 30.3 H, Eos % (Auto) 3.1, Baso % (Auto) 0.8, Absolute Neuts (auto) 1.3 L, Absolute Lymphs (auto) 0.42 L, Nucleated RBC % 0, Differential Comment SCANNED, Diff Path Review August, Sodium 141, Potassium 3.7, Chloride 114 H, Carbon Dioxide 20.0 L, Anion Gap 7, BUN 18, Creatinine 3.92 H, Estim Creat Clear Calc 20.54, Est GFR (MDRD) Af Amer 20 L, Est GFR (MDRD) Non-Af 17 L, BUN/Creatinine Ratio 4.6 L, Glucose 94, Calcium 8.2 L Micro: Microbiology 01/27/23 05:50 Sputum, Expectorated/Coughed Gram Stain - Final 01/23/23 12:45 Blood Culture (Wb) - Left Forearm Blood Culture - Preliminary No growth in 48 hours. 01/23/23 12:40 Blood Culture (Wb) - Anticubital Right Blood Culture - Preliminary No growth in 48 hours. 01/22/23 16:41 Blood Culture (Wb) - Port Blood Culture - Preliminary No growth in 48 hours. 01/22/23 16:55 Urine, Clean Catch Urine Culture - Final Culture exhibits no growth. 01/24/23 00:25 Stool Enteric Bacteriology - Final 01/23/23 13:46 Mucosa - Nose Respiratory Panel (PCR) - Final RSV B 01/23/23 13:17 Urine, Random Streptococcus pneumoniae Antigen (M - Final 01/23/23 13:17 Urine, Clean Catch Legionella Antigen - Final 01/23/23 08:45 Nasal Secretion SARS-CoV-2 Antigen (Rapid) - Final Physical Exam Const alert, oriented x3, no apparent distress and well nourished; Negative for average body habitus Constitutional Narrative: Morbidly obese, white male, lying in bed in right side-lying with CPAP in place in street close, appears comfortable, nontoxic HEENT head/scalp atraumatic and moist oral mucous membranes; Negative for oropharynx normal HEENT Narrative: Mallampati 3, no thrush Head and Scalp: normocephalic Resp normal respiratory effort, no retractions, no use of accessory muscles and clear to auscultation bilaterally Auscultation: Negative for rales, rhonchi or wheezes Cardio regular rate, regular rhythm, S1 normal heart sound, S2 normal heart sound, no murmurs, no rub, no gallops and no clicks GI normal to inspection, nondistended, normoactive bowel sounds, soft to palpation and non-tender Extremity no clubbing, cyanosis or edema Neuro oriented x3, moves all extremities and no focal motor deficits Speech: speech normal Psych affect normal Psych Narrative: Patient very pleasant and interacts appropriately Assessment & Plan Assessment/Plan (1) Neutropenia: (2) Neutropenic fever: (3) Vomiting and diarrhea: (4) Chills: (5) Esophageal cancer, stage IV: (6) KHURRAM (acute kidney injury): PLAN: Plan Neutropenic fever -Absolute neutrophil count is now up to 1.3 -Total white count is stable at 2.6 today -Blood cultures negative -COVID-19 is unremarkable -RSV is positive/CT scan does show colitis -Continue Zosyn -MRSA PCR is negative -Pneumo and Legionella antigens are negative -Urine culture is unremarkable -Infectious diseases following-appreciate input Nausea/vomiting/diarrhea -CT of the abdomen pelvis shows probable worsening of ill-defined infiltrating neoplasm throughout the liver especially the right lobe, development on the small amount of free fluid in all quadrants and questionable small segment of acute diverticulitis involving the mid sigmoid colon without perforation or abscess -Continue Zosyn -Abdominal pain/cramping is resolved and diarrhea is much improved -Continue Bentyl and will write a prescription for home Bentyl -We will also give a prescription for home Haldol p.o. 1 mg every 8 hours for discharge KHURRAM-multifactorial -This is new in the last 24 hours -Serum creatinine has risen from 0.6 on admission which is his baseline continues to trend up with serum creatinine today being 3.92 -Seems to be plateauing and expect improvement in serum creatinine in the next 24 hours -Still no need for renal replacement therapy -Suspect multifactorial as the patient has received IV contrast with his CAT scan on admission, was on vancomycin, lisinopril, and did receive ibuprofen yesterday for his myalgias as Tylenol was not effective... Could also be related to his new chemotherapy -continue IV fluids but will decrease rate to 100 cc/h -No current need for renal replacement therapy -Nephrology is following-appreciate input Mucositis -Continue BMX solution -Continue regular diet Metastatic esophageal cancer -EGD performed on 04/11/2021 and patient was found to have esophageal mass this was done due to abdominal pain and painful/difficulty swallowing -Biopsy showed moderately differentiated adenocarcinoma -CT of the chest abdomen and pelvis showed a diffuse circumferential thickening at the GE junction with luminal narrowing and PET scan on 05/03/2021 demonstrated uptake in the distal esophagus at the GE junction as well as activity throughout the liver consistent with metastatic disease -Received palliative radiation to the lower esophagus starting on 05/17/[address] Houser -Port placed on 06/01/2021 -Started palliative chemotherapy with FOLFOX and immunotherapy (nivolumab) on 06/07/2021 -CT on 07/28/2021 showed stable thickening of the lower esophagus as well as stable liver nodules -PET scan on 10/18/2021 showed complete response and patient finished cycle 12 on 12/06/2021 -EGD on 05/16/2022 showed ulceration but biopsy showed no malignancy at that time -CT scan on 06/01/2022 showed right liver mass and CT-guided liver biopsy as well as MRI of the abdomen and PET scan showed evidence of liver metastasis with perigastric nodes -Patient saw surgical oncology and radioembolization of the liver lesions was suggested in addition to systemic therapy -Patient was restarted on FOLFOX and nivolumab on 07/25/2022 -Developed mucositis and skin rashes that resolved with medical therapy -Received [address] on 12/14/2022 showed progressive disease so FOLFOX and nivolumab were discontinued -PET scan on 01/01/2023 showed hypermetabolic activity in the right and left lobes of the liver, mediastinum, right hilum and patient was started on Taxol/Cyramza on 01/10/2023 and has completed 2 cycles at this time -Palliative care has been consulted to aid with side effects of chemotherapy but he has yet to see them -No further need for any oncological intervention at this time-we will ensure close outpatient follow-up Anemia -Appears to be chronic and stable overall -Continue to monitor Thrombocytopenia -Resolved Nonischemic cardiomyopathy -Most recent echo from 02/28/2022 demonstrated an ejection fraction of 45% and stage I diastolic dysfunction -Had been on Entresto and Jardiance but both were discontinued due to cost -Continue to hold lisinopril -We will hold carvedilol with borderline blood pressures intermittently -continue as needed hydralazine -Had negative catheterization -Cardiology follow-up as an outpatient -Continue home baby aspirin History of nonsustained VT -Continue to hold beta-mouna for now but restart as soon as able -Has not had any recent events Chronic left bundle branch block -Patient had catheterization with nonobstructive disease Hyperlipidemia -Patient is intolerant of statins -Continue lifestyle modifications as able GERD -Continue PPI Depression/anxiety -Continue home citalopram -Continue home Ativan Morbid obesity -BMI 45.0 -Complicates treatment, prognosis, outcomes DVT prophylaxis -Continue subcu heparin CODE STATUS -Full code Charges/Coding Visit Charges Inpatient E&M: 40221 Subs Hosp L2
[2023-01-27 13:06] LABS: Haptoglobin 190 mg/dL (32-363)
[2023-01-27 17:14] VITALS: BP 129/79; PULSE 72; RESP 17; TEMP 37.2; O2SAT 96
[2023-01-27 20:51] VITALS: BP 136/87; PULSE 73; RESP 18; TEMP 36.9; O2SAT 97
[2023-01-28 02:28] VITALS: BP 125/64; PULSE 64; RESP 18; TEMP 36.9; O2SAT 97
[2023-01-28] MEDS: Piperacil/Tazobactam 3.375 GM in 0.9% Normal Saline (50mL MB+) 50 ML IV ×3 (06:09→20:26)
[2023-01-28] MEDS: Dicyclomine 10 MG Capsule PO ×3 (06:09→16:12)
[2023-01-28 06:50] LABS: Absolute Lymphocyte Count 0.59 X10^3/uL (0.83-4.51); Absolute Neutrophil Count 1.3 X10^3/uL (2.0-7.7); Basophil# 0.02 X10^3/uL; Basophil% 0.7 % (0-1); Eosinophil# 0.08 X10^3/uL; Eosinophils% 2.7 % (0-5); Hemoglobin 10.8 g/dL (13.0-16.5); Lymphocyte # 0.59 X10^3/ul (0.83-4.51); Lymphocyte % 20.3 % (19-41); Mean Corp Hgb Conc 31.8 g/dL (32-36); Mean Corpuscular Hgb 29.8 pg (27.0-32.0); Mean Corpuscular Volume 93.9 fL (80-94); Mean Platelet Vol. 8.7 fl (6.2-12.0); Monocyte# 0.89 X10^3/uL; Monocyte% 30.6 % (0-10); NRBC Flagged by Analyzer 0 % (0-5); Neutrophil # 1.31 X10^3/uL (2.7-7.7); POSITIVE DIFFERENTIAL YES; Platelet Count 173 K/mm3 (150-450); RBC Distribution Width CV 15.5 % (11.6-14.6); RBC Distribution Width SD 53.3 fl (35.1-43.9); Red Blood Count 3.62 M/mm3 (4.6-6.2); White Blood Count 2.9 K/mm3 (4.4-11.0)
[2023-01-28 07:01] LABS: Differential Indicated SCAN CRITERIA MET
[2023-01-28 07:17] LABS: Anion Gap 7 (5-15); BUN 16 mg/dL (7-18); BUN/Creat Ratio 4.2 RATIO (10-20); Calcium,Total 8.3 mg/dL (8.5-10.1); Chloride 115 mmol/L (98-107); Creatinine, Serum 3.84 mg/dL (0.70-1.30); EST Glomerular Filtration Rate 17 mL/min (>60); Est Glom Filt Rate - Afr Amer 21 mL/min (>60); Estimated Creatinine Clearance 20.97 ml/min; Glucose 100 mg/dL (74-106); Potassium 3.7 mmol/L (3.5-5.1); Sodium Level 141 mmol/L (136-145)
[2023-01-28 07:19] LABS: Anisocytosis 1+
[2023-01-28] MEDS: Ensure Clear 120 ML Liquid PO ×3 (08:56→20:31)
[2023-01-28] MEDS: Aspirin E.C. 81 MG Tablet PO (08:56)
[2023-01-28] MEDS: Pantoprazole Sodium 40 MG Tablet PO (08:56)
[2023-01-28] MEDS: Citalopram 20 MG Tablet PO (08:56)
[2023-01-28] MEDS: 0.9% Normal Saline (1000mL) 1,000 ML 100 ML IV ×2 (08:58→16:12)
[2023-01-28 09:00] VITALS: BP 160/93; PULSE 65; RESP 18; TEMP 37.1; O2SAT 96
[2023-01-28 11:00] VITALS: BP 149/84; PULSE 73; RESP 18; TEMP 37; O2SAT 94
--- NOTE | 2023-01-28 11:01 | PN.RENAL_ITS ---
Subjective Subjective Sitting up in bed. at bedside. No overnight events. Denies any complaints. Reports appetite still poor. Denies any nausea, vomiting, diarrhea. Objective Data Objective Data Vital Signs: Vital Signs Temp Pulse Resp BP Pulse Ox O2 Del Method 98.8 F 65 18 160/93 H 96 CPAP 01/28/23 09:00 01/28/23 09:00 01/28/23 09:00 01/28/23 09:00 01/28/23 09:00 01/28/23 09:14 Oxygen Delivery Method CPAP Weight: 146.51 kg Body Mass Index (BMI) 45.0 Intake & Output: Intake and Output for Last 24 Hours 01/26/23 01/27/23 01/28/23 23:59 23:59 23:59 Intake Total 5325.83 / 5325.83 4196.67 / 4196.67 1723.96 / 1723.96 Output Total 2600 / 2600 2500 / 2500 800 / 800 Balance 2725.83 / 2725.83 1696.67 / 1696.67 923.96 / 923.96 Lab / Micro Data 01/28/23 06:20 01/28/23 06:20 Labs: Laboratory Results - last 24 hr 01/26/23 06:13: Haptoglobin 190 01/28/23 06:20: WBC 2.9 L, RBC 3.62 L, Hgb 10.8 L, Hct 34.0 L, MCV 93.9, MCH 29.8, MCHC 31.8 L, RDW Std Deviation 53.3 H, RDW Coeff of Perla 15.5 H, Plt Count 173, MPV 8.7, Immature Gran % (Auto) 0.700, Neut % (Auto) 45.0 L, Lymph % (Auto) 20.3, [place] % (Auto) 30.6 H, Eos % (Auto) 2.7, Baso % (Auto) 0.7, Absolute Neuts (auto) 1.3 L, Absolute Lymphs (auto) 0.59 L, Nucleated RBC % 0, Diff Path Review May foll, Anisocytosis 1+, Sodium 141, Potassium 3.7, Chloride 115 H, Carbon Dioxide 19.0 L, Anion Gap 7, BUN 16, Creatinine 3.84 H, Estim Creat Clear Calc 20.97, Est GFR (MDRD) Af Amer 21 L, Est GFR (MDRD) Non-Af 17 L, BUN/Creatinine Ratio 4.2 L, Glucose 100, Calcium 8.3 L Micro: Microbiology 01/27/23 05:50 Sputum, Expectorated/Coughed Gram Stain - Final 01/27/23 05:50 Sputum, Expectorated/Coughed Respiratory Culture - Preliminary Presumptive C albicans 01/23/23 12:40 Blood Culture (Wb) - Anticubital Right Blood Culture - Final No growth in 5 days. 01/22/23 16:41 Blood Culture (Wb) - Port Blood Culture - Final No growth in 5 days. 01/23/23 12:45 Blood Culture (Wb) - Left Forearm Blood Culture - Preliminary No growth in 48 hours. 01/22/23 16:55 Urine, Clean Catch Urine Culture - Final Culture exhibits no growth. 01/24/23 00:25 Stool Enteric Bacteriology - Final 01/23/23 13:46 Mucosa - Nose Respiratory Panel (PCR) - Final RSV B 01/23/23 13:17 Urine, Random Streptococcus pneumoniae Antigen (M - Final 01/23/23 13:17 Urine, Clean Catch Legionella Antigen - Final 01/23/23 08:45 Nasal Secretion SARS-CoV-2 Antigen (Rapid) - Final Physical Exam Narrative Alert and oriented x3, no apparent distress S1, S2, RRR Lung sounds clear Abdomen soft, nontender, rounded No edema Assessment & Plan Assessment/Plan (1) KHURRAM (acute kidney injury): PLAN: - Nonoliguric KHURRAM likely multifactorial from significant volume depletion (very poor oral intake with diarrhea and nausea), with concurrent exposure to NICOLE inhibitor, possible contrast-induced nephropathy as well as possible component from NSAID, hypotension. Urine protein creatinine ratio 750 mg/g. Renal imaging: no hydronephrosis. At this time there is no acute indication for [employer]CH[employer]. Potassium and acid-base acceptable. Continue IV fluids. Patient has normal baseline creatinine as of January 23, 2023. Serum creatinine 2.25 on admission (01/24), peaked 3.92 mg/dL yesterday and today creatinine 3.84. Hopefully kidney function will continue to improve. Encouraged patient to try and increase solute and fluid intake. Blood pressures improved, off antihypertensives
--- NOTE | 2023-01-28 11:44 | PN_ITS ---
Subjective Subjective Patient seen and examined. He feels well today and has no active complaints. He denies any fever, chills, cough, chest pain, palpitations, dizziness, nausea, vomiting or any other symptoms. Review of systems is otherwise negative. Objective Data Objective Data Vital Signs: Vital Signs Temp Pulse Resp BP Pulse Ox O2 Del Method 98.6 F 73 18 149/84 H 94 Room Air 01/28/23 11:00 01/28/23 11:00 01/28/23 11:00 01/28/23 11:00 01/28/23 11:00 01/28/23 11:00 Oxygen Delivery Method Room Air Weight: 322 lb 15.988 oz Body Mass Index (BMI) 45.0 Intake & Output: Intake and Output for Last 24 Hours 01/26/23 01/27/23 01/28/23 23:59 23:59 23:59 Intake Total 5325.83 / 5325.83 4196.67 / 4196.67 1963.96 / 1963.96 Output Total 2600 / 2600 2500 / 2500 1175 / 1175 Balance 2725.83 / 2725.83 1696.67 / 1696.67 788.96 / 788.96 Lab / Micro Data 01/28/23 06:20 01/28/23 06:20 Labs: Laboratory Results - last 24 hr 01/26/23 06:13: Haptoglobin 190 01/28/23 06:20: WBC 2.9 L, RBC 3.62 L, Hgb 10.8 L, Hct 34.0 L, MCV 93.9, MCH 29.8, MCHC 31.8 L, RDW Std Deviation 53.3 H, RDW Coeff of Perla 15.5 H, Plt Count 173, MPV 8.7, Immature Gran % (Auto) 0.700, Neut % (Auto) 45.0 L, Lymph % (Auto) 20.3, [place] % (Auto) 30.6 H, Eos % (Auto) 2.7, Baso % (Auto) 0.7, Absolute Neuts (auto) 1.3 L, Absolute Lymphs (auto) 0.59 L, Nucleated RBC % 0, Diff Path Review May foll, Anisocytosis 1+, Sodium 141, Potassium 3.7, Chloride 115 H, Carbon Dioxide 19.0 L, Anion Gap 7, BUN 16, Creatinine 3.84 H, Estim Creat Clear Calc 20.97, Est GFR (MDRD) Af Amer 21 L, Est GFR (MDRD) Non-Af 17 L, BUN/Creatinine Ratio 4.2 L, Glucose 100, Calcium 8.3 L Micro: Microbiology 01/27/23 05:50 Sputum, Expectorated/Coughed Gram Stain - Final 01/27/23 05:50 Sputum, Expectorated/Coughed Respiratory Culture - Preliminary Presumptive C albicans 01/23/23 12:40 Blood Culture (Wb) - Anticubital Right Blood Culture - Final No growth in 5 days. 01/22/23 16:41 Blood Culture (Wb) - Port Blood Culture - Final No growth in 5 days. 01/23/23 12:45 Blood Culture (Wb) - Left Forearm Blood Culture - Preliminary No growth in 48 hours. 01/22/23 16:55 Urine, Clean Catch Urine Culture - Final Culture exhibits no growth. 01/24/23 00:25 Stool Enteric Bacteriology - Final 01/23/23 13:46 Mucosa - Nose Respiratory Panel (PCR) - Final RSV B 01/23/23 13:17 Urine, Random Streptococcus pneumoniae Antigen (M - Final 01/23/23 13:17 Urine, Clean Catch Legionella Antigen - Final 01/23/23 08:45 Nasal Secretion SARS-CoV-2 Antigen (Rapid) - Final Physical Exam Const alert, oriented x3 and no apparent distress Constitutional Narrative: obese General Appearance: cooperative HEENT normocephalic, head/scalp atraumatic, moist oral mucous membranes and oropharynx normal Eyes PERRL and EOMs intact bilaterally Neck no lymphadenopathy and supple Lymph Lymphatic: no lymphadenopathy noted and no lymphedema noted Resp normal respiratory effort, normal air movement and clear to auscultation bilaterally Cardio regular rate, regular rhythm, S1 normal heart sound, S2 normal heart sound and no murmurs GI normal to inspection, nondistended, normoactive bowel sounds, soft to palpation, non-tender and non-distended Extremity normal capillary refill, no clubbing, cyanosis or edema and no calf tenderness Skin General Skin Exam: no breakdown and turgor normal Neuro CN's II-XII intact bilaterally, no focal motor deficits, no sensory deficits noted and deep tendon reflexes 2+ bilaterally Motor Exam: strength 5/5 throughout and general weakness Psych thought process normal, cooperative and affect normal Appearance: appropriate Assessment & Plan Assessment/Plan (1) KHURRAM (acute kidney injury): (2) Neutropenic fever: PLAN: Plan #Neutropenic fever * wbc up to 2.9 today * blood cultures negative. Urine cultures growing ayana * covid test was negative. * respiratory panel was positive for RSV * on iV zosyn as CT abdomen showed colitis. * MRSA PCR negative. * #KHURRAM: * Cr still trending upwards.\ * baseline Cr is 0.6. Cr now trended up to 3.84 today * nephrology on board * #Gastroenteritis * CT of the abdomen and pelvis showed worsening of an ill defined infiltrating neoplasm throughout the liver, bruce hte right lobe. * on IV zosyn * abdominal pain with diarrhea has improved significantly * to be given a script for PO haldol 1mg q8hrs * #Metastatic esophageal cancer * diagnosed in March 2021. Biopsy done after EGD shwoed an esophageal mass showed moderately differentiated adenocarcinoma * CT of the abdomen showed, abdomen and pelvis shoed a diffuse circumferential thickening at hte GE junction with luminal narrowimg; PE scan on 05/03/2021 showed uptake in the distal esophagus atht eGE junction as well as throughout the liver consistent with metastatic disease * -s/p palliative chemotherapy with FOLFOX and immunotherapy with nivolumab in May 2021. * Had recurrence of the liver mets with perigastric nodes * restarted on palliative chemotherapy with Folfox and nivolumab in 07/25/2022 and developed mouth sores. Folfox and nivolumab discontinued on 12/14/2022 after further imaging showed progressive disease * to follow up with oncology on outpatient basis. NOw on taxol and cymraza for palliative chemo. Completed 2 cycles so far * #Anemia; stable. Will monitor THrombocytopenia: resolved #Nonischemic cardiomyopathy * recent echo from 2021 showed EF of 45% and stage I diastolic dysfunction * Entresto and Jardiace discontinued due to cost * lisinopril held due to KHURRAM. Carvedilol also on hold due to hypotension * Had cardiac cath which was negative * To follow up with cardiology on outpatient basis * on PO aspirin * #Histoyr of nonsustained vtach; carvedilol on hold #Hyperlipidemia: on statin #GERD: on PPI #Depression and anxiety: on citalopram and ativan #MOrbid obesity: BMI is 45. Complicates acute care, expected recovery and prognosis Charges/Coding Visit Charges Inpatient E&M: 43408 Subs Hosp L2
[2023-01-28 14:45] VITALS: BP 149/90; PULSE 63; RESP 18; TEMP 37; O2SAT 100
--- NOTE | 2023-01-28 16:58 | PCM.PN.ID ---
Physical Exam Narrative Feeling better, some nausea, no fever, no abd pain Const alert and no apparent distress General Appearance: cooperative Resp normal air movement and clear to auscultation bilaterally Cardio regular rate and regular rhythm GI soft to palpation, non-tender and non-distended Skin no rashes or lesions noted ID ID: Route of nutrition/ use of supplements: [] Nutritional Intake: [] IV Site: [] [place] Catheter: [] Assessment & Plan Assessment/Plan (1) Esophageal cancer, stage IV: (2) Neutropenia: PLAN: ANC has recovered. CT with ? diverticulitis. RSV (+). New KHURRAM, stopped vanc, adjusted zosyn. Plan on stopping zosyn tomorrow. Will follow
[2023-01-28 20:40] VITALS: BP 145/85; PULSE 66; RESP 16; TEMP 36.9; O2SAT 99
[2023-01-29] MEDS: 0.9% Normal Saline (1000mL) 1,000 ML 100 ML IV ×2 (01:07→08:53)
[2023-01-29 02:15] VITALS: BP 142/83; PULSE 58; RESP 16; TEMP 36.6; O2SAT 100
[2023-01-29] MEDS: Acetaminophen 500 MG Tablet 1000 MG PO (03:15)
[2023-01-29] MEDS: Piperacil/Tazobactam 3.375 GM in 0.9% Normal Saline (50mL MB+) 50 ML IV (05:58)
[2023-01-29] MEDS: Dicyclomine 10 MG Capsule PO ×2 (05:59→12:04)
[2023-01-29 07:03] LABS: Absolute Neutrophil Count 1.2 X10^3/uL (2.0-7.7); Basophil# 0.03 X10^3/uL; Basophil% 1.1 % (0-1); Eosinophil# 0.08 X10^3/uL; Hematocrit 30.2 % (40-54); Hemoglobin 9.7 g/dL (13.0-16.5); Lymphocyte % 15.2 % (19-41); Mean Corp Hgb Conc 32.1 g/dL (32-36); Mean Corpuscular Hgb 30.1 pg (27.0-32.0); Mean Corpuscular Volume 93.8 fL (80-94); Mean Platelet Vol. 8.7 fl (6.2-12.0); Monocyte# 0.87 X10^3/uL; Monocyte% 33.1 % (0-10); NRBC Flagged by Analyzer 0 % (0-5); Neutrophil # 1.23 X10^3/uL (2.7-7.7); Neutrophil % 46.8 % (47-70); POSITIVE DIFFERENTIAL YES; Platelet Count 144 K/mm3 (150-450); RBC Distribution Width CV 15.5 % (11.6-14.6); RBC Distribution Width SD 53.4 fl (35.1-43.9); Red Blood Count 3.22 M/mm3 (4.6-6.2); White Blood Count 2.6 K/mm3 (4.4-11.0)
[2023-01-29 07:06] LABS: Differential Indicated SCAN CRITERIA MET
[2023-01-29 07:29] LABS: Albumin, Serum 2.2 g/dL (3.2-5.0); BUN 14 mg/dL (7-18); BUN/Creat Ratio 3.8 RATIO (10-20); Chloride 117 mmol/L (98-107); Creatinine, Serum 3.69 mg/dL (0.70-1.30); EST Glomerular Filtration Rate 18 mL/min (>60); Est Glom Filt Rate - Afr Amer 22 mL/min (>60); Estimated Creatinine Clearance 21.82 ml/min; Glucose 100 mg/dL (74-106); Phosphorus 3.7 mg/dL (2.5-4.9); Potassium 3.8 mmol/L (3.5-5.1); Sodium Level 142 mmol/L (136-145)
[2023-01-29 07:40] VITALS: O2SAT 97
[2023-01-29 08:50] VITALS: BP 155/93; PULSE 63; RESP 18; TEMP 36.6; O2SAT 96
[2023-01-29] MEDS: Aspirin E.C. 81 MG Tablet PO (08:53)
[2023-01-29] MEDS: Pantoprazole Sodium 40 MG Tablet PO (08:53)
[2023-01-29] MEDS: Ensure Clear 120 ML Liquid PO (08:53)
[2023-01-29] MEDS: Citalopram 20 MG Tablet PO (08:53)
[2023-01-29 09:45] LABS: Pathologist Review Reviewed
[2023-01-29 09:48] LABS: Pathologist Review Reviewed
[2023-01-29 09:55] LABS: Pathologist Review Reviewed
--- NOTE | 2023-01-29 10:25 | PN.RENAL_ITS ---
Subjective Subjective Sitting in chair, no complaints. States trying to eat food but has no taste therefore difficult eating hospital food. Denies any recent vomiting. Objective Data Objective Data Vital Signs: Vital Signs Temp Pulse Resp BP Pulse Ox O2 Del Method 98 F 63 18 155/93 H 96 Room Air 01/29/23 08:50 01/29/23 08:50 01/29/23 08:50 01/29/23 08:50 01/29/23 08:50 01/29/23 09:01 Oxygen Delivery Method Room Air Weight: 146.51 kg Body Mass Index (BMI) 45.0 Intake & Output: Intake and Output for Last 24 Hours 01/27/23 01/28/23 01/29/23 23:59 23:59 23:59 Intake Total 4196.67 / 4196.67 3237.29 / 3237.29 1968.34 / 1968.34 Output Total 2500 / 2500 1375 / 1775 1300 / 1300 Balance 1696.67 / 1696.67 1862.29 / 1462.29 668.34 / 668.34 Lab / Micro Data 01/29/23 06:35 01/29/23 06:35 Labs: Laboratory Results - last 24 hr 01/25/23 07:05: Diff Path Review Reviewed 01/26/23 06:13: Diff Path Review Reviewed 01/27/23 06:08: Diff Path Review Reviewed 01/29/23 06:35: WBC 2.6 L, RBC 3.22 L, Hgb 9.7 L, Hct 30.2 L, MCV 93.8, MCH 30.1, MCHC 32.1, RDW Std Deviation 53.4 H, RDW Coeff of Perla 15.5 H, Plt Count 144 L, MPV 8.7, Immature Gran % (Auto) 0.800, Neut % (Auto) 46.8 L, Lymph % (Auto) 15.2 L, [place] % (Auto) 33.1 H, Eos % (Auto) 3.0, Baso % (Auto) 1.1 H, Absolute Neuts (auto) 1.2 L, Absolute Lymphs (auto) 0.40 L, Nucleated RBC % 0, Differential Comment COMMENT, Diff Path Review May foll, Sodium 142, Potassium 3.8, Chloride 117 H, Carbon Dioxide 20.0 L, BUN 14, Creatinine 3.69 H, Estim Creat Clear Calc 21.82, Est GFR (MDRD) Af Amer 22 L, Est GFR (MDRD) Non-Af 18 L, BUN/Creatinine Ratio 3.8 L, Glucose 100, Calcium 8.0 L, Phosphorus 3.7, Albumin 2.2 L Micro: Microbiology 01/27/23 05:50 Sputum, Expectorated/Coughed Gram Stain - Final 01/27/23 05:50 Sputum, Expectorated/Coughed Respiratory Culture - Final Presumptive C albicans 01/23/23 12:45 Blood Culture (Wb) - Left Forearm Blood Culture - Final No growth in 5 days. 01/23/23 12:40 Blood Culture (Wb) - Anticubital Right Blood Culture - Final No growth in 5 days. 01/22/23 16:41 Blood Culture (Wb) - Port Blood Culture - Final No growth in 5 days. 01/22/23 16:55 Urine, Clean Catch Urine Culture - Final Culture exhibits no growth. 01/24/23 00:25 Stool Enteric Bacteriology - Final 01/23/23 13:46 Mucosa - Nose Respiratory Panel (PCR) - Final RSV B 01/23/23 13:17 Urine, Random Streptococcus pneumoniae Antigen (M - Final 01/23/23 13:17 Urine, Clean Catch Legionella Antigen - Final 01/23/23 08:45 Nasal Secretion SARS-CoV-2 Antigen (Rapid) - Final Physical Exam Narrative Alert and oriented x3, no apparent distress S1, S2, RRR Lung sounds clear Abdomen soft, nontender, rounded No edema Assessment & Plan Assessment/Plan (1) KHURRAM (acute kidney injury): PLAN: - Nonoliguric KHURRAM likely multifactorial from significant volume depletion (very poor oral intake with diarrhea and nausea), with concurrent exposure to NICOLE inhibitor, possible contrast-induced nephropathy as well as possible component from NSAID, hypotension. Urine protein creatinine ratio 750 mg/g. Renal imaging: no hydronephrosis. At this time there is no acute indication for [employer]PER[employer]. Potassium and acid-base acceptable. Continue IV fluids. Patient has normal baseline creatinine as of January 23, 2023. Serum creatinine 2.25 on admission (01/24), peaked 3.92 mg/dL and improved today creatinine 3.69. Encouraged patient to try and increase solute and fluid intake. Blood pressures improved, off antihypertensives. - discussed Nephrology plan with Dr. Taylor. Ok for discharge per renal standpoint when cleared by primary team. Will arrange for hospital follow-up. Discussed with patient to avoid NSAIDs and remain off Lisinopril for now.
--- NOTE | 2023-01-29 10:55 | DCINST_ITS ---
Discharge Instructions Diet Discharge Diet: Low fat / Low cholesterol Activity Discharge Activity: Return to Normal Activity Weight Bearing Status: Weight bearing as tolerated Dressing / Incision Call your doctor if you observe: Fever of 101 or Higher, Shortness of breath, Swelling in the ankles and Chest pain Follow Up Care Test Results: Test results from this visit will be discussed in further detail at your follow- up appointment, if applicable. Discharge Plan Admission Admit Date/Time: 01/23/23 14:00 Primary Reason for Your Visit: neutropenic fever Attending Provider: Judy Taylor Primary Care Provider: Jasen Bhardwaj [facility] Providers: Deep Moran; Matty Fernandez; Ajith Rouse; Hema Peterson; Gris Saenz; Juan Miguel Ann; Brianna Manning; Scar Lopez; Mauri Tadeo; Latosha Andrade Instructions Patient Instructions: Neutropenia Discharge Orders/Prescriptions Prescriptions: New dicyclomine 10 mg capsule 10 mg PO TID PRN (Reason: abdominal pain/cramping) Qty: 90 0RF haloperidol 1 mg tablet 1 mg PO Q8H PRN (Reason: nausea and vomiting) Qty: 30 0RF Continued citalopram [Celexa] 20 mg tablet 20 mg PO DAILY lorazepam 1 mg tablet 1 mg PO BID PRN (Reason: Anxiety) lidocaine-prilocaine 2.5-2.5 % cream 1 applic topical ONCE PRN (Reason: port access) 30 Days Qty: 30 2RF pantoprazole 40 mg tablet,delayed release (DR/EC) 40 mg PO DAILY MAGIC MOUTH WASH (BMX) 180 mL suspension 5 ml buccal .QID 28 Days Qty: 180 3RF Rx Instructions: diphenhydramine 12.5 mg/5 mL oral liquid 60 mL; aluminum-mag hydroxide- simethicone 400 mg-400 mg-40 mg/5 mL oral susp 60 mL; Lidocaine Viscous 2 % mucosal solution 60 mL; Per 180 mL aspirin [Adult Aspirin Regimen] 81 mg tablet,delayed release (DR/EC) 81 mg PO DAILY Qty: 90 3RF lisinopril 10 mg tablet 10 mg PO DAILY Qty: 90 3RF ondansetron 8 mg tablet,disintegrating 8 mg PO Q8H PRN (Reason: nausea and vomiting) Qty: 30 2RF prochlorperazine maleate 10 mg tablet 10 mg PO Q6H PRN (Reason: nausea and vomiting) Qty: 30 2RF carvedilol 12.5 mg tablet 12.5 mg PO BID Qty: 1 3RF Rx Instructions: must administer with a meal/food Referrals / Follow Up: Ajith Rouse MD [Med Staff - Consulting] - Within 1 Week Jasen Bhardwaj Chi, MD [Primary Care Provider] - Within 2 Weeks Disposition Disposition (needs filled in before D/C Order can be placed): Home, Self Care
--- NOTE | 2023-01-29 10:56 | DS.PCM_ITS ---
Providers Date of Admission: 01/23/23 Date of Discharge: 01/29/23 Primary Care Physician: Dr. Jasen Bhardwaj MD Consultations 01/23/23 07:47 Consult: Infectious Disease Routine Consulting Provider: Matty Fernandez Reason for Consult: neutropenic fever EMERGENT Consult: No Notified: Yes Date Notified: 01/23/23 Time Notified: 08:47 Method of Notification: Text 01/24/23 09:51 Consult: Nephrology Routine Consulting Provider: Ajith Rouse Reason for Consult: KHURRAM EMERGENT Consult: No Notified: Yes Date Notified: 01/24/23 Time Notified: 10:55 Method of Notification: Answering Service 01/24/23 12:06 Consult: Oncology/Hematology Routine Consulting Provider: ANUSHKA Hem/Onc Raudel Reason for Consult: Chemo SE? EMERGENT Consult: No Notified: Yes Date Notified: 01/24/23 Time Notified: 14:53 Method of Notification: Answering Service Reason For Visit: NEUTROPENIC FEVER Diagnosis Discharge Diagnosis (1) KHURRAM (acute kidney injury): Status: Inactive Code(s): N17.9 - Acute kidney failure, unspecified Plan #Neutropenic fever * wbc up to 2.9 today * blood cultures negative. Urine cultures growing ayana * covid test was negative. * respiratory panel was positive for RSV * on iV zosyn as CT abdomen showed colitis. * MRSA PCR negative. * #KHURRAM: * Cr still trending upwards.\ * baseline Cr is 0.6. Cr now trended up to 3.84 today * nephrology on board * #Gastroenteritis * CT of the abdomen and pelvis showed worsening of an ill defined infiltrating neoplasm throughout the liver, bruce hte right lobe. * on IV zosyn * abdominal pain with diarrhea has improved significantly * to be given a script for PO haldol 1mg q8hrs * #Metastatic esophageal cancer * diagnosed in March 2021. Biopsy done after EGD shwoed an esophageal mass showed moderately differentiated adenocarcinoma * CT of the abdomen showed, abdomen and pelvis shoed a diffuse circumferential thickening at hte GE junction with luminal narrowimg; PE scan on 05/03/2021 showed uptake in the distal esophagus atht eGE junction as well as throughout the liver consistent with metastatic disease * -s/p palliative chemotherapy with FOLFOX and immunotherapy with nivolumab in May 2021. * Had recurrence of the liver mets with perigastric nodes * restarted on palliative chemotherapy with Folfox and nivolumab in 07/25/2022 and developed mouth sores. Folfox and nivolumab discontinued on 12/14/2022 after further imaging showed progressive disease * to follow up with oncology on outpatient basis. NOw on taxol and cymraza for palliative chemo. Completed 2 cycles so far * #Anemia; stable. Will monitor THrombocytopenia: resolved #Nonischemic cardiomyopathy * [facility]% and stage I diastolic dysfunction * Entresto and Jardiace discontinued due to cost * lisinopril held due to KHURRAM. Carvedilol also on hold due to hypotension * Had cardiac cath which was negative * To follow up with cardiology on outpatient basis * on PO aspirin * #Histoyr of nonsustained vtach; carvedilol on hold #Hyperlipidemia: on statin #GERD: on PPI #Depression and anxiety: on citalopram and ativan #MOrbid obesity: BMI is 45. Complicates acute care, expected recovery and prognosis Medications at Discharge Home Medications lidocaine-prilocaine 2.5 %-2.5 % topical cream 1 applic topical ONCE PRN port a ccess 30 days #30 grams 05/23/21 citalopram 20 mg tablet (Celexa) 20 mg PO DAILY 05/31/21 lorazepam 1 mg tablet 1 mg PO BID PRN Anxiety 05/31/21 aspirin 81 mg tablet,delayed release (Adult Aspirin Regimen) 81 mg PO DAILY #90 tabs 06/11/22 pantoprazole 40 mg tablet,delayed release 40 mg PO DAILY 06/14/22 ondansetron 8 mg disintegrating tablet 8 mg PO Q8H PRN nausea and vomiting #30 tabs 08/07/22 prochlorperazine maleate 10 mg tablet 10 mg PO Q6H PRN nausea and vomiting #30 tabs 08/07/22 carvedilol 12.5 mg tablet 12.5 mg PO BID #1 TAB 10/11/22 MAGIC MOUTH WASH (BMX) 180 mL suspension 5 ml buccal .QID 4 weeks #180 mL 01/17/23 dicyclomine 10 mg capsule 10 mg PO TID PRN abdominal pain/cramping #90 caps 01/25/23 haloperidol 1 mg tablet 1 mg PO Q8H PRN nausea and vomiting #30 tabs 01/27/23 Hospital Course Operations None Procedures None Summary of Care Provided Minutes Spent on Discharge: 55 Hospital Course: Patient is a 62-year-old male with a past medical history as outlined which includes esophageal cancer with mets to the liver, lungs and mediastinum. He went to see his oncology [employer] and was sent to the ED on account of neutropenia. Patient had also had a fever of 99.9 Fahrenheit at his oncologist office. He had had his last chemotherapy on 01/17/2023 after which she developed nausea vomiting and diarrhea. He had also had painful mouth sores for which he had gone to the oncologist office that day. He was admitted and managed for febrile neutropenia. WBC was 1.2 with absolute neutrophil count of 0.8. CT of the abdomen and pelvis showed ill-defined infiltrative neoplasm to the liver especially the right lobe with evidence of acute diverticulitis involving the mid sigmoid colon without perforation or abscess. He was started on IV Zosyn. He was also placed on IV Zofran and Compazine. ID was consulted. He was also managed for KHURRAM on account of elevated creatinine. Nephrology was also consult ed. Respiratory panel was positive for RSV. He was also treated for gastroenteritis. Patient's symptoms improved and fever resolved. Completed a course of IV Zosyn and antibiotics were DC'd on 01/29/2023. Per nephrology, KHURRAM was likely due to volume depletion and possible contrast-induced nephropathy from NSAIDs and potential. Creatinine had been 2.5 on admission and peaked at 3.92. At time of discharge creatinine was 3.69. Patient was to remain off of his NICOLE inhibitor as and is follow-up with nephrology and PCP for monitoring of function. He is follow-up with his primary care doctor as well as oncology. Patient was seen and examined prior to discharge. He felt well and had no co mplaints. He had an uneventful night. Review of systems otherwise negative. Labs and vitals reviewed. Home medication reviewed and reconciled. Physical Exam Const alert, oriented x3, no apparent distress and well nourished; Negative for average body habitus Constitutional Narrative: obese General Appearance: cooperative and comfortable Orientation / Consciousness: awake Exam Limitations: no limitations HEENT normocephalic, head/scalp atraumatic, hearing grossly normal bilaterally, moist oral mucous membranes and oropharynx normal Mouth: oral and palatal mucosa normal Eyes PERRL, EOMs intact bilaterally and conjunctivae normal Eyes Narrative: No scleral icterus Neck no lymphadenopathy, supple and no JVD Lymph Lymphatic: no lymphadenopathy noted and no lymphedema noted Resp normal respiratory effort, normal air movement, no retractions, no use of accessory muscles and clear to auscultation bilaterally Auscultation: Negative for rales, rhonchi or wheezes Cardio regular rate, regular rhythm, S1 normal heart sound, S2 normal heart sound, no murmurs, no rub, no gallops and no clicks GI normal to inspection, nondistended, normoactive bowel sounds, soft to palpation, non-tender and non-distended Extremity normal to inspection, full ROM, normal capillary refill, no clubbing, cyanosis or edema and no calf tenderness Skin Skin Narrative: [facility] right upper chest is clean dry without any drainage or erythema General Skin Exam: no breakdown and turgor normal Neuro oriented x3, CN's II-XII intact bilaterally, moves all extremities, no focal motor deficits, no sensory deficits noted and deep tendon reflexes 2+ bilaterally Sensorium / Orientation: awake and alert Speech: speech normal Motor Exam: strength 5/5 throughout and general weakness Psych thought process normal, cooperative and affect normal Appearance: appropriate Weight / BMI Weight Weight: 322 lb 15.988 oz Body Mass Index (BMI) 45.0 ABG / Lab / Microbiology Data 01/29/23 06:35 01/29/23 06:35 Laboratory: Laboratory Results - last 24 hr 01/25/23 07:05: Diff Path Review Reviewed 01/26/23 06:13: Diff Path Review Reviewed 01/27/23 06:08: Diff Path Review Reviewed 01/29/23 06:35: WBC 2.6 L, RBC 3.22 L, Hgb 9.7 L, Hct 30.2 L, MCV 93.8, MCH 30.1, MCHC 32.1, RDW Std Deviation 53.4 H, RDW Coeff of Perla 15.5 H, Plt Count 144 L, MPV 8.7, Immature Gran % (Auto) 0.800, Neut % (Auto) 46.8 L, Lymph % (Auto) 15.2 L, [place] % (Auto) 33.1 H, Eos % (Auto) 3.0, Baso % (Auto) 1.1 H, Absolute Neuts (auto) 1.2 L, Absolute Lymphs (auto) 0.40 L, Nucleated RBC % 0, Differential Comment COMMENT, Diff Path Review May foll, Sodium 142, Potassium 3.8, Chloride 117 H, Carbon Dioxide 20.0 L, BUN 14, Creatinine 3.69 H, Estim Creat Clear Calc 21.82, Est GFR (MDRD) Af Amer 22 L, Est GFR (MDRD) Non-Af 18 L, BUN/Creatinine Ratio 3.8 L, Glucose 100, Calcium 8.0 L, Phosphorus 3.7, Albumin 2.2 L Microbiology: Microbiology 01/27/23 05:50 Sputum, Expectorated/Coughed Gram Stain - Final 01/27/23 05:50 Sputum, Expectorated/Coughed Respiratory Culture - Final Presumptive C albicans 01/23/23 12:45 Blood Culture (Wb) - Left Forearm Blood Culture - Final No growth in 5 days. 01/23/23 12:40 Blood Culture (Wb) - Anticubital Right Blood Culture - Final No growth in 5 days. 01/22/23 16:41 Blood Culture (Wb) - Port Blood Culture - Final No growth in 5 days. 01/22/23 16:55 Urine, Clean Catch Urine Culture - Final Culture exhibits no growth. 01/24/23 00:25 Stool Enteric Bacteriology - Final 01/23/23 13:46 Mucosa - Nose Respiratory Panel (PCR) - Final RSV B 01/23/23 13:17 Urine, Random Streptococcus pneumoniae Antigen (M - Final 01/23/23 13:17 Urine, Clean Catch Legionella Antigen - Final 01/23/23 08:45 Nasal Secretion SARS-CoV-2 Antigen (Rapid) - Final D/C Instructions Discharge Diet: Low fat / Low cholesterol Discharge Activity: Return to Normal Activity Weight Bearing Status: Weight bearing as tolerated Call your doctor if you observe: Fever of 101 or Higher, Shortness of breath, Swelling in the ankles and Chest pain Meaningful Use Info Meaningful Use Diagnoses (Choose all that apply): None applicable Discharge Plan Admission Admit Date/Time: 01/23/23 14:00 Primary Reason for Your Visit: neutropenic fever Attending Provider: Judy Taylor Primary Care Provider: Jasen Bhardwaj Chi Consulting Providers: Deep Moran; Matty Fernandez; Ajith Rouse; Hema Peterson; Girs Saenz; Juan Miguel Ann; Brianna Manning; Scar Lopez; Mauri Puente i; Latosha Andrade Instructions Patient Instructions: Neutropenia Discharge Orders/Prescriptions Prescriptions: New dicyclomine 10 mg capsule 10 mg PO TID PRN (Reason: abdominal pain/cramping) Qty: 90 0RF haloperidol 1 mg tablet 1 mg PO Q8H PRN (Reason: nausea and vomiting) Qty: 30 0RF Continued citalopram [Celexa] 20 mg tablet 20 mg PO DAILY lorazepam 1 mg tablet 1 mg PO BID PRN (Reason: Anxiety) lidocaine-prilocaine 2.5-2.5 % cream 1 applic topical ONCE PRN (Reason: port access) 30 Days Qty: 30 2RF pantoprazole 40 mg tablet,delayed release (DR/EC) 40 mg PO DAILY MAGIC MOUTH WASH (BMX) 180 mL suspension 5 ml buccal .QID 28 Days Qty: 180 3RF Rx Instructions: diphenhydramine 12.5 mg/5 mL oral liquid 60 mL; aluminum-mag hydroxide- simethicone 400 mg-400 mg-40 mg/5 mL oral susp 60 mL; Lidocaine Viscous 2 % mucosal solution 60 mL; Per 180 mL aspirin [Adult Aspirin Regimen] 81 mg tablet,delayed release (DR/EC) 81 mg PO DAILY Qty: 90 3RF ondansetron 8 mg tablet,disintegrating 8 mg PO Q8H PRN (Reason: nausea and vomiting) Qty: 30 2RF prochlorperazine maleate 10 mg tablet 10 mg PO Q6H PRN (Reason: nausea and vomiting) Qty: 30 2RF carvedilol 12.5 mg tablet 12.5 mg PO BID Qty: 1 3RF Rx Instructions: must administer with a meal/food Discontinued lisinopril 10 mg tablet 10 mg PO DAILY Qty: 90 3RF Referrals / Follow Up: Ajith Rouse MD [Med Staff - Consulting] - Within 1 Week (OFFICE WILL REACH OUT TO YOU TO GET THIS APPOINTMENT SCHEDULED AFTER THEY RECEIVE YOUR DISCHARGE PAPERS) Jasen Bhardwaj Chi, MD [Primary Care Provider] - 02/12/23 3:20 pm Disposition Disposition (needs filled in before D/C Order can be placed): Home, Self Care Charges/Coding Visit Charges Inpatient E&M: 39189 Disch Hosp >30min
--- NOTE | 2023-01-29 11:01 | CASEMGMT ---
Palliative Care to see pt in his home tomorrow at 9am. Added to dc instructions.
--- NOTE | 2023-01-29 11:32 | PHA.DC_ITS ---
Pharmacy [facility] Pharmacy Service has performed discharge medication reconciliation and counseling for this patient. The patient's discharge medication list was reviewed for discrepancies and discrepancies were resolved. The patient was counseled on the following discharge medications and changes in medications for homegoing were reviewed. The Reason for Use, instructions for use, and potential side effects were reviewed for all new medications. The patient's questions regarding all of their medications were answered. 1. Dicyclomine 10 mg capsule PO TID PRN abdominal pain/cramping 2. Haloperidol 1 mg PO Q8H PRN nausea/vomiting The patient was able to verbally demonstrate an understanding of their discharge medications. Medications at Discharge Home Medications lidocaine-prilocaine 2.5 %-2.5 % topical cream 1 applic topical ONCE PRN port access 30 days #30 grams 05/23/21 citalopram 20 mg tablet (Celexa) 20 mg PO DAILY 05/31/21 lorazepam 1 mg tablet 1 mg PO BID PRN Anxiety 05/31/21 aspirin 81 mg tablet,delayed release (Adult Aspirin Regimen) 81 mg PO DAILY #90 tabs 06/11/22 pantoprazole 40 mg tablet,delayed release 40 mg PO DAILY 06/14/22 ondansetron 8 mg disintegrating tablet 8 mg PO Q8H PRN nausea and vomiting #30 tabs 08/07/22 prochlorperazine maleate 10 mg tablet 10 mg PO Q6H PRN nausea and vomiting #30 tabs 08/07/22 carvedilol 12.5 mg tablet 12.5 mg PO BID #1 TAB 10/11/22 MAGIC MOUTH WASH (BMX) 180 mL suspension 5 ml buccal .QID 4 weeks #180 mL 01/17/23 dicyclomine 10 mg capsule 10 mg PO TID PRN abdominal pain/cramping #90 caps 01/25/23 haloperidol 1 mg tablet 1 mg PO Q8H PRN nausea and vomiting #30 tabs 01/27/23
[2023-01-29] MEDS: 0.9% Saline Lock 10 ML Syringe IV (12:08)
[2023-01-29 12:15] VITALS: BP 153/91; PULSE 65; RESP 18; TEMP 36.6; O2SAT 97
[2023-01-30 12:47] LABS: Pathologist Review Reviewed
[2023-01-30 12:58] LABS: Pathologist Review Reviewed
== END 2023-01-29 12:20 | disposition home or self-care (01) | DRG 809 ==
LOC: ED 19:47 → MS3 21:09
PROVIDERS: Internal Medicine; Nurse Practitioner Adult Health; Admitting Provider Hospitalist; Emergency Provider Emergency Medicine; PCP Family Medicine Geriatric Medicine; Visit Provider Student in an Organized Health Care Education/Training Program
DX: D70.1 Agranulocytosis secondary to cancer chemotherapy (principal); N17.9 Acute kidney failure, unspecified; I42.8 Other cardiomyopathies; C15.9 Malignant neoplasm of esophagus, unspecified; C78.7 Secondary malignant neoplasm of liver and intrahepatic bile duct; I50.22 Chronic systolic (congestive) heart failure; Z68.42 Body mass index [BMI] 45.0-49.9, adult; K57.32 Diverticulitis of large intestine without perforation or abscess without bleeding; D69.6 Thrombocytopenia, unspecified; B97.4 Respiratory syncytial virus as the cause of diseases classified elsewhere; I11.0 Hypertensive heart disease with heart failure; E66.01 Morbid (severe) obesity due to excess calories; F32.A Depression, unspecified; D64.9 Anemia, unspecified; K21.9 Gastro-esophageal reflux disease without esophagitis; I44.7 Left bundle-branch block, unspecified; E78.5 Hyperlipidemia, unspecified; M79.10 Myalgia, unspecified site; K52.9 Noninfective gastroenteritis and colitis, unspecified; T45.1X5A Adverse effect of antineoplastic and immunosuppressive drugs, initial encounter; N14.11 Contrast-induced nephropathy; Z79.82 Long term (current) use of aspirin; Z87.891 Personal history of nicotine dependence; Z80.3 Family history of malignant neoplasm of breast; Z82.3 Family history of stroke; R50.81 Fever presenting with conditions classified elsewhere; Z92.21 Personal history of antineoplastic chemotherapy; Z92.3 Personal history of irradiation; Z79.01 Long term (current) use of anticoagulants
CPT/HCPCS: 36415; 36591; 71046; 74177; 76770; 80048; 80053; 80069; 80202; 81001; 82570; 83010; 83605; 83615; 83735; 84100; 84156; 84300; 85025; 85610; 85730; 87040; 87070; 87086; 87205; 87449; 87506; 87633; 87641; 87811; 99284; J7030; J7040; J7050; J7120; Q9967; A4216; J2405

== ENCOUNTER → 2023-02-04 | Outpatient (CLI) | payer OTHER, SELFPAY ==
--- NOTE | 2023-02-04 16:06 | RAD_ITS ---
EXAM: XR ABDOMEN, 2 VIEWS CLINICAL INDICATION: APPETITE LOSS TECHNIQUE: Frontal view of the abdomen/pelvis with upright view of the abdomen. COMPARISON: Chest radiographs of 01/22/2023. Abdominal pelvic CT of 01/22/2023. FINDINGS: LOWER THORAX: Indistinctness of the right hemidiaphragm, consistent with atelectasis and pleural thickening as noted on the prior CT. The visualized left lung base is clear. INTRAPERITONEAL SPACE: No free air. GASTROINTESTINAL TRACT: Unremarkable. Non-obstructive. No bowel or stomach distention. ORGANS: Unremarkable as visualized. No organomegaly. No abnormal calcifications. BONES/JOINTS: Thoracolumbar degenerative spurring. Lumbar facet arthritis. No acute osseous abnormality. SOFT TISSUES: No acute pathology. RAD/Abd Inc Decub and/or Erect IMPRESSION: No acute findings in the abdomen or pelvis. Electronically Signed: Rodney Bowen MD at 4:22 EDT ,
[2023-02-04 17:07] LABS: Absolute Lymphocyte Count 0.52 X10^3/uL (0.83-4.51); Absolute Neutrophil Count 6.3 X10^3/uL (2.0-7.7); Basophil# 0.08 X10^3/uL; Eosinophil# 0.12 X10^3/uL; Eosinophils% 1.5 % (0-5); Hematocrit 34.4 % (40-54); Hemoglobin 10.9 g/dL (13.0-16.5); Lymphocyte # 0.52 X10^3/ul (0.83-4.51); Lymphocyte % 6.4 % (19-41); Mean Corp Hgb Conc 31.7 g/dL (32-36); Mean Corpuscular Hgb 29.9 pg (27.0-32.0); Mean Corpuscular Volume 94.5 fL (80-94); Mean Platelet Vol. 8.8 fl (6.2-12.0); Monocyte# 1.15 X10^3/uL; Monocyte% 14.1 % (0-10); NRBC Flagged by Analyzer 0 % (0-5); Neutrophil # 6.28 X10^3/uL (2.7-7.7); Neutrophil % 76.6 % (47-70); POSITIVE DIFFERENTIAL YES; Platelet Count 172 K/mm3 (150-450); RBC Distribution Width CV 16.1 % (11.6-14.6); RBC Distribution Width SD 54.5 fl (35.1-43.9); Red Blood Count 3.64 M/mm3 (4.6-6.2); White Blood Count 8.2 K/mm3 (4.4-11.0)
[2023-02-04 17:11] LABS: Anion Gap 5 (5-15); BUN 17 mg/dL (7-18); BUN/Creat Ratio 6.1 RATIO (10-20); Calcium,Total 8.5 mg/dL (8.5-10.1); Chloride 111 mmol/L (98-107); Creatinine, Serum 2.77 mg/dL (0.70-1.30); EST Glomerular Filtration Rate 25 mL/min (>60); Est Glom Filt Rate - Afr Amer 30 mL/min (>60); Glucose 99 mg/dL (74-106); Potassium 3.9 mmol/L (3.5-5.1); Sodium Level 141 mmol/L (136-145)
[2023-02-04 17:12] LABS: Differential Indicated SCAN CRITERIA MET
[2023-02-04 18:27] LABS: Differential Comment SCANNED
== END | disposition home or self-care (01) ==
PROVIDERS: PCP Family Medicine Geriatric Medicine; Referring Provider Family Medicine Geriatric Medicine; Visit Provider Family Medicine Geriatric Medicine
DX: R63.0 Anorexia (principal)
CPT/HCPCS: 36415; 74019; 80048; 85025

== ENCOUNTER → 2023-02-11 | Outpatient (CLI) | payer OTHER, SELFPAY ==
[2023-02-11 12:49] LABS: Anion Gap 4 (5-15); BUN 18 mg/dL (7-18); Calcium,Total 8.8 mg/dL (8.5-10.1); Chloride 108 mmol/L (98-107); Creatinine, Serum 1.64 mg/dL (0.70-1.30); EST Glomerular Filtration Rate 45 mL/min (>60); Est Glom Filt Rate - Afr Amer 55 mL/min (>60); Glucose 109 mg/dL (74-106); Potassium 3.3 mmol/L (3.5-5.1); Sodium Level 142 mmol/L (136-145)
== END | disposition home or self-care (01) ==
PROVIDERS: PCP Family Medicine Geriatric Medicine; Referring Provider Internal Medicine Nephrology; Visit Provider Internal Medicine Nephrology
DX: N17.9 Acute kidney failure, unspecified (principal)
CPT/HCPCS: 36415; 80048

== ENCOUNTER 2023-02-18 20:01 | Emergency (ER) | payer OTHER, SELFPAY ==
[2023-02-18 20:02] VITALS: BP 157/82; PULSE 68; RESP 16; TEMP 36.2; O2SAT 94
[2023-02-18 21:09] VITALS: BMI 47.3
[2023-02-18 21:45] LABS: Absolute Lymphocyte Count 0.54 X10^3/uL (0.83-4.51); Absolute Neutrophil Count 5.6 X10^3/uL (2.0-7.7); Basophil# 0.02 X10^3/uL; Basophil% 0.3 % (0-1); Eosinophil# 0.23 X10^3/uL; Eosinophils% 3.1 % (0-5); Hematocrit 35.1 % (40-54); Hemoglobin 11.1 g/dL (13.0-16.5); Lymphocyte # 0.54 X10^3/ul (0.83-4.51); Lymphocyte % 7.4 % (19-41); Mean Corp Hgb Conc 31.6 g/dL (32-36); Mean Corpuscular Hgb 29.9 pg (27.0-32.0); Mean Corpuscular Volume 94.6 fL (80-94); Mean Platelet Vol. 8.7 fl (6.2-12.0); Monocyte# 0.87 X10^3/uL; Monocyte% 11.9 % (0-10); NRBC Flagged by Analyzer 0 % (0-5); Neutrophil # 5.63 X10^3/uL (2.7-7.7); Neutrophil % 76.9 % (47-70); POSITIVE DIFFERENTIAL YES; Platelet Count 122 K/mm3 (150-450); RBC Distribution Width CV 16.5 % (11.6-14.6); RBC Distribution Width SD 57.5 fl (35.1-43.9); Red Blood Count 3.71 M/mm3 (4.6-6.2); White Blood Count 7.3 K/mm3 (4.4-11.0)
[2023-02-18 21:54] LABS: Bacteria 0 SEEN /hpf (None Seen); Mucous, Urine 0 SEEN /hpf (<or=2+); Squamous Epithelial Cells - UA 0 SEEN /hpf (0-5)
--- NOTE | 2023-02-18 21:56 | EX.ED.DYSGE1 ---
HPI History of Present Illness Chief Complaint: Weakness Informant: patient and spouse/S.O. Narrative Narrative: Patient presents with weakness and fever. History is from patient and his . Patient was admitted on about a month ago for neutropenic fever. He states since prior to his last admission he has had no energy. His appetite has been down. But he is able to eat and drink. He occasionally has a cough but no sputum production. He is not short of breath. The cough is not worsening or changing. He denies urinary symptoms. He denies change in urine output. He states he is drinking fluids. He states he had mapping for radiation therapy with contrast about 2 weeks ago and that seemed to make him more tired. His last chemotherapy predates his last admission. He has a history of esophageal cancer that has spread to liver and lung. It is nonsurgical. Patient came in tonight because his temperature reached 99.2. This prompted arrival to the emergency department. But his symptoms have been going on for 4 weeks or more. [facility] Medical History Acute hemorrhoid KHURRAM (acute kidney injury) Alcohol use Anemia Arthritis Back pain Braces as ambulation aid Cancer Cancer of lower third of esophagus Cardiology follow-up encounter Cellulitis Chemotherapy management, encounter for Chills CINV (chemotherapy-induced nausea and vomiting) CPAP (continuous positive airway pressure) dependence Dermatitis Difficulty swallowing Dysphagia Dyspnea on exertion Elevated blood pressure reading Encounter for education Encounter for monoclonal antibody treatment for malignancy Esophageal cancer Esophageal cancer, stage IV Former smoker Gastric reflux History of echocardiogram History of edema History of heart attack Hyperlipidemia Immunotherapy encounter Left bundle branch block (LBBB) Leg cramps Marijuana use Morbid obesity Mucositis (ulcerative) due to antineoplastic therapy Near syncope (04/20/20) Neutropenia Neutropenia Non-ischemic cardiomyopathy Non-sustained ventricular tachycardia NSTEMI (non-ST elevated myocardial infarction) (04/20/20) Obstructive sleep apnea Oral candidiasis Palpitations Peripheral neuropathy Radiation esophagitis Radiation-induced dermatitis Rash Right upper quadrant pain Screening for colon cancer Shortness of breath on exertion Thrombocytopenia Wears glasses Home Medications lidocaine-prilocaine 2.5 %-2.5 % topical cream 1 applic topical ONCE PRN port access 30 days #30 grams 05/23/21 [Rx Last Taken Unknown] citalopram 20 mg tablet (Celexa) 20 mg PO DAILY 05/31/21 [History Last Taken 01/21/23] lorazepam 1 mg tablet 1 mg PO BID PRN Anxiety 05/31/21 [History Last Taken 01/21/23] aspirin 81 mg tablet,delayed release (Adult Aspirin Regimen) 81 mg PO DAILY #90 tabs 06/11/22 [Rx Last Taken 01/21/23] pantoprazole 40 mg tablet,delayed release 40 mg PO DAILY 06/14/22 [History Last Taken 01/21/23] ondansetron 8 mg disintegrating tablet 8 mg PO Q8H PRN nausea and vomiting #30 tabs 08/07/22 [Rx Last Taken 01/22/23] prochlorperazine maleate 10 mg tablet 10 mg PO Q6H PRN nausea and vomiting #30 tabs 08/07/22 [Rx Last Taken Unknown] carvedilol 12.5 mg tablet 12.5 mg PO BID #1 TAB 10/11/22 [Rx Last Taken 01/22/23] MAGIC MOUTH WASH (BMX) 180 mL suspension 5 ml buccal .QID 4 weeks #180 mL 01/17/23 [Rx Last Taken 01/21/23] dicyclomine 10 mg capsule 10 mg PO TID PRN abdominal pain/cramping #90 caps 01/25/23 [Rx Last Taken Unknown] haloperidol 1 mg tablet 1 mg PO Q8H PRN nausea and vomiting #30 tabs 01/27/23 [Rx Last Taken Unknown] dexamethasone 4 mg tablet 4 mg PO DAILY #10 tabs 02/06/23 [Rx Last Taken Unknown] mirtazapine 7.5 mg tablet 7.5 mg PO DAILY 02/06/23 [History Last Taken Unknown] Allergy/AdvReac Type Severity Reaction Status Date / Time No Known Allergies Allergy Verified 02/18/23 20:01 Family History Mother Breast cancer Hypertension CVA (cerebral vascular accident) High cholesterol Brother Cancer prostate Surgical History History of appendectomy History of esophagogastroduodenoscopy (EGD) History of left heart catheterization (04/21/20) Hx of surgical procedure Hx of surgical procedure Social History household members: spouse Smoking Status: Former smoker alcohol intake: former substance use type: does not use ROS ROS ED Constitutional Constitutional ED: Reports subjective Eyes Eyes: Denies change in vision ENT ENT ED: Denies ear pain, rhinorrhea or sore throat Cardiovascular Cardiovascular: Denies chest pain or palpitations Respiratory/Chest Respiratory/Chest: Reports cough; Denies dyspnea Gastrointestinal Gastrointestinal: Reports other Details: And has had some abdominal discomfort for months. But it is no different. ; Denies diarrhea, nausea or vomiting Musculoskeletal Musculoskeletal: Denies arthralgias or myalgias Integumentary Denies rash Neurologic Neurologic: Denies headache(s) Endocrine Endocrinology: Denies polydipsia or polyuria Hematologic/Lymphatic Hematologic/Lymphatic: Denies easy bleeding, easy bruising or lymphadenopathy Allergic/Immunologic Allergic/Immunologic ED: Denies urticaria EXAM Physical Exam Narrative Exam Narrative: CONSTITUTIONAL: Patient is nontoxic in appearance. The patient looks comfortable. HEENT: No notable trauma. Mucous membranes are still moist. I see no exudate. I see no petechia.. No sinus tenderness. No indication of pain with swallowing. EYES: No conjunctival injection. No proptosis. No pain with range of motion. CARDIOVASCULAR: Regular rate. Regular rhythm. No notable murmur. No JVD. RESPIRATORY: No respiratory distress. Breathing is unlabored. No wheezes. No rhonchi. No rales. No pain with a deep breath. No coughing while I am in the room. Patient's saturations are normal at 94% on room air showing no hypoxia. GASTROINTESTINAL: Obese but does not appear to be distended. Bowel sounds are normal. No tenderness. No guarding. No rebound. GENITOURINARY: No tenderness over the bladder. No CVA tenderness. MUSCULOSKELETAL: Atraumatic. No tenderness. NEUROLOGICAL: Patient is alert and appropriate. No focal deficit noted. SKIN: No noted rashes. No diaphoresis. PSYCHIATRIC: Patient is calm. Mood is appropriate. Const Vital Signs: 02/18/23 20:02 02/18/23 21:09 02/18/23 22:35 Temperature 97.2 F L 98.7 F Temperature Source Temporal Temporal Pulse Rate 68 65 Respiratory Rate 16 26 H Respiratory Effort Short of Breath Respiratory Pattern Normal Blood Pressure 157/82 H 127/76 H Blood Pressure Mean 107 93 Pulse Ox 94 90 Oxygen Delivery Method Nasal Cannula Oxygen Flow Rate (L/min) 2 MDM MDM MDM Narrative Medical decision making narrative: Patient CBC shows mild anemia and mild thrombocytopenia. No acute abnormalities. His white count is normal this time. Patient's electrolytes show no marked abnormalities. Patient's liver function tests do show some elevations. But he has had some of these before. He is not having pain at area is work due to. He does have known metastasis to his liver. Urine does not show signs of infection. Patient's serum lactate is normal. My independent interpretation of the patient's chest x-ray shows some atelectasis and shows his med port in the right chest. No acute process. This is similar to final reading. Patient's influenza, COVID, RSV are all negative. Patient has some generalized weakness and symptoms. Most of these been going on for about a month. They have increased since he had mapping for his radiation. But I think most of his symptoms are likely due to his metastatic cancer. I am not seeing any acute treatable illness at this time. I do not think admission is required. This note was generated with [employer] dictation software. It may contain incorrect words, spelling, and punctuation that were not noted in review of the chart prior to signing. Lab Data Attestation: I reviewed the patient's lab results. Labs: Laboratory Results - last 24 hr 02/18/23 02/18/23 02/18/23 21:38 21:45 22:11 WBC 7.3 RBC 3.71 L Hgb 11.1 L Hct 35.1 L MCV 94.6 H MCH 29.9 MCHC 31.6 L RDW Std Deviation 57.5 H RDW Coeff of Perla 16.5 H Plt Count 122 L MPV 8.7 Immature Gran % (Auto) 0.400 Neut % (Auto) 76.9 H Lymph % (Auto) 7.4 L [place] % (Auto) 11.9 H Eos % (Auto) 3.1 Baso % (Auto) 0.3 Absolute Neuts (auto) 5.6 Absolute Lymphs (auto) 0.54 L Nucleated RBC % 0 Differential Comment Sodium 139 Potassium 3.7 Chloride 105 Carbon Dioxide 29.0 Anion Gap 5 BUN 13 Creatinine 0.97 Estim Creat Clear Calc 83.02 Est GFR (MDRD) Af Amer 100 Est GFR (MDRD) Non-Af 83 BUN/Creatinine Ratio 13.4 Glucose 96 Lactic Acid 1.3 Calcium 8.5 Total Bilirubin 0.60 AST 71 H ALT 44 Alkaline Phosphatase 315 H Total Protein 6.0 L Albumin 2.6 L Globulin 3.4 Albumin/Globulin Ratio 0.8 L Urine Color Yellow Urine Clarity Clear Urine pH 6.5 Ur Specific [place] 1.010 Urine Protein Negative Urine Glucose (UA) Normal Urine Ketones Negative Urine Occult Blood 10 H Urine Nitrite Negative Urine Bilirubin Negative Urine Urobilinogen Normal Ur Leukocyte Esterase 25 H Urine RBC 0-5 SEEN Urine WBC 0-5 SEEN Ur Squamous Epith Cells 0 SEEN Urine Bacteria 0 SEEN Urine Mucus 0 SEEN Radiography Diagnostic Testing: Clinical Impression(s) from Imaging Studies Chest X-Ray 02/18/23 22:24 IMPRESSION: Right basilar atelectasis. Electronically Signed: Benny Boyd DO at 23:18 EST Reading Location ID and State: [facility] / [place] Tel [phone], Service support , Discharge Plan Triage Chief Complaint: Weakness ED Provider: Dejan Gamez Dx/Rx/DC Orders Clinical Impression: Generalized weakness, Metastasis to liver, Tiredness, History of esophageal cancer Instructions: ED Weakness (Uncertain Cause) Prescriptions: No Action citalopram [Celexa] 20 mg tablet 20 mg PO DAILY lorazepam 1 mg tablet 1 mg PO BID PRN (Reason: Anxiety) lidocaine-prilocaine 2.5-2.5 % cream 1 applic topical ONCE PRN (Reason: port access) 30 Days Qty: 30 2RF pantoprazole 40 mg tablet,delayed release (DR/EC) 40 mg PO DAILY MAGIC MOUTH WASH (BMX) 180 mL suspension 5 ml buccal .QID 28 Days Qty: 180 3RF Rx Instructions: diphenhydramine 12.5 mg/5 mL oral liquid 60 mL; aluminum-mag hydroxide-simethicone 400 mg-400 mg-40 mg/5 mL oral susp 60 mL; Lidocaine Viscous 2 % mucosal solution 60 mL; Per 180 mL mirtazapine 7.5 mg tablet 7.5 mg PO DAILY dexamethasone 4 mg tablet 4 mg PO DAILY Qty: 10 0RF dicyclomine 10 mg capsule 10 mg PO TID PRN (Reason: abdominal pain/cramping) Qty: 90 0RF haloperidol 1 mg tablet 1 mg PO Q8H PRN (Reason: nausea and vomiting) Qty: 30 0RF aspirin [Adult Aspirin Regimen] 81 mg tablet,delayed release (DR/EC) 81 mg PO DAILY Qty: 90 3RF ondansetron 8 mg tablet,disintegrating 8 mg PO Q8H PRN (Reason: nausea and vomiting) Qty: 30 2RF prochlorperazine maleate 10 mg tablet 10 mg PO Q6H PRN (Reason: nausea and vomiting) Qty: 30 2RF carvedilol 12.5 mg tablet 12.5 mg PO BID Qty: 1 3RF Rx Instructions: must administer with a meal/food Primary Care Provider: Jasen Bhardwaj Chi Referrals: Jasen Bhardwaj Chi, MD [Primary Care Provider] - 1 Week Disposition Disposition: Home, Self Care
[2023-02-18 22:04] LABS: Color, Urine Yellow (Yellow); Glucose, Dipstick Normal (Normal); Ketone-Dipstick Negative (Negative); Leukocyte Esterase-Dipstick 25 /ul (Negative); Nitrite-Dipstick Negative (Negative); Occult Blood-Urine 10 /ul (Negative); Protein-Dipstick Negative (Negative); Urine Bilirubin Dipstick Negative (Negative); Urine Clarity Clear (Clear); Urine Urobilinogen Normal (Normal); Urine pH 6.5 (5.0 - 8.0)
[2023-02-18 22:09] LABS: Differential Indicated SCAN CRITERIA MET
[2023-02-18 22:12] LABS: Red Blood Cells-Urine 0-5 SEEN /hpf (0-5); White Blood Cells 0-5 SEEN /hpf (0-5)
[2023-02-18 22:16] LABS: ALB/GLOB Ratio 0.8 RATIO (0.9-2.4); AST(SGOT) 71 U/L (15-37); Alanine Aminotransfer ALT/SGPT 44 U/L (16-61); Albumin, Serum 2.6 g/dL (3.2-5.0); Alkaline Phosphatase 315 U/L (45-117); Anion Gap 5 (5-15); BUN 13 mg/dL (7-18); BUN/Creat Ratio 13.4 RATIO (10-20); Calcium,Total 8.5 mg/dL (8.5-10.1); Chloride 105 mmol/L (98-107); Creatinine, Serum 0.97 mg/dL (0.70-1.30); EST Glomerular Filtration Rate 83 mL/min (>60); Est Glom Filt Rate - Afr Amer 100 mL/min (>60); Estimated Creatinine Clearance 83.02 ml/min; Globulin 3.4 g/dL (2.2-4.2); Glucose 96 mg/dL (74-106); Potassium 3.7 mmol/L (3.5-5.1); Sodium Level 139 mmol/L (136-145)
--- NOTE | 2023-02-18 22:24 | RAD_ITS ---
INDICATION: fever, cough EXAMINATION/TECHNIQUE: X-RAY - XR Chest 1 View COMPARISON: FINDINGS: LINES/DEVICES: Stable right venous port. LUNGS: No consolidation, edema or effusion. Right basilar atelectasis. No pneumothorax. MEDIASTINUM AND CARDIOVASCULAR STRUCTURES: Cardiac silhouette not enlarged. Central airways and mediastinal contour are unremarkable. BONES AND SOFT TISSUES: Degenerative vertebral changes. RAD/Chest 1 View (Portable) IMPRESSION: Right basilar atelectasis. Electronically Signed: Benny Boyd DO at 23:18 EST ,
[2023-02-18 22:35] VITALS: BP 127/76; PULSE 65; RESP 26; TEMP 37.1; O2SAT 90
[2023-02-18 22:47] LABS: Lactic Acid 1.3 mmol/L (0.4-1.9)
[2023-02-18 23:40] VITALS: BP 110/57; PULSE 67; RESP 22; O2SAT 95
[2023-02-18] MEDS: 0.9 % NaCl (Sterile) Posiflush 10 mL IV (23:46)
== END 2023-02-18 23:52 | disposition home or self-care (01) ==
PROVIDERS: Emergency Provider Emergency Medicine; PCP Family Medicine Geriatric Medicine; Visit Provider Emergency Medicine
DX: R53.1 Weakness (principal); C78.7 Secondary malignant neoplasm of liver and intrahepatic bile duct; C78.00 Secondary malignant neoplasm of unspecified lung; K21.00 Gastro-esophageal reflux disease with esophagitis, without bleeding; Z87.891 Personal history of nicotine dependence; E78.5 Hyperlipidemia, unspecified; R50.9 Fever, unspecified; Z92.21 Personal history of antineoplastic chemotherapy; R53.83 Other fatigue; Z85.01 Personal history of malignant neoplasm of esophagus; Z99.89 Dependence on other enabling machines and devices; I25.2 Old myocardial infarction; Z79.82 Long term (current) use of aspirin; Z79.899 Other long term (current) drug therapy; Z90.49 Acquired absence of other specified parts of digestive tract; Z95.828 Presence of other vascular implants and grafts
CPT/HCPCS: 36591; 71045; 80053; 81001; 83605; 85025; 87040; 87428; 87807; 99284; A4216

== ENCOUNTER → 2023-03-05 | Outpatient (CLI) | payer OTHER, SELFPAY ==
--- NOTE | 2023-03-05 15:23 | US_ITS ---
STUDY: ABDOMINAL ULTRASOUND -4 quadrant REASON FOR VISIT: Male, 62 years old ASCITES TECHNIQUE: Limited ultrasound of the 4 quadrants was performed with real-time and static cash-scale imaging. TECHNICAL QUALITY: Adequate. COMPARISON: None. FINDINGS: There is ascites noted within the right upper, right lower and left lower quadrant US/Abdomen Limited IMPRESSION: Moderate ascites within the abdomen and pelvis Electronically Signed: Michael Blandon MD at 16:38 EST ,
--- NOTE | 2023-03-05 15:25 | RAD_ITS ---
STUDY: X-RAY - ABDOMEN/PELVIS REASON FOR EXAM: Male, 62 years old. ABDOMINAL PAIN FEELS LIKE A LOT OF PRESSURE IN HIS ABDOMEN TECHNIQUE: 6 AP supine and upright views of the abdomen and pelvis. COMPARISON: CT of abdomen and pelvis dated January 22, 2023 FINDINGS: Normal visualized lung bases. There is an unremarkable bowel gas pattern. There is no demonstrated free abdominal air. The visualized liver, spleen and kidneys are grossly normal in size and morphology. Normal soft tissue structures. There are diffuse degenerative changes of the visualized lumbar spine. RAD/Abd Inc Decub and/or Erect IMPRESSION: 1. No demonstrated acute process of the abdomen and pelvis. If symptoms persist obtain a CT of abdomen and pelvis with contrast for further assessment. Electronically Signed: Mickey Fernandez MD at 16:07 EST ,
== END | disposition home or self-care (01) ==
LOC: US 15:20
PROVIDERS: PCP Family Medicine Geriatric Medicine; Referring Provider Family Medicine Geriatric Medicine; Visit Provider Family Medicine Geriatric Medicine
DX: R18.8 Other ascites (principal); R10.9 Unspecified abdominal pain
CPT/HCPCS: 74019; 76705

== ENCOUNTER → 2023-03-14 | Outpatient (CLI) | payer OTHER, SELFPAY ==
--- NOTE | 2023-03-14 | FLU_PTH ---
PATIENT: SHELLEY PAUL LOC: U#:[id number] AGE/SX: 62/M ROOM: RE03/14/[address]: Dr. Jasen Bhardwaj MD : 1960 BED: DIS: 03/14/2023 SPEC #: [id number] RECD: 03/14/23 08:47 STATUS: GREG FABIANO #: [id number] APRIL: 03/14/23 00:[address]: Jasen Bhardwaj Chi DEPT: CYTOLOGY RECD BY: Katy Villa Tissues: PARACENTESIS FLUID Procedures: Special Stain Group II Surgery Specimen Level IV Cytospin Fluid HEADER OPERATION: Paracentesis PRE-OP DIAGNOSIS: Ascites TISSUE SUBMITTED: Paracentesis fluid for Cytology DIAGNOSIS CYTOLOGY Paracentesis fluid for Cytology (cytospin and cell block): Negative for malignant cells. AM:fanny 03/15/2023 CYTOLOGY STUDY Slides are reviewed. CYTOLOGY GROSS Received is 70 ml of yellow cloudy fluid labeled with the patient's name and and designated per the requisition as paracentesis. Submitted for cytology preparation including cell block. / bl 03/14/2023 TC:5 CPT: 09161, 39699
--- NOTE | 2023-03-14 07:40 | US_ITS ---
PROCEDURE: Ultrasound guided paracentesis. DATE OF EXAMINATION: March 14, 2023. INDICATION: Male, 62 years old. Ascites. PHYSICIAN: Jim Skinner M.D. TECHNIQUE: The risks, benefits, and alternatives to the procedure were explained to the patient. The specific risks of bleeding, infection, and damage to bowel were detailed and accepted. Witnessed informed consent was obtained. The abdomen was ultrasonographically surveyed. An appropriate pocket of fluid was identified at the right lower quadrant. The skin were cleaned and prepped in the usual sterile fashion. Using ultrasound guidance, the peritoneal cavity was accessed with a 5-Gabonese paracentesis needle/catheter system. The trocar was removed. A total of 5000 ml of ximena-colored fluid were removed from the peritoneal cavity. 100 mL sample was sent to the laboratory. The catheter was removed and a sterile dressing was applied. The procedure was well tolerated. US/Paracentesis with US IMPRESSION: Ultrasound guided paracentesis. Electronically Signed: Jim Skinner MD at 9:07 EST ,
[2023-03-14 08:10] VITALS: BP 109/66; BP 110/63; BP 111/60; BP 111/76; PULSE 58; PULSE 59; PULSE 60; PULSE 61; RESP 16; TEMP 36.5; O2SAT 93; O2SAT 94
[2023-03-14] MEDS: Lidocaine 2% (20 ml mdv) 20 ML Vial INFILT (08:15)
[2023-03-14 08:55] LABS: Cytology, Body Fluid / CSF SEE PATHOLOGY REPORT
[2023-03-14 09:31] LABS: LDH,Body Fluid 102 Units/L (Not Establ.); Protein, Body Fluid 2.3 g/dL (Not Establ.)
[2023-03-15 13:07] LABS: Albumin, Body Fluid 1.8 g/dL (Not Estab.)
== END | disposition home or self-care (01) ==
LOC: US 07:39
PROVIDERS: PCP Family Medicine Geriatric Medicine; Referring Provider Family Medicine Geriatric Medicine; Visit Provider Family Medicine Geriatric Medicine
DX: R18.8 Other ascites (principal)
CPT/HCPCS: 49083; 82042; 83615; 84157; 87102; 87206; 88108; 88305; 88313

== ENCOUNTER → 2023-03-27 | Outpatient (CLI) | payer OTHER, SELFPAY ==
[2023-03-27 08:17] VITALS: BP 112/59; PULSE 60; RESP 16; TEMP 36; O2SAT 95
[2023-03-27] MEDS: Lidocaine 2% (20 ml mdv) 20 ML Vial INFILT (08:18)
[2023-03-27 08:30] VITALS: BP 100/55; PULSE 60; RESP 16; O2SAT 96
[2023-03-27 08:45] VITALS: BP 101/77; PULSE 59; RESP 16; O2SAT 96
--- NOTE | 2023-03-27 09:04 | PCM.OP.PRO ---
Procedure Report Date of Procedure: 03/27/23 Assessment & Plan Assessment/Plan (1) Metastasis to liver: (2) Ascites: QUALIFIERS: Ascites type: malignant Qualified Code(s): R18.0 - Malignant ascites PLAN: PROCEDURE: Ultrasound guided paracentesis ORDERING PROVIDER: Dr. Bhardwaj INDICATION: Male, 68 years old. Malignant ascites. PROVIDER: KATTY Vargas TECHNIQUE: The risks, benefits, and alternatives to the procedure were explained to the patient. The specific risks of bleeding, infection, and damage to bowel were detailed and accepted. Witnessed informed consent was obtained. The abdomen was ultrasonographically surveyed. An appropriate pocket of fluid was identified in the right lower quadrant. The skin was prepped with Betadine swabs and sterile field established. 2% lidocaine was used for local anesthetic. Using ultrasound guidance, the peritoneal cavity was accessed with a 5-Montserratian paracentesis needle/catheter system. The trocar was removed. A total of 5150 ml of clear yellow colored fluid was removed from the peritoneal cavity. The catheter was removed and a sterile dressing was applied. The procedure was well tolerated. IMPRESSION: Successful ultrasound-guided paracentesis with right lower quadrant access site. Procedures Radiology Radiology US Procedures: [id number] Paracentesis
== END | disposition home or self-care (01) ==
LOC: US 07:41
PROVIDERS: PCP Family Medicine Geriatric Medicine; Referring Provider Family Medicine Geriatric Medicine; Visit Provider Family Medicine Geriatric Medicine
DX: R18.8 Other ascites (principal)
CPT/HCPCS: 49083

== ENCOUNTER → 2023-04-05 | Outpatient (CLI) | payer OTHER, SELFPAY ==
[2023-04-05 10:52] VITALS: BP 110/70; PULSE 67; RESP 16; TEMP 36; O2SAT 95
[2023-04-05] MEDS: Lidocaine 2% (20 ml mdv) 20 ML Vial INFILT (10:54)
[2023-04-05 11:00] VITALS: BP 105/64; PULSE 65; RESP 16; O2SAT 95
[2023-04-05 11:15] VITALS: BP 104/59; PULSE 63; RESP 18; O2SAT 94
[2023-04-05 11:21] VITALS: BP 104/63; PULSE 63; RESP 18; O2SAT 94
--- NOTE | 2023-04-05 11:32 | PCM.OP.PRO ---
Procedure Report Date of Procedure: 04/05/23 Assessment & Plan Assessment/Plan (1) Ascites: QUALIFIERS: Ascites type: malignant Qualified Code(s): R18.0 - Malignant ascites PLAN: PROCEDURE: Ultrasound guided paracentesis ORDERING PROVIDER: Dr. Bhardwaj INDICATION: Male, 62 years old. Ascites. PROVIDER: KATTY Vargas TECHNIQUE: The risks, benefits, and alternatives to the procedure were explained to the patient. The specific risks of bleeding, infection, and damage to bowel were detailed and accepted. Witnessed informed consent was obtained. The abdomen was ultrasonographically surveyed. An appropriate pocket of fluid was identified in the right lower quadrant. The skin was prepped with Betadine swabs and sterile field established. 2% lidocaine was used for local anesthetic. Using ultrasound guidance, the peritoneal cavity was accessed with a 5-Mauritian paracentesis needle/catheter system. The trocar was removed. A total of 6700 ml of clear yellow colored fluid was removed from the peritoneal cavity. The catheter was removed and a sterile dressing was applied. The procedure was well tolerated. IMPRESSION: Successful ultrasound-guided paracentesis with right lower quadrant access site. Procedures Radiology Radiology US Procedures: [id number] Paracentesis
--- NOTE | 2023-04-05 14:48 | CASEMGMT ---
RN CM: Referral received from interventional radiology tech's with concerns re: insurance coverage 04/15/23. This RN CM attempted to contact pt via phone. Voicemail received and message left requesting a return call. Colby Land RN ACM
== END | disposition home or self-care (01) ==
PROVIDERS: PCP Family Medicine Geriatric Medicine; Referring Provider Family Medicine Geriatric Medicine; Visit Provider Family Medicine Geriatric Medicine
DX: C15.5 Malignant neoplasm of lower third of esophagus (principal); C78.7 Secondary malignant neoplasm of liver and intrahepatic bile duct; R18.0 Malignant ascites
CPT/HCPCS: 49083

== ENCOUNTER → 2023-04-11 | Outpatient (CLI) | payer OTHER, SELFPAY ==
[2023-04-11 12:13] VITALS: BP 115/75; PULSE 86; RESP 16; O2SAT 93
--- OUTSIDE RECORDS SUMMARY | 2023-04-11 12:14 | XMS RPT_ITS | CCD ---
Author Name Unknown Address [address] [facility] [address] [place] [address] Organization [facility] Care Team Providers Care Premium Representative Name Role Phone Melba Winter Primary Care Provider [phone] Deep James MD Unavailable CorrinaConrad smith DO Unavailable [phone] DEEP JAMES Referring Unavailable MELBA WINTER Primary Care Unavailab SESAR Mcgraw Attending Unavailable RAMON ARREAGA Attending Unavailable MELBA WINTER Primary Care UnavailRAMON Gaston Referring Unavailable DEEP JAMES MD Attending Unavailable MELBA WINTER MD Primary Care Unavailable MELBA WINTER MD Primary Care Physician [phone] Melba Winter Primary Care Provider [phone] Deep James MD Unavailable CorrinaConrad smith DO Unavailable Medications Current Medications Medication Drug Class(es) Dates Sig (Normalized) Sig (Original) acetaminophen 325 mg / HYDROcodone bitartrate 5 mg oral tablet (1 source) Opioid Agonist Start: 01-25-2014 take 1 tablet by mouth every six hours [place] 325- 5 mg oral tablet Dose = 1 tab(s), Oral, q6h, # 12 tab(s), 0 Refill(s) Start Date: 01/25/14 Status: Ordered Lipitor (1 source) HMG-CoA Reductase Inhibitor Start: 01-25-2014 Furosemide (1 source) Loop Diuretic Start: 01-25-2014 furosemide qDay Start Date: 01/25/14 Status: Ordered gentamicin 3 mg/ml ophthalmic solution (1 source) Start: 01-25-2014 take 1 dose into the eye(s) four times daily gentamicin 0.3% ophthalmic solution Dose = 2 drop(s), Ophthalmic, QID, # 5 mL, 0 Refill(s) Start Date: 01/25/14 Status: Ordered Metoprolol (1 source) beta-Adrenergic Johny Start: 01-25-2014 metoprolol metoprolol, 0 Refill(s) Start Date: 01/25/14 Status: Ordered Multivitamin preparation (1 source) Start: 01-25-2014 take 1 tablet by mouth once daily Multivitamin Dose = 1 tab(s), Oral, Daily Start Date: 01/25/14 Status: Ordered Completed/Discontinued Medications Medication Drug Class(es) Dates Sig (Normalized) Sig (Original) aspirin 81 mg oral tablet (3 sources) Platelet Aggregation Inhibitor, Nonsteroidal Anti-inflammatory Drug take 1 tablet by mouth once daily aspirin 81 mg cap Take 1 tablet by mouth once daily. 0 Active Problems Problem Classification Problem Date Documented Date Episodic/Chronic Cancer of esophagus (2 sources) Adenocarcinoma of esophagus; Translations: [Malignant neoplasm of esophagus, unspecified] Onset: 07-05-2022 Chronic Secondary malignancies (1 source) Secondary malignant neoplasm of liver; Translations: [Secondary malignant neoplasm of liver and intrahepatic bile duct] Chronic Secondary malignancies (1 source) Secondary malignant neoplasm of liver and intrahepatic bile duct; Translations: [Liver metastases (HCC)] Onset: 07-05-2022 Chronic Results Test Name Value Interpretation Reference Range Facil ity Vital Signs Date Time Vital Sign Value Performing Clinician Pedro guillermo 07-05-2022 11:31-0400 Body height 180.3 cm Sesar Rothman MD Work Phone: [facility] 07-05-2022 11:31-0400 Body weight 154.22 kg Sesar Rothman MD Work Phone: [facility] 07-05-2022 11:31-0400 Diastolic blood pressure 61 mm[Hg] Sesar Rothman MD Work Phone: [facility] 07-05-2022 11:31-0400 Heart rate 63 /min Sesar Rothman MD Work Phone: [facility] 07-05-2022 11:31-0400 SaO2% (BldA) [Mass fraction] 98 % Sesar Rothman MD Work Phone: [facility] 07-05-2022 11:31-0400 Systolic blood pressure 129 mm[Hg] Sesar Rothman MD Work Phone: [facility] Encounters Encounter Date Encounter Type Care Provider Facility Start: 01-24-2023 Telephone encounter Mauri Jimy Waldron ros MONAE Work Phone: Hematology/Oncology Start: 08-08-2022 End: 08-13-2022 ambulatory DEEP JAMES MD Facility:B Start: 08-08-2022 End: 08-13-2022 Encounter for general adult medical examination without abnormal findings DEEP JAMES MD Facility:[facility] Start: 08-08-2022 End: 08-12-2022 Outreach Lab DEEP JAMES MD [facility] Start: 07-13-2022 End: 07-13-2022 ambulatory RAMON ARREAGA Facility:[facility] Start: 07-05-2022 End: 07-05-2022 ambulatory DEEP JAMES Facility:[facility] Start: 07-05-2022 End: 07-05-2022 Patient encounter procedure Sesar Rothman MD Work Phone: [facility] Plan of Treatment Date Care Activity Detail Author Start: 12-14-2022 Covid-19 Vaccine ( season) Covid-19 Vaccine ( season) [facility] Start: 12-14-2022 Influenza vaccination Influenza Vacc ine (#1) [facility] Start: 04-15-2022 DEPRESSION ASSESSMENT DEPRESSION ASS ESSMENT [facility] Start: 12-14-2021 Influenza vaccination INFLUENZA (#1) [facility] Start: 08-27-2014 PROSTATE CANCER SCRE ENING DISCUSSION PROSTATE CANCER SCREENING DISCUSSION [facility] Start: 08-27-2009 SHINGRIX VACCINE (1 of 2) SHINGRIX V ACCINE (1 of 2) [facility] Start: 08-27-2004 COLOGUARD (FIT-DNA) COLOGUARD (FIT-D NA) [facility] Start: 08-27-2004 Colonoscopy COLONOSCOPY [facility] Start: 08-27-2004 COLORECTAL CANCER SCREENING COLORECTAL CANCER SCREENING [facility] Start: 08-27-[address] COLONOGRAPHY [facility] Start: 08-27-2004 DIABETES SCREEN [facility] Start: 08-27-2004 Diabetes Screening Diabetes Screenin g [facility] Start: 08-27-2004 FECAL OCCULT BLOOD FECAL OCCULT BLOO D [facility] Start: 08-27-2004 SIGMOIDOSCOPY SIGMOIDOSCOPY [facility] Start: 08-27-1994 Lipid 1996 panel - S saturnino or Plasma Lipid Screening [facility] Start: 08-27-1994 LIPID SCREEN LIPID SCREEN [facility] Start: 08-27-1978 Urine microalbumin profile [facility] Start: 08-27-1977 HEPATITIS C SCREENING HEPATITIS C SC REENING [facility] Start: 08-27-1977 HIV SCREENING HIV SCREENING [facility] Start: 02-28-1960 COVID-19 VACCINE (#1) COVID-19 VACCI NE (#1) [facility] Immunizations Immunization Date Immunization Notes Care Provider Fa cility 03-21-2022 influenza virus vacc ine, unspecified formulation Mauri Tadeo DO Work Phone: [facility] Payers Date Payer Category Payer Self-pay 2022 Unknown [employer] P[employer] [id number] 2022-Present [phone] [address] [place] [address] PPO [id number] 2022 Unknown [id number] Unknown [id number] Social History Date Type Detail Facility Tobacco smoking status NJIS Tobacco smoking consumption unknown [facility] Start: 1960 Sex Assigned At Not on file [facility] Start: 07-05-2022 Tobacco smoking status NHIS Ex-smoker [facility] History of tobacco use Current smoker [facility] History of tobacco use Cigarette Smoker [facility] Start: 07-05-2022 Tobacco use and exposure Smokeless tobacco non-user [facility] Start: 07-05-2022 Alcohol intake Ex-drinker (finding) [facility] Start: 07-05-2022 Alcohol Comment 12 pack per day [facility] Tobacco smoking status Never smoked tobacco (finding) [facility] Ángel Sex Assigned At Male [facility] Start: 07-05-2022 History of Social function [facility] Start: 07-05-2022 Tobacco use panel [facility] National Score (1-100), lower number is lower risk [address] [facility] Note 01-24-2023 Telephone Encounter - Toma Yost LPN - 01/24/2023 3:41 PM EDTTelephone Encounter - Tammy Curran - 01/24/2023 2:53 PM EDT Note Date & Type Note Facility 01-24-2023 Miscellaneous Notes Formattin g of this note might be different from the original. Copy of note personally given to Dr. Peterson . Toma Yost LPN Received call from [facility] requesting in patient consult. Patient is in room 315, Dr. Idania Andrade referring, dx, Neutropenia, chemo se? Please advise. documented in this encounter [facility] Progress note 07-23-2022 Note Date & Type Note Facility 07-23-2022 Note HNO ID: [id number] Author: Sesar Rothman MD Service: ? Author Type: Physician Type: Progress Notes Filed: 07/23/2022 3:58 PM Note Text: Patient referred by: Deep James [address] [facility] [address] HPI: This is a new patient consult from Dr. James. Mr Paige Is a 61-year-old gentleman who presents to me for evaluation and management of esophageal adenocarcinoma with liver metastases. In March 2021 while being evaluated for dysphagia he was found to have a moderately differentiated distal esophageal adenocarcinoma, PD-L1 positive, HER2/MSI negative. At the time of his staging images, a PET scan was performed on 05/03/2021 which showed distal esophageal lesion but also showed several other lesions within the liver the largest 1 measuring 3.5 cm, consistent with metastatic disease. At that time he was staged as a cT3 N1 M1 distal esophageal adenocarcinoma. He was subsequently started on palliative chemoradiation to the esophagus from 05/17/2021 to 06/06/2021. Following chemoradiation he was started on FOLFOX and nivolumab on 06/07/2019. He had an upper endoscopy performed on 05/16/2022 which did not show any evidence of disease in the distal esophagus. His most recent imaging from 05/31/[address], MRI of the liver and a CT of the chest abdomen pelvis which shows new right-sided liver lesions. He presents today for evaluation and management of these lesions. At this point in time he does not have any difficulty swallowing. He has not lost weight. No fevers or chills. He is able to keep all foods down without any issues. PAST MEDICAL HISTORY Diagnosis Date Alcohol use Arthritis Back pain CPAP (continuous positive airway pressure) dependence Difficulty swallowing Former smoker Gastric reflux Left bundle branch block Leg cramps Morbid obesity (HCC) Near syncope NSTEMI (non-ST elevated myocardial infarction) (HCC) Obstructive sleep apnea Palpitations Shortness of breath on exertion PAST SURGICAL HISTORY Procedure Laterality Date APPENDECTOMY COLONOSCOPY SCREENING 2020 EGD W/O BRSH SPEC VARICIES INJ LEFT HEART CATH,PERCUTANEOUS 04/2020 PAST SURGICAL HISTORY OF Left left arm muscle repair FAMILY HISTORY Problem Relation Age of Onset Breast Cancer Mother Hypertension Mother other (CVA) Mother other (High cholesterol) Mother Prostate Cancer Brother Social History Tobacco Use Smoking status: Former Years: 5.00 Types: Cigarettes Smokeless tobacco: Never Substance Use Topics Alcohol use: Not Currently Comment: 12 pack per day Drug use: Never Current Outpatient Medications Medication Sig lidocaine-prilocaine (EMLA) 2.5-2.5 % cream Apply to affected area as needed (PORT ACCESS). citalopram (CELEXA) 20 mg tablet Take by mouth once daily. LORazepam (ATIVAN) 1 mg tablet Take 1 mg by mouth every 6 hours as needed. carvedilol (COREG) 25 mg tablet Take 25 mg by mouth twice daily with meals. aspirin 81 mg cap Take 1 tablet by mouth once daily. pantoprazole DR (PROTONIX) 40 mg tablet Take 40 mg by mouth once daily. lisinopril (ZESTRIL) 10 mg tablet Take 10 mg by mouth once daily. ondansetron (ZOFRAN) 8 mg tablet Take 8 mg by mouth every 8 hours as needed for nausea/vomiting. (Patient not taking: Reported on 07/05/2022) prochlorperazine (COMPAZINE) 10 mg tablet Take 10 mg by mouth every 6 hours as needed. (Patient not taking: Reported on 07/05/2022) No current facility-administered medications for this visit. ALLERGIES No Known Allergies REVIEW OF SYSTEMS: Review of Systems Constitutional: Negative for chills, fever, malaise/fatigue and weight loss. Respiratory: Negative for cough, shortness of breath and wheezing. Cardiovascular: Negative for chest pain, orthopnea and leg swelling. Gastrointestinal: Negative for abdominal pain, blood in stool, constipation, diarrhea, heartburn, melena, nausea and vomiting. Genitourinary: Negative for dysuria and frequency. Musculoskeletal: Negative for falls and myalgias. Skin: Negative for rash. Neurological: Negative for dizziness, tingling, tremors and weakness. Endo/Heme/Allergies: Does not bruise/bleed easily. Psychiatric/Behavioral: Negative for depression, substance abuse and suicidal ideas. The patient is not nervous/anxious and does not have insomnia. PHYSICAL EXAM: BP 129/61 Pulse 63 Ht 5' 11 (1.80m) Wt 340 lb (154.2kg) SpO2 98% BMI 47.44 kg/(m2). Last 2 Encounter Wt Readings: Date: Wt: 07/05/2022 154.2 kg (340 lb) Physical Exam Vitals reviewed. Constitutional: General: He is not in acute distress. Appearance: He is not diaphoretic. HENT: Head: Normocephalic. Eyes: General: No scleral icterus. Conjunctiva/sclera: Conjunctivae normal. Pupils: Pupils are equal, round, and reactive to light. Neck: Thyroid: No thyromegaly. Trachea: No tracheal deviation. Cardiovascular: Rate and Rhythm: Regular rhythm. Pul (more content not included)... [facility] History of Present illness Narrative 07-23-2022 Sesar Rothman MD - 07/23/2022 3:38 PM EDT Note Date & Type Note Facility 07-23-2022 History of Presen t illness Narrative Patient referred by: Deep James [address] [facility] [address] HPI: This is a new patient consult from Dr. James. Mr Paige Is a 61-year-old gentleman who presents to me for evaluation and management of esophageal adenocarcinoma with liver metastases. In March 2021 while being evaluated for dysphagia he was found to have a moderately differentiated distal esophageal adenocarcinoma, PD-L1 positive, HER2/MSI negative. At the time of his staging images, a PET scan was performed on 05/03/2021 which showed distal esophageal lesion but also showed several other lesions within the liver the largest 1 measuring 3.5 cm, consistent with metastatic disease. At that time he was staged as a cT3 N1 M1 distal esophageal adenocarcinoma. He was subsequently started on palliative chemoradiation to the esophagus from 05/17/2021 to 06/06/2021. Following chemoradiation he was started on FOLFOX and nivolumab on 06/07/2019. He had an upper endoscopy performed on 05/16/2022 which did not show any evidence of disease in the distal esophagus. His most recent imaging from 05/31/[address], MRI of the liver and a CT of the chest abdomen pelvis which shows new right-sided liver lesions. He presents today for evaluation and management of these lesions. At this point in time he does not have any difficulty swallowing. He has not lost weight. No fevers or chills. He is able to keep all foods down without any issues. PAST MEDICAL HISTORY Diagnosis Date Alcohol use Arthritis Back pain CPAP (continuous positive airway pressure) dependence Difficulty swallowing Former smoker Gastric reflux Left bundle branch block Leg cramps Morbid obesity (HCC) Near syncope NSTEMI (non-ST elevated myocardial infarction) (HCC) Obstructive sleep apnea Palpitations Shortness of breath on exertion PAST SURGICAL HISTORY Procedure Laterality Date APPENDECTOMY COLONOSCOPY SCREENING 2020 EGD W/O BRSH SPEC VARICIES INJ LEFT HEART CATH,PERCUTANEOUS 04/2020 PAST SURGICAL HISTORY OF Left left arm muscle repair FAMILY HISTORY Problem Relation Age of Onset Breast Cancer Mother Hypertension Mother other (CVA) Mother other (High cholesterol) Mother Prostate Cancer Brother Social History Tobacco Use Smoking status: Former Years: 5.00 Types: Cigarettes Smokeless tobacco: Never Substance Use Topics Alcohol use: Not Currently Comment: 12 pack per day Drug use: Never Current Outpatient Medications Medication Sig lidocaine-prilocaine (EMLA) 2.5-2.5 % cream Apply to affected area as needed (PORT ACCESS). citalopram (CELEXA) 20 mg tablet Take by mouth once daily. LORazepam (ATIVAN) 1 mg tablet Take 1 mg by mouth every 6 hours as needed. carvedilol (COREG) 25 mg tablet Take 25 mg by mouth twice daily with meals. aspirin 81 mg cap Take 1 tablet by mouth once daily. pantoprazole DR (PROTONIX) 40 mg tablet Take 40 mg by mouth once daily. lisinopril (ZESTRIL) 10 mg tablet Take 10 mg by mouth once daily. ondansetron (ZOFRAN) 8 mg tablet Take 8 mg by mouth every 8 hours as needed for nausea/vomiting. (Patient not taking: Reported on 07/05/2022) prochlorperazine (COMPAZINE) 10 mg tablet Take 10 mg by mouth every 6 hours as needed. (Patient not taking: Reported on 07/05/2022) No current facility-administered medications for this visit. ALLERGIES No Known Allergies REVIEW OF SYSTEMS: Review of Systems Constitutional: Negative for chills, fever, malaise/fatigue and weight loss. Respiratory: Negative for cough, shortness of breath and wheezing. Cardiovascular: Negative for chest pain, orthopnea and leg swelling. Gastrointestinal: Negative for abdominal pain, blood in stool, constipation, diarrhea, heartburn, melena, nausea and vomiting. Genitourinary: Negative for dysuria and frequency. Musculoskeletal: Negative for falls and myalgias. Skin: Negative for rash. Neurological: Negative for dizziness, tingling, tremors and weakness. Endo/Heme/Allergies: Does not bruise/bleed easily. Psychiatric/Behavioral: Negative for depression, substance abuse and suicidal ideas. The patient is not nervous/anxious and does not have insomnia. PHYSICAL EXAM: BP 129/61 Pulse 63 Ht 5' 11 (1.80m) Wt 340 lb (154.2kg) SpO2 98% BMI 47.44 kg/(m^2). Last 2 Encounter Wt Readings: Date: Wt: 07/05/2022 154.2 kg (340 lb) Physical Exam Vitals reviewed. Constitutional: General: He is not in acute distress. Appearance: He is not diaphoretic. HENT: Head: Normocephalic. Eyes: General: No scleral icterus. Conjunctiva/sclera: Conjunctivae normal. Pupils: Pupils are equal, round, and reactive to light. Neck: Thyroid: No thyromegaly. Trachea: No tracheal deviation. Cardiovascular: Rate and Rhythm: Regular rhythm. Pulmonary: Effort: Pulmonary effort is normal. No respiratory distress. Breath sounds: No wheezing. Chest: Chest wall: No tenderness. Abdominal: General: There is no distension. Palpations: There is no mass. Tenderness: There is no abdominal tenderness. There is no guarding or rebound. Hernia: No hernia is present. Musculoskeletal: General: No tenderness or deformity. Normal range of motion. Cervical back: Normal range of motion and neck supple. Lymphadenopathy: Cervical: No cervical adenopathy. Skin: General: Skin is warm and dry. Coloration: Skin is not pale. Findings: No erythema or rash. Neurological: Mental Status: He is alert and oriented to person, place, and time. Coordination: Coordination normal. Psychiatric: Mood and Affect: Mood and affect normal. DATA: Diagnostic tests reviewed for today's visit: Most recent labs Most recent imaging Pathology report reviewed I spent a total of 60 minutes on the date of the service which included preparing to see the patient, [id number] patient care, completing clinical documentation, obtaining and/or reviewing separately obtained history, performing a medically appropriate examination, counseling and educating the patient/family/caregiver, ordering medications, tests, or procedures, communicating with other HCPs (not separately reported), independently interpreting results (not separately reported), and communicating results to the patient/family/caregiver. ASSESSMENT / PLAN: Problem List Items Addressed This Visit None Visit Diagnoses Liver metastases (HCC) - Primary Relevant Orders CONSULT TO INTERVENTIONAL RADIOLOGY (AG) Esophageal adenocarcinoma (HCC) Relevant Orders CONSULT TO INTERVENTIONAL RADIOLOGY (AG) Medical Decision Making: Problems: Moderate: New problem with uncertain prognosis and 2+ stable chronic illnesses Data: Unique source(s) for external note(s) reviewed: 3+ Unique test result(s) reviewed: 3+ Unique test(s) ordered: 1 Discussed management or test w/ external physician/QHCP/source Risk: High: High risk from testing/treatment Medical Decision Making Level: 5 - High In summary, this is a 61-year-old gentleman with history of cT3 N1 M1 distal esophageal adenocarcinoma with metastatic disease in the liver was diagnosed in March 2021 and subsequently received palliative chemoradiation and systemic chemotherapy/immunotherapy. At this point in time he has persistent and progressive disease in the liver without any evidence of distal esophageal lesions and is here for evaluation of the liver lesions. I have reviewed his imaging studies including his remote imaging studies personally. Even though the large right-sided liver lesion is technically resectable, the oncologic benefit of performing a metastatectomy for metastatic esophageal adenocarcinoma is unclear and could potentially cause the patient however. Given the above, I would like to avoid a liver resection for this. A percutaneous ablation may be an option however this lesion appears to be larger than what would be amenable to ablation. I think he would be a reasonable candidate for intra-arterial liver directed therapy while receiving concomitant systemic therapy as well. I have discussed this with Dr. James who is in agreement. We will refer him to interventional radiology for evaluation for Y90 treatment. All questions and concerns were addressed. He showed good understanding and agreed to proceed. Sesar Rothman MD documented in this encounter [facility] Instructions 07-05-2022 Patient Instructions Note Date & Type Note Facility 07-05-2022 Instructions Sesar Rothman MD - 07/05/2022 12:34 PM EDT Please do not hesitate to call my office for any questions or concerns. documented in this encounter [facility] Evaluation + Plan note Note Date & Type Note Facility Evaluation + Plan note No data available for this section [facility] Evaluation note Note Date & Type Note Facility documented in this encounter [facility] Discharge instructions Note Date & Type Note Facility Hospital Discharge instructions No data available for this section [facility] Progress note Note Date & Type Note Facility Progress note No data available for this section [facility] Reason for Referral Specialty Diagnoses / Procedures Referred By Palmer t Referred To Contact Diagnoses Esophageal adenocarcinoma (HCC) Liver metastases Procedures CONSULT TO INTERVENTIONAL RADIOLOGY (AG) Sesar Rothman MD [address] [facility] [address] [place] [address] Referral ID Status Reason Start Date Expiration Date Visits Requested Visits Authorized [id number] Ref Not Required PCP Requested Referral 07/05/2022 10/03/2022 1 1 Summary Purpose Family History No Family History Records FoundNo Family History Records FoundNo Family History Records Found Advance Directives No Advanced Directives Records FoundNo Advanced Directives Records FoundNo Advanced Directives Records Found Additional Source Comments Source Comments (unrecognize d section and content) In the event this informatio n is protected by the Federal Confidentiality of Alcohol and Drug Abuse Patient Records regulations: The Federal rules restrict any use of the information to criminally investigate or prosecute any alcohol or drug abuse patient.[facility] the event this information is protected by the Federal Confidentiality of Alcohol and Drug Abuse Patient Records regulations: The Federal rules restrict any use of the information to criminally investigate or prosecute any alcohol or drug abuse patient.[facility] the event this information is protected by the Federal Confidentiality of Alcohol and Drug Abuse Patient Records regulations: The Federal rules restrict any use of the information to criminally investigate or prosecute any alcohol or drug abuse patient.[facility] Care Teams (unrecognized sec tion and content) Premium Representative Relationship Specialty Start Date End Date Melba Winter [address] [place] [address] PCP - General Family Medicine 02/07/17 Deep James MD [address] [place], [place] [id number] [phone] Specialty Nuclear Officer Oncology 06/28/22 Conrad Houser DO [address] [facility] [address] [place] [address] Specialty Nuclear Officer Radiation Oncology 07/05/22 Premium Representative Relationship Specialty Start Date End Date Melba Winter [address] [place] [address] PCP - General Family Medicine 02/07/17 Deep James MD [address] [place], [place] [phone] Specialty Nuclear Officer Oncology 06/28/22 Conrad Houser DO [address] [facility] [address] [place] [address] Specialty Nuclear Officer Radiation Oncology 07/05/22 Reason for Visit (unrecogniz ed section and content) Specialty Diagnoses / Procedures Referred By Contac t Referred To Contact General Surgery / GENERAL SURGERY Diagnoses liver met, s/p esophageal cancer in 2021 - refer from dr. james Procedures OFFICE/OUTPATIENT NEW MODERATE MDM 45-59 MINUTES NEW PATIENT Deep James MD [address] [place] [address] Sesar Rothman MD [address] [facility] [address] [place] [address] Referral ID Status Reason Start Date Expiration Date Visits Re quested Visits Authorized [id number] Closed 04/15/2022 04/14/2023 1 1 (unrecognized sect ion and content) No Status Records FoundNo Status Records FoundNo Status Records Found INFORMATION SOURCE (unrecogn ized section and content) DATE CREATED AUTHOR AUTHOR'S ORGANIZ ATION 08/12/2022 [facility] DATE CREATED AUTHOR AUTHOR'S ORGANIZ ATION 01/27/2023 [facility] FOR RECORDS PERTAINING TO PATIENTS WHO ARE OR HAVE BEEN ENROLLED IN A CHEMICAL DEPENDENCY/SUBSTANCEABUSE PROGRAM, SOME INFORMATION MAY BE OMITTED. This clinical summary was aggregated from multiple sources. Caution should be exercised in using it in the provision of clinical care. This summary normalizes information from multiple sources, and as a consequence, information in this document may materially change the coding, format and clinical context of patient data. In addition, data may be omitted in some cases. CLINICAL DECISIONS SHOULD BE BASED ON THE PRIMARY CLINICAL RECORDS. [facility] [employer] [facility]. provides no warranty or guarantee of the accuracy or completeness of information in this document.
[2023-04-11] MEDS: Lidocaine 2% (20 ml mdv) 20 ML Vial INFILT (12:15)
[2023-04-11 12:26] VITALS: BP 107/74; PULSE 84; RESP 16; O2SAT 94
[2023-04-11 12:29] VITALS: BP 114/74; PULSE 85; RESP 16; O2SAT 93
[2023-04-11 12:42] VITALS: PULSE 83; RESP 16; O2SAT 93
[2023-04-11 12:47] VITALS: BP 112/68; PULSE 86; RESP 16; O2SAT 93
--- NOTE | 2023-04-11 12:55 | PCM.OP.PRO ---
Procedure Report Date of Procedure: 04/11/23 Assessment & Plan Assessment/Plan (1) Ascites: QUALIFIERS: Ascites type: malignant Qualified Code(s): R18.0 - Malignant ascites PLAN: PROCEDURE: Ultrasound guided paracentesis ORDERING PROVIDER: Dr. Bhardwaj INDICATION: Male, 62 years old. Malignant ascites. PROVIDER: KATTY Vargas TECHNIQUE: The risks, benefits, and alternatives to the procedure were explained to the patient. The specific risks of bleeding, infection, and damage to bowel were detailed and accepted. Witnessed informed consent was obtained. The abdomen was ultrasonographically surveyed. An appropriate pocket of fluid was identified in the right lower quadrant. The skin was prepped with chlorhexidine and sterile field established. 2% lidocaine was used for local anesthetic. Using ultrasound guidance, the peritoneal cavity was accessed with a 5-Paraguayan paracentesis needle/catheter system. The trocar was removed. A total of 5500 ml of clear yellow colored fluid was removed from the peritoneal cavity. The catheter was removed and a sterile dressing was applied. The procedure was well tolerated. IMPRESSION: Successful ultrasound-guided paracentesis with right lower quadrant access site. Procedures Radiology Radiology US Procedures: [id number] Paracentesis
== END | disposition home or self-care (01) ==
PROVIDERS: PCP Family Medicine Geriatric Medicine; Referring Provider Family Medicine Geriatric Medicine; Visit Provider Family Medicine Geriatric Medicine
DX: R18.8 Other ascites (principal)
CPT/HCPCS: 49083